=== PATIENT | female | born 1985 | race Caucasian/White ===

== ENCOUNTER 2018-07-27 15:07 | Emergency (ER) | payer MEDICAID, SELFPAY ==
[2018-07-27 15:20] VITALS: BP 127/66; PULSE 69; RESP 16; TEMP 37; O2SAT 99
--- NOTE | 2018-07-27 15:30 | DI.RAD_ITS ---
SYMPTOMS/DIAGNOSIS: RIGHT MEDIAL ELBOW PAIN RIGHT ELBOW: There is soft tissue swelling and a question of elevation of the anterior fat pad. No fracture is seen. IMPRESSION: Question of small joint effusion. No visible fracture.
[2018-07-27] MEDS: Ketorolac 15 MG/ML VIAL IM (15:38)
--- NOTE | 2018-07-27 15:49 | ED.GENADUL_ITS ---
Discharge Plan Disposition Patient Disposition: HOME Condition: Good Discharge Details Chief Complaint: Orthopedic Clinical Impression: Other sprain of right elbow, sequela Primary Care Provider: Elly Osorio ED Provider: Antoine Finn Home Meds and New Rx's Prescriptions: New acetaminophen [Mapap Extra Strength] 500 MG tablet 1,000 mg PO Q6H 5 Days Qty: 60 RF: 0 ibuprofen [Motrin IB] 200 MG tablet 600 mg PO Q6H 5 Days Qty: 60 RF: 0 No Action multivitamin [Once Daily] 1 EACH tablet 1 ea PO DAILY RF: 0 melatonin 5 MG tablet 20 mg PO HS RF: 0 acetaminophen 500 MG tablet 1,000 mg PO BID PRNQty: 360 RF: 3 diclofenac sodium [Voltaren] 100 GM gel 1 film Topical QID Qty: 2 RF: 3 albuterol sulfate 2.5 MG/0.5 ML solution for nebulization 2.5 mg Inhalation Q4H PRN Qty: 30 RF: 3 nebulizers [Aeroeclipse Reusable BAN] 1 EACH misc 1 ea Miscellaneous Q4H PRN Qty: 1 RF: 0 lidocaine [LC-5] 45 GM cream 1 film Topical 2-4 times daily PRN Qty: 1 RF: 3 albuterol sulfate [ProAir HFA] 8.5 GM HFA aerosol inhaler 1 - 2 puff Inhalation Q4-6H PRN Qty: 1 RF: 3 pregabalin [Lyrica] 150 MG capsule 150 mg PO BID Qty: 56 RF: 2 fluoxetine 40 mg capsule See Label Instructions PO DAILY Qty: 90 RF: 3 fluoxetine 10 mg capsule See Label Instructions PO DAILY Qty: 90 RF: 3 mirtazapine 30 mg tablet 30 mg PO HS Qty: 90 RF: 3 Discharge Instructions Instructions: Elbow Sprain (ED), RICE Therapy (ED) Additional Instructions: Please take Tylenol and Motrin for pain. Please apply ice liberally. If you notice any increased pain, any change in the color of your digits, please take off the splint immediately, and come in for evaluation. Please follow-up with Dr. Osman as soon as possible for reassessment. His phone number is [phone]. If you notice any worsening of your symptoms, or any new symptoms such as vomiting, diarrhea, fever, chills, shortness of breath, chest pain, numbness, weakness, or fainting , please return immediately to the emergency department for reevaluation. Please follow up with your primary care provider as soon as possible for reassessment and reevaluation. As always, it was a pleasure participating in your medical care today. Referrals: Elly Osorio NP [Primary Care Provider] - Medical Decision Making MDM Narrative Medical decision making narrative: This is a pleasant 33-year-old female who presents for evaluation of medial elbow pain on the right. She is right-hand dominant. It happened while wrestling. She feels that it was hyperextended during a wrestling match. There is no dislocation she was able to move it normally after the initial event. She had some associated numbness and tingling previously however this is resolved. The initial distribution was over the entire hand and not just the ulnar nerve distribution. At this time she demonstrates normal strength and normal movement of the right upper extremity however there is pain with movement, particularly worse with supination of the forearm, as well as some with flexion of the forearm as well. She demonstrates good 2 point discrimination, brisk capillary refill, normal radial and ulnar pulses. She demonstrates normal movements of all the intrinsic movements of the fingers and thumb. We will get an x-ray to evaluate for any acute fracture. I feel the most likely cause of her symptoms is secondary to a small muscle or ligamentous tear. Will continue rest ice compression elevation at home, recommend close PCP follow 4:06 PM The patient's x-ray results have returned. I discussed the case with the radiologist, they state that there is no acute fracture noted. However there is evidence of an anterior and posterior fat pad. With the patient's notable tenderness, and the anterior and posterior fat-pad I do feel that the splint for the time being for both comfort, and support is indicated. She has seen Dr. Osman in the past and would like to follow-up with him. Being neurovascularly intact, and showing no signs of acute fracture. We discussed red flags for which to return. A posterior elbow splint has been placed. Patient demonstrated good capillary refill post splinting. Patient tolerated the procedure well. She will be discharged home with close follow-up. I have extensively reviewed the treatment plan and discharge instructions with the patient and their family. I have addressed all patient concerns at this time. The patient and family was made aware of what symptoms to monitor for that would warrant a return to the emergency department. Discussed the plan with the patient and family, they demonstrate verbal understanding and agreement with our assessment and plan at this time. HPI - General Adult General Date/Time Provider Initiated Documentation: 07/27/18 15:30 . HPI Narrative: This is a pleasant 33-year-old female with past medical history of fibromyalgia, and arthritis past surgical history of bilateral ankle surgery who presents today for right elbow pain. The patient was states that she was wrestling yesterday when she felt her elbow be hyperextended. There is no dislocation she was able to move the elbow immediately afterwards. She had initially numbness and tingling that extended down to her fingers after the event, as well as pain in a similar distribution. However at this time the numbness and tingling has resolved but the pain remains. The pain is mainly localized around the medial aspect of the right elbow. It is worsened with movement and palpation. She has taken Tylenol with no significant improvement of her symptoms. She has been using ice. She denies any radiation upper arm. She denies any associated chest pain, shortness of breath, coolness, or other symptoms. The patient is not on any blood thinners. She denies any previous injuries to the elbow. She does admit to tobacco use. She denies any IV or illicit drug use. She denies any pertinent family history. She has no other complaints at this time Related Data Home Medications Medication Instructions Recorded Confirmed multivitamin [Once Daily] 1 ea PO DAILY 11/01/14 07/27/18 melatonin 20 mg PO HS 01/10/16 07/27/18 Previous Rx's Medication Instructions Recorded fluoxetine 10 mg capsule See Label Instructions PO DAILY 07/23/18 #90 tab-cap fluoxetine 40 mg capsule See Label Instructions PO DAILY 07/23/18 #90 tab-cap mirtazapine 30 mg tablet 30 mg PO HS #90 tab-cap 07/23/18 acetaminophen [Mapap Extra 1,000 mg PO Q6H 5 Days #60 tab 07/27/18 Strength] ibuprofen [Motrin Ib] 600 mg PO Q6H 5 Days #60 tab 07/27/18 Allergies Allergy/AdvReac Type Severity Reaction Status Date / Time tramadol HCl [From [facility]] Allergy Mild Skin Rash Unverified 07/27/18 15:21 naltrexone microspheres AdvReac Unknown Unverified 07/27/18 15:21 [From [facility]] General Stated Complaint: Orthopedic CHRISTA: 4 Review of Systems Review of Systems 10 point review of systems was performed, pertinent positives and negatives are noted in the history of present illness. PFSH Family History Mother Rheumatoid arthritis Sister No problems noted. Brother No problems noted. Brother No problems noted. Medical History Alcohol abuse Anxiety Asthma Cervical dysplasia Chronic pain Depression Fibromyalgia Hepatitis C History of opioid abuse PTSD (post-traumatic stress disorder) Suicide attempt Tobacco use disorder Social History Smoking/Tobacco Use Status: Current every day Surgical History Cervical Procedure Club Foot Repair Dilation and curettage repair of the left metacarpal phalangeal joint (12/25/16) Exam Narrative Exam Narrative: 1.Const: Well-nourished, Well-developed, appearing stated age 2.Eyes: PERRL, no conjunctival injection, and symmetrical lids. 3.ENT: Atraumatic external nose and ears. Moist MM. Neck: Symmetric, trachea midline, No thyromegaly. 4.CVS: +S1/S2, No murmurs or gallops. Peripheral pulses 2+ and equal in all extremities. Brisk capillary refill in all extremities. 5.RESP: Unlabored respiratory effort. Clear to auscultation bilaterally. No wheezes rales or rhonchi 6.GI: Soft, Nontender/Nondistended, No hepatosplenomegaly. No guarding or rebound. 7.MSK: Normocephalic, patient demonstrates mild swelling just proximal to the medial epicondyle of the right elbow. Minimal swelling just distal to it as well. Notable reproducible tenderness on palpation of the medial epicondyle of the right elbow. No pain over the olecranon, or the distal ulna or the entire radius. No pain with movement of the shoulder. Good 2 point discrimination distally to the site of pain. Sensation is intact in all fingers hands and forearm in the distribution of the median radial and ulnar nerve. Patient demonstrates 5 out of 5 market investigator strength and muscle strength of the right upper extremity especially distal to the injury site. She demonstrates good flexion extension of the wrist pronation and supination. Pain is worsened with supination, and only slightly worsened with pronation. Minimal pain with flexion and extension at the elbow. No significant joint laxity on valgus and varus stressing of the elbow. Radial pulse and ulnar pulse are +2 bilaterally with brisk capillary refill 8.Skin: Warm, Dry. No rashes or lesions. 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 Sensation grossly intact, no focal neurologic deficits. 10.Psych: (AAO) x3. Appropriate mood and affect Course Vital Signs Temperature 37 C 07/27/18 15:20 Pulse 69 07/27/18 15:20 Respiratory Rate 16 07/27/18 15:20 Blood Pressure 127/66 07/27/18 15:20 Pulse Oximetry 99 07/27/18 15:20 Temperature 37 C 07/27/18 15:20 Pulse 69 07/27/18 15:20 Respiratory Rate 16 07/27/18 15:20 Blood Pressure 127/66 07/27/18 15:20 Pulse Oximetry 99 07/27/18 15:20
[2018-07-27 16:18] VITALS: BP 127/66; PULSE 69; RESP 16; TEMP 37; O2SAT 99
== END 2018-07-27 16:16 | disposition home or self-care (01) ==
LOC: ER 16:23
PROVIDERS: Emergency Provider Student in an Organized Health Care Education/Training Program; PCP Nurse Practitioner Family
DX: S43.401A Unspecified sprain of right shoulder joint, initial encounter (principal); Y93.72 Activity, wrestling; R20.0 Anesthesia of skin; R20.2 Paresthesia of skin
CPT/HCPCS: 29105; 96372; 99284; 73080; 99285; J1885; L3650

== ENCOUNTER 2018-09-06 15:38 | Emergency (ER) | payer MEDICAID, SELFPAY ==
[2018-09-06 15:41] VITALS: BP 133/72; PULSE 78; RESP 1; TEMP 36.4; O2SAT 97
--- NOTE | 2018-09-06 15:58 | ED.GENADUL_ITS ---
Discharge Plan Disposition Patient Disposition: HOME Condition: Good Discharge Details Chief Complaint: Abd Prob Clinical Impression: Acid reflux, Gastritis Primary Care Provider: Elly Osorio ED Provider: Antoine Finn Home Meds and New Rx's Prescriptions: New pantoprazole [Protonix] 40 mg tablet,delayed release (DR/EC) 40 mg PO DAILY Qty: 30 RF: 0 ranitidine HCl 150 mg tablet 150 mg PO DAILY Qty: 30 RF: 0 sucralfate [Carafate] 1 gram tablet 1 gm PO ONCE Qty: 30 RF: 0 ondansetron [Zofran ODT] 4 mg tablet,disintegrating 4 mg PO TID PRN (Reason: nausea and vomiting) 5 Days RF: 0 No Action multivitamin [Once Daily] 1 EACH tablet 1 ea PO DAILY RF: 0 melatonin 5 MG tablet 20 mg PO HS RF: 0 acetaminophen 500 MG tablet 1,000 mg PO BID PRNQty: 360 RF: 3 diclofenac sodium [Voltaren] 100 GM gel 1 film Topical QID Qty: 2 RF: 3 albuterol sulfate 2.5 MG/0.5 ML solution for nebulization 2.5 mg Inhalation Q4H PRN Qty: 30 RF: 3 nebulizers [Aeroeclipse Reusable BAN] 1 EACH misc 1 ea Miscellaneous Q4H PRN Qty: 1 RF: 0 lidocaine [LC-5] 45 GM cream 1 film Topical 2-4 times daily PRN Qty: 1 RF: 3 albuterol sulfate [ProAir HFA] 8.5 GM HFA aerosol inhaler 1 - 2 puff Inhalation Q4-6H PRN Qty: 1 RF: 3 pregabalin [Lyrica] 150 MG capsule 150 mg PO BID Qty: 56 RF: 2 fluoxetine 40 mg capsule See Label Instructions PO DAILY Qty: 90 RF: 3 fluoxetine 10 mg capsule See Label Instructions PO DAILY Qty: 90 RF: 3 mirtazapine 30 mg tablet 30 mg PO HS Qty: 90 RF: 3 Discharge Instructions Instructions: Gastritis (ED) Additional Instructions: Please avoid any spicy foods, citrus-based products, mint based products, caffeine, and stop taking the ibuprofen. Please take medication as directed per if you notice any worsening of your symptoms, or any new symptoms such as vomiting, diarrhea, fever, chills, shortness of breath, chest pain, numbness, weakness, or fainting , please return immediately to the emergency department for reevaluation. Please follow up with your primary care provider as soon as possible for reassessment and reevaluation. As always, it was a pleasure participating in your medical care today. Referrals: Elly Osorio NP [Primary Care Provider] - Medical Decision Making This is a 33-year-old female who presents today for left upper quadrant epigastric pain last few weeks, as well as some vomiting over the last 48 hours. Her symptoms have correlated well with when she started taking high- dose NSAIDs for her right elbow pain. She has no hematemesis, she denies any dark or tarry stools. Symptoms are not improved with Pepto-Bismol. She has been continuing to take maximum dose ibuprofen with the symptoms. Physical exam demonstrates no significant tenderness, no reproducible tenderness on abdominal exam, no pain at McBurney's point, negative Sage sign. With no significant abdominal tenderness, and signs and symptoms that correlate clinically with reflux and potential gastric ulcer, I do feel that imaging is not indicated at this time. She shows no signs of an acute or surgical abdomen. We will start Protonix, GI cocktail, Bentyl, rehydrate and reevaluate. 5:33 PM The patient states that she is feeling much better after her initial medications. She does feel slightly nauseous, however the left upper quadrant pain is notably improved. The patient's laboratory workup has returned and demonstrates no evidence of significant leukocytosis or bandemia. Electrolytes are normal, bilirubin, AST and ALT are benign. Lipase is normal. Urinalysis shows no evidence of urinary tract infection. The patient is on her own period And does demonstrate urinalysis indicative of this. But no evidence of sherley hematemesis or melena, and demonstrating a normal laboratory workup, as well as improvement of her symptoms after GI cocktail in conjunction with a clinical history of ibuprofen use and then worsening left upper quadrant epigastric pain feel that her symptoms are clinically consistent with gastritis versus gastric ulcer. We have encouraged the patient to stop taking her ibuprofen, avoid spicy foods, citrus-based foods, and other potential aggravates. We will start her on a reflux regimen. We discussed reasons for which to return, including pertinent red flags and the patient understands. I have extensively reviewed the treatment plan and discharge instructions with the patient and their family. I have addressed all patient concerns at this time. The patient and family was made aware of what symptoms to monitor for that would warrant a return to the emergency department. Discussed the plan with the patient and family, they demonstrate verbal understanding and agreement with our assessment and plan at this time. HPI General Date/Time Provider Initiated Documentation: 09/06/18 15:43 . HPI Narrative: This is a 33-year-old female with a past medical history of PTSD, hepatitis C, fibromyalgia, depression, who presents today for evaluation of abdominal pain. She was seen here a month ago, at which point she was diagnosed with an ulnar collateral ligament sprain on the right elbow, since then she has been taking daily and notable amounts of ibuprofen and Tylenol. She says over the last few weeks she has noticed an increasing amount of left epigastric mild abdominal ache and pain. She has had nausea, but over the last 2 days she has had vomiting roughly 2-8 times per day. The vomitus is yellow and nonbilious. She denies any coffee grounds or hematemesis. Her symptoms are improved by nothing, including Pepto-Bismol. They do not appear to be worsened by anything. She denies any radiation of the pain to other areas of the abdomen. She denies any continuous regular diarrhea, recent antibiotic use, IV or illicit drugs, or blood thinners. She has not been on any recent steroids. She does not take any reflux medications. She denies any previous abdominal surgeries. She denies any pertinent family history. She has no other complaints at this time. Related Data Home Medications Medication Instructions Recorded Confirmed multivitamin [Once Daily] 1 ea PO DAILY 11/01/14 09/06/18 melatonin 20 mg PO HS 01/10/16 09/06/18 acetaminophen 1,000 mg PO BID PRN #360 tab-cap 08/23/16 09/06/18 diclofenac sodium [Voltaren] 1 film TOPICAL QID #2 tube 08/23/16 09/06/18 albuterol sulfate 2.5 mg INHALATION Q4H PRN #30 vial 03/05/17 09/06/18 lidocaine [Lc-5] 1 film TOPICAL 2-4 times daily PRN 04/04/17 09/06/18 #1 tube nebulizers [Aeroeclipse] #1 unit 04/04/17 08/20/18 albuterol sulfate [Proair Hfa] 1 - 2 puff INHALATION Q4-6H PRN #1 06/17/1809/06 inhaler pregabalin [Lyrica] 150 mg PO BID #56 tab-cap 06/17/18 09/06/18 fluoxetine 10 mg capsule See Label Instructions PO DAILY 07/23/18 09/06/18 #90 tab-cap fluoxetine 40 mg capsule See Label Instructions PO DAILY 07/23/18 09/06/18 #90 tab-cap mirtazapine 30 mg tablet 30 mg PO HS #90 tab-cap 07/23/18 09/06/18 ondansetron [Zofran ODT] 4 mg PO TID PRN 5 Days tab 09/06/18 pantoprazole [Protonix] 40 mg PO DAILY #30 tab 09/06/18 ranitidine HCl 150 mg PO DAILY #30 tab 09/06/18 sucralfate [Carafate] 1 gm PO ONCE #30 tab 09/06/18 Previous Rx's Medication Instructions Recorded albuterol sulfate [Proair Hfa] 1 - 2 puff INHALATION Q4-6H PRN #1 06/17/18 inhaler pregabalin [Lyrica] 150 mg PO BID #56 tab-cap 06/17/18 fluoxetine 10 mg capsule See Label Instructions PO DAILY 07/23/18 #90 tab-cap fluoxetine 40 mg capsule See Label Instructions PO DAILY 07/23/18 #90 tab-cap mirtazapine 30 mg tablet 30 mg PO HS #90 tab-cap 07/23/18 ondansetron [Zofran ODT] 4 mg PO TID PRN 5 Days tab 09/06/18 pantoprazole [Protonix] 40 mg PO DAILY #30 tab 09/06/18 ranitidine HCl 150 mg PO DAILY #30 tab 09/06/18 sucralfate [Carafate] 1 gm PO ONCE #30 tab 09/06/18 Allergies Allergy/AdvReac Type Severity Reaction Status Date / Time tramadol HCl [From [facility]] Allergy Mild Skin Rash Unverified 09/06/18 15:53 naltrexone microspheres AdvReac Unknown Unverified 09/06/18 15:53 [From [facility]] General Stated Complaint: Abd Prob CHRISTA: 3 Review of Systems Review of Systems All systems reviewed & are unremarkable except as noted in HPI and below PFSH Family History Mother Rheumatoid arthritis Sister No problems noted. Brother No problems noted. Brother No problems noted. Medical History Alcohol abuse Anxiety Asthma Cervical dysplasia Chronic pain Depression Fibromyalgia Hepatitis C History of opioid abuse PTSD (post-traumatic stress disorder) Suicide attempt Tobacco use disorder Social History Smoking/Tobacco Use Status: Current every day Surgical History Cervical Procedure Club Foot Repair Dilation and curettage repair of the left metacarpal phalangeal joint (12/25/16) Exam Narrative Exam Narrative: 1.Const: Well-nourished, Well-developed, appearing stated age 2.Eyes: PERRL, no conjunctival injection, and symmetrical lids. 3.ENT: Atraumatic external nose and ears. Dry MM. Neck: Symmetric, trachea midline, No thyromegaly. 4.CVS: +S1/S2, No murmurs or gallops. Peripheral pulses 2+ and equal in all extremities. Brisk capillary refill in all extremities. 5.RESP: Unlabored respiratory effort. Clear to auscultation bilaterally. No wheezes rales or rhonchi 6.GI: Soft, Nontender/Nondistended, No hepatosplenomegaly. No guarding or rebound. No flank tenderness. Negative Sage sign, no pain at McBurney's point. 7.MSK: Normocephalic/Atraumatic, Extremities w/o deformity or ttp No cyanosis or clubbing, Normal movement of all extremities 8.Skin: Warm, Dry. No rashes or lesions. 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 Sensation grossly intact, no focal neurologic deficits. 10.Psych: (AAO) x3. Appropriate mood and affect Course Vital Signs Temperature 36.4 C L 09/06/18 15:41 Pulse 78 09/06/18 15:41 Respiratory Rate 1 L 09/06/18 15:41 Blood Pressure 133/72 09/06/18 15:41 Pulse Oximetry 97 09/06/18 15:41 Temperature 36.4 C L 09/06/18 15:41 Temperature Source Skin 09/06/18 15:41 Pulse 78 09/06/18 15:41 Respiratory Rate 1 L 09/06/18 15:41 Respiratory Effort 10/21/18 15:44 Blood Pressure 133/72 09/06/18 15:41 Pulse Oximetry 97 09/06/18 15:41 Pain Level 7 09/06/18 15:41
[2018-09-06 16:08] LABS: Bilirubin Negative (Negative); Blood Moderate (Negative); Clarity Clear; Glucose Negative (Negative); Ketones Negative (Negative); Leukocyte Esterase Negative (Negative); Nitrite Negative (Negative); Urobilinogen 0.2 EU/dL (Up TO 0.2); pH 6.5 (5-8)
[2018-09-06 16:17] LABS: Bacteria Rare HPF (Negative); C & S Indicated? No; Casts Negative LPF (Negative); Crystals Negative HPF (Negative); Epithelial Cells Few HPF (Negative); Mucus Negative (Negative); Other Cells Negative (Negative); WBC Negative HPF (0-5)
[2018-09-06 16:20] LABS: Abs Immature Grans 0.01 k/cumm (0.0-0.09); Absolute Basophil Count 0.02 k/cumm (0.0-0.2); Absolute Eosinophil Count 0.22 k/cumm (0.0-0.7); Absolute Lymphocyte Count 1.09 k/cumm (1.2-3.4); Absolute Monocyte Count 0.49 k/cumm (0.11-0.7); Absolute Neutrophil Count 7.42 k/cumm (1.2-6.7); Basophils % 0.2; Eosinophils % 2.4; HGB 14.8 g/dL (12.0-15.5); Immature Grans % 0.1; Lymphocytes % 11.8; Mean Corp. HGB Concentration 33.6 g/dL (32.0-36.0); Mean Corpuscular Hemoglobin 30.6 pg (27.0-33.0); Mean Corpuscular Volume 91.1 fL (80-95); Mean Platelet Volume 9.2 fL (8.0-11.0); Monocytes % 5.3; Neutrophils % 80.2; Platelet Count 355 x1000/uL (130-400); RBC 4.83 m/cumm (4.00-5.20); RBC Distribution Width 14.2 % (11.7-14.6); White Blood Cell Count 9.25 k/cumm (4.4-10.8)
[2018-09-06] MEDS: Ondansetron 4 MG/2 ML VIAL IVP ×2 (16:22→17:51)
[2018-09-06] MEDS: Lactated Ringers 1,000 ML 1000 ML IV (16:34)
[2018-09-06] MEDS: Pantoprazole 40 MG VIAL IVP (16:35)
[2018-09-06] MEDS: Sucralfate 1 GM TAB PO (16:37)
[2018-09-06] MEDS: Dicyclomine 10 MG CAP PO (16:37)
[2018-09-06 16:50] LABS: ALT 84 U/L (12-78); AST 38 U/L (15-37); Albumin 3.5 g/dL (3.4-5.0); Alkaline Phosphatase 83 U/L (46-116); Anion Gap 9.6 mmol/L (3-11); BUN 11 mg/dL (7-18); Bilirubin, Total 0.4 mg/dL (0.2-1.0); CO2 25.4 mmol/L (21.0-32.0); CREATININE 0.81 mg/dL (0.55-1.02); Calcium 8.5 mg/dL (8.5-10.1); Chloride 103 mmol/L (98-107); Glucose 93 mg/dL (70-100); Lipase 70 U/L (73-393); Potassium 3.9 mmol/L (3.5-5.1); Sodium 138 mmol/L (136-145); Total Protein 7.6 g/dL (6.4-8.2)
[2018-09-06 17:04] VITALS: BP 104/60; PULSE 65; RESP 16; TEMP 37.1; O2SAT 97
== END 2018-09-06 18:21 | disposition home or self-care (01) ==
PROVIDERS: Emergency Provider Student in an Organized Health Care Education/Training Program; PCP Nurse Practitioner Family
DX: K21.9 Gastro-esophageal reflux disease without esophagitis (principal); K52.9 Noninfective gastroenteritis and colitis, unspecified
CPT/HCPCS: 36415; 80053; 81025; 83690; 96361; 96374; 96375; 96376; 99284; 81003; 81015; 85025; J2405

== ENCOUNTER 2018-11-15 10:31 | Emergency (ER) | payer MEDICAID, SELFPAY ==
[2018-11-15 10:42] VITALS: BP 123/64; PULSE 70; RESP 16; TEMP 36.5; O2SAT 97
--- NOTE | 2018-11-15 11:04 | DI.COMBO_ITS ---
SYMPTOM/DIAGNOSIS: COUGH, SENSATION OF FOREIGN BODY IN THROAT, HOARSENESS PA AND LATERAL CHEST: Comparison is made with 08/12/15. The heart size is normal. The lungs are well inflated and clear. No infiltrate or effusion is seen. IMPRESSION: Negative chest xray. NECK CT: A noncontrast exam was performed. There is circumferential mucosal thickening of the right maxillary sinus. The parotid, submandibular and thyroid glands are unremarkable. No adenopathy or mass is seen. There is no evidence of a fluid collection or abscess. No tonsillar enlargement is seen. The epiglottis appears normal. The lung apices appear clear. There are mildly increased interstitial markings and apical bulla. IMPRESSION: Chronic fibrotic changes. No acute abnormality is seen in the neck.
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
[2018-11-15] MEDS: Albuterol/Ipratropium 3 ML UPD VIAL UPD (11:45)
[2018-11-15] MEDS: predniSONE 20 MG TAB 60 MG PO (11:45)
[2018-11-15 12:32] VITALS: BP 109/68; PULSE 72; TEMP 37; O2SAT 98
--- NOTE | 2018-11-15 12:34 | DI.VRAD_ITS ---
EXAM: XR Chest, 2 Views EXAM DATE/TIME: 11/15/2018 12:09 PM CLINICAL HISTORY: 33 years old, female; Signs and symptoms; Cough; Patient HX: Per PT: Cough few weeks, getting worse; After coughing a lot has been seeing some blood; Additional info: Also per PT: After about 2 weeks, albuterol hasn't been working as well TECHNIQUE: XR of the chest, 2 views. COMPARISON: CR CHEST 2 VIEWS PA,LAT 08/12/2015 6:51 PM FINDINGS: Lungs: Unremarkable. No consolidation. Pleural space: Unremarkable. No pleural effusion. No pneumothorax. Heart/Mediastinum: Unremarkable. No cardiomegaly. Bones/joints: Unremarkable. IMPRESSION: No acute findings. Dictated and Authenticated by: Katie El MD. Ordering:CHARLENE Rahman MD
--- NOTE | 2018-11-15 12:53 | DI.VRAD_ITS ---
EXAM: CT Neck Without Contrast EXAM DATE/TIME: 11/15/2018 11:54 AM CLINICAL HISTORY: 33 years old, female; Signs and symptoms; Other: Feeling of foreign body in throat; Patient HX: Sensation of foreign body in throat, hoarse voice, 5 weeks; Additional info: Smoker TECHNIQUE: Axial computed tomography images of the neck without contrast. Coronal and sagittal reformatted images were created and reviewed. COMPARISON: No relevant prior studies available. FINDINGS: Sinuses: Mucosal thickening right maxillary sinus. Oropharynx: Normal. No significant tonsillar enlargement. Hypopharynx: No radiopaque foreign body identified. Larynx: Normal. Normal epiglottis. Submandibular/Parotid glands: Normal. Glands are normal in size. Thyroid: Normal. No enlarged or calcified nodules. Lymph nodes: Normal. No lymphadenopathy. Lung apices: Normal as visualized. Vasculature: No acute findings. Bones/joints: Normal. No acute fracture. Soft tissues: Normal. No significant soft tissue swelling. IMPRESSION: No radiopaque foreign body identified. Dictated and Authenticated by: Daylin Landin MD. Ordering:CHARLENE Rahman MD
[2018-11-15] MEDS: Azithromycin 250 MG TAB 500 MG PO (13:17)
== END 2018-11-15 13:28 | disposition home or self-care (01) ==
PROVIDERS: Emergency Provider Student in an Organized Health Care Education/Training Program; PCP Nurse Practitioner Family
DX: R49.0 Dysphonia (principal); J44.0 Chronic obstructive pulmonary disease with (acute) lower respiratory infection; J20.9 Acute bronchitis, unspecified; J45.909 Unspecified asthma, uncomplicated; F17.210 Nicotine dependence, cigarettes, uncomplicated
CPT/HCPCS: 94640; 99284; 70490; 71046; 99285; J7512; J7620

== ENCOUNTER 2018-11-23 12:10 | Outpatient (CLI) | payer MEDICAID, SELFPAY ==
--- NOTE | 2018-11-23 12:30 | DI.RAD_ITS ---
SYMPTOMS/DIAGNOSIS: COUGH, R05, ? PNEUMONIA CHEST X-RAY, PA AND LATERAL: Comparison is 11/15/18. The heart is normal in size. The lungs are clear. The mediastinal structures and pleura appear intact. IMPRESSION: Normal chest.
== END 2018-11-23 12:30 ==
PROVIDERS: PCP Nurse Practitioner Family; Visit Provider Nurse Practitioner Family
DX: R05 Cough (principal)
CPT/HCPCS: 71046

== ENCOUNTER 2018-12-10 12:52 | Outpatient (REF) | payer MEDICAID, SELFPAY ==
--- NOTE | 2018-12-10 10:00 | PAPFT_PTH ---
PATIENT: Chloe Manriquez LOC: [facility] U#:[id number] AGE/SX: 33/F ROOM: RE12/10/[address]: Elly Osorio APRN : 1985 BED: DIS: 12/10/2018 SPEC #: [id number] RECD: 12/10/18 13:10 STATUS: LAURA RERamírez #: [id number] SHAZIA: 12/10/18 10:[address]: Elly Osorio DEPT: [facility] Cytology RECD BY: Mague See Tissues: 1 - CX/ENDOCX FOR PAP SMEARS Procedures: PAP THIN PREP/[facility] Screening HPV DNA PROBE Comments: [id number] (CHLAMYDIA/GC)
[2018-12-11 14:23] LABS: Chlamydia Result Negative; GC Result Negative; Specimen Description SEE COMMENTS
== END 2018-12-10 13:12 ==
LOC: LBN 12:52
PROVIDERS: PCP Nurse Practitioner Family; Visit Provider Nurse Practitioner Family
DX: Z11.3 Encounter for screening for infections with a predominantly sexual mode of transmission (principal); Z12.4 Encounter for screening for malignant neoplasm of cervix; Z11.51 Encounter for screening for human papillomavirus (HPV)
CPT/HCPCS: 87491; 87591; 88142; 87624

== ENCOUNTER 2019-01-18 15:32 | Outpatient (CLI) | payer MEDICAID, SELFPAY ==
[2019-01-18 16:00] LABS: HCT 37.8 % (36.0-46.0); HGB 12.8 g/dL (12.0-15.5); Mean Corp. HGB Concentration 33.9 g/dL (32.0-36.0); Mean Corpuscular Hemoglobin 29.2 pg (27.0-33.0); Mean Corpuscular Volume 86.1 fL (80-95); Mean Platelet Volume 9.3 fL (8.0-11.0); Platelet Count 406 x1000/uL (130-400); RBC 4.39 m/cumm (4.00-5.20); RBC Distribution Width 14.4 % (11.7-14.6); White Blood Cell Count 9.18 k/cumm (4.4-10.8)
== END 2019-01-18 15:52 ==
PROVIDERS: PCP Nurse Practitioner Family; Visit Provider Obstetrics & Gynecology Gynecology
DX: O03.9 Complete or unspecified spontaneous abortion without complication (principal); Z01.84 Encounter for antibody response examination
CPT/HCPCS: 36415; 85027; 86850; 86900; 86901; 84702

== ENCOUNTER 2019-01-24 18:05 | Observation (INO) | payer MEDICAID, SELFPAY ==
[2019-01-24] VITALS (36 sets, daily range): BP systolic 105–147; BP diastolic 53–82; PULSE 16–108; RESP 15–22; TEMP 36.7–37; O2SAT 93–98
--- NOTE | 2019-01-24 18:25 | DI.CT_ITS ---
SYMPTOMS/DIAGNOSIS: STRANGLED, PETECHIA ON NECK CT ANGIOGRAPHY OF THE NECK: CT angiography was performed with multi slice acquisition and multi planar and 3D reconstruction. Routine examination was performed. There is some patient motion artifact particularly on the more caudal images. Mild atelectatic changes are seen in the lung apices. Small paraseptal emphysematous changes are seen in the lung apices. The visualized portions of the thoracic aortic arch are unremarkable. The common carotid artery is unremarkable without evidence of dissection, occlusion or significant stenosis. The external carotid arteries are unremarkable without evidence of occlusion or significant stenosis. The internal carotid arteries are unremarkable without evidence of occlusion, dissection or significant stenosis. The vertebral arteries are unremarkable without evidence of dissection, occlusion or significant stenosis. The left vertebral artery appears dominant. The visualized portion of the basilar artery is unremarkable without evidence of occlusion, dissection or significant stenosis. There is moderate mucosal thickening in the right maxillary sinus and mild mucosal thickening in the left maxillary sinus. The remaining visualized paranasal sinuses are clear. The mastoid air cells are well pneumatized. No acute fractures or subluxations are seen in the cervical spine. IMPRESSION: No evidence of acute vascular pathology on the CT Angiography of the neck within the limits of the examination.
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
[2019-01-24] MEDS: Normal Saline 1,000 ML 1000 ML IV (18:35)
[2019-01-24] MEDS: Omnipaque 350 MG/ML 100 ML BTL IJ (18:42)
[2019-01-24] MEDS: Normal Saline Flush 10 ML SYR IVP (18:43)
[2019-01-24 18:47] LABS: Abs Immature Grans 0.01 k/cumm (0.0-0.09); Absolute Basophil Count 0.02 k/cumm (0.0-0.2); Absolute Eosinophil Count 0.32 k/cumm (0.0-0.7); Absolute Lymphocyte Count 2.08 k/cumm (1.2-3.4); Absolute Monocyte Count 0.58 k/cumm (0.11-0.7); Basophils % 0.3; ETHANOL BLOOD < 3.0 mg/dL (<3); Eosinophils % 4.8; HCT 37.1 % (36.0-46.0); HGB 12.7 g/dL (12.0-15.5); Immature Grans % 0.2; Lymphocytes % 31.5; Mean Corp. HGB Concentration 34.2 g/dL (32.0-36.0); Mean Corpuscular Hemoglobin 29.5 pg (27.0-33.0); Mean Corpuscular Volume 86.1 fL (80-95); Mean Platelet Volume 8.9 fL (8.0-11.0); Monocytes % 8.8; Neutrophils % 54.4; Platelet Count 380 x1000/uL (130-400); RBC 4.31 m/cumm (4.00-5.20); RBC Distribution Width 14.5 % (11.7-14.6); White Blood Cell Count 6.61 k/cumm (4.4-10.8)
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
[2019-01-24 18:54] LABS: ALT 46 U/L (12-78); AST 35 U/L (15-37); Albumin 3.4 g/dL (3.4-5.0); Alkaline Phosphatase 73 U/L (46-116); Anion Gap 7.7 mmol/L (3-11); BUN 9 mg/dL (7-18); Bilirubin, Total 0.2 mg/dL (0.2-1.0); CO2 28.3 mmol/L (21.0-32.0); CREATININE 0.74 mg/dL (0.55-1.02); Calcium 9.2 mg/dL (8.5-10.1); Chloride 104 mmol/L (98-107); Glucose 91 mg/dL (70-100); Potassium 3.3 mmol/L (3.5-5.1); Sodium 140 mmol/L (136-145); Total Protein 7.5 g/dL (6.4-8.2)
[2019-01-24 18:59] LABS: *AMPHETAMINES SCREEN URINE Negative (Negative); *BARBITURATES SCREEN URINE Negative (Negative); *BENZODIAZEPINES SCREEN URINE Negative (Negative); Cannabinoids THC POSITIVE (Negative); Cocaine Screen,Urine Negative (Negative); METHADONE URINE SCREEN Negative (Negative); OPIATES URINE SCREEN Negative (Negative)
[2019-01-24 19:13] LABS: Salicylate 3.6 mg/dL (2.8-20.0)
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
[2019-01-24 19:22] LABS: Acetaminophen < 2 ug/mL (10-30); Tricyclic Antidepressants Negative (Negative)
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
[2019-01-24] MEDS: Potassium Chloride 10 MEQ TABCR 20 MEQ PO (22:54)
[2019-01-24] MEDS: Heparin 5,000 UNITS/ML VIAL 5000 UNITS SC (23:32)
[2019-01-24] MEDS: Nicotine 21 MG/24 HR PATCH TD (23:33)
[2019-01-25] VITALS (7 sets, daily range): BP systolic 111–129; BP diastolic 68–83; PULSE 61–90; RESP 17–20; TEMP 36.4–37.2; O2SAT 97–98
[2019-01-25] MEDS: Albuterol 2.5 MG/3 ML INH SOLN VIAL UPD (02:50)
[2019-01-25] MEDS: Heparin 5,000 UNITS/ML VIAL 5000 UNITS SC ×3 (07:00→21:48)
[2019-01-25 07:22] LABS: HCT 38.6 % (36.0-46.0); HGB 12.6 g/dL (12.0-15.5); Mean Corp. HGB Concentration 32.6 g/dL (32.0-36.0); Mean Corpuscular Hemoglobin 28.8 pg (27.0-33.0); Mean Corpuscular Volume 88.1 fL (80-95); Mean Platelet Volume 9.2 fL (8.0-11.0); Platelet Count 374 x1000/uL (130-400); RBC 4.38 m/cumm (4.00-5.20); RBC Distribution Width 14.9 % (11.7-14.6); White Blood Cell Count 6.47 k/cumm (4.4-10.8)
[2019-01-25] MEDS: FLUoxetine 20 MG CAP 60 MG PO (07:39)
[2019-01-25] MEDS: Acetaminophen 500 MG TAB 1000 MG PO (07:39)
[2019-01-25] MEDS: Pantoprazole 40 MG TABCR PO (07:40)
[2019-01-25] MEDS: Multivitamin TAB 1 TAB PO (07:40)
[2019-01-25] MEDS: Pregabalin 50 MG CAP 150 MG PO ×2 (07:40→19:54)
[2019-01-25 08:02] LABS: ALT 39 U/L (12-78); AST 28 U/L (15-37); Albumin 2.7 g/dL (3.4-5.0); Alkaline Phosphatase 65 U/L (46-116); Anion Gap 9.4 mmol/L (3-11); BUN 13 mg/dL (7-18); Bilirubin, Total 0.2 mg/dL (0.2-1.0); CO2 25.6 mmol/L (21.0-32.0); CREATININE 0.82 mg/dL (0.55-1.02); Calcium 8.5 mg/dL (8.5-10.1); Chloride 106 mmol/L (98-107); Glucose 99 mg/dL (70-100); Potassium 3.9 mmol/L (3.5-5.1); Sodium 141 mmol/L (136-145); Total Protein 6.5 g/dL (6.4-8.2)
[2019-01-25 08:33] LABS: FREE T4 0.88 ng/dL (0.76-1.46); Magnesium 1.8 mg/dL (1.8-2.4); TSH (W/Ref FT4) 0.27 uIU/mL (0.358-3.74)
[2019-01-25] MEDS: Nicotine 21 MG/24 HR PATCH TD (08:56)
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
[2019-01-25] MEDS: Normal Saline Flush 10 ML SYR IVP (10:58)
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
[2019-01-26] VITALS (11 sets, daily range): BP systolic 106–154; BP diastolic 62–110; PULSE 56–80; RESP 13–22; TEMP 36.4–37.1; O2SAT 95–100
[2019-01-26] MEDS: Zolpidem 5 MG TAB PO (00:56)
[2019-01-26] MEDS: Albuterol 2.5 MG/3 ML INH SOLN VIAL UPD (01:08)
--- NOTE | 2019-01-26 07:54 | POCSPONT_PTH ---
PATIENT: Chloe Manriquez LOC: U#:[id number] AGE/SX: 33/F ROOM: 206 RE01/24/[address]: Jair Vasquez : 1985 BED: A DIS: 01/26/2019 SPEC #: [id number] RECD: 01/26/19 12:35 STATUS: LAURA ROBLERO #: [id number] SHAZIA: 01/26/19 07:[address]: Omid Vazquez DEPT: Surgical Specimen RECD BY: Mague See ENTERED: 01/26/19 12:37 SP TYPE: WOODY DOMINGO DR: Elly Osorio APRN Tissues: 1 - ,SPONTANEOUS CHROMOSOME ANALYSIS PROFILE Procedures: GROSS AND MICRO LEVEL 4 CHROMOSOME ANALYSIS 15-20 CELLS CHROMOSOME ANALYSIS TISSUE CULTURE Comments: [id number] (CYTOGENETICS - [id number]) (SPECIMEN SUBMITTED IN NORMAL SALINE)
[2019-01-26] MEDS: Midazolam 2 MG/2 ML VIAL IVP (08:25)
[2019-01-26] MEDS: Pregabalin 50 MG CAP 150 MG PO (09:46)
[2019-01-26] MEDS: Acetaminophen 500 MG TAB 1000 MG PO (09:46)
[2019-01-26] MEDS: Pantoprazole 40 MG TABCR PO (09:47)
[2019-01-26] MEDS: Multivitamin TAB 1 TAB PO (09:48)
[2019-01-26] MEDS: FLUoxetine 20 MG CAP 60 MG PO (09:48)
[2019-01-26] MEDS: hydrOXYzine HCL 25 MG TAB PO (10:11)
[2019-01-26] MEDS: Nicotine 21 MG/24 HR PATCH TD (10:11)
--- NOTE | 2019-01-26 13:57 | PDOC.CMDIS ---
- If Service Date Differs Date of service: 01/26/19 Time of Service: 13:57 LACE Index Scoring Tool - Questions: Length of Stay (in days): 2 Acuity (Admit via E.D.?): Yes E.D. Visits: 4 - Answers: Total Score: 9 Risk of Readmission: Low Risk Care Management Discharge Reason for Hospitalization: Demise, Suicidal w/ intentional OD Discharge Plan: Chloe will DC to [facility] today. CHRIS spoke with [facility] whom will transport her at 1445. CHRIS spoke with Sandee Hidalgo, whom states that he will meet with Chloe once she arrives and bring her to the halfway. Chloe is aware of the above plan, and would like to go to the [facility] halfway today. Patient/Family Education Needs: Review DC instructions, any limitations, and discuss 'Ask Me Three' Services Needed at Discharge: Transportation (Taxi)
--- NOTE | 2019-01-26 14:03 | CMDISCH_ITS ---
- If Service Date Differs Date of service: 01/26/19 Time of Service: 13:57 LACE Index Scoring Tool - Questions: Length of Stay (in days): 2 Acuity (Admit via E.D.?): Yes E.D. Visits: 4 - Answers: Total Score: 9 Risk of Readmission: Low Risk Care Management Discharge Reason for Hospitalization: Demise, Suicidal w/ intentional OD Discharge Plan: Chloe will DC to [facility] today. CHRIS spoke with [facility] whom will transport her at 1445. CHRIS spoke with Sandee Hidalgo, whom states that he will meet with Chloe once she arrives and bring her to the senior living. Chloe is aware of the above plan, and would like to go to the [facility] senior living today. Patient/Family Education Needs: Review DC instructions, any limitations, and discuss 'Ask Me Three' Services Needed at Discharge: Transportation (Taxi)
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
[2019-01-26] MEDS: Ibuprofen 600 MG TAB PO (14:20)
--- NOTE | 2019-01-27 08:53 | ROE_ITS ---
REPORT OF OPERATIVE PROCEDURE DATE OF PROCEDURE January 26, 2019 PREOPERATIVE DIAGNOSIS Six weeks missed AB. POSTOPERATIVE DIAGNOSIS Six weeks missed AB. PROCEDURE Suction dilation and curettage. SURGEON Cherry García M.D. ANESTHESIA General. COMPLICATIONS None. ESTIMATED BLOOD LOSS Less than 25 cc FLUIDS Per Anesthesia record. FINDINGS Approximately 6 weeks size uterus. SPECIMENS Products of conception for cytogenetics. PROCEDURE The patient was taken to the Operating Room where she was properly identified. She was then placed on the Operating Table in the dorsal supine position. General anesthesia was induced without difficult y. She was then placed in the dorsal lithotomy position and prepped and draped in normal sterile [facility] ion. A formal time-out procedure was then performed confirming patient and procedure. A bi-valved s peculum was placed. The cervix was visualized, grasped on the anterior lip with a single-tooth tenac ulum, then dilated to #16 Mongolian using Rodríguez dilators. A #7 curved firm curette was then advanced int o the uterine cavity and using suction, the entire uterine cavity was evacuated of its contents. A sh grady curettage was then performed with cryo and the curette was re-advanced into the uterine cavity to remove the remaining blood and tissue. All the equipment was removed. Hemostasis was confirmed. The patient was awakened and taken to the Recovery Room in stable condition. Sponge, lap, needle, and instrument counts were correct x2.
== END 2019-01-26 14:50 | disposition other institution (70) ==
LOC: ER 20:35 → MS 21:54
PROVIDERS: Obstetrics & Gynecology; Admitting Provider Family Medicine; Emergency Provider Student in an Organized Health Care Education/Training Program; PCP Nurse Practitioner Family; Visit Provider Family Medicine
PROC: 10D17ZZ Extraction of Products of Conception, Retained, Via Natural or Artificial Opening (ICD-10-PCS; CPT 59841; principal; 2019-01-26 07:30)
DX: T43.592A Poisoning by other antipsychotics and neuroleptics, intentional self-harm, initial encounter (principal); T43.022A Poisoning by tetracyclic antidepressants, intentional self-harm, initial encounter; O02.1 Missed abortion; F17.210 Nicotine dependence, cigarettes, uncomplicated; F43.10 Post-traumatic stress disorder, unspecified; J45.20 Mild intermittent asthma, uncomplicated; Z91.5 Personal history of self-harm; F41.8 Other specified anxiety disorders
CPT/HCPCS: 59820; 36415; 70498; 80053; 80307; 85027; 88305; 93005; 96360; 96361; 99220; 99233; 99239; 99285; 80320; 80329; 83735; 84439; 84443; 85025; 88233; 88262; 93010; 99217; 99226; G0378; J1644; J2250; J2405; J3010; J3490; J7613

== ENCOUNTER 2019-02-03 10:17 | Observation (INO) | payer MEDICAID, SELFPAY ==
[2019-02-03 10:23] VITALS: BP 142/97; PULSE 90; RESP 18; TEMP 37; O2SAT 98
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
[2019-02-03] MEDS: Lactated Ringers 1,000 ML 1000 ML IV (11:39)
[2019-02-03] MEDS: Ketorolac 15 MG/ML VIAL 10 MG IVP (11:40)
[2019-02-03 11:42] LABS: Bilirubin Small (Negative); Blood Moderate (Negative); Clarity Cloudy; Glucose Negative (Negative); Ketones Trace mg/dL (Negative); Leukocyte Esterase Moderate (Negative); Nitrite Negative (Negative); pH 7.5 (5-8)
[2019-02-03 11:47] LABS: Abs Immature Grans 0.04 k/cumm (0.0-0.09); Absolute Basophil Count 0.02 k/cumm (0.0-0.2); Absolute Eosinophil Count 0.08 k/cumm (0.0-0.7); Absolute Lymphocyte Count 1.14 k/cumm (1.2-3.4); Absolute Monocyte Count 0.61 k/cumm (0.11-0.7); Absolute Neutrophil Count 5.35 k/cumm (1.2-6.7); Basophils % 0.3; Eosinophils % 1.1; HCT 39.6 % (36.0-46.0); HGB 13.4 g/dL (12.0-15.5); Immature Grans % 0.6; Lymphocytes % 15.7; Mean Corp. HGB Concentration 33.8 g/dL (32.0-36.0); Mean Corpuscular Hemoglobin 29.2 pg (27.0-33.0); Mean Corpuscular Volume 86.3 fL (80-95); Monocytes % 8.4; Neutrophils % 73.9; Platelet Count 347 x1000/uL (130-400); RBC 4.59 m/cumm (4.00-5.20); RBC Distribution Width 15.2 % (11.7-14.6); White Blood Cell Count 7.24 k/cumm (4.4-10.8)
[2019-02-03 11:49] LABS: C & S Indicated? No/Sq. Contamination; Epithelial Cells Many HPF (Negative)
[2019-02-03 11:57] LABS: Anion Gap 11.6 mmol/L (3-11); BUN 15 mg/dL (7-18); CO2 24.4 mmol/L (21.0-32.0); Chloride 103 mmol/L (98-107); Glucose 113 mg/dL (70-100); Potassium 3.5 mmol/L (3.5-5.1); Sodium 139 mmol/L (136-145)
[2019-02-03 12:09] LABS: HCG Quant, Pregnancy 184 mIU/mL (1-3)
--- NOTE | 2019-02-03 13:00 | DI.US_ITS ---
SYMPTOMS/DIAGNOSIS: 1 WEEK POST D AND C FOR MISSED , WORSENING PAIN SINCE PROCEDURE PELVIC ULTRASOUND: Transabdominal and transvaginal examination was performed. The uterus measures 9.2 cm long x 4.6 cm AP x 5.3 cm transverse. There is complex fluid seen within the endometrial canal. No abnormal blood flow is seen. Cervical nabothian cysts are present. The right ovary measures 2.2 x 1.2 x 1.3 cm, the left ovary measures 2.1 x 1.6 x 1.6 cm. The ovaries appear grossly unremarkable. No evidence of torsion is seen. No free pelvic fluid or hydronephrosis is present. IMPRESSION: Complex fluid is seen within the endometrial canal. No hypervascularity is seen. This may represent complex blood products; infection or retained products cannot be entirely excluded in this patient. The findings were discussed with Dr. Tafoya on the date of the examination.
[2019-02-03 13:45] VITALS: BP 132/57; PULSE 72; RESP 16; TEMP 37.2
[2019-02-03 14:32] VITALS: RESP 1
[2019-02-03] MEDS: Albuterol 2.5 MG/3 ML INH SOLN VIAL UPD (14:32)
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
[2019-02-03] MEDS: CLINDAMYCIN 900 MG/50 ML BAG 50 MG IVPB (15:04)
[2019-02-03 15:23] VITALS: BP 107/66; PULSE 85; RESP 18; TEMP 37.7; O2SAT 96
[2019-02-03] MEDS: HYDROmorphone 2 MG/ML VIAL 1 MG IVP ×2 (15:40→17:55)
[2019-02-03 15:43] VITALS: BP 122/67; PULSE 80; RESP 24; TEMP 37; O2SAT 98
[2019-02-03] MEDS: Lactated Ringers 1,000 ML 125 ML IV (16:14)
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
[2019-02-03] MEDS: Normal Saline Flush 10 ML SYR IVP ×2 (17:56→20:36)
[2019-02-03] MEDS: Bupivacaine 0.25% Pres-Free 30 ML VIAL (19:20)
--- NOTE | 2019-02-03 19:28 | POCSPONT_PTH ---
PATIENT: Chloe Manriquez LOC: U#:[id number] AGE/SX: 34/F ROOM: 211 RE02/03/[address]: Thea Orozco : 1985 BED: A DIS: 02/04/2019 SPEC #: [id number] RECD: 02/04/19 12:28 STATUS: LAURA ROBLERO #: [id number] SHAZIA: 02/03/19 19:[address]: Thea Orozco DEPT: Surgical Specimen RECD BY: Mague See ENTERED: 02/04/19 12:30 SP TYPE: POCSPALCIDES DOMINGO DR: Elly Osorio, ELÍAS Tissues: 1 - ,SPONTANEOUS Procedures: GROSS AND MICRO LEVEL 4 Comments: [id number]
[2019-02-03] MEDS: Pregabalin 50 MG CAP 150 MG PO (20:34)
[2019-02-03] MEDS: Doxycycline Hyclate 100 MG CAP PO (20:35)
[2019-02-03] MEDS: Ketorolac 30 MG/ML VIAL IVP (20:35)
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
[2019-02-03] MEDS: cefTRIAXone 250 MG VIAL IM (21:05)
[2019-02-03] MEDS: Mirtazapine 15 MG TAB 30 MG PO (21:45)
[2019-02-03] MEDS: Nicotine 21 MG/24 HR PATCH TD ×2 (21:55→22:03)
[2019-02-03] MEDS: Water,Injection,Bacteriostatic 30 ML VIAL (21:56)
[2019-02-03 22:57] VITALS: BP 107/64; PULSE 79; RESP 18; TEMP 36.2; O2SAT 96
[2019-02-04] MEDS: Lactated Ringers 1,000 ML 125 ML IV (02:00)
[2019-02-04] MEDS: Ketorolac 30 MG/ML VIAL IVP ×2 (02:24→07:58)
[2019-02-04 07:20] VITALS: BP 148/90; PULSE 70; RESP 18; TEMP 37.3; O2SAT 98
[2019-02-04 07:30] LABS: Abs Immature Grans 0.02 k/cumm (0.0-0.09); Absolute Eosinophil Count 0.02 k/cumm (0.0-0.7); Absolute Lymphocyte Count 1.35 k/cumm (1.2-3.4); Absolute Monocyte Count 0.54 k/cumm (0.11-0.7); Absolute Neutrophil Count 4.52 k/cumm (1.2-6.7); Eosinophils % 0.3; HCT 37.1 % (36.0-46.0); HGB 12.3 g/dL (12.0-15.5); Immature Grans % 0.3; Lymphocytes % 20.9; Mean Corp. HGB Concentration 33.2 g/dL (32.0-36.0); Mean Corpuscular Hemoglobin 29.3 pg (27.0-33.0); Mean Corpuscular Volume 88.3 fL (80-95); Mean Platelet Volume 9.5 fL (8.0-11.0); Monocytes % 8.4; Neutrophils % 70.1; Platelet Count 294 x1000/uL (130-400); RBC Distribution Width 15.3 % (11.7-14.6); White Blood Cell Count 6.45 k/cumm (4.4-10.8)
[2019-02-04] MEDS: FLUoxetine 20 MG CAP 60 MG PO (07:58)
[2019-02-04] MEDS: Pregabalin 50 MG CAP 150 MG PO (07:58)
[2019-02-04] MEDS: Doxycycline Hyclate 100 MG CAP PO (07:59)
[2019-02-04] MEDS: Pantoprazole 40 MG TABCR PO (07:59)
[2019-02-04] MEDS: Ondansetron O.D.T. 4 MG TABEF PO (08:58)
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
== END 2019-02-04 10:32 | disposition home or self-care (01) ==
LOC: ER 15:28 → MS 15:59
PROVIDERS: Obstetrics & Gynecology; Admitting Provider Obstetrics & Gynecology Gynecology; Emergency Provider Emergency Medicine; PCP Nurse Practitioner Family; Visit Provider Obstetrics & Gynecology Gynecology
PROC: 10D17Z9 Manual Extraction of Products of Conception, Retained, Via Natural or Artificial Opening (ICD-10-PCS; CPT 59812; principal; 2019-02-03 18:45)
DX: O73.1 Retained portions of placenta and membranes, without hemorrhage (principal); O03.5 Genital tract and pelvic infection following complete or unspecified spontaneous abortion; Z98.890 Other specified postprocedural states
CPT/HCPCS: 59812; 36415; 80048; 81025; 87077; 88305; 94640; 96361; 96365; 96367; 96375; 99223; 99231; 99238; 99285; 76830; 76856; 81003; 81015; 84702; 85025; 87070; 87205; G0378; J0696; J1580; J1885; J7613

== ENCOUNTER 2019-04-01 06:19 | Emergency (ER) | payer MEDICAID, SELFPAY ==
[2019-04-01 06:22] VITALS: BP 124/68; PULSE 66; RESP 16; TEMP 36.5; O2SAT 94
[2019-04-01] MEDS: Fluorescein STRIPS 100/BOX 1 MG OP (06:33)
[2019-04-01] MEDS: Tetracaine 0.5% 4 ML BTL OP (06:33)
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
[2019-04-01 07:35] VITALS: BP 124/68; PULSE 66; RESP 16; TEMP 36.5; O2SAT 94
== END 2019-04-01 07:35 | disposition home or self-care (01) ==
PROVIDERS: Emergency Provider Emergency Medicine; PCP Nurse Practitioner Family
DX: H57.11 Ocular pain, right eye (principal)
CPT/HCPCS: 99283

== ENCOUNTER 2019-04-22 12:20 | Emergency (ER) | payer MEDICAID, SELFPAY ==
[2019-04-22 12:22] VITALS: BP 144/73; PULSE 78; RESP 16; TEMP 37.1; O2SAT 97
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
[2019-04-22] MEDS: Ketorolac 30 MG/ML VIAL IM (12:57)
== END 2019-04-22 13:02 | disposition home or self-care (01) ==
PROVIDERS: Emergency Provider Student in an Organized Health Care Education/Training Program; PCP Nurse Practitioner Family
DX: M25.531 Pain in right wrist (principal); G89.29 Other chronic pain; G56.01 Carpal tunnel syndrome, right upper limb
CPT/HCPCS: 29125; 96372; 99284; J1885; L3908

== ENCOUNTER 2019-06-09 19:16 | Emergency (ER) | payer SELFPAY ==
[2019-06-09 19:21] VITALS: BP 121/87; PULSE 85; RESP 18; TEMP 37.6; O2SAT 98
[2019-06-09] MEDS: Normal Saline 1,000 ML 1000 ML IV ×2 (20:10→21:52)
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
[2019-06-09] MEDS: Normal Saline Flush 10 ML SYR IVP (20:18)
[2019-06-09 20:21] LABS: Abs Immature Grans 0.01 k/cumm (0.0-0.09); Absolute Basophil Count 0.04 k/cumm (0.0-0.2); Absolute Eosinophil Count 0.26 k/cumm (0.0-0.7); Absolute Lymphocyte Count 1.83 k/cumm (1.2-3.4); Absolute Monocyte Count 0.73 k/cumm (0.11-0.7); Absolute Neutrophil Count 6.02 k/cumm (1.2-6.7); Basophils % 0.4; Eosinophils % 2.9; HCT 45.3 % (36.0-46.0); HGB 15.3 g/dL (12.0-15.5); Immature Grans % 0.1; Lymphocytes % 20.6; Mean Corp. HGB Concentration 33.8 g/dL (32.0-36.0); Mean Corpuscular Hemoglobin 29.9 pg (27.0-33.0); Mean Corpuscular Volume 88.6 fL (80-95); Monocytes % 8.2; Neutrophils % 67.8; Platelet Count 361 x1000/uL (130-400); RBC 5.11 m/cumm (4.00-5.20); White Blood Cell Count 8.89 k/cumm (4.4-10.8)
[2019-06-09 20:34] LABS: HCG Qual (Serum) Negative
[2019-06-09 20:36] LABS: ALT 68 U/L (12-78); AST 46 U/L (15-37); Albumin 3.8 g/dL (3.4-5.0); Alkaline Phosphatase 82 U/L (46-116); Anion Gap 9.4 mmol/L (3-11); BUN 10 mg/dL (7-18); Bilirubin, Total 0.4 mg/dL (0.2-1.0); CO2 26.6 mmol/L (21.0-32.0); CREATININE 0.85 mg/dL (0.55-1.02); Calcium 9.3 mg/dL (8.5-10.1); Chloride 98 mmol/L (98-107); Glucose 89 mg/dL (70-100); Lipase 42 U/L (73-393); Magnesium 1.9 mg/dL (1.8-2.4); Sodium 134 mmol/L (136-145); Total Protein 8.3 g/dL (6.4-8.2)
--- NOTE | 2019-06-09 20:43 | DI.CT_ITS ---
SYMPTOM/DIAGNOSIS: ABD PAIN, PERIUMBILICAL CT ABDOMEN AND PELVIS: The lung bases are clear. The liver, gallbladder, spleen, pancreas, kidneys and adrenals appear normal. Two cysts area seen on the right ovary. The left ovary and uterus are unremarkable. There is a normal quantity of stool. The appendix projects in the right upper quadrant and appears normal. There is no bowel dilatation or wall thickening. Degenerative disc changes are seen at L5-S1. IMPRESSION: No acute abnormality.
[2019-06-09] MEDS: Omnipaque 350 MG/ML 100 ML BTL IJ (20:58)
[2019-06-09 21:24] LABS: Bilirubin Negative (Negative); Blood Negative (Negative); Clarity Clear (Clear); Glucose Negative (Negative); Ketones Negative (Negative); Leukocyte Esterase Negative (Negative); Nitrite Negative (Negative); Urobilinogen 0.2 EU/dL (Up TO 0.2)
[2019-06-09] MEDS: ACETAMINOPHEN 1,000 MG/100 ML BTL 400 MG IVPB (21:37)
--- NOTE | 2019-06-09 21:43 | DI.VRAD_ITS ---
EXAM: CT Abdomen and Pelvis With Contrast EXAM DATE/TIME: 06/09/2019 8:44 PM CLINICAL HISTORY: 34 years old, female; Abdominal pain; Periumbilical; Additional info: Pain x1 year, increasing in intensity over last 5 days with nausea and vomiting and diarrhea TECHNIQUE: Imaging protocol: Axial computed tomography images of the abdomen and pelvis with intravenous contrast. Coronal and sagittal reformatted images were created and reviewed. Radiation optimization: All CT scans at this facility use at least one of these dose optimization techniques: automated exposure control; mA and/or kV adjustment per patient size (includes targeted exams where dose is matched to clinical indication); or iterative reconstruction. Contrast material: [id number];Contrast volume: 100 ml;Contrast route: IN 20G RT FOREARM; COMPARISON: US PELVIS TRANSVAGINAL 02/03/2019 3:34 PM FINDINGS: Liver: Normal. No mass. Gallbladder and bile ducts: Normal. No calcified stones. No ductal dilation. Pancreas: Normal. No ductal dilation. Spleen: Normal. No splenomegaly. Adrenals: Normal. No mass. Kidneys and ureters: Normal. No hydronephrosis. Stomach and bowel: The stomach is within normal limits. No evidence of bowel obstruction. No wall thickening to suggest enteritis. Mild wall thickening in the rectum without surrounding inflammation likely is related to under distention. No evidence of colitis. Moderate stool burden throughout the colon. Appendix: The appendix is within normal limits without evidence of acute appendicitis, located at the inferior tip of the liver. Intraperitoneal space: See Reproductive Finding. Vasculature: Normal. No abdominal aortic aneurysm. Lymph nodes: Normal. No enlarged lymph nodes. Bladder: Unremarkable as visualized. Reproductive: The uterus is anteverted. There may be a small volume of free fluid in the endometrial canal, but not well evaluated on CT. The ovaries are within normal limits noting a right corpus luteal cyst and simple right cyst measuring 2.9 cm, likely a normal physiological follicle. Bones/joints: Mild bilateral sacroiliitis. Degenerative changes at L5-S1. Chronic appearing limbus deformity of the L4 anterior superior endplate. Soft tissues: Tiny fat containing umbilical hernia. No bowel within the hernia or evidence of inflammation. Other findings: No acute findings in the lower chest. IMPRESSION: No acute findings in the abdomen or pelvis. Nonemergent findings as described above. Dictated and Authenticated by: Anu Reardon MD. Ordering:DESHAWN Cadena MD
--- NOTE | 2019-06-09 22:49 | NUR.NOTE ---
faxed Nursing Note: faxed referal to general surgery 06/09/19
[2019-06-09 22:56] VITALS: BP 118/59; PULSE 64; RESP 16; TEMP 36.9; O2SAT 97
== END 2019-06-09 23:06 | disposition home or self-care (01) ==
PROVIDERS: Emergency Provider Nurse Practitioner Family; PCP Nurse Practitioner Family
DX: R11.2 Nausea with vomiting, unspecified (principal); K21.9 Gastro-esophageal reflux disease without esophagitis
CPT/HCPCS: 36415; 80053; 83690; 96361; 96374; 96375; 99285; 74177; 81003; 83735; 84703; 85025; 99284; J0131; J3490

== ENCOUNTER 2019-06-22 10:04 | Outpatient (REF) | payer MEDICAID, SELFPAY ==
--- NOTE | 2019-06-22 09:30 | PAPFT_PTH ---
PATIENT: Chloe Manriquez LOC: [facility] U#:[id number] AGE/SX: 34/F ROOM: RE06/22/[address]: Lucio Cason MD : [id number] BED: DIS: 06/22/2019 SPEC #: [id number] RECD: 06/22/19 13:16 STATUS: LAURA RERamírez #: [id number] SHAZIA: 06/22/19 09:[address]: Lucio Cason [facility]PT[facility] Cytology RECD BY: Mague See ENTERED: 06/22/19 13:16 SP TYPE: PAPFT OTHR DR: Elly Osorio APRN Tissues: 1 - CX/ENDOCX FOR PAP SMEARS Procedures: PAP THIN PREP/UVM Screening HPV DNA PROBE Comments: [id number]
== END 2019-06-22 10:24 ==
LOC: LBN 10:04
PROVIDERS: PCP Nurse Practitioner Family; Visit Provider Obstetrics & Gynecology
DX: Z12.4 Encounter for screening for malignant neoplasm of cervix (principal); Z11.51 Encounter for screening for human papillomavirus (HPV)
CPT/HCPCS: 88142; 87624

== ENCOUNTER 2019-09-29 14:11 | Emergency (ER) | payer MEDICAID, SELFPAY ==
[2019-09-29] VITALS (24 sets, daily range): BP systolic 111–149; BP diastolic 56–98; PULSE 62–95; RESP 10–25; TEMP 36.3–37.4; O2SAT 95–100
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
[2019-09-29] MEDS: Albuterol/Ipratropium 3 ML UPD VIAL UPD ×2 (14:40→16:26)
[2019-09-29] MEDS: predniSONE 20 MG TAB 60 MG PO (15:16)
--- NOTE | 2019-09-29 16:05 | DI.RAD_ITS ---
EXAM: XR CHEST 2V PA LATERAL INDICATION: SOB, cough. COMPARISON: XR CHEST 2V PA LATERAL from 11/23/2018 TECHNIQUE: 2D digital imaging was performed. FINDINGS: The cardiac and mediastinal contours have a normal appearance. The lungs are well inflated and luis ar. No infiltrate, effusion or pneumothorax is seen. The spine is unremarkable. IMPRESSION: Negative chest x-ray.
--- NOTE | 2019-09-29 16:29 | DI.VRAD_ITS ---
PROCEDURE INFORMATION: Exam: XR Chest, 2 Views Exam date and time: 09/29/2019 4:06 PM Clinical history: 34 years old, female; Other: SOB, cough TECHNIQUE: Imaging protocol: XR of the chest Views: 2 views. COMPARISON: CR XR CHEST 2V PA LATERAL 11/23/2018 12:17 PM FINDINGS: Lungs: Hyperinflation, without acute air space disease. Pleural space: No pleural effusion. Heart/Mediastinum: Normal configuration of the heart. Bones/joints: Unremarkable. When correlating with the previous study, no significant interval changes are present. IMPRESSION: Stable appearance of the chest, not significantly changed from 11/23/2018. Dictated and Authenticated by: Ulices Rucker MD. Ordering:NICOL Ching MD
== END 2019-09-29 17:25 | disposition home or self-care (01) ==
PROVIDERS: Emergency Provider Emergency Medicine; PCP Nurse Practitioner Family
DX: J20.9 Acute bronchitis, unspecified (principal); F17.210 Nicotine dependence, cigarettes, uncomplicated
CPT/HCPCS: 36415; 80053; 87449; 93005; 94640; 96374; 99285; 71046; 83735; 85025; 93010; 99284; J7512; J7620

== ENCOUNTER 2019-12-10 08:30 | Emergency (ER) | payer MEDICAID, SELFPAY ==
[2019-12-10] VITALS (16 sets, daily range): BP systolic 143–178; BP diastolic 83–154; PULSE 82–123; RESP 12–26; TEMP 36.7; O2SAT 97–100
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
[2019-12-10] MEDS: Metoclopramide 10 MG/2 ML VIAL IVP (09:02)
[2019-12-10] MEDS: Lactated Ringers 1,000 ML 1000 ML IV (09:16)
[2019-12-10] MEDS: PHENobarbital 64.8 MG TAB 700 MG PO (09:36)
[2019-12-10] MEDS: Acetaminophen 500 MG TAB (09:37)
[2019-12-10] MEDS: Albuterol 2.5 MG/3 ML INH SOLN VIAL UPD (09:37)
[2019-12-10 10:32] LABS: Bilirubin Small (Negative); Blood Negative (Negative); Clarity Sl Cloudy (Clear); Glucose Negative (Negative); Ketones Trace mg/dL (Negative); Leukocyte Esterase Negative (Negative); Nitrite Negative (Negative); pH 8.5 (5-8)
[2019-12-10 10:41] LABS: C & S Indicated? No/Sq. Contamination; Epithelial Cells Many HPF (Negative); Mucus Moderate (Negative)
== END 2019-12-10 10:57 | disposition home or self-care (01) ==
PROVIDERS: Emergency Provider Emergency Medicine; PCP Nurse Practitioner Family
DX: R11.10 Vomiting, unspecified (principal); F10.239 Alcohol dependence with withdrawal, unspecified
CPT/HCPCS: 81025; 94640; 96361; 96374; 99284; 81003; 81015; 99283; J2765; J7613

== ENCOUNTER 2019-12-17 17:11 | Emergency (ER) | payer MEDICAID, SELFPAY ==
[2019-12-17 17:21] VITALS: BP 126/70; PULSE 86; RESP 12; TEMP 35.9; O2SAT 96
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
--- NOTE | 2019-12-17 17:43 | NUR.NOTE ---
Nursing Note: unable to confirm pt's medications at this time r/t intoxication.
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
--- NOTE | 2019-12-17 20:40 | NUR.NOTE ---
Nursing Note: Pt exited ED after trying to be convinced to stay while awaiting [facility] pickup for ICP. Pt was accompanied by this advertising writer while she walked out of the door, jumped off of the ambulance bay, and walked through the parking lot toward the road. Pt wearing dark clothing- local PD called. Watched pt from [facility] while she walked down [facility]. Provider aware, hospital security aware and present. ABOVE WRITTEN BY Sruthi ACOSTA RN. ERROR IN ENTRY. ALLAN EDWARDS MADE AWARE OF THIS.
== END 2019-12-17 20:45 | disposition home or self-care (01) ==
PROVIDERS: Emergency Provider Physician Assistant; PCP Nurse Practitioner Family
DX: F10.120 Alcohol abuse with intoxication, uncomplicated (principal); Y90.8 Blood alcohol level of 240 mg/100 ml or more; Z59.0 Homelessness
CPT/HCPCS: 99285; 99283

== ENCOUNTER 2020-04-14 17:52 | Emergency (ER) | payer MEDICAID, SELFPAY ==
[2020-04-14 17:35] VITALS: BP 139/85; PULSE 108; RESP 18; TEMP 36.9; O2SAT 98
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
[2020-04-14] MEDS: Acetaminophen 500 MG TAB 1000 MG PO (18:16)
[2020-04-14] MEDS: Ibuprofen 600 MG TAB PO (18:16)
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
[2020-04-14 19:09] VITALS: BP 139/85; PULSE 108; RESP 18; TEMP 36.9; O2SAT 98
== END 2020-04-14 19:10 | disposition home or self-care (01) ==
LOC: ER 19:09
PROVIDERS: Emergency Provider Physician Assistant; PCP Nurse Practitioner Family
DX: S80.00XA Contusion of unspecified knee, initial encounter (principal); Y35.813A Legal intervention involving manhandling, suspect injured, initial encounter
CPT/HCPCS: 29505; 99285; 73564; 99283; L1810

== ENCOUNTER 2020-04-19 01:58 | Inpatient (IN) | payer MEDICAID, SELFPAY ==
[2020-04-19] VITALS (7 sets, daily range): BP systolic 120–158; BP diastolic 73–87; PULSE 67–108; RESP 17–22; TEMP 35.8–36.9; O2SAT 95–98
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
--- NOTE | 2020-04-19 10:24 | NUR.NOTE ---
continuing to check on pt - still resting - adjusting position occassionally Nursing Note:
--- NOTE | 2020-04-19 10:49 | NUR.NOTE ---
pt awake. drinking water. ambulated to bathroom. speaking with pole frame construction worker. Nursing Note:
[2020-04-19] MEDS: Ondansetron O.D.T. 4 MG TABEF PO (11:35)
--- NOTE | 2020-04-19 11:37 | CMSP_ITS ---
- If Service Date Differs Date of service: 04/19/20 Time of Service: 11:37 Care Management Safety Plan Chief Complaint: Chloe is a 35-year-old female who was brought to the ED by police during the community health planning director hours due to being heavily intoxicated with altered mental status, slurred speech and unsteady gait. This morning, Chloe reports having little memory of last evening. She states she was living in sober housing but was kicked out approximately a week ago after going out with her boyfriend and drinking alcohol. She is currently homeless. Chloe admits to feeling depressed and to having suicidal thoughts with a plan to overdose on medications. She states she is tired of living like this, of struggling with substance use and of feeling hopeless and is asking for help. A telehealth evaluation of Chloe was done by Connie [facility] pole frame construction worker, this morning. [facility] a referral for review. [facility], [facility], and [facility] are all full. [facility] is yet to provide their bed status. VOLUNTARY FOR INPATIENT PSYCHIATRIC STABILIZATION. Patient is appropriate in all interactions since arriving at [facility]; Patient has demonstrated appropriate coping and communication skills, has articulated her needs and concerns and is fully engaged during staff interactions. Safety plan has been established with patient, and care team, to adhere to pat ient goals, identify restrictions based on behavioral status, address nutrition, and determine allowed personal belongings, tools for hygiene and personal care. Determine level of activity including ambulation, level of supervision, visitors, and determine privileges based on behaviors and level of engagement by patient. SAFETY PLAN: 1. Will remain on suicide precautions and in paper clothes. 2. Will remain in room under direct supervision of one-on-one staff at all times provided by [facility]; GARRETT, TRAFFIC RATE ANALYST director of dietary. 3. May have paper cups, plates, finger foods as well as a metal spoon with which to eat meals. [facility] staff will be responsible for removing spoon once patient is done eating. 4. Follow [facility] Management of the Admitted Behavioral Health Patient policy. 5. Comfort bath system only while in the ED. Patient will be allowed to shower with supervision at nursing discretion, if moved to Med/Surg. 6. No personal belongings 7. Visitors-No visitors at this time 8. Activities: None while in the ED. If patient is moved to Med/Surg, she will be allowed television, soft tip markers, paper, books, and other activities at nursing discretion. 9. Bathroom privileges: While in the ED, must be accompanied by staff. If patient is moved to Med/Surg, she will be allowed to use the bathroom in her room without supervision. 10. Phone: No phone privileges at this time. 11. Due to VOLUNTARY status, if patient wishes to leave [facility], the [facility] particleboard factory worker must be contacted to re-evaluate patient prior to patient exiting the building. Patient is currently voluntarily at [facility] and seeking inpatient admission when a bed becomes available. [facility] Frontline Applications Consultant will continue seeking placement. Please contact the Group Exercise Class Instructor Nurse Esthetician ([phone]) and [facility] Applications Consultant ([phone]) for any needed changes in the Safety Plan. Safety plan has been provided to interdepartmental care team.
[2020-04-19 12:00] LABS: Abs Immature Grans 0.01 k/cumm (0.0-0.09); Absolute Basophil Count 0.02 k/cumm (0.0-0.2); Absolute Eosinophil Count 0.17 k/cumm (0.0-0.7); Absolute Lymphocyte Count 1.75 k/cumm (1.2-3.4); Absolute Monocyte Count 0.46 k/cumm (0.11-0.7); Absolute Neutrophil Count 4.32 k/cumm (1.2-6.7); Basophils % 0.3; Eosinophils % 2.5; HCT 37.5 % (36.0-46.0); HGB 12.4 g/dL (12.0-15.5); Immature Grans % 0.1 %; Mean Corp. HGB Concentration 33.1 g/dL (32.0-36.0); Mean Corpuscular Hemoglobin 30.8 pg (27.0-33.0); Mean Corpuscular Volume 93.3 fL (80-95); Mean Platelet Volume 8.3 fL (8.0-11.0); Monocytes % 6.8; Neutrophils % 64.3; Platelet Count 346 x1000/uL (130-400); RBC 4.02 m/cumm (4.00-5.20); RBC Distribution Width 14.8 % (11.7-14.6); White Blood Cell Count 6.73 k/cumm (4.4-10.8)
[2020-04-19] MEDS: Acetaminophen 500 MG TAB 1000 MG PO ×2 (12:04→21:04)
--- NOTE | 2020-04-19 12:07 | PDOC.MHCN_ITS ---
Date of service: 04/19/20 Time of Service: 11:07 Mental Health Crisis Note Presenting Issue How did you arrive at the ED and why did you come: Sidra arrived to the ER early this am by LE as she reported her knee hurt and was under the influence of ETOH. ER did not feel she was safe to leave. Precipitating Factors Sidra endorses SI today with plan to o.d. She is seeking a voluntary admission to a hospital today if possible. There are no signs of any delusions or hallucinations. Disposition BEHAVIOR: Sidra is cooperative and engaged in the assessment. She asks questions appropriately and seems to be forthcoming and honest. She appears slightly agitated as she louise her hair frequently when she is frustrated. EYE CONTACT: Sidra's eye contact is fair considering the assessment is via zoom. MOOD: Sidra's mood appears sad, concerned and frustrated with herself if she keeps going like this. AFFECT: Sidra's affect is flat throughout the assessment. APPETITE: Sidra reports her appetite is up and down depending on the day. SLEEP(trouble falling/staying asleep: Sidra reports 5 hours max of sleep nightly. Plan All hospitals were called and none available for admission today. [facility] was the only one who has available beds but needs to have the results of a and COVID-19 before they can accept. Communication with Tram Damian, menagerie caretaker for [facility] throughout the day. All but Urine results were faxed to [facility]. I will have ER clinician tomorrow do follow up assessment and forward any outstanding information to [facility] as necessary. If Urine results get to me before 5pm I will forward them. Sidra will be moved upstairs while she awaits a placement. Signature Clinician's Name/Title: Connie Palm, MS, [facility] Emergency Services Clinician
[2020-04-19 12:10] LABS: ALT 62 U/L (14-59); AST 98 U/L (15-37); Albumin 3.3 g/dL (3.4-5.0); Alkaline Phosphatase 92 U/L (46-116); Anion Gap 11.9 mmol/L (3-11); BUN 13 mg/dL (7-18); Bilirubin, Total 0.5 mg/dL (0.2-1.0); CO2 25.1 mmol/L (21.0-32.0); CREATININE 0.77 mg/dL (0.55-1.02); Chloride 103 mmol/L (98-107); ETHANOL BLOOD 183.8 mg/dL (<3); Glucose 75 mg/dL (74-106); Potassium 3.9 mmol/L (3.5-5.1); Sodium 140 mmol/L (136-145); Total Protein 7.4 g/dL (6.4-8.2)
[2020-04-19 12:24] LABS: Salicylate 3.3 mg/dL (2.8-20.0)
[2020-04-19 12:33] LABS: Acetaminophen < 2 ug/mL (10-30)
[2020-04-19 16:12] LABS: *AMPHETAMINES SCREEN URINE Negative (Negative); *BARBITURATES SCREEN URINE Negative (Negative); *BENZODIAZEPINES SCREEN URINE Negative (Negative); Cannabinoids THC POSITIVE (Negative); Cocaine Screen,Urine Negative (Negative); METHADONE URINE SCREEN POSITIVE (Negative); OPIATES URINE SCREEN Negative (Negative)
[2020-04-19 16:19] LABS: TSH 0.27 uIU/mL (0.36-3.74)
[2020-04-19 16:24] LABS: Tricyclic Antidepressants Negative (Negative)
[2020-04-19] MEDS: Gabapentin 300 MG CAP PO ×2 (17:31→21:04)
[2020-04-19] MEDS: Pantoprazole 40 MG TABCR PO (17:31)
[2020-04-19] MEDS: buPROPion-XL 150 MG TABCR 300 MG PO (17:31)
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
[2020-04-19 19:03] LABS: FREE T4 0.93 ng/dL (0.76-1.46)
[2020-04-19] MEDS: chlordiazePOXIDE 25 MG CAP PO (21:04)
[2020-04-19] MEDS: Melatonin 3 MG TAB 18 MG PO (21:17)
[2020-04-19] MEDS: Mirtazapine 15 MG TAB 30 MG PO (21:17)
[2020-04-19] MEDS: MAGNESIUM SULFATE 8.12 MEQ, MULTIVITAMIN 10 ML, THIAMINE 100 MG, FOLIC ACID 1 MG in Nor... 168.867 MG IV (21:18)
[2020-04-19] MEDS: LORazepam 1 MG TAB PO/SL (21:27)
[2020-04-20] VITALS (8 sets, daily range): BP systolic 129–153; BP diastolic 71–95; PULSE 71–83; RESP 17–18; TEMP 36.5–37.3; O2SAT 90–99
--- NOTE | 2020-04-20 | DI.MRI_ITS ---
EXAM: MR LOWER JOINT LT WO CLINICAL HISTORY: unstable knee, ?LCL rupture, dislocation. TECHNIQUE: Multiplanar multisequence MRI was performed. COMPARISON: No exams were available for comparison FINDINGS: MR of the knee was performed according to the usual protocol. Patient has suspected dislocation of t he knee. There is a large knee joint effusion and there is marked free joint fluid and soft tissue edema and m ultiple soft tissue planes around the knee. Bones: No fracture is identified per se but there appears to be avulsion of the periosteum of the pro ximal fibula at the attachment of the biceps femoris with marked displacement of the torn periosteum and biceps femoris. Lateral compartment: There is a severe posterolateral corner injury with disruption of the popliteus tendon and displacement laterally, arcuate ligament injury, lateral collateral ligament displaced tea r, no definite lateral meniscal tear although the patient would be at very high risk for lateral meni scal tear. Medial compartment: No medial meniscal tear. There is probable grade 2 medial collateral ligament te ar. Cruciate ligaments: Posterior cruciate ligament appears intact. Complete tear of the anterior crucia te ligament which is displaced. Tendons: There appear to be partial thickness musculotendinous tears of both gastrocnemius muscles. No gross displacement. Extensor mechanism:. No tendon tear. No patellar fracture. No patellar dislocation. Superior and inferior fat pads grossly unremarkable. Probable medial retinacular attachment partial tear. Articular cartilage: Minimal surface irregularity of medial femoral condyle. No other significant ar ticular cartilage injury or degeneration. IMPRESSION: Complex dislocation injury of the knee, major components appear to include ACL tear, severe posterola teral corner tear involving multiple structures as described above, medial retinacular and medial col lateral ligament injuries, and probable medial and lateral gastrocnemius tears. DATA REPOSITORY:
--- NOTE | 2020-04-20 | DI.RAD_ITS ---
EXAM: XR KNEE LT 4V AP,LAT,JOHANNA,PAT CLINICAL HISTORY: trauma, effusion, patella pain, sunrise view TECHNIQUE: COMPARISON: CR,XR XR KNEE LT 4V AP,LAT,JOHANNA,PAT from 04/14/2020 FINDINGS: Four views were obtained. No bony or soft tissue abnormality seen. No fracture or effusion seen. IMPRESSION:
[2020-04-20] MEDS: Lactated Ringers 1,000 ML 100 ML IV (03:26)
[2020-04-20] MEDS: Acetaminophen 500 MG TAB 1000 MG PO ×2 (07:32→13:56)
[2020-04-20] MEDS: Gabapentin 300 MG CAP PO ×3 (07:32→19:43)
[2020-04-20] MEDS: chlordiazePOXIDE 25 MG CAP PO ×4 (07:32→19:43)
[2020-04-20] MEDS: Pantoprazole 40 MG TABCR PO (07:43)
[2020-04-20] MEDS: buPROPion-XL 150 MG TABCR 300 MG PO (07:43)
[2020-04-20] MEDS: Normal Saline Flush 10 ML SYR IVP ×3 (07:44→19:44)
[2020-04-20] MEDS: NORETHINDRONE 0.35 MG 0.35 EACH PO (09:46)
[2020-04-20] MEDS: Ketorolac 30 MG/ML VIAL IVP (10:54)
--- NOTE | 2020-04-20 11:59 | INITIAL_ITS ---
- If Service Date Differs Date of service: 04/20/20 Time of Service: 11:59 Care Management Initial Assess REASON FOR HOSPITALIZATION:: Suicidal Ideation, intoxication PAST MEDICAL HISTORY/PAST SURGICAL HISTORY:: Missed with demise before 20 completed weeks of gestation (Resolved 01/2019). Cervical high risk human papillomavirus (HPV) DNA test positive (Acute 01/19/16). Alcohol use disorder (Inactive). GERD (gastroesophageal reflux disease) (Chronic). Tobacco use disorder (Chronic). PTSD (post-traumatic stress disorder) (Chronic 07/17/15). Mild intermittent asthma without complication (Chronic). Lactose intolerance (Chronic 01/24/16). Hyperlipidemia (Chronic 05/10/16). Hepatitis C virus infection without hepatic coma (Chronic). Fibromyalgia (Chronic 10/26/14). Depression (Chronic 10/26/14). Chronic pain (Chronic 10/26/14). Anxiety (Chronic 10/26/14). Opiate abuse, episodic (Inactive 11/16/14). History of Cervical dysplasia (Resolved 11/16/14). Ulnar collateral ligament sprain of right elbow, initial encounter (Resolved). Asthma. Cervical dysplasia. Chronic pain. Cervical Procedure (Resolved). Club Foot Repair (Resolved). Dilation and curettage (Resolved). repair of the left metacarpal phalangeal joint (Resolved 12/25/16) PREVIOUS FUNCTIONAL STATUS/SOCIAL/FAMILY SUPPORTS:: Chloe is indepdent with ADL's she was living at a sober facility in [facility]. She states that she had to leave because she used alcohol however they said she could return if she did two weeks at a rehab. Chloe is homeless at this time. CURRENT FUNCTIONAL STATUS:: Chloe is sitting up in the bed she is tearful at times, she was able to engage with mental health via Zoom. She was accepted at [facility], which she was willing to go to. This however has been canceled as she may need surgery on her left leg due to recent injury. She is able to make good eye contact she states she is not suicidal and does not want to harm herself. She states sometimes she feels overwhelmed and with the recent pain and discomfort of her injury she has struggled. She does feel that she would benefit from a stay at a recovery center for medication adjustments, however again denies wanting to harm herself or others. CM contacted mental health and spoke with jose carlos Mooney and through his assessment and discussion with the provider patient will be cleared from SI and [place] and allowed to be off restrictions per provider. Mental health is willing to reassess if needed at any point and time. ADVANCE DIRECTIVES:: None on file does not want to complete at this time Has patient been provided with information about the portal?: Yes Did the patient sign up for the portal?: Yes CODE STATUS:: Full Code INSURANCE COVERAGE / FINANCIAL ISSUES:: Medicaid CURRENT HOME/COMMUNITY SERVICES/EQUIPMENT:: Chloe was living in a sober house [facility] in [place], [place] which she felt was helping her however she recently was dismissed from there for using alcohol. She was told if she went to [facility] she may be able to return to sober living. She wants to be able to return to the home. PRIMARY CARE PHYSICIAN:: Elly Osorio POTENTIAL DISCHARGE NEEDS:: Potential referral to inpatient substance abuse program depending on disposition. PATIENT/FAMILY EDUCATION NEEDS:: Discharge instruction, limitations and follow up plan of care. ANTICIPATED BARRIERS TO DISCHARGE:: None identified at this time TRANSPORTATION:: Pending disposition PLAN:: Chloe is having an MRI concerns that she may need surgery while inpatient. She denies SI, CM has consulted mental health, jose carlos who also states she is not SI at this time. She may need at some point to go to [facility] for medication adjustment which she is willing to do if the time comes and it is needed. CM reviewed plan with the providers, CPSO will be discontinued and she will be removed from SI. CM will contact mental health if additional assessment is needed. CM will assist patient in signing up for her portal and community resources to assist with housing and return to sober living. CM will continue to assess for discharge needs.
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
--- NOTE | 2020-04-20 12:05 | MHPN_ITS ---
Date of service: 04/20/20 Time of Service: 11:40 Mental Health Crisis Note Presenting Issue How did you arrive at the ED and why did you come: The patient is seen for a follow-up assessment via telehealth for ED admit on 04/19/20. The patient was brought to the ED by police in a highly intoxicated state while endorsing SI. Precipitating Factors The patient is a 35yo female. She reports a significant alcohol / ETOH history and advises that she does not have a complete recollection of events leading up to current ED / ICU admit. She reports drinking for the past week after a 2- month period of sobriety and states that she was kicked out of a sober living home in [place] as a result of recent drinking behavior. The patient presents sitting up on a hospital gown. Grooming is adequate. She is A/Ox4 with immediate and remote memory intact. She reports memory disturbance relating to recent drinking and interaction with local police. Mood is reported as depressed with affect that is congruent. She is cooperative with assessment today and appropriate in all all interactions. No evidence of delusions, hallucinations (A/V/O/S), or psychotic thought process. Insight and judgment appear sound. She presents with intermittent crying and advises that she is having difficulty adjusting to stressors in her life. She reports generalized SI today, no intent identified. She reports that if she were to kill herself the method would be via medication O/D. She goes on to state the following: I don't want to kill myself. I'm just really upset with how my life is right now. I can't do it because I have 2 children. She denies current HI, intent or plan. Disposition BEHAVIOR: Tearful, mild distress, otherwise appropriate in all interactions. EYE CONTACT: Good MOOD: Depressed AFFECT: Congruent to stated mood APPETITE: No reported issues. SLEEP(trouble falling/staying asleep: No reported issues. Plan The patient states that she is looking for detox and MH treatment and has agreed to placement. A referral has been submitted to [facility] and a placement has been secured pending COVID-19 test results (Time confirmed: 11:15a). The patient will remain at [facility] until suitable discharge conditions have been met. Signature Clinician's Name/Title: Ariel Stovall [facility] Clinician
[2020-04-20] MEDS: Ibuprofen 600 MG TAB PO ×2 (12:31→16:05)
[2020-04-20] MEDS: LORazepam 1 MG TAB PO/SL (14:22)
--- NOTE | 2020-04-20 14:33 | W.PM.PROGNOT ---
Date of Service Date of service: 04/20/20 Time of Service: 14:36 Assessment and Plan Assessment and plan (1) Suicidal ideation: Status: Acute Assessment and plan: is awaiting inpatient psychiatric placement, a bed has been secured but we are awaiting covid 19 testing. she denies suicidal ideation at this time. transfer may be delayed d/t knee injury. case management and mental health following (2) Internal derangement of left knee: Status: Acute Assessment and plan: repeat xray unremarkable. orthopedic consult obtained and Dr Jurado evaluation reveals unstable knee injury. MRI pending. continue non weight bearing, ice elevation, compression and pain management. (3) Alcohol abuse: Status: Chronic Assessment and plan: will continue scheduled librium, lorazepam prn add thiamine. case and plan of care discussed with Dr Shepherd who is in agreement Subjective Subjective Patient reports: still having pain, tolerating liquids well, tolerating a regular diet and voiding w/o difficulty Interval history since last seen: c/o left foot numbness and inability to doriflex. Exam Const General: cooperative, no acute distress and well developed Nutritional Appearance: average body habitus Orientation: alert, awake and oriented x3 HENMT Head: normal to inspection, normocephalic and atraumatic Mouth: oral mucosae normal Resp Effort & Inspection: normal respiratory effort Auscultation: clear to auscultation bilaterally Cardio Rate: regular rate Rhythm: regular rhythm GI Inspection: normal to inspection Palpation: soft Auscultation: normal bowel sounds Skin General skin exam: ecchymosis Neuro General: patient alert, patient awake and patient oriented x3 Extrem Left lower extremity: knee Details: tenderness, swelling, abnormal ROM Details: pain with passive ROM, knee ligament exam abnormal Details: valgus stress test Details: pain noted and abrasion (scab, no evidence of infection) Objective Objective Clinical Data: Abnormal lab results 04/19/20 04/19/20 Range/Units 11:50 15:23 TSH 0.27 L (0.36-3.74) uIU/mL Urine Methadone Screen Positive A (Negative) Ur THC Screen Positive A (Negative) Vital Signs Temperature 36.9 C 04/20/20 12:35 Temperature Source Tympanic 04/20/20 12:35 Pulse 80 04/20/20 12:35 Pulse Rhythm Regular 04/20/20 09:56 Pulse Strength Strong 04/19/20 11:29 Respiratory Rate 18 04/20/20 12:35 Respiratory Effort Non-Labored 04/20/20 09:56 Respiratory Depth Normal 04/20/20 09:56 Respiratory Pattern Normal 04/20/20 09:56 Blood Pressure 146/90 H 04/20/20 12:35 Blood Pressure Mean 94 04/19/20 11:29 Blood Pressure Position Supine 04/19/20 11:29 Pulse Oximetry 99 04/20/20 12:35 Oxygen Delivery Method Room Air 04/20/20 12:35 Oxygen Flow Rate 0 04/20/20 12:35 Pain Level 6 04/20/20 13:56 Intake & Output 04/19/20 04/20/20 04/20/20 23:59 11:59 23:59 Intake Total 2244.867 / 2964.867 720 / 2964.867 Output Total 300 / 300 Balance -300 / -300 2244.867 / 2964.867 720 / 2964.867 Intake: IV 1764.867 / 1764.867 Oral 480 / 1200 720 / 1200 Output: Urine 300 / 300 Other: Urine Color Yellow Urine Appearance Clear Clear Voiding Methods Toilet Laboratory Results WBC 6.73 k/cumm (4.4-10.8) 04/19/20 11:50 RBC 4.02 m/cumm (4.00-5.20) 04/19/20 11:50 Hgb 12.4 g/dL (12.0-15.5) 04/19/20 11:50 Hct 37.5 % (36.0-46.0) 04/19/20 11:50 MCV 93.3 fL (80-95) 04/19/20 11:50 MCH 30.8 pg (27.0-33.0) 04/19/20 11:50 MCHC 33.1 g/dL (32.0-36.0) 04/19/20 11:50 RDW 14.8 % (11.7-14.6) H 04/19/20 11:50 Plt Count 346 x1000/uL (130-400) 04/19/20 11:50 MPV 8.3 fL (8.0-11.0) 04/19/20 11:50 Immature Gran % 0.1 % 04/19/20 11:50 Neutrophils % 64.3 04/19/20 11:50 Lymphocytes % 26.0 04/19/20 11:50 Monocytes % 6.8 04/19/20 11:50 Eosinophils % 2.5 04/19/20 11:50 Basophils % 0.3 04/19/20 11:50 Absolute Neutrophils 4.32 k/cumm (1.2-6.7) 04/19/20 11:50 Absolute Lymphocytes 1.75 k/cumm (1.2-3.4) 04/19/20 11:50 Absolute Monocytes 0.46 k/cumm (0.11-0.7) 04/19/20 11:50 Absolute Eosinophils 0.17 k/cumm (0.0-0.7) 04/19/20 11:50 Absolute Basophils 0.02 k/cumm (0.0-0.2) 04/19/20 11:50 Sodium 140 mmol/L (136-145) 04/19/20 11:50 Potassium 3.9 mmol/L (3.5-5.1) 04/19/20 11:50 Chloride 103 mmol/L (98-107) 04/19/20 11:50 Carbon Dioxide 25.1 mmol/L (21.0-32.0) 04/19/20 11:50 Anion Gap 11.9 mmol/L (3-11) H 04/19/20 11:50 BUN 13 mg/dL (7-18) 04/19/20 11:50 Creatinine 0.77 mg/dL (0.55-1.02) 04/19/20 11:50 Estimated GFR/1.73 m2 >= 60.00 (mL/min/1.73m2) 04/19/20 11:50 Glucose 75 mg/dL (74-106) 04/19/20 11:50 Calcium 8.0 mg/dL (8.5-10.1) L 04/19/20 11:50 Total Bilirubin 0.5 mg/dL (0.2-1.0) 04/19/20 11:50 AST 98 U/L (15-37) H 04/19/20 11:50 ALT 62 U/L (14-59) H 04/19/20 11:50 Alkaline Phosphatase 92 U/L (46-116) 04/19/20 11:50 Total Protein 7.4 g/dL (6.4-8.2) 04/19/20 11:50 Albumin 3.3 g/dL (3.4-5.0) L 04/19/20 11:50 TSH 0.27 uIU/mL (0.36-3.74) L 04/19/20 11:50 Free T4 0.93 ng/dL (0.76-1.46) 04/19/20 11:50 Salicylates 3.3 mg/dL (2.8-20.0) 04/19/20 11:50 Urine Opiates Screen Negative (Negative) 04/19/20 15:23 Urine Methadone Screen Positive (Negative) A 04/19/20 15:23 Acetaminophen < 2 ug/mL (10-30) 04/19/20 11:50 Ur Barbiturates Screen Negative (Negative) 04/19/20 15:23 Ur Tricyclics Screen Negative (Negative) 04/19/20 15:23 Ur Amphetamines Screen Negative (Negative) 04/19/20 15:23 U Benzodiazepines Scrn Negative (Negative) 04/19/20 15:23 Urine Cocaine Screen Negative (Negative) 04/19/20 15:23 Ur THC Screen Positive (Negative) A 04/19/20 15:23 Ethyl Alcohol 183.8 mg/dL (<3) 04/19/20 11:50
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
--- NOTE | 2020-04-20 16:37 | PHACLINREV_ITS ---
Pharmacy Admission Review - Admission Clinical Review (Last Reviewed 04/20/20 @ 15:39 by Jese Jurado MD) Left ACL tear (Acute) Avulsion of left hamstring muscle (Acute) Tear of lateral collateral ligament of left knee (Acute) Internal derangement of left knee (Acute) Suicidal ideation (Acute) Alcohol intoxication (Acute) tramadol HCl [From Ultram] Allergy (Mild, Verified 04/19/20 14:46) Skin Rash naltrexone microspheres [From Vivitrol] Adverse Reaction (Severe, Verified 04/19/20 14:46) Height 5 ft 1 in Weight 70.307 kg - Renal Dosing Renal Dosing: BUN 13 mg/dL (7-18) 04/19/20 11:50 Creatinine 0.77 mg/dL (0.55-1.02) 04/19/20 11:50 Medications needing adjustments: Reviewed - Anticoagulation Anticoagulation: Hgb 12.4 g/dL (12.0-15.5) 04/19/20 11:50 Hct 37.5 % (36.0-46.0) 04/19/20 11:50 Plt Count 346 x1000/uL (130-400) 04/19/20 11:50 Creatinine 0.77 mg/dL (0.55-1.02) 04/19/20 11:50 DVT Prohphylaxis: N/A Therapeutic Anticoagulation: N/A - Opiate Usage Evaluate Pain Scale/Pains Meds: Reviewed Scheduled Bowel Reg ordered if on Opiates?: No - Relevant Labs Sodium 140 mmol/L (136-145) 04/19/20 11:50 Potassium 3.9 mmol/L (3.5-5.1) 04/19/20 11:50 Chloride 103 mmol/L (98-107) 04/19/20 11:50 Electrolytes, C-Reactive P, ESR: Reviewed - DM Control DM Control: Glucose 75 mg/dL (74-106) 04/19/20 11:50 Insulin Dosing: Reviewed - Heart Failure/CO EF%, LOGAN's, B-Blockers, Diuretics: N/A - BP Control BP Control: Blood Pressure 146/90 Blood Pressure 152/95 Blood Pressure 138/77 Blood Pressure 129/78 Blood Pressure 135/84 If elevated: Reviewed - Qtc Review If Elevated: N/A - IV to PO Switch IV Medications: Reviewed - Home Meds Home Med List reviewed: Reviewed Relevent Home Meds Not ordered & why?: emily miles'd by md - Comments Comments/Follow Ups: pt is awaiting a bed at [place] pending a COVID test but may be delayed due to knee injury -- was seen by Dr. Jurado today; librium taper, lorazepam, thiamine for etoh withdrawal
[2020-04-20] MEDS: HYDROcodone 5/Acetaminophen 325 TAB PO ×2 (16:47→22:50)
[2020-04-20] MEDS: Nicotine 14 MG/24 HR PATCH TD (18:01)
[2020-04-20] MEDS: Ketorolac 15 MG/ML VIAL IVP (19:43)
[2020-04-20 21:02] LABS: COVID-19 RT-PCR UVMMC Result Negative (Negative)
[2020-04-20] MEDS: Mirtazapine 15 MG TAB 30 MG PO (22:51)
[2020-04-20] MEDS: Melatonin 3 MG TAB 18 MG PO (22:51)
[2020-04-21] MEDS: Ketorolac 15 MG/ML VIAL IVP ×4 (01:31→21:48)
[2020-04-21] MEDS: LORazepam 1 MG TAB PO/SL ×5 (01:35→19:54)
[2020-04-21 01:46] VITALS: BP 118/72; PULSE 69; RESP 18; TEMP 36.8; O2SAT 98
[2020-04-21] MEDS: HYDROcodone 5/Acetaminophen 325 TAB PO (05:12)
[2020-04-21] MEDS: Acetaminophen 325 MG TAB 650 MG PO ×4 (05:12→19:45)
[2020-04-21 07:30] VITALS: BP 118/65; PULSE 78; RESP 18; TEMP 36.5; O2SAT 98
[2020-04-21] MEDS: chlordiazePOXIDE 25 MG CAP PO ×4 (07:52→19:44)
[2020-04-21] MEDS: Normal Saline Flush 10 ML SYR IVP ×2 (07:52→15:33)
[2020-04-21] MEDS: NORETHINDRONE 0.35 MG 0.35 EACH PO (07:52)
[2020-04-21] MEDS: Gabapentin 300 MG CAP PO ×3 (07:52→19:44)
[2020-04-21] MEDS: Thiamine 100 MG TAB PO (07:52)
[2020-04-21] MEDS: Pantoprazole 40 MG TABCR PO (07:52)
[2020-04-21] MEDS: oxyCODONE 10 MG TAB PO ×3 (09:32→19:45)
[2020-04-21] MEDS: Folic Acid 1 MG TAB PO (09:34)
[2020-04-21] MEDS: Multivitamin TAB 1 TAB PO (09:34)
[2020-04-21 10:08] VITALS: PULSE 78; RESP 18; RESP 4; O2SAT 98
[2020-04-21] MEDS: Albuterol/Ipratropium 3 ML UPD VIAL UPD (10:08)
[2020-04-21 10:38] VITALS: PULSE 76; RESP 1; RESP 18; RESP 8; O2SAT 98
--- NOTE | 2020-04-21 10:44 | PGE_ITS ---
Date of Service Date of service: 04/21/20 Time of Service: 10:44 Assessment and Plan Assessment and plan (1) Suicidal ideation: Start date: 04/21/20 Start time: 10:55 Status: Acute Assessment and plan: She denies SI. She was initially going to be placed for depression and SI however given that she has extensive knee injury requiring prompt surgery she will be inpatient while awaiting surgery. I will consult Dr. Alexandre regarding patient SI and depression, though at this time she is not exp ressing any SI/HI. (2) Alcohol abuse: Start date: 04/21/20 Start time: 10:56 Status: Chronic Assessment and plan: Scoring 6-11 at this time on CIWA, will continue scheduled librium, lorazepam prn add thiamine. case and plan of care discussed with Dr Shepherd who is in agreement (3) Internal derangement of left knee: Start date: 04/21/20 Start time: 11:00 Status: Acute Assessment and plan: MRI evaluation revealing Complex dislocation injury of the knee, major components appear to include ACL tear, severe posterolateral corner tear involving multiple structures as described above, medial retinacular and medial collateral ligament injuries, and probable medial and lateral gastrocnemius tears. Due to nature of injury she requires prompt surgery. Dr. Jurado will perform surgery . At this time continue pain management, she was on hydrocodone with little relief, will trial oxycodone with tylenol, toradol, gabapentin. Cryo cuff for relief. Continue estefania wrap with knee immobilizer, (4) Left ACL tear: Start date: 04/21/20 Start time: 11:05 Status: Acute Assessment and plan: Per MRI, see above Qualifiers: Encounter type: initial encounter Qualified Code(s): S83.512A - Sprain of anterior cruciate ligament of left knee, initial encounter (5) Avulsion of left hamstring muscle: Start date: 04/21/20 Start time: 11:05 Status: Acute Assessment and plan: See above Qualifiers: Encounter type: initial encounter Qualified Code(s): S76.392A - Other specified injury of muscle, fascia and tendon of the posterior muscle group at thigh level, left thigh, initial encounter (6) Tear of lateral collateral ligament of left knee: Start date: 04/21/20 Start time: 11:05 Status: Acute Assessment and plan: See above Qualifiers: Encounter type: initial encounter Qualified Code(s): S83.422A - Sprain of lateral collateral ligament of left knee, initial encounter (7) Injury of posterolateral corner of left knee: Start date: 04/21/20 Start time: 11:05 Status: Acute Assessment and plan: See above (8) Common peroneal nerve dysfunction of left lower extremity: Start date: 04/21/20 Start time: 11:05 Status: Acute Assessment and plan: See above (9) Anxiety: Start date: 04/21/20 Start time: 11:05 Status: Chronic Assessment and plan: Per patient started on wellbutrin for anxiety and depression. She was on prozac for years and her PCP was weaning her prozac off and starting on wellbutrin at the same time, causing her to seize as she was on both. Will hold off on wellbutrin at this time due to history of seziures with withdrawal. Last drink less than 48 hour will continue to monitor and resume after withdrawal. (10) Asthma: Start date: 04/21/20 Start time: 11:07 Status: None Assessment and plan: She did have inspiratory and expiratory wheezing. History of asthma. Will schedule IH albuterol and prn duonebs. Above case discussed with Dr. Shepherd who is in agreement. Subjective Subjective Patient reports: still having pain Interval history since last seen: Ms. Manriquez continues to c/o pain. She is icing her knee but feels it is difficult with bag. Cryo cuff ordered to help with icing. She states little pain relief. Will trial oxycodone for pain with tylenol and continue toradol. She is also on gabapentin. At this time she is worried about having her wellbutrin due to depression, I explained to her given her history with seizure withdrawal at this time we are going to hold off, last drink was less than 48 hours ago. I would like to give her at least 96 hours before starting wellbutrin due to history seizure. Currently on scheduled librium and ativan as needed. Scoring between 6 and 11 CIWA. She denies CP, SOB, N/V/D. She is not having any thought of SI or HI at this time her main concern is pain control. She is using the brace at night as well as getting out of the bed. Exam Const General: cooperative, no acute distress and well developed Nutritional Appearance: average body habitus Orientation: alert, awake and oriented x3 HENMT Head: normal to inspection, normocephalic and atraumatic Mouth: oral mucosae normal Resp Effort & Inspection: normal respiratory effort Auscultation: wheezes expiratory wheezes, inspiratory wheezes, left upper and right upper Cardio Rate: regular rate Rhythm: regular rhythm GI Inspection: normal to inspection Palpation: soft Auscultation: normal bowel sounds Skin General skin exam: ecchymosis Neuro General: patient alert, patient awake and patient oriented x3 Extrem General: abnormal ROM and pedal edema present Left lower extremity: knee Details: tenderness, swelling, abnormal ROM Details: pain with passive ROM, knee ligament exam abnormal Details: valgus stress test Details: pain noted and abrasion (scab, no evidence of infection) Objective Objective Clinical Data: Vital Signs Temperature 36.5 C 04/21/20 07:30 Temperature Source Tympanic 04/21/20 07:30 Pulse 78 04/21/20 10:08 Pulse Rhythm Regular 04/21/20 01:36 Pulse Strength Strong 04/19/20 11:29 Respiratory Rate 18 04/21/20 10:08 Respiratory Effort Non-Labored 04/21/20 01:36 Respiratory Depth Normal 04/21/20 01:36 Respiratory Pattern Normal 04/21/20 01:36 Blood Pressure 118/65 04/21/20 07:30 Blood Pressure Mean 94 04/19/20 11:29 Blood Pressure Position Supine 04/19/20 11:29 Pulse Oximetry 98 04/21/20 10:08 Oxygen Delivery Method Room Air 04/21/20 10:08 Oxygen Flow Rate 0 04/21/20 10:08 Pain Level 8 04/21/20 09:33 Intake & Output 04/20/20 04/20/20 04/21/20 11:59 23:59 11:59 Intake Total 2244.867 / 3084.867 840 / 3084.867 Balance 2244.867 / 3084.867 840 / 3084.867 Intake: IV 1764.867 / 1764.867 Oral 480 / 1320 840 / 1320 Other: Urine Color Yellow Urine Appearance Clear Clear Clear Urine Odor None Comment voids in the tiolet without any difficulties as per patient verbalization Voiding Methods Toilet Laboratory Results WBC 6.73 k/cumm (4.4-10.8) 04/19/20 11:50 RBC 4.02 m/cumm (4.00-5.20) 04/19/20 11:50 Hgb 12.4 g/dL (12.0-15.5) 04/19/20 11:50 Hct 37.5 % (36.0-46.0) 04/19/20 11:50 MCV 93.3 fL (80-95) 04/19/20 11:50 MCH 30.8 pg (27.0-33.0) 04/19/20 11:50 MCHC 33.1 g/dL (32.0-36.0) 04/19/20 11:50 RDW 14.8 % (11.7-14.6) H 04/19/20 11:50 Plt Count 346 x1000/uL (130-400) 04/19/20 11:50 MPV 8.3 fL (8.0-11.0) 04/19/20 11:50 Immature Gran % 0.1 % 04/19/20 11:50 Neutrophils % 64.3 04/19/20 11:50 Lymphocytes % 26.0 04/19/20 11:50 Monocytes % 6.8 04/19/20 11:50 Eosinophils % 2.5 04/19/20 11:50 Basophils % 0.3 04/19/20 11:50 Absolute Neutrophils 4.32 k/cumm (1.2-6.7) 04/19/20 11:50 Absolute Lymphocytes 1.75 k/cumm (1.2-3.4) 04/19/20 11:50 Absolute Monocytes 0.46 k/cumm (0.11-0.7) 04/19/20 11:50 Absolute Eosinophils 0.17 k/cumm (0.0-0.7) 04/19/20 11:50 Absolute Basophils 0.02 k/cumm (0.0-0.2) 04/19/20 11:50 Sodium 140 mmol/L (136-145) 04/19/20 11:50 Potassium 3.9 mmol/L (3.5-5.1) 04/19/20 11:50 Chloride 103 mmol/L (98-107) 04/19/20 11:50 Carbon Dioxide 25.1 mmol/L (21.0-32.0) 04/19/20 11:50 Anion Gap 11.9 mmol/L (3-11) H 04/19/20 11:50 BUN 13 mg/dL (7-18) 04/19/20 11:50 Creatinine 0.77 mg/dL (0.55-1.02) 04/19/20 11:50 Estimated GFR/1.73 m2 >= 60.00 (mL/min/1.73m2) 04/19/20 11:50 Glucose 75 mg/dL (74-106) 04/19/20 11:50 Calcium 8.0 mg/dL (8.5-10.1) L 04/19/20 11:50 Total Bilirubin 0.5 mg/dL (0.2-1.0) 04/19/20 11:50 AST 98 U/L (15-37) H 04/19/20 11:50 ALT 62 U/L (14-59) H 04/19/20 11:50 Alkaline Phosphatase 92 U/L (46-116) 04/19/20 11:50 Total Protein 7.4 g/dL (6.4-8.2) 04/19/20 11:50 Albumin 3.3 g/dL (3.4-5.0) L 04/19/20 11:50 TSH 0.27 uIU/mL (0.36-3.74) L 04/19/20 11:50 Free T4 0.93 ng/dL (0.76-1.46) 04/19/20 11:50 Salicylates 3.3 mg/dL (2.8-20.0) 04/19/20 11:50 Urine Opiates Screen Negative (Negative) 04/19/20 15:23 Urine Methadone Screen Positive (Negative) A 04/19/20 15:23 Acetaminophen < 2 ug/mL (10-30) 04/19/20 11:50 Ur Barbiturates Screen Negative (Negative) 04/19/20 15:23 Ur Tricyclics Screen Negative (Negative) 04/19/20 15:23 Ur Amphetamines Screen Negative (Negative) 04/19/20 15:23 U Benzodiazepines Scrn Negative (Negative) 06/03/20 15:23 Urine Cocaine Screen Negative (Negative) 04/19/20 15:23 Ur THC Screen Positive (Negative) A 04/19/20 15:23 Ethyl Alcohol 183.8 mg/dL (<3) 04/19/20 11:50 COVID-19 PCR Negative (Negative) 04/19/20 12:25 Nasopharyn COVID-19 PCR Not Applicable 04/19/20 12:25 Ref Test Perform Site Ab 7500 [facility] lab 04/19/20 12:25
--- NOTE | 2020-04-21 14:18 | CMPROGNOTE_ITS ---
Care Management Progress Note S/O: Chloe was lying in bed when CM met with her, she processed her feelings of helplessness around her knee injury, treatment plan and non-weight bearing status as well as recovery needs. She reviewed her strained family relationships, weeped about being unable to see her significant other and smoke cigarettes outside. CM agreed to discuss options of support with steamboat inspector. CM coordinated huddle with Ortho MD, Hospitalist and CM team to discuss plan of care for Chloe. Dr. Jurado reports Chloe will require extensive surgery which he anticipates completing with Dr. Dominguez on , 04/27/20. He shared concerns around the complexity of this surgery and possible risks as well as Chloe's care prior to surgery as well as post surgically. He recommended minimizing use of narcotics prior to surgery due to anticipated need post- surgically. Huddles with staff to explain plan of care and patient support will be coordin ated. CM discussed outpatient service connection via Zoom/phone and phone including Core Shaper Sides, AA, Psychiatric consult with Dr. Alexandre, placement/housing coordination. Chloe made a goal list for returning to the [facility] in [facility], including attending zoom meetings and substance use support. A: 35 year old female admitted to [facility] for suicidal behavior, alcohol abuse. Chloe was cleared from a mental health standpoint with P: Anticipate Chloe will remain inpatient while being monitored for alcohol withdrawal. Anticipate she will eventually transition to [facility] for pain managemen t and NWB mobilization. She will have surgery next week and be re-assessed post surgically. CM will continue to work on discharge planning and disposition.
[2020-04-21 15:45] VITALS: BP 138/87; PULSE 65; RESP 18; TEMP 36.8; O2SAT 99
--- NOTE | 2020-04-21 20:07 | W.PM.PROGNOT ---
Date of Service Date of service: 04/21/20 Time of Service: 13:07 Assessment and Plan Assessment and plan (1) Injury of posterolateral corner of left knee: Status: Acute Assessment and plan: Chloe is a 35-year-old female who has a multiple ligamentous injury to her left knee. She has complete disruption of the posterior lateral corner of the knee, fibular collateral ligament, hamstrings (biceps femoris), ACL. There is also an apparent injury to the medial retinaculum and part of the MCL, grade 2. She also has a dense, peroneal nerve palsy. I discussed this case with my partner, Dr. Dominguez, as well as other [place] around [place]. Given the avulsion of the biceps and the dense nerve palsy, I would recommend more acute intervention than originally discussed. Unfortunately, due to the disruption of the posterior lateral corner in addition to the lateral collateral ligament, repair, although possible given the distal avulsion, is not likely to be successful. Revision repair rates are much higher and acute repairs with both popliteus and lateral car ligament disrupted. Therefore, the recommendation would be for a reconstruction using allograft tissue. At the time of surgery a large exposure would be used to identify the common peroneal nerve to make sure it is in continuity. If necessary, any epineurial repair would be performed at that time. The popliteus, posterior lateral corner, lateral collateral ligament be reconstructed with allograft tissue and the biceps femoris would be reapproximated to the fibula. This ACL reconstruction will be delayed at this time in a staged fashion. I had a long discussion with Chloe about the surgery and about the technical demands and challenges. I also was very honest with her about the prolonged rehabilitation which would be necessary to have a successful outcome. Even in the best of hands with complete diligence in rehabilitation, the outcomes still are mixed but our goal is to provide her with a stable knee to limit progressive arthritis and also allow function. Given the biceps avulsion and the dense peroneal nerve palsy, this portends a poor prognosis for nerve recovery but this will be followed in a chronic fashion starting at 6 weeks to 3 months with initial nerve conduction studies or EMGs if no nerve function is returning. I was very honest with her that she has to think of herself. It is imperative that she stay sober and maintains good contacts in the community to help out in making this successful. She does have pain and is to be expected given that this is a near dislocation of the knee. However, I was honest with Lito that we need to limit our pain medication before surgery as this will directly impact her ability to control her pain after surgery. Dr. Dominguez and myself will plan to perform the surgery together. We will take care of this on . She will be n.p.o. Friday night. I have discussed the case with anesthesia in lieu of expected pain management difficulties. We will use a mixture of regional anesthetics as well as local to hopefully maintain good pain control. I discussed the risk of the procedure to include bleeding, infection, pain, stiffness, continued numbness, rerupture or re-tear, hardware prominence, hardware failure, worsening arthritis, need for repeat procedures, blood clot, continued instability. Despite these risk, she elects to proceed. She will likely transfer to the orthopedic service as long as she is medically stable after surgery. 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: Status: Acute Qualifiers: Encounter type: subsequent encounter Qualified Code(s): S84.12XD - Injury of peroneal nerve at lower leg level, left leg, subsequent encounter (3) Left ACL tear: Status: Acute Qualifiers: Encounter type: initial encounter Qualified Code(s): S83.512A - Sprain of anterior cruciate ligament of left knee, initial encounter (4) Avulsion of left hamstring muscle: Status: Acute Qualifiers: Encounter type: initial encounter Qualified Code(s): S76.392A - Other specified injury of muscle, fascia and tendon of the posterior muscle group at thigh level, left thigh, initial encounter Subjective Subjective Interval history since last seen: Chleo reports continued pain about the knee. She has been wearing the knee immobilizer except when in bed. She has been able to be independent for transfers within the room. She continues to have little motion of her foot and ankle and decreased sensation. Otherwise, no change in symptoms. Exam Narrative Exam Narrative: Mobilizing in room when I entered. Obviously uncomfotable but managing the walker and leg. Foot is resting in a plantarflexed and inverted position. SLR intact with 10 degree lag. Minimal sensation over SP/DP distribution. Some decreased sensation over the plantar foot but intact. No active extension of the great toe or dorsiflexion of the ankle. Foot WWP. Objective Objective Clinical Data: Vital Signs Temperature 37 C 04/21/20 20:45 Temperature Source Tympanic 04/21/20 20:45 Pulse 74 04/21/20 20:45 Pulse Rhythm Regular 04/21/20 19:56 Pulse Strength Strong 04/19/20 11:29 Respiratory Rate 18 04/21/20 20:45 Respiratory Effort Non-Labored 04/21/20 19:56 Respiratory Depth Normal 04/21/20 19:56 Respiratory Pattern Normal 04/21/20 19:56 Blood Pressure 123/76 04/21/20 20:45 Blood Pressure Mean 94 04/19/20 11:29 Blood Pressure Position Supine 04/19/20 11:29 Pulse Oximetry 98 04/21/20 20:45 Oxygen Delivery Method Room Air 04/21/20 20:45 Oxygen Flow Rate 0 04/21/20 20:45 Pain Level 9 04/22/20 04:15 Intake & Output 04/21/20 04/21/20 04/22/20 11:59 23:59 11:59 Intake Total 490 / 1790 900 / 1790 900 / 900 Balance 490 / 1790 900 / 1790 900 / 900 Intake: IV Oral 480 / 1760 880 / 1760 900 / 900 Other: Urine Color Yellow Urine Appearance Clear Clear Urine Odor None Comment voids in the tiolet without any difficulties as per patient verbalization Voiding Methods Toilet Laboratory Results WBC 6.73 k/cumm (4.4-10.8) 04/19/20 11:50 RBC 4.02 m/cumm (4.00-5.20) 04/19/20 11:50 Hgb 12.4 g/dL (12.0-15.5) 04/19/20 11:50 Hct 37.5 % (36.0-46.0) 04/19/20 11:50 MCV 93.3 fL (80-95) 04/19/20 11:50 MCH 30.8 pg (27.0-33.0) 04/19/20 11:50 MCHC 33.1 g/dL (32.0-36.0) 04/19/20 11:50 RDW 14.8 % (11.7-14.6) H 04/19/20 11:50 Plt Count 346 x1000/uL (130-400) 04/19/20 11:50 MPV 8.3 fL (8.0-11.0) 04/19/20 11:50 Immature Gran % 0.1 % 04/19/20 11:50 Neutrophils % 64.3 04/19/20 11:50 Lymphocytes % 26.0 04/19/20 11:50 Monocytes % 6.8 04/19/20 11:50 Eosinophils % 2.5 04/19/20 11:50 Basophils % 0.3 04/19/20 11:50 Absolute Neutrophils 4.32 k/cumm (1.2-6.7) 04/19/20 11:50 Absolute Lymphocytes 1.75 k/cumm (1.2-3.4) 04/19/20 11:50 Absolute Monocytes 0.46 k/cumm (0.11-0.7) 04/19/20 11:50 Absolute Eosinophils 0.17 k/cumm (0.0-0.7) 04/19/20 11:50 Absolute Basophils 0.02 k/cumm (0.0-0.2) 04/19/20 11:50 Sodium 140 mmol/L (136-145) 04/19/20 11:50 Potassium 3.9 mmol/L (3.5-5.1) 04/19/20 11:50 Chloride 103 mmol/L (98-107) 04/19/20 11:50 Carbon Dioxide 25.1 mmol/L (21.0-32.0) 04/19/20 11:50 Anion Gap 11.9 mmol/L (3-11) H 04/19/20 11:50 BUN 13 mg/dL (7-18) 04/19/20 11:50 Creatinine 0.77 mg/dL (0.55-1.02) 04/19/20 11:50 Estimated GFR/1.73 m2 >= 60.00 (mL/min/1.73m2) 04/19/20 11:50 Glucose 75 mg/dL (74-106) 04/19/20 11:50 Calcium 8.0 mg/dL (8.5-10.1) L 04/19/20 11:50 Total Bilirubin 0.5 mg/dL (0.2-1.0) 04/19/20 11:50 AST 98 U/L (15-37) H 04/19/20 11:50 ALT 62 U/L (14-59) H 04/19/20 11:50 Alkaline Phosphatase 92 U/L (46-116) 04/19/20 11:50 Total Protein 7.4 g/dL (6.4-8.2) 04/19/20 11:50 Albumin 3.3 g/dL (3.4-5.0) L 04/19/20 11:50 TSH 0.27 uIU/mL (0.36-3.74) L 04/19/20 11:50 Free T4 0.93 ng/dL (0.76-1.46) 04/19/20 11:50 Salicylates 3.3 mg/dL (2.8-20.0) 04/19/20 11:50 Urine Opiates Screen Negative (Negative) 04/19/20 15:23 Urine Methadone Screen Positive (Negative) A 04/19/20 15:23 Acetaminophen < 2 ug/mL (10-30) 04/19/20 11:50 Ur Barbiturates Screen Negative (Negative) 04/19/20 15:23 Ur Tricyclics Screen Negative (Negative) 04/19/20 15:23 Ur Amphetamines Screen Negative (Negative) 04/19/20 15:23 U Benzodiazepines Scrn Negative (Negative) 04/19/20 15:23 Urine Cocaine Screen Negative (Negative) 04/19/20 15:23 Ur THC Screen Positive (Negative) A 04/19/20 15:23 Ethyl Alcohol 183.8 mg/dL (<3) 04/19/20 11:50 COVID-19 PCR Negative (Negative) 04/19/20 12:25 Nasopharyn COVID-19 PCR Not Applicable 04/19/20 12:25 Ref Test Perform Site Ab 7500 uvc lab 04/19/20 12:25
[2020-04-21 20:45] VITALS: BP 123/76; PULSE 74; RESP 18; TEMP 37; O2SAT 98
[2020-04-21] MEDS: Melatonin 3 MG TAB 18 MG PO (21:49)
[2020-04-21] MEDS: Mirtazapine 15 MG TAB 30 MG PO (21:49)
--- NOTE | 2020-04-22 | DI.US_ITS ---
EXAM: US LOWER EXTREMITY VENOUS LT CLINICAL HISTORY: r/o DVT TECHNIQUE: Left lower extremity venous ultrasound performed using grayscale, color-flow, and spectra l Doppler analysis. COMPARISON: No exams were available for comparison FINDINGS: The saphenofemoral junction is unremarkable. There is no evidence of a L[place] cyst. The soft tissues are unremarkable. Patient had a bandage over the knee which was unable to be removed and the poplite al vein cannot be evaluated. The left common femoral, femoral and and proximal profundal femoral veins demonstrate normal compress ibility, augmentation, and color Doppler. The posterior tibial veins are patent. The contralateral co mmon femoral vein is patent. IMPRESSION: No evidence of a deep venous thrombus in the visualized deep veins of the left lower extremity. Popliteal vein cannot be directly visualize due to the patient's bandages. DATA REPOSITORY:
[2020-04-22] MEDS: oxyCODONE 10 MG TAB PO ×2 (01:31→07:51)
[2020-04-22] MEDS: Acetaminophen 325 MG TAB 650 MG PO ×2 (01:31→07:52)
[2020-04-22] MEDS: Ketorolac 15 MG/ML VIAL IVP ×3 (04:15→18:27)
[2020-04-22] MEDS: Normal Saline Flush 10 ML SYR IVP ×2 (04:16→18:29)
[2020-04-22 07:45] VITALS: BP 119/80; PULSE 70; RESP 18; TEMP 36.3; O2SAT 98
[2020-04-22] MEDS: Multivitamin TAB 1 TAB PO (07:51)
[2020-04-22] MEDS: NORETHINDRONE 0.35 MG 0.35 EACH PO (07:51)
[2020-04-22] MEDS: Gabapentin 300 MG CAP PO ×2 (07:52→21:11)
[2020-04-22] MEDS: Thiamine 100 MG TAB PO (07:52)
[2020-04-22] MEDS: Folic Acid 1 MG TAB PO (07:52)
[2020-04-22] MEDS: Pantoprazole 40 MG TABCR PO (07:52)
[2020-04-22] MEDS: chlordiazePOXIDE 25 MG CAP PO ×3 (07:52→19:38)
[2020-04-22] MEDS: Nicotine 14 MG/24 HR PATCH TD ×2 (07:53→15:43)
--- NOTE | 2020-04-22 09:41 | CMPROGNOTE_ITS ---
- If Service Date Differs Date of service: 04/22/20 Time of Service: 09:41 Care Management Progress Note S/O: Chloe was found sitting up in bed crying when CM came to see her. She stated that she was in a lot of pain since she had the venous doppler to rule out DVT. Pain management has been challenging since Dr. Jurado prefers that IV narcotics not be used pre-operatively since she is likely to have even greater need for pain medication post-peratively. Chloe also talked about how hard it is not to be able to see her boyfriend and brother. She shared that she is not even able to speak to her boyfriend very often on the phone as he is working 2 jobs. Chloe verbalized that she really feels she needs to be on disability. She is unable to work right now and is likely to require several surgeries and a long period of rehabilitation and convalescence. A referral was made to [facility] to begin exploring options and services for Chloe. On Friday, CM discussed outpatient service connection via Zoom/phone and phone including Crimping Machine Operator, AA, Psychiatric consult with Dr. Alexandre, placement/housing coordination. Chloe made a goal list for returning to the [facility] in [facility], including attending zoom meetings and substance use support. A: 35 year old female admitted to [facility] for suicidal behavior, alcohol abuse. Chloe was cleared from a mental health standpoint. P: Chloe will remain inpatient while awaiting surgery on her leg (scheduled for 04/27/20) and will be monitored for alcohol withdrawal. Anticipate post- operatively she may require a short stay in a SNF for rehab vs transition to [facility] for same. Referrals have been made to community agencies and providers to support Chloe during this time. CM will continue to work on discharge planning and disposition.
--- NOTE | 2020-04-22 10:17 | W.PM.PROGNOT ---
Date of Service Date of service: 04/22/20 Time of Service: 10:18 Assessment and Plan Assessment and plan (1) Suicidal ideation: Start date: 04/22/20 Start time: 10:34 Status: Resolved Assessment and plan: Denies SI/HI at this time. She does state depression and anxiety. Has not seen psychiatry in years. Will consult Dr. Alexandre. (2) Alcohol abuse: Start date: 04/22/20 Start time: 10:35 Status: Chronic Assessment and plan: Scoring 1-3, will continue scheduled librium decrease dose, lorazepam prn, folic acid, thiamine, multivitamin (3) Internal derangement of left knee: Start date: 04/22/20 Start time: 10:38 Status: Acute Assessment and plan: Continues to have severe pain. Will increase oxycodone to 15 mg. Increase Gabapentin MRI evaluation revealing Complex dislocation injury of the knee, major components appear to include ACL tear, severe posterolateral corner tear involving multiple structures as described above, medial retinacular and medial collateral ligament injuries, and probable medial and lateral gastrocnemius tears. Due to nature of injury she requires prompt surgery. Dr. Jurado will perform surgery . At this time continue pain management, she was on hydrocodone with little relief, will trial oxycodone with tylenol, toradol, gabapentin. Cryo cuff for relief. Continue estefania wrap with knee immobilizer, (4) Left ACL tear: Start date: 04/22/20 Start time: 10:39 Status: Acute Assessment and plan: Per MRI, see above Qualifiers: Encounter type: initial encounter Qualified Code(s): S83.512A - Sprain of anterior cruciate ligament of left knee, initial encounter (5) Avulsion of left hamstring muscle: Start date: 04/22/20 Start time: 10:39 Status: Acute Assessment and plan: See above Qualifiers: Encounter type: initial encounter Qualified Code(s): S76.392A - Other specified injury of muscle, fascia and tendon of the posterior muscle group at thigh level, left thigh, initial encounter (6) Tear of lateral collateral ligament of left knee: Start date: 04/22/20 Start time: 10:39 Status: Acute Assessment and plan: See above Qualifiers: Encounter type: initial encounter Qualified Code(s): S83.422A - Sprain of lateral collateral ligament of left knee, initial encounter (7) Injury of posterolateral corner of left knee: Start date: 04/22/20 Start time: 10:39 Status: Acute Assessment and plan: See above Qualifiers: Encounter type: subsequent encounter Qualified Code(s): S89.92XD - Unspecified injury of left lower leg, subsequent encounter (8) Common peroneal nerve dysfunction of left lower extremity: Start date: 04/22/20 Start time: 10:39 Status: Acute Assessment and plan: See above Qualifiers: Encounter type: subsequent encounter Qualified Code(s): S84.12XD - Injury of peroneal nerve at lower leg level, left leg, subsequent encounter (9) Anxiety: Start date: 04/22/20 Start time: 10:39 Status: Chronic Assessment and plan: Will give a dose of wellbutrin today for depression as CIWA 1-3. No signs of sz (10) Asthma: Start date: 04/22/20 Start time: 10:40 Status: None Assessment and plan: Improved no wheezing, continue PRN duonebs, albuterol IH Above case discussed with Dr. Singh who is in agreement. Subjective Subjective Patient reports: still having pain Interval history since last seen: Pain continues to be elevated. Will increase gabapentin to 600 mg TID with 300 mg at HS. Increase oxycodone to 15 mg. Will give a dose of wellbutrin as she is only scoring 1-2 on CIWA and feeling very depressed. She has not seen psychiatry in yrs she states. Will consult psychiatry. Also obtaining U/S to r/o DVT. Will give one dose morphine for pain prior to u/s. She continues to use cryocuff for swelling and pain. She denies CP, SOB, N/V/D. Exam Narrative Exam Narrative: Const: AAOx3, depressed, cooperative. Sitting in bed on the computer Eyes: PERRLA, EOMI Neck: no lymphaedema, goiter or JVD Resp: Clear bilaterally, no wheezing rales, rhonchi Cardio: RRR no murmur GI: BSx 4 no tenderness Skin: bruising to right side of face near cheek and lip Extrem: LLE with edema, in estefania wrap Objective Objective Clinical Data: Vital Signs Temperature 36.3 C L 04/22/20 07:45 Temperature Source Tympanic 04/22/20 07:45 Pulse 70 04/22/20 07:45 Pulse Rhythm Regular 04/22/20 07:58 Pulse Strength Strong 04/19/20 11:29 Respiratory Rate 18 04/22/20 07:45 Respiratory Effort Non-Labored 04/22/20 07:58 Respiratory Depth Normal 04/22/20 07:58 Respiratory Pattern Normal 04/22/20 07:58 Blood Pressure 119/80 04/22/20 07:45 Blood Pressure Mean 94 04/19/20 11:29 Blood Pressure Position Supine 04/19/20 11:29 Pulse Oximetry 98 04/22/20 07:45 Oxygen Delivery Method Room Air 04/22/20 07:45 Oxygen Flow Rate 0 04/22/20 07:45 Pain Level 9 04/22/20 07:52 Intake & Output 04/21/20 04/21/20 04/22/20 11:59 23:59 11:59 Intake Total 490 / 1790 900 / 1790 1350 / 1350 Balance 490 / 1790 900 / 1790 1350 / 1350 Intake: IV Oral 480 / 1760 880 / 1760 1350 / 1350 Other: Urine Color Yellow Urine Appearance Clear Clear Clear Urine Odor None Comment voids in the tiolet without any difficulties as per patient verbalization Voiding Methods Toilet Toilet Laboratory Results WBC 6.73 k/cumm (4.4-10.8) 04/19/20 11:50 RBC 4.02 m/cumm (4.00-5.20) 04/19/20 11:50 Hgb 12.4 g/dL (12.0-15.5) 04/19/20 11:50 Hct 37.5 % (36.0-46.0) 04/19/20 11:50 MCV 93.3 fL (80-95) 04/19/20 11:50 MCH 30.8 pg (27.0-33.0) 04/19/20 11:50 MCHC 33.1 g/dL (32.0-36.0) 04/19/20 11:50 RDW 14.8 % (11.7-14.6) H 04/19/20 11:50 Plt Count 346 x1000/uL (130-400) 04/19/20 11:50 MPV 8.3 fL (8.0-11.0) 04/19/20 11:50 Immature Gran % 0.1 % 04/19/20 11:50 Neutrophils % 64.3 04/19/20 11:50 Lymphocytes % 26.0 04/19/20 11:50 Monocytes % 6.8 04/19/20 11:50 Eosinophils % 2.5 04/19/20 11:50 Basophils % 0.3 04/19/20 11:50 Absolute Neutrophils 4.32 k/cumm (1.2-6.7) 04/19/20 11:50 Absolute Lymphocytes 1.75 k/cumm (1.2-3.4) 04/19/20 11:50 Absolute Monocytes 0.46 k/cumm (0.11-0.7) 04/19/20 11:50 Absolute Eosinophils 0.17 k/cumm (0.0-0.7) 04/19/20 11:50 Absolute Basophils 0.02 k/cumm (0.0-0.2) 04/19/20 11:50 Sodium 140 mmol/L (136-145) 04/19/20 11:50 Potassium 3.9 mmol/L (3.5-5.1) 04/19/20 11:50 Chloride 103 mmol/L (98-107) 04/19/20 11:50 Carbon Dioxide 25.1 mmol/L (21.0-32.0) 04/19/20 11:50 Anion Gap 11.9 mmol/L (3-11) H 04/19/20 11:50 BUN 13 mg/dL (7-18) 04/19/20 11:50 Creatinine 0.77 mg/dL (0.55-1.02) 04/19/20 11:50 Estimated GFR/1.73 m2 >= 60.00 (mL/min/1.73m2) 04/19/20 11:50 Glucose 75 mg/dL (74-106) 04/19/20 11:50 Calcium 8.0 mg/dL (8.5-10.1) L 04/19/20 11:50 Total Bilirubin 0.5 mg/dL (0.2-1.0) 04/19/20 11:50 AST 98 U/L (15-37) H 04/19/20 11:50 ALT 62 U/L (14-59) H 04/19/20 11:50 Alkaline Phosphatase 92 U/L (46-116) 04/19/20 11:50 Total Protein 7.4 g/dL (6.4-8.2) 04/19/20 11:50 Albumin 3.3 g/dL (3.4-5.0) L 04/19/20 11:50 TSH 0.27 uIU/mL (0.36-3.74) L 04/19/20 11:50 Free T4 0.93 ng/dL (0.76-1.46) 04/19/20 11:50 Salicylates 3.3 mg/dL (2.8-20.0) 04/19/20 11:50 Urine Opiates Screen Negative (Negative) 04/19/20 15:23 Urine Methadone Screen Positive (Negative) A 04/19/20 15:23 Acetaminophen < 2 ug/mL (10-30) 04/19/20 11:50 Ur Barbiturates Screen Negative (Negative) 04/19/20 15:23 Ur Tricyclics Screen Negative (Negative) 04/19/20 15:23 Ur Amphetamines Screen Negative (Negative) 04/19/20 15:23 U Benzodiazepines Scrn Negative (Negative) 04/19/20 15:23 Urine Cocaine Screen Negative (Negative) 04/19/20 15:23 Ur THC Screen Positive (Negative) A 04/19/20 15:23 Ethyl Alcohol 183.8 mg/dL (<3) 04/19/20 11:50 COVID-19 PCR Negative (Negative) 04/19/20 12:25 Nasopharyn COVID-19 PCR Not Applicable 04/19/20 12:25 Ref Test Perform Site Ab 7500 uvc lab 04/19/20 12:25
[2020-04-22] MEDS: buPROPion-XL 150 MG TABCR PO (10:50)
[2020-04-22] MEDS: MORPHine 2 MG/ML SYR IVP (10:57)
--- NOTE | 2020-04-22 11:59 | DI.VRAD_ITS ---
PROCEDURE INFORMATION: Exam: US Duplex Left Lower Extremity Veins, Limited Exam date and time: 04/22/2020 9:18 AM Age: 35 years old Clinical indication: Pain; Swelling (edema) of limb; Lower extremity, left; Leg, lower; Patient HX: Trauma to left knee - instability. Foot swelling; Additional info: Unable to evaluated popliteal vein. TECHNIQUE: Imaging protocol: Real-time Duplex ultrasound of the Left Lower Extremity with 2-D van scale, color Doppler flow and spectral waveform analysis with image documentation. Limited exam focused on the left lower extremity veins. COMPARISON: No relevant prior studies available. FINDINGS: Left deep veins: Unremarkable. The common femoral, femoral, and proximal profunda femoral veins are patent without thrombus. Normal Doppler waveforms. Normal compressibility and/or augmentation response. Left superficial veins: Unremarkable. Saphenofemoral junction is patent without thrombus. Soft tissues: Unremarkable. IMPRESSION: No evidence of deep vein thrombosis of the visualized deep veins (see comment below). Please note the snack bar cashier reports that the patient has a bandage over the knee which was unable to be removed (according to Vivien Villanueva NP) and the popliteal vein could not be evaluated. Dictated and Authenticated by: Foster Pearson MD. Ordering:EMILIANO Puga MD
[2020-04-22] MEDS: oxyCODONE 5 MG TAB 15 MG PO ×3 (12:21→22:22)
[2020-04-22] MEDS: Gabapentin 300 MG CAP 600 MG PO ×2 (12:21→17:15)
[2020-04-22 15:20] VITALS: BP 133/87; PULSE 69; RESP 18; TEMP 36.4; O2SAT 99
[2020-04-22 19:47] VITALS: BP 124/81; PULSE 85; RESP 18; TEMP 37.1; O2SAT 98
[2020-04-22] MEDS: Mirtazapine 15 MG TAB 30 MG PO (21:11)
[2020-04-22] MEDS: Melatonin 3 MG TAB 18 MG PO (21:11)
[2020-04-23] MEDS: Normal Saline Flush 10 ML SYR IVP (00:51)
[2020-04-23] MEDS: Ketorolac 15 MG/ML VIAL IVP ×2 (00:51→09:07)
[2020-04-23] MEDS: Acetaminophen 325 MG TAB 650 MG PO ×2 (00:51→06:09)
[2020-04-23] MEDS: oxyCODONE 5 MG TAB 15 MG PO (03:53)
[2020-04-23 03:55] VITALS: BP 113/75; PULSE 83; RESP 17; TEMP 36.4; O2SAT 96
[2020-04-23] MEDS: Gabapentin 300 MG CAP 600 MG PO ×3 (06:09→17:21)
[2020-04-23 07:39] VITALS: BP 142/85; PULSE 76; RESP 17; TEMP 36.5; O2SAT 98
[2020-04-23] MEDS: Pantoprazole 40 MG TABCR PO (08:51)
[2020-04-23] MEDS: Multivitamin TAB 1 TAB PO (08:51)
[2020-04-23] MEDS: Thiamine 100 MG TAB PO (08:51)
[2020-04-23] MEDS: chlordiazePOXIDE 25 MG CAP PO (08:51)
[2020-04-23] MEDS: Folic Acid 1 MG TAB PO (08:51)
[2020-04-23] MEDS: NORETHINDRONE 0.35 MG 0.35 EACH PO (08:52)
[2020-04-23] MEDS: Nicotine 14 MG/24 HR PATCH TD (08:59)
[2020-04-23 09:00] VITALS: O2SAT 98
[2020-04-23] MEDS: buPROPion-XL 150 MG TABCR PO (09:07)
--- NOTE | 2020-04-23 09:07 | CMPROGNOTE_ITS ---
- If Service Date Differs Date of service: 04/23/20 Time of Service: 09:07 Care Management Progress Note S/O: Chloe was found lying in bed when CM came to see her. She stated that she was in a lot of pain and that she was not having a very good day. She shared that the provider is going to make some adjustments to her pain management regimen in hopes of improving her pain control. The referral to [facility] for assistance with social security disability filing was not able to be successfully faxed yesterday.(On Friday the [facility] staff noted that they were having difficulties with their fax machine.) A phone message was left by CM today and will be followed up tomorrow with a written referral or another call. A: 35 year old female admitted to [facility] for suicidal behavior, alcohol abuse. Chloe was cleared from a mental health standpoint. P: Chloe will remain inpatient while awaiting surgery on her leg (scheduled for 04/27/20) and will be monitored for alcohol withdrawal. Anticipate post- operatively she may require a short stay in a SNF for rehab vs transition to [facility] for same. Referrals have been made to community agencies and providers to support Chloe during this time. CM will continue to work on discharge planning and disposition.
--- NOTE | 2020-04-23 10:42 | W.PM.PROGNOT ---
Date of Service Date of service: 04/23/20 Time of Service: 10:42 Assessment and Plan Assessment and plan (1) Alcohol abuse: Start date: 04/23/20 Start time: 10:48 Status: Chronic Assessment and plan: CIWA scoring 1, will continue scheduled librium decrease dose, lorazepam prn, folic acid, thiamine, multivitamin Day 4 of withdrawal. Not scoring. Will add telemetry to monitor for seizure activity (2) Internal derangement of left knee: Start date: 04/23/20 Start time: 10:49 Status: Acute Assessment and plan: Continues to have severe pain.Increased Gabapentin, oxycodone 10 mg po q 3 H, increase toradol to 30 mg. MRI evaluation revealing Complex dislocation injury of the knee, major components appear to include ACL tear, severe posterolateral corner tear involving multiple structures as described above, medial retinacular and medial collateral ligament injuries, and probable medial and lateral gastrocnemius tears. Due to nature of injury she requires prompt surgery. Dr. Jurado will perform surgery . At this time continue pain management, Cryo cuff for relief. Continue estefania wrap with knee immobilizer, (3) Left ACL tear: Start date: 04/23/20 Start time: 10:50 Status: Acute Assessment and plan: Per MRI, see above Qualifiers: Encounter type: initial encounter Qualified Code(s): S83.512A - Sprain of anterior cruciate ligament of left knee, initial encounter (4) Avulsion of left hamstring muscle: Start date: 04/23/20 Start time: 10:50 Status: Acute Assessment and plan: See above Qualifiers: Encounter type: initial encounter Qualified Code(s): S76.392A - Other specified injury of muscle, fascia and tendon of the posterior muscle group at thigh level, left thigh, initial encounter (5) Tear of lateral collateral ligament of left knee: Start date: 04/23/20 Start time: 10:50 Status: Acute Assessment and plan: See above Qualifiers: Encounter type: initial encounter Qualified Code(s): S83.422A - Sprain of lateral collateral ligament of left knee, initial encounter (6) Injury of posterolateral corner of left knee: Start date: 04/23/20 Start time: 10:50 Status: Acute Assessment and plan: See above Qualifiers: Encounter type: subsequent encounter Qualified Code(s): S89.92XD - Unspecified injury of left lower leg, subsequent encounter (7) Common peroneal nerve dysfunction of left lower extremity: Start date: 04/23/20 Start time: 10:50 Status: Acute Assessment and plan: See above Qualifiers: Encounter type: subsequent encounter Qualified Code(s): S84.12XD - Injury of peroneal nerve at lower leg level, left leg, subsequent encounter (8) Anxiety: Start date: 04/23/20 Start time: 10:50 Status: Chronic Assessment and plan: Restart wellbutrin today for depression as CIWA 1. No signs of sz will add telemetry to monitor for sz activity (9) Suicidal ideation: Start date: 04/23/20 Start time: 10:51 Status: Resolved Assessment and plan: Denies SI/HI at this time. She does state depression and anxiety. Has not seen psychiatry in years. Will consult Dr. Alexandre. (10) Asthma: Start date: 04/23/20 Start time: 10:51 Status: Chronic Assessment and plan: Improved no wheezing, continue PRN duonebs, albuterol IH prn Above case discussed with Dr. Singh who is in agreement. Subjective Subjective Patient reports: still having pain Interval history since last seen: C/o severe pain. Continues to use cryocuff, Appears exhausted today, Chloe endorses she did not sleep well due to pain. Will change roxicodone, to percocet po increase toradol to 30 mg. She denies CP, SOB, N/V/D. Exam Narrative Exam Narrative: Const: AAOx3, depressed, cooperative. Sitting in bed on the computer Eyes: PERRLA, EOMI Neck: no lymphaedema, goiter or JVD Resp: Clear bilaterally, no wheezing rales, rhonchi Cardio: RRR no murmur GI: BSx 4 no tenderness Skin: bruising to right side of face near cheek and lip Extrem: LLE with edema +2 ppp, in estefania wrap, RLE trace edema with CMST and ppp Objective Objective Clinical Data: Vital Signs Temperature 36.5 C 04/23/20 07:39 Temperature Source Tympanic 04/23/20 07:39 Pulse 76 04/23/20 07:39 Pulse Rhythm Regular 04/23/20 02:26 Pulse Strength Strong 04/19/20 11:29 Respiratory Rate 17 04/23/20 07:39 Respiratory Effort Non-Labored 04/23/20 02:26 Respiratory Depth Normal 04/23/20 02:26 Respiratory Pattern Normal 04/23/20 02:26 Blood Pressure 142/85 H 04/23/20 07:39 Blood Pressure Mean 94 04/19/20 11:29 Blood Pressure Position Supine 04/19/20 11:29 Pulse Oximetry 98 04/23/20 09:00 Oxygen Delivery Method Room Air 04/23/20 09:00 Oxygen Flow Rate 0 04/23/20 09:00 Pain Level 7 04/23/20 09:07 Intake & Output 04/22/20 04/22/20 04/23/20 11:59 23:59 11:59 Intake Total 1350 / 1960 610 / 1960 240 / 240 Output Total 300 / 300 Balance 1350 / 1660 310 / 1660 240 / 240 Intake: IV Oral 1350 / 1950 600 / 1950 240 / 240 Output: Urine 300 / 300 Other: Urine Appearance Clear Clear Clear Voiding Methods Toilet Toilet Laboratory Results WBC 6.73 k/cumm (4.4-10.8) 04/19/20 11:50 RBC 4.02 m/cumm (4.00-5.20) 04/19/20 11:50 Hgb 12.4 g/dL (12.0-15.5) 04/19/20 11:50 Hct 37.5 % (36.0-46.0) 04/19/20 11:50 MCV 93.3 fL (80-95) 04/19/20 11:50 MCH 30.8 pg (27.0-33.0) 04/19/20 11:50 MCHC 33.1 g/dL (32.0-36.0) 04/19/20 11:50 RDW 14.8 % (11.7-14.6) H 04/19/20 11:50 Plt Count 346 x1000/uL (130-400) 04/19/20 11:50 MPV 8.3 fL (8.0-11.0) 04/19/20 11:50 Immature Gran % 0.1 % 04/19/20 11:50 Neutrophils % 64.3 04/19/20 11:50 Lymphocytes % 26.0 04/19/20 11:50 Monocytes % 6.8 04/19/20 11:50 Eosinophils % 2.5 04/19/20 11:50 Basophils % 0.3 04/19/20 11:50 Absolute Neutrophils 4.32 k/cumm (1.2-6.7) 04/19/20 11:50 Absolute Lymphocytes 1.75 k/cumm (1.2-3.4) 04/19/20 11:50 Absolute Monocytes 0.46 k/cumm (0.11-0.7) 04/19/20 11:50 Absolute Eosinophils 0.17 k/cumm (0.0-0.7) 04/19/20 11:50 Absolute Basophils 0.02 k/cumm (0.0-0.2) 04/19/20 11:50 Sodium 140 mmol/L (136-145) 04/19/20 11:50 Potassium 3.9 mmol/L (3.5-5.1) 04/19/20 11:50 Chloride 103 mmol/L (98-107) 04/19/20 11:50 Carbon Dioxide 25.1 mmol/L (21.0-32.0) 04/19/20 11:50 Anion Gap 11.9 mmol/L (3-11) H 04/19/20 11:50 BUN 13 mg/dL (7-18) 04/19/20 11:50 Creatinine 0.77 mg/dL (0.55-1.02) 04/19/20 11:50 Estimated GFR/1.73 m2 >= 60.00 (mL/min/1.73m2) 04/19/20 11:50 Glucose 75 mg/dL (74-106) 04/19/20 11:50 Calcium 8.0 mg/dL (8.5-10.1) L 04/19/20 11:50 Total Bilirubin 0.5 mg/dL (0.2-1.0) 04/19/20 11:50 AST 98 U/L (15-37) H 04/19/20 11:50 ALT 62 U/L (14-59) H 04/19/20 11:50 Alkaline Phosphatase 92 U/L (46-116) 04/19/20 11:50 Total Protein 7.4 g/dL (6.4-8.2) 04/19/20 11:50 Albumin 3.3 g/dL (3.4-5.0) L 04/19/20 11:50 TSH 0.27 uIU/mL (0.36-3.74) L 04/19/20 11:50 Free T4 0.93 ng/dL (0.76-1.46) 04/19/20 11:50 Salicylates 3.3 mg/dL (2.8-20.0) 04/19/20 11:50 Urine Opiates Screen Negative (Negative) 04/19/20 15:23 Urine Methadone Screen Positive (Negative) A 04/19/20 15:23 Acetaminophen < 2 ug/mL (10-30) 04/19/20 11:50 Ur Barbiturates Screen Negative (Negative) 04/19/20 15:23 Ur Tricyclics Screen Negative (Negative) 04/19/20 15:23 Ur Amphetamines Screen Negative (Negative) 04/19/20 15:23 U Benzodiazepines Scrn Negative (Negative) 04/19/20 15:23 Urine Cocaine Screen Negative (Negative) 04/19/20 15:23 Ur THC Screen Positive (Negative) A 04/19/20 15:23 Ethyl Alcohol 183.8 mg/dL (<3) 04/19/20 11:50 COVID-19 PCR Negative (Negative) 04/19/20 12:25 Nasopharyn COVID-19 PCR Not Applicable 04/19/20 12:25 Ref Test Perform Site Ab 7500 [facility] lab 04/19/20 12:25
[2020-04-23 15:05] VITALS: BP 133/69; PULSE 84; RESP 18; TEMP 36.3; O2SAT 99
[2020-04-23] MEDS: oxyCODONE 5 mg/Acetaminophen 325 mg TAB 2 TAB PO ×3 (17:21→22:49)
[2020-04-23] MEDS: Ketorolac 30 MG/ML VIAL IVP (19:49)
[2020-04-23] MEDS: LORazepam 1 MG TAB PO/SL ×3 (20:21→23:17)
[2020-04-23 20:32] VITALS: BP 161/96; PULSE 91; RESP 19; TEMP 36.2; O2SAT 99
[2020-04-23] MEDS: Mirtazapine 15 MG TAB 30 MG PO (21:29)
[2020-04-23] MEDS: Gabapentin 300 MG CAP PO (21:29)
[2020-04-23] MEDS: Melatonin 3 MG TAB 18 MG PO (21:29)
[2020-04-24 01:54] VITALS: BP 127/86; PULSE 79; RESP 18; TEMP 37; O2SAT 96
[2020-04-24] MEDS: Normal Saline Flush 10 ML SYR IVP ×3 (02:20→21:25)
[2020-04-24] MEDS: Ketorolac 30 MG/ML VIAL IVP (02:21)
[2020-04-24] MEDS: oxyCODONE 5 mg/Acetaminophen 325 mg TAB 2 TAB PO ×7 (02:29→22:46)
[2020-04-24] MEDS: Gabapentin 300 MG CAP 600 MG PO ×3 (05:02→18:17)
[2020-04-24] MEDS: LORazepam 1 MG TAB PO/SL ×3 (05:10→18:17)
[2020-04-24 06:50] LABS: HCT 38.2 % (36.0-46.0); HGB 12.6 g/dL (12.0-15.5); Mean Corpuscular Volume 94.1 fL (80-95); Mean Platelet Volume 8.7 fL (8.0-11.0); Platelet Count 292 x1000/uL (130-400); RBC 4.06 m/cumm (4.00-5.20); RBC Distribution Width 14.8 % (11.7-14.6); White Blood Cell Count 8.19 k/cumm (4.4-10.8)
[2020-04-24 07:30] VITALS: BP 105/67; PULSE 79; RESP 16; TEMP 36.7; O2SAT 98
[2020-04-24] MEDS: buPROPion-XL 150 MG TABCR PO (08:37)
[2020-04-24] MEDS: Thiamine 100 MG TAB PO (08:38)
[2020-04-24] MEDS: Pantoprazole 40 MG TABCR PO (08:38)
[2020-04-24] MEDS: Multivitamin TAB 1 TAB PO (08:38)
[2020-04-24] MEDS: Folic Acid 1 MG TAB PO (08:38)
[2020-04-24] MEDS: Nicotine 14 MG/24 HR PATCH TD (08:38)
[2020-04-24] MEDS: NORETHINDRONE 0.35 MG 0.35 EACH PO (08:39)
[2020-04-24 09:30] LABS: Anion Gap 10.4 mmol/L (3-11); BUN 31 mg/dL (7-18); CO2 24.6 mmol/L (21.0-32.0); CREATININE 1.11 mg/dL (0.55-1.02); Chloride 103 mmol/L (98-107); Estimated GFR 55.62 (mL/min/1.73m2); Glucose 125 mg/dL (74-106); Magnesium 2.1 mg/dL (1.8-2.4); Potassium 4.6 mmol/L (3.5-5.1); Sodium 138 mmol/L (136-145)
[2020-04-24] MEDS: MORPHine 10 MG/ML VIAL 5 MG IVP ×3 (11:10→21:25)
--- NOTE | 2020-04-24 11:12 | W.PM.PROGNOT ---
Date of Service Date of service: 04/24/20 Time of Service: 11:12 Assessment and Plan Assessment and plan (1) HIRO (acute kidney injury): Start date: 04/24/20 Start time: 11:39 Status: Acute Assessment and plan: Likely in setting of NSAID use. Creatinine up from 0.70 to 1.11 BUN up. d/c toradol, NS and repeat labs in am. Add other alternatives for pain (2) Alcohol abuse: Start date: 04/24/20 Start time: 11:35 Status: Chronic Assessment and plan: CIWA scoring 8-13 overnight, will continue scheduled librium dose decreased yesterday, lorazepam prn, folic acid, thiamine, multivitamin Day 4-5 of withdrawal. Will add telemetry to monitor for seizure activity (3) Internal derangement of left knee: Start date: 04/24/20 Start time: 11:38 Status: Acute Assessment and plan: Continues to have severe pain.Increased Gabapentin, oxycodone 10 mg po q 3 H, increase toradol dcd due to HIRO. Will add morphine 5 mg q 4 hours for severe pain. MRI evaluation revealing Complex dislocation injury of the knee, major components appear to include ACL tear, severe posterolateral corner tear involving multiple structures as described above, medial retinacular and medial collateral ligament injuries, and probable medial and lateral gastrocnemius tears. Due to nature of injury she requires prompt surgery. Dr. Jurado will perform surgery . At this time continue pain management, Cryo cuff for relief. Continue estefania wrap with knee immobilizer, (4) Left ACL tear: Start date: 04/24/20 Start time: 11:40 Status: Acute Assessment and plan: Per MRI, see above Qualifiers: Encounter type: initial encounter Qualified Code(s): S83.512A - Sprain of anterior cruciate ligament of left knee, initial encounter (5) Avulsion of left hamstring muscle: Start date: 04/24/20 Start time: 11:40 Status: Acute Assessment and plan: See above Qualifiers: Encounter type: initial encounter Qualified Code(s): S76.392A - Other specified injury of muscle, fascia and tendon of the posterior muscle group at thigh level, left thigh, initial encounter (6) Tear of lateral collateral ligament of left knee: Start date: 04/24/20 Start time: 11:40 Status: Acute Assessment and plan: See above Qualifiers: Encounter type: initial encounter Qualified Code(s): S83.422A - Sprain of lateral collateral ligament of left knee, initial encounter (7) Injury of posterolateral corner of left knee: Start date: 04/24/20 Start time: 11:40 Status: Acute Assessment and plan: See above Qualifiers: Encounter type: subsequent encounter Qualified Code(s): S89.92XD - Unspecified injury of left lower leg, subsequent encounter (8) Common peroneal nerve dysfunction of left lower extremity: Start date: 04/24/20 Start time: 11:40 Status: Acute Assessment and plan: See above Qualifiers: Encounter type: subsequent encounter Qualified Code(s): S84.12XD - Injury of peroneal nerve at lower leg level, left leg, subsequent encounter (9) Anxiety: Start date: 04/24/20 Start time: 11:41 Status: Chronic Assessment and plan: Wellbutrin restarted. She did have several episodes of anxiety overnight, likely due to pain and withdrawal. She has attended AA meetings daily on zoom. Keeping a journal Consult Dr. Alexandre (10) Suicidal ideation: Start date: 04/24/20 Start time: 11:41 Status: Resolved Assessment and plan: Denies SI/HI at this time. She does state depression and anxiety. Has not seen psychiatry in years. Will consult Dr. Alexandre. (11) Asthma: Start date: 04/24/20 Start time: 11:42 Status: Chronic Assessment and plan: She has not needed inhaler or duoneb. She states her asthma is much better since not smoking. Continue to discuss smoking cessation Above case discussed with Dr. Singh who is in agreement. Subjective Subjective Patient reports: still having pain Interval history since last seen: Chloe continues to have a lot of pain, she is tearful stating that she lays in bed crying due to pain being bad but is afraid to ask for anything. She has slight HIRO by am labs, toradol dcd will give NS and recheck am labs. Will start morphine IVP q 4 hours for pain as she has been very hard to control. Will continue percocet. Surgery scheduled for . She has very good insight to her own addictions. She is aware about possible addiction to opioids given past and realizes at that time she would like to be in either [facility] or a sober penitentiary. she is open about her concerns and feels safe at this time. She denies CP, SOB, N/V/D Exam Narrative Exam Narrative: Const: AAOx3, depressed, cooperative. Sitting in bed on the computer Eyes: PERRLA, EOMI Neck: no lymphaedema, goiter or JVD Resp: Clear bilaterally, no wheezing rales, rhonchi Cardio: RRR no murmur GI: BSx 4 no tenderness Skin: bruising to right side of face near cheek and lip Extrem: LLE swollen from toes to mid thigh +3 edema to feet, +2 to knee bruising to different aspects including outer aspect , in estefania wrap, RLE trace edema with CMST and ppp Objective Objective Clinical Data: Abnormal lab results 04/24/20 04/24/20 Range/Units 06:40 06:40 RDW 14.8 H (11.7-14.6) % BUN 31 H (7-18) mg/dL Creatinine 1.11 H (0.55-1.02) mg/dL Glucose 125 H (74-106) mg/dL Vital Signs Temperature 36.7 C 04/24/20 07:30 Temperature Source Tympanic 04/24/20 07:30 Pulse 79 04/24/20 07:30 Pulse Rhythm Regular 04/24/20 06:16 Pulse Strength Strong 04/19/20 11:29 Respiratory Rate 16 04/24/20 07:30 Respiratory Effort Non-Labored 04/24/20 06:16 Respiratory Depth Normal 04/24/20 06:16 Respiratory Pattern Normal 04/24/20 06:16 Blood Pressure 105/67 04/24/20 07:30 Blood Pressure Mean 94 04/19/20 11:29 Blood Pressure Position Supine 04/19/20 11:29 Pulse Oximetry 98 04/24/20 07:30 Oxygen Delivery Method Room Air 04/24/20 07:30 Oxygen Flow Rate 0 04/24/20 07:30 Pain Level 8 04/24/20 11:10 Comment 04/23/20 20:32 Intake & Output 04/23/20 04/23/20 04/24/20 11:59 23:59 11:59 Intake Total 490 / 930 440 / 930 540 / 540 Balance 490 / 930 440 / 930 540 / 540 Intake: Oral 490 / 930 440 / 930 540 / 540 Other: Urine Color Yellow Urine Appearance Clear Clear Clear Urine Odor None Comment voids independently in toilet pt voids independently, states she has gone throughout the night but did not use the hat Voiding Methods Toilet Toilet Toilet Laboratory Results WBC 8.19 k/cumm (4.4-10.8) 04/24/20 06:40 RBC 4.06 m/cumm (4.00-5.20) 04/24/20 06:40 Hgb 12.6 g/dL (12.0-15.5) 04/24/20 06:40 Hct 38.2 % (36.0-46.0) 04/24/20 06:40 MCV 94.1 fL (80-95) 04/24/20 06:40 MCH 31.0 pg (27.0-33.0) 04/24/20 06:40 MCHC 33.0 g/dL (32.0-36.0) 04/24/20 06:40 RDW 14.8 % (11.7-14.6) H 04/24/20 06:40 Plt Count 292 x1000/uL (130-400) 04/24/20 06:40 MPV 8.7 fL (8.0-11.0) 04/24/20 06:40 Immature Gran % 0.1 % 04/19/20 11:50 Neutrophils % 64.3 04/19/20 11:50 Lymphocytes % 26.0 04/19/20 11:50 Monocytes % 6.8 04/19/20 11:50 Eosinophils % 2.5 04/19/20 11:50 Basophils % 0.3 04/19/20 11:50 Absolute Neutrophils 4.32 k/cumm (1.2-6.7) 04/19/20 11:50 Absolute Lymphocytes 1.75 k/cumm (1.2-3.4) 04/19/20 11:50 Absolute Monocytes 0.46 k/cumm (0.11-0.7) 04/19/20 11:50 Absolute Eosinophils 0.17 k/cumm (0.0-0.7) 04/19/20 11:50 Absolute Basophils 0.02 k/cumm (0.0-0.2) 04/19/20 11:50 Sodium 138 mmol/L (136-145) 04/24/20 06:40 Potassium 4.6 mmol/L (3.5-5.1) 04/24/20 06:40 Chloride 103 mmol/L (98-107) 04/24/20 06:40 Carbon Dioxide 24.6 mmol/L (21.0-32.0) 04/24/20 06:40 Anion Gap 10.4 mmol/L (3-11) 04/24/20 06:40 BUN 31 mg/dL (7-18) H 04/24/20 06:40 Creatinine 1.11 mg/dL (0.55-1.02) H 04/24/20 06:40 Estimated GFR/1.73 m2 55.62 (mL/min/1.73m2) 04/24/20 06:40 Glucose 125 mg/dL (74-106) H 04/24/20 06:40 Calcium 9.0 mg/dL (8.5-10.1) 04/24/20 06:40 Magnesium 2.1 mg/dL (1.8-2.4) 04/24/20 06:40 Total Bilirubin 0.5 mg/dL (0.2-1.0) 04/19/20 11:50 AST 98 U/L (15-37) H 04/19/20 11:50 ALT 62 U/L (14-59) H 04/19/20 11:50 Alkaline Phosphatase 92 U/L (46-116) 04/19/20 11:50 Total Protein 7.4 g/dL (6.4-8.2) 04/19/20 11:50 Albumin 3.3 g/dL (3.4-5.0) L 04/19/20 11:50 TSH 0.27 uIU/mL (0.36-3.74) L 04/19/20 11:50 Free T4 0.93 ng/dL (0.76-1.46) 04/19/20 11:50 Salicylates 3.3 mg/dL (2.8-20.0) 04/19/20 11:50 Urine Opiates Screen Negative (Negative) 04/19/20 15:23 Urine Methadone Screen Positive (Negative) A 04/19/20 15:23 Acetaminophen < 2 ug/mL (10-30) 04/19/20 11:50 Ur Barbiturates Screen Negative (Negative) 04/19/20 15:23 Ur Tricyclics Screen Negative (Negative) 04/19/20 15:23 Ur Amphetamines Screen Negative (Negative) 04/19/20 15:23 U Benzodiazepines Scrn Negative (Negative) 04/19/20 15:23 Urine Cocaine Screen Negative (Negative) 04/19/20 15:23 Ur THC Screen Positive (Negative) A 04/19/20 15:23 Ethyl Alcohol 183.8 mg/dL (<3) 04/19/20 11:50 COVID-19 PCR Negative (Negative) 04/19/20 12:25 Nasopharyn COVID-19 PCR Not Applicable 04/19/20 12:25 Ref Test Perform Site Ab 7500 [facility] lab 04/19/20 12:25
[2020-04-24 11:20] LABS: Creatine Kinase 85 U/L (26-192)
--- NOTE | 2020-04-24 11:40 | CMPROGNOTE_ITS ---
Care Management Progress Note S/O: Referrals to [employer] for disability support and [facility] for service connection while inpatient/SWB1 at [facility] and disposition support completed. CM met with Mandi Corona RN and JULIETA Rocha regarding medication regime and Chloe's concerns. CM spoke with Dr. Alexandre who reports she will connect with [facility] on Friday. CM continues to follow. CM discussed outpatient service connection via Zoom/phone and phone including [facility], AA, Psychiatric consult with Dr. Alexandre, placement/housing coordination. Chloe made a goal list for returning to the [facility] in [facility], including attending zoom meetings and substance use support. A: 35 year old female admitted to [facility] 04/20/20 for Injury of posterolateral corn er of left knee-closely monitored for ETOH withdrawal and pain management pre- operatively. P: Anticipate Chloe will remain inpatient while being monitored for alcohol withdrawal. Anticipate she will eventually transition to [facility] for pain management and NWB mobilization. She will have surgery next week and be re- assessed post surgically. CM will continue to work on discharge planning and disposition.
--- NOTE | 2020-04-24 11:40 | PDOC.CMPRO ---
Care Management Progress Note S/O: Referrals to [employer] for disability support and [employer] for service connection while inpatient/SWB1 at [facility] and disposition support completed. CM met with Mandi Corona RN and JULIETA Rocha regarding medication regime and Chloe's concerns. CM spoke with Dr. Alexandre who reports she will connect with Chloe on Friday. CM continues to follow. CM discussed outpatient service connection via Zoom/phone and phone including [facility], AA, Psychiatric consult with Dr. Alexandre, placement/housing coordination. Chloe made a goal list for returning to the [facility] in [facility], including attending zoom meetings and substance use support. A: 35 year old female admitted to [facility] 04/20/20 for Injury of posterolateral corner of left knee-closely monitored for ETOH withdrawal and pain management pre-operatively. P: Anticipate Chloe will remain inpatient while being monitored for alcohol withdrawal. Anticipate she will eventually transition to [facility] for pain management and NWB mobilization. She will have surgery next week and be re-assessed post surgically. CM will continue to work on discharge planning and disposition.
[2020-04-24] MEDS: Normal Saline 1,000 ML 100 ML IV ×2 (12:32→22:41)
--- NOTE | 2020-04-24 13:20 | W.NUTRFU ---
Date of service: 04/24/20 Time of Service: 13:20 Nutritional Follow up NOTE: 35 year old female admitted with HIRO, ETOH abuse. Currently following regular meal plan with adequate intake. Not at risk for nutritional decline at this time. Time Spent in Nutritional Counseling and Treatment: 0
[2020-04-24 15:36] VITALS: BP 115/73; PULSE 81; RESP 17; TEMP 37.1; O2SAT 99
[2020-04-24 19:30] VITALS: BP 151/90; PULSE 102; RESP 19; TEMP 37.2; O2SAT 96
[2020-04-24] MEDS: Docusate Sodium 100 MG CAP PO (19:39)
[2020-04-24] MEDS: Mirtazapine 15 MG TAB 30 MG PO (21:26)
[2020-04-24] MEDS: Melatonin 3 MG TAB 18 MG PO (21:26)
[2020-04-24] MEDS: Gabapentin 300 MG CAP PO (21:26)
[2020-04-24 23:24] VITALS: BP 134/84; PULSE 101; RESP 19; TEMP 37; O2SAT 98
[2020-04-25 02:33] VITALS: O2SAT 98
[2020-04-25 03:18] VITALS: BP 115/74; PULSE 72; RESP 19; TEMP 36.8; O2SAT 97
[2020-04-25] MEDS: MORPHine 10 MG/ML VIAL 5 MG IVP ×5 (03:22→20:49)
[2020-04-25] MEDS: Normal Saline Flush 10 ML SYR IVP ×4 (03:22→20:49)
[2020-04-25] MEDS: oxyCODONE 5 mg/Acetaminophen 325 mg TAB 2 TAB PO ×6 (04:41→21:50)
[2020-04-25] MEDS: Gabapentin 300 MG CAP 600 MG PO ×3 (05:52→17:45)
[2020-04-25 06:49] LABS: Anion Gap 8.2 mmol/L (3-11); BUN 22 mg/dL (7-18); CO2 27.8 mmol/L (21.0-32.0); Calcium 8.8 mg/dL (8.5-10.1); Chloride 105 mmol/L (98-107); Glucose 136 mg/dL (74-106); Potassium 4.5 mmol/L (3.5-5.1); Sodium 141 mmol/L (136-145)
[2020-04-25 07:25] VITALS: BP 123/77; PULSE 85; RESP 22; TEMP 36.8; O2SAT 98
[2020-04-25] MEDS: Pantoprazole 40 MG TABCR PO (07:29)
[2020-04-25] MEDS: buPROPion-XL 150 MG TABCR PO (08:20)
[2020-04-25] MEDS: Thiamine 100 MG TAB PO (08:20)
[2020-04-25] MEDS: Docusate Sodium 100 MG CAP PO ×2 (08:20→19:55)
[2020-04-25] MEDS: Nicotine 14 MG/24 HR PATCH TD ×2 (08:22→11:27)
[2020-04-25] MEDS: Folic Acid 1 MG TAB PO (08:22)
[2020-04-25] MEDS: Multivitamin TAB 1 TAB PO (08:22)
[2020-04-25] MEDS: NORETHINDRONE 0.35 MG 0.35 EACH PO (08:32)
[2020-04-25] MEDS: Normal Saline 1,000 ML 100 ML IV (08:51)
--- NOTE | 2020-04-25 11:22 | NUR.NOTE ---
Nursing Note: Nicotine patch was covered w/tegaderm for shower, Pt removed tegaderm and patch with it. patch wasted. new 14mg patch applied.
--- NOTE | 2020-04-25 11:22 | NUR.NOTE ---
Nursing Note: Pt disconnected herself from IV fluids and shut pump off. Pt asked by nursing to ring for assist and not disconnect IV line or press buttons on pump again. Pt getting up w/o knee immobilizor, reports she knows she is supposed to use it. Pt reports feeling anxious r/t tele wires and IV lines.
--- NOTE | 2020-04-25 12:01 | W.PM.PROGNOT ---
Date of Service Date of service: 04/25/20 Time of Service: 12:01 Assessment and Plan Assessment and plan (1) Internal derangement of left knee: Status: Acute Assessment and plan: Continues to have severe pain. Increased Gabapentin, oxycodone 10 mg po q 3 H, increase toradol dcd due to HIRO. Will add morphine 5 mg q 4 hours for severe pain. MRI evaluation revealing Complex dislocation injury of the knee, major components appear to include ACL tear, severe posterolateral corner tear involving multiple structures as described above, medial retinacular and medial collateral ligament injuries, and probable medial and lateral gastrocnemius tears. Due to nature of injury she requires prompt surgery. Dr. Jurado will perform surgery . At this time continue pain management, Cryo cuff for relief. Continue estefania wrap with knee imobilizer (2) Alcohol abuse: Status: Chronic Assessment and plan: will continue scheduled librium, lorazepam prn add thiamine. (3) HIRO (acute kidney injury): Status: Acute (4) Suicidal ideation: Status: Resolved Assessment and plan: patient has been cleared by mental health and has not been suicidal. plan is to follow up with psychiatry for medication adjustment for her depression. (5) Depression: Status: Chronic Assessment and plan: awaiting psychiatric evaluation for medication management. continue current regimen for now. case and plan of care discussed with Dr Singh who is in agreement Qualifiers: Depression Type: unspecified Qualified Code(s): F32.9 - Major depressive disorder, single episode, unspecified Subjective Subjective Patient reports: no new complaints, still having pain, tolerating liquids well, tolerating a regular diet and bowel movement (passing flatus) Interval history since last seen: patient reports that she is having pain but it is tolerable with current regimen. Exam Const General: cooperative, no acute distress and well developed Nutritional Appearance: average body habitus Orientation: alert, awake and oriented x3 HENMT Head: normal to inspection, normocephalic and atraumatic Mouth: oral mucosae normal Resp Effort & Inspection: normal respiratory effort Auscultation: clear to auscultation bilaterally and wheezes expiratory wheezes, inspiratory wheezes, left upper and right upper Cardio Rate: regular rate Rhythm: regular rhythm GI Inspection: normal to inspection Palpation: soft Auscultation: normal bowel sounds Skin General skin exam: ecchymosis Neuro General: patient alert, patient awake and patient oriented x3 Extrem General: abnormal ROM and pedal edema present Left lower extremity: knee Details: tenderness, swelling, abnormal ROM Details: pain with passive ROM, knee ligament exam abnormal Details: valgus stress test Details: pain noted and abrasion (scab, no evidence of infection) Objective Objective Clinical Data: Abnormal lab results 04/25/20 Range/Units 06:15 BUN 22 H D (7-18) mg/dL Glucose 136 H (74-106) mg/dL Vital Signs Temperature 36.8 C 04/25/20 07:25 Temperature Source Tympanic 04/25/20 07:25 Pulse 85 04/25/20 07:25 Pulse Rhythm Regular 04/25/20 08:57 Pulse Strength Strong 04/19/20 11:29 Respiratory Rate 22 04/25/20 07:25 Respiratory Effort Non-Labored 04/25/20 08:57 Respiratory Depth Normal 04/25/20 08:57 Respiratory Pattern Normal 04/25/20 08:57 Blood Pressure 123/77 04/25/20 07:25 Blood Pressure Mean 94 04/19/20 11:29 Blood Pressure Position Supine 04/19/20 11:29 Pulse Oximetry 98 04/25/20 07:25 Oxygen Delivery Method Room Air 04/25/20 07:25 Oxygen Flow Rate 0 04/25/20 07:25 Pain Level 9 04/25/20 07:33 Comment 04/23/20 20:32 Intake & Output 04/24/20 04/25/20 04/25/20 23:59 11:59 23:59 Intake Total 1740 / 2290 1740 / 1740 Balance 1740 / 2290 1740 / 1740 Intake: IV 1000 / 1010 1010 / 1010 Oral 740 / 1280 730 / 730 Other: Urine Color Yellow Yellow Urine Appearance Clear Clear Urine Odor None Comment pt patient verbalization Voiding Methods Toilet Toilet Laboratory Results WBC 8.19 k/cumm (4.4-10.8) 04/24/20 06:40 RBC 4.06 m/cumm (4.00-5.20) 04/24/20 06:40 Hgb 12.6 g/dL (12.0-15.5) 04/24/20 06:40 Hct 38.2 % (36.0-46.0) 04/24/20 06:40 MCV 94.1 fL (80-95) 04/24/20 06:40 MCH 31.0 pg (27.0-33.0) 04/24/20 06:40 MCHC 33.0 g/dL (32.0-36.0) 04/24/20 06:40 RDW 14.8 % (11.7-14.6) H 04/24/20 06:40 Plt Count 292 x1000/uL (130-400) 04/24/20 06:40 MPV 8.7 fL (8.0-11.0) 04/24/20 06:40 Immature Gran % 0.1 % 04/19/20 11:50 Neutrophils % 64.3 04/19/20 11:50 Lymphocytes % 26.0 04/19/20 11:50 Monocytes % 6.8 04/19/20 11:50 Eosinophils % 2.5 04/19/20 11:50 Basophils % 0.3 04/19/20 11:50 Absolute Neutrophils 4.32 k/cumm (1.2-6.7) 04/19/20 11:50 Absolute Lymphocytes 1.75 k/cumm (1.2-3.4) 04/19/20 11:50 Absolute Monocytes 0.46 k/cumm (0.11-0.7) 04/19/20 11:50 Absolute Eosinophils 0.17 k/cumm (0.0-0.7) 04/19/20 11:50 Absolute Basophils 0.02 k/cumm (0.0-0.2) 04/19/20 11:50 Sodium 141 mmol/L (136-145) 04/25/20 06:15 Potassium 4.5 mmol/L (3.5-5.1) 04/25/20 06:15 Chloride 105 mmol/L (98-107) 04/25/20 06:15 Carbon Dioxide 27.8 mmol/L (21.0-32.0) 04/25/20 06:15 Anion Gap 8.2 mmol/L (3-11) 04/25/20 06:15 BUN 22 mg/dL (7-18) H D 04/25/20 06:15 Creatinine 1.00 mg/dL (0.55-1.02) 04/25/20 06:15 Estimated GFR/1.73 m2 >= 60.00 (mL/min/1.73m2) 04/25/20 06:15 Glucose 136 mg/dL (74-106) H 04/25/20 06:15 Calcium 8.8 mg/dL (8.5-10.1) 04/25/20 06:15 Magnesium 2.1 mg/dL (1.8-2.4) 04/24/20 06:40 Total Bilirubin 0.5 mg/dL (0.2-1.0) 04/19/20 11:50 AST 98 U/L (15-37) H 04/19/20 11:50 ALT 62 U/L (14-59) H 04/19/20 11:50 Alkaline Phosphatase 92 U/L (46-116) 04/19/20 11:50 Creatine Kinase 85 U/L (26-192) 04/24/20 06:40 Total Protein 7.4 g/dL (6.4-8.2) 04/19/20 11:50 Albumin 3.3 g/dL (3.4-5.0) L 04/19/20 11:50 TSH 0.27 uIU/mL (0.36-3.74) L 04/19/20 11:50 Free T4 0.93 ng/dL (0.76-1.46) 04/19/20 11:50 Salicylates 3.3 mg/dL (2.8-20.0) 04/19/20 11:50 Urine Opiates Screen Negative (Negative) 04/19/20 15:23 Urine Methadone Screen Positive (Negative) A 04/19/20 15:23 Acetaminophen < 2 ug/mL (10-30) 04/19/20 11:50 Ur Barbiturates Screen Negative (Negative) 04/19/20 15:23 Ur Tricyclics Screen Negative (Negative) 04/19/20 15:23 Ur Amphetamines Screen Negative (Negative) 04/19/20 15:23 U Benzodiazepines Scrn Negative (Negative) 04/19/20 15:23 Urine Cocaine Screen Negative (Negative) 04/19/20 15:23 Ur THC Screen Positive (Negative) A 04/19/20 15:23 Ethyl Alcohol 183.8 mg/dL (<3) 04/19/20 11:50 COVID-19 PCR Negative (Negative) 04/19/20 12:25 Nasopharyn COVID-19 PCR Not Applicable 04/19/20 12:25 Ref Test Perform Site Ab 7500 [facility] lab 04/19/20 12:25
--- NOTE | 2020-04-25 14:53 | CHAPLAIN ---
Lulu Corona was sitting up in bed when I visited, and was typing on the laptop. Although Chloe has been here a few days, this was my first time meeting her. She told me about her knee injury and that she has talked to two metal sash setter about suing since he knee was injured while she was being escorted by police. She said she is used to working 12 hours days, so sitting still is difficult. She has been in touch by phone with her brother and boyfriend, but she has difficulty reaching her boyfriend because he works two jobs and doesn't get cell service where he lives. Chloe talked about previously being treated for suicidal ideation. She said she was in the middle of changing her depression medications and dealing with her knee injury and recently became homeless, so was having trouble coping with all that. While she's here she has been attending AA meetings in [place] on Zoom, with people she knows from there. When asked what she does to calm or sooth herself, she said she doesn't have any routine around that. I will continue to visit.
[2020-04-25 15:25] VITALS: BP 127/74; PULSE 83; RESP 22; TEMP 36.5; O2SAT 99
--- NOTE | 2020-04-25 15:31 | CMPROGNOTE_ITS ---
Care Management Progress Note S/O: Chloe connected with [employer] for disability support and continues to speak with [employer] daily. Plan for Psychiatric consult with Dr. Alexandre who reports she will connect with Chloe on Friday. Chloe reported feeling better emotionally and shared that she felt that was due to taking her medications consistently on time. CM continues to follow. She continues to participate via Zoom/phone and phone including [employer], AA for substance use support. A: 35 year old female admitted to [facility] 04/20/20 for Injury of posterolateral corner of left knee-closely monitored for ETOH withdrawal and pain management pre-operatively. P: Anticipate Chloe will remain inpatient while being monitored for alcohol withdrawal. Anticipate she will eventually transition to [facility] for pain management and NWB mobilization. She will have surgery next week and be re- assessed post surgically. CM will continue to work on discharge planning and disposition.
[2020-04-25 19:05] VITALS: BP 119/71; PULSE 88; RESP 19; TEMP 36.2; O2SAT 99
[2020-04-25] MEDS: Melatonin 3 MG TAB 18 MG PO (21:49)
[2020-04-25] MEDS: Mirtazapine 15 MG TAB 30 MG PO (21:50)
[2020-04-25] MEDS: Gabapentin 300 MG CAP PO (21:50)
[2020-04-25 22:45] VITALS: BP 117/73; PULSE 79; RESP 18; TEMP 36.4; O2SAT 96
[2020-04-26] MEDS: Normal Saline Flush 10 ML SYR IVP ×5 (02:50→20:02)
[2020-04-26] MEDS: MORPHine 10 MG/ML VIAL 5 MG IVP ×5 (02:50→20:03)
[2020-04-26 03:40] VITALS: BP 111/70; PULSE 72; RESP 17; TEMP 37; O2SAT 97
[2020-04-26] MEDS: oxyCODONE 5 mg/Acetaminophen 325 mg TAB 2 TAB PO ×6 (04:02→23:39)
[2020-04-26] MEDS: Gabapentin 300 MG CAP 600 MG PO ×3 (05:37→17:33)
[2020-04-26 07:09] LABS: Anion Gap 7.3 mmol/L (3-11); BUN 22 mg/dL (7-18); CO2 27.7 mmol/L (21.0-32.0); CREATININE 0.95 mg/dL (0.55-1.02); Calcium 8.8 mg/dL (8.5-10.1); Chloride 103 mmol/L (98-107); Glucose 112 mg/dL (74-106); Potassium 4.4 mmol/L (3.5-5.1); Sodium 138 mmol/L (136-145)
[2020-04-26] MEDS: Nicotine 14 MG/24 HR PATCH TD (07:38)
[2020-04-26] MEDS: buPROPion-XL 150 MG TABCR PO (07:39)
[2020-04-26 07:40] VITALS: BP 118/73; PULSE 74; RESP 17; TEMP 36.7; O2SAT 98
[2020-04-26] MEDS: Pantoprazole 40 MG TABCR PO (07:40)
[2020-04-26] MEDS: Thiamine 100 MG TAB PO (07:40)
[2020-04-26] MEDS: Folic Acid 1 MG TAB PO (07:41)
[2020-04-26] MEDS: Multivitamin TAB 1 TAB PO (07:41)
[2020-04-26] MEDS: NORETHINDRONE 0.35 MG 0.35 EACH PO (07:46)
--- NOTE | 2020-04-26 10:21 | W.PM.PROGNOT ---
Date of Service Date of service: 04/26/20 Time of Service: 10:21 Assessment and Plan Assessment and plan (1) Internal derangement of left knee: Status: Acute Assessment and plan: Pain, better managed. Plan for OR tomorrow. Continue orthopedic recommendations. Continue increased Gabapentin, oxycodone 10 mg po q 3 H, her toradol dcd due to HIRO. now on morphine 5 mg q 4 hours for severe pain. MRI evaluation revealing Complex dislocation injury of the knee, major components appear to include ACL tear, severe posterolateral corner tear involving multiple structures as described above, medial retinacular and medial collateral ligament injuries, and probable medial and lateral gastrocnemius tears. Due to nature of injury she requires prompt surgery. Dr. Jurado will perform surgery . At this time continue pain management, Cryo cuff for relief. Continue estefania wrap with knee immobilizer. (2) Alcohol abuse: Status: Chronic Assessment and plan: No withdrawal symptoms, can discontinue ciwa, will continue weaning scheduled librium, lorazepam prn continue daily thiamine. (3) HIRO (acute kidney injury): Status: Acute Assessment and plan: resolved. continue to monitor. IV fluids discontinued. (4) Suicidal ideation: Status: Resolved Assessment and plan: patient has been cleared by mental health and has not been suicidal. plan is to follow up with psychiatry for medication adjustment for her depression. (5) Depression: Status: Chronic Assessment and plan: awaiting psychiatric evaluation for medication management. continue current regimen for now. case and plan of care discussed with Dr Singh who is in agreement Qualifiers: Depression Type: unspecified Qualified Code(s): F32.9 - Major depressive disorder, single episode, unspecified Subjective Subjective Patient reports: no new complaints Interval history since last seen: patient reports that she is having pain but it is tolerable with current regimen. Exam Const General: cooperative, no acute distress and well developed Nutritional Appearance: average body habitus Orientation: alert, awake and oriented x3 HENMT Head: normal to inspection, normocephalic and atraumatic Mouth: oral mucosae normal Resp Effort & Inspection: normal respiratory effort Auscultation: clear to auscultation bilaterally and wheezes expiratory wheezes, inspiratory wheezes, left upper and right upper Cardio Rate: regular rate Rhythm: regular rhythm GI Inspection: normal to inspection Palpation: soft Auscultation: normal bowel sounds Skin General skin exam: ecchymosis Neuro General: patient alert, patient awake and patient oriented x3 Extrem General: abnormal ROM and no pedal edema Left lower extremity: knee Details: tenderness, swelling, abnormal ROM Details: pain with passive ROM and other (knee wrapped with estefania wrap) Objective Objective Clinical Data: Abnormal lab results 04/26/20 Range/Units 06:40 BUN 22 H (7-18) mg/dL Glucose 112 H (74-106) mg/dL Vital Signs Temperature 36.7 C 04/26/20 07:40 Temperature Source Tympanic 04/26/20 07:40 Pulse 74 04/26/20 07:40 Pulse Rhythm Regular 04/26/20 03:01 Pulse Strength Strong 04/19/20 11:29 Respiratory Rate 17 04/26/20 07:40 Respiratory Effort Non-Labored 04/26/20 03:01 Respiratory Depth Normal 04/26/20 03:01 Respiratory Pattern Normal 04/26/20 03:01 Blood Pressure 118/73 04/26/20 07:40 Blood Pressure Mean 94 04/19/20 11:29 Blood Pressure Position Supine 04/19/20 11:29 Pulse Oximetry 98 04/26/20 07:40 Oxygen Delivery Method Room Air 04/26/20 07:40 Oxygen Flow Rate 0 04/26/20 07:40 Pain Level 8 04/26/20 08:39 Comment 04/23/20 20:32 Intake & Output 04/25/20 04/25/20 04/26/20 11:59 23:59 11:59 Intake Total 1905 / 2345 440 / 2345 490 / 490 Balance 1905 / 2345 440 / 2345 490 / 490 Intake: IV 1175 / 1175 Oral 730 / 1170 440 / 1170 480 / 480 Other: Urine Color Yellow Yellow Urine Appearance Clear Clear Clear Comment per patient report voids in the tiolet Voiding Methods Toilet Toilet Toilet Laboratory Results WBC 8.19 k/cumm (4.4-10.8) 04/24/20 06:40 RBC 4.06 m/cumm (4.00-5.20) 04/24/20 06:40 Hgb 12.6 g/dL (12.0-15.5) 04/24/20 06:40 Hct 38.2 % (36.0-46.0) 04/24/20 06:40 MCV 94.1 fL (80-95) 04/24/20 06:40 MCH 31.0 pg (27.0-33.0) 04/24/20 06:40 MCHC 33.0 g/dL (32.0-36.0) 04/24/20 06:40 RDW 14.8 % (11.7-14.6) H 04/24/20 06:40 Plt Count 292 x1000/uL (130-400) 04/24/20 06:40 MPV 8.7 fL (8.0-11.0) 04/24/20 06:40 Immature Gran % 0.1 % 04/19/20 11:50 Neutrophils % 64.3 04/19/20 11:50 Lymphocytes % 26.0 04/19/20 11:50 Monocytes % 6.8 04/19/20 11:50 Eosinophils % 2.5 04/19/20 11:50 Basophils % 0.3 04/19/20 11:50 Absolute Neutrophils 4.32 k/cumm (1.2-6.7) 04/19/20 11:50 Absolute Lymphocytes 1.75 k/cumm (1.2-3.4) 04/19/20 11:50 Absolute Monocytes 0.46 k/cumm (0.11-0.7) 04/19/20 11:50 Absolute Eosinophils 0.17 k/cumm (0.0-0.7) 04/19/20 11:50 Absolute Basophils 0.02 k/cumm (0.0-0.2) 04/19/20 11:50 Sodium 138 mmol/L (136-145) 04/26/20 06:40 Potassium 4.4 mmol/L (3.5-5.1) 04/26/20 06:40 Chloride 103 mmol/L (98-107) 04/26/20 06:40 Carbon Dioxide 27.7 mmol/L (21.0-32.0) 04/26/20 06:40 Anion Gap 7.3 mmol/L (3-11) 04/26/20 06:40 BUN 22 mg/dL (7-18) H 04/26/20 06:40 Creatinine 0.95 mg/dL (0.55-1.02) 04/26/20 06:40 Estimated GFR/1.73 m2 >= 60.00 (mL/min/1.73m2) 04/26/20 06:40 Glucose 112 mg/dL (74-106) H 04/26/20 06:40 Calcium 8.8 mg/dL (8.5-10.1) 04/26/20 06:40 Magnesium 2.1 mg/dL (1.8-2.4) 04/24/20 06:40 Total Bilirubin 0.5 mg/dL (0.2-1.0) 04/19/20 11:50 AST 98 U/L (15-37) H 04/19/20 11:50 ALT 62 U/L (14-59) H 04/19/20 11:50 Alkaline Phosphatase 92 U/L (46-116) 04/19/20 11:50 Creatine Kinase 85 U/L (26-192) 04/24/20 06:40 Total Protein 7.4 g/dL (6.4-8.2) 04/19/20 11:50 Albumin 3.3 g/dL (3.4-5.0) L 04/19/20 11:50 TSH 0.27 uIU/mL (0.36-3.74) L 04/19/20 11:50 Free T4 0.93 ng/dL (0.76-1.46) 04/19/20 11:50 Salicylates 3.3 mg/dL (2.8-20.0) 04/19/20 11:50 Urine Opiates Screen Negative (Negative) 04/19/20 15:23 Urine Methadone Screen Positive (Negative) A 04/19/20 15:23 Acetaminophen < 2 ug/mL (10-30) 04/19/20 11:50 Ur Barbiturates Screen Negative (Negative) 04/19/20 15:23 Ur Tricyclics Screen Negative (Negative) 04/19/20 15:23 Ur Amphetamines Screen Negative (Negative) 04/19/20 15:23 U Benzodiazepines Scrn Negative (Negative) 04/19/20 15:23 Urine Cocaine Screen Negative (Negative) 04/19/20 15:23 Ur THC Screen Positive (Negative) A 04/19/20 15:23 Ethyl Alcohol 183.8 mg/dL (<3) 04/19/20 11:50 COVID-19 PCR Negative (Negative) 04/19/20 12:25 Nasopharyn COVID-19 PCR Not Applicable 04/19/20 12:25 Ref Test Perform Site Ab 7500 [facility] lab 04/19/20 12:25
[2020-04-26 11:22] VITALS: BP 118/83; PULSE 81; RESP 16; TEMP 36.5; O2SAT 99
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
--- NOTE | 2020-04-26 14:55 | CMPROGNOTE_ITS ---
- If Service Date Differs Date of service: 04/26/20 Time of Service: 14:55 Care Management Progress Note S/O: CM conducted a chart review and clinical review with multidisciplinary team. Chloe is scheduled for surgery on 04/27/20, CM coordinated a visit with Dr. Alexandre this afternoon via ZOOM. Chole is attending an AA meeting online when CM enters the room. Chloe may need acute rehab post surgery options would be [facility] or [facility] for acute rehab. CM will continue assess for discharge needs post surgical. She continues to participate via Zoom/phone and phone including Car Park Attendant, AA for substance use support. A: 35 year old female admitted to [facility] 04/20/20 for Injury of posterolateral corner of left knee-closely monitored for ETOH withdrawal and pain management pre-operatively. P: Anticipate Chloe will remain inpatient while being monitored for alcohol withdrawal. Anticipate she will eventually transition to SWB[facility] vs acute rehab for mobilization. CHRIS will continue to work on discharge planning and disposition.
[2020-04-26 17:31] VITALS: BP 134/85; PULSE 86; RESP 18; TEMP 36.8; O2SAT 99
[2020-04-26 19:15] VITALS: BP 129/79; PULSE 80; RESP 18; TEMP 36.7; O2SAT 99
[2020-04-26] MEDS: Docusate Sodium 100 MG CAP PO (20:03)
[2020-04-26] MEDS: Mirtazapine 15 MG TAB 30 MG PO (21:47)
[2020-04-26] MEDS: Gabapentin 300 MG CAP PO (21:47)
[2020-04-26] MEDS: Melatonin 3 MG TAB 18 MG PO (21:47)
[2020-04-26 23:25] VITALS: BP 116/74; PULSE 84; RESP 19; TEMP 37; O2SAT 98
[2020-04-27] VITALS (17 sets, daily range): BP systolic 107–173; BP diastolic 65–99; PULSE 82–114; RESP 15–20; TEMP 36.5–37.1; O2SAT 94–99
[2020-04-27] MEDS: MORPHine 10 MG/ML VIAL 5 MG IVP ×2 (03:51→08:19)
[2020-04-27] MEDS: Normal Saline Flush 10 ML SYR IVP ×3 (03:52→19:24)
[2020-04-27] MEDS: Gabapentin 300 MG CAP 600 MG PO (05:41)
[2020-04-27] MEDS: oxyCODONE 5 mg/Acetaminophen 325 mg TAB 2 TAB PO ×2 (05:41→09:07)
--- NOTE | 2020-04-27 06:45 | PGE_ITS ---
Date of Service Date of service: 04/27/20 Time of Service: 07:44 Assessment and Plan Assessment and plan (1) Injury of posterolateral corner of left knee: Status: Acute Assessment and plan: Chloe is a 35yo female who had a near dislocation of the left knee with multiligamentous injury - ACL, FCL, Popliteus, PLC, Biceps Femoris with partial injury to MCL and gastrocnemius tendons. She also has a dense common peroneal nerve palsy. This needs operative fixation and is not amenable to nonoperative treatments. Previously, I discussed the surgical treatment with Chloe. Dr. Dominguez and myself will partner for the surgery to treat this with repair of the biceps femoris tendon, common peroneal nerve exploration, and allograft reconstruction of the PLC (Popliteus, PFL, FCL). This will be staged with possible ACL reconstruction at a later date. I reviewed the risks of the surgery with Chloe to include bleeding, infection, pain, stiffness, weakness, limited nerve recovery, hardware failure, hardware prominence, retear, need for repeat surgery, wound healing difficulties, delayed arthritic progression, blood clot. Despite these risks, she elects to proceed. Dr. Dominguez will also meet with her this morning as well. She has been stable medically and may transition to Orthopaedic service if medically stable after surgery or to swing bed. 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: Status: Acute Qualifiers: Encounter type: subsequent encounter Qualified Code(s): S84.12XD - Injury of peroneal nerve at lower leg level, left leg, subsequent encounter (3) Left ACL tear: Status: Acute Qualifiers: Encounter type: initial encounter Qualified Code(s): S83.512A - Sprain of anterior cruciate ligament of left knee, initial encounter (4) Avulsion of left hamstring muscle: Status: Acute Qualifiers: Encounter type: initial encounter Qualified Code(s): S76.392A - Other specified injury of muscle, fascia and tendon of the posterior muscle group at thigh level, left thigh, initial encounter (5) Tear of lateral collateral ligament of left knee: Status: Acute Qualifiers: Encounter type: initial encounter Qualified Code(s): S83.422A - Sprain of lateral collateral ligament of left knee, initial encounter Subjective Subjective Interval history since last seen: Chloe continues to have pain. She has been able to be independent with mobilization within the room. She has not had any significant withdrawal symptoms. She also has been willing to speak with others about her depression and multiple social issues. Care management and continues to work with her on eventually securing safe and stable housing to continue recovery. She continues to report numbness to the foot without any activation of dorsiflexion of the ankle or toe. Her vitals been stable while hospitalized. She has had no acute medical issues. Exam Narrative Exam Narrative: Sitting up in the bed. NAD. AAOx3 LLE swollen but much less than initial visit. Slightly more swelling distally. Ligamentous testing was not repeated, plese see previous notes. Absent sensation over the anterior leg and dorsal foot. Diminished sensation slightly plantarlaterally. Foot held plantarflexed and inverted. No active great toe extension or ankle dorsiflexion or ankle eversion. Foot WWP. Objective Objective Clinical Data: Abnormal lab results 04/26/20 Range/Units 06:40 BUN 22 H (7-18) mg/dL Glucose 112 H (74-106) mg/dL Vital Signs Temperature 36.9 C 04/27/20 03:29 Temperature Source Tympanic 04/27/20 03:29 Pulse 83 04/27/20 03:29 Pulse Rhythm Regular 04/27/20 02:20 Pulse Strength Strong 04/19/20 11:29 Respiratory Rate 18 04/27/20 03:29 Respiratory Effort Non-Labored 04/27/20 02:20 Respiratory Depth Normal 04/27/20 02:20 Respiratory Pattern Normal 04/27/20 02:20 Blood Pressure 117/81 04/27/20 03:29 Blood Pressure Mean 94 04/19/20 11:29 Blood Pressure Position Supine 04/19/20 11:29 Pulse Oximetry 96 04/27/20 03:29 Oxygen Delivery Method Room Air 04/27/20 03:29 Oxygen Flow Rate 0 04/27/20 03:29 Pain Level 7 04/26/20 20:29 Comment 04/23/20 20:32 Intake & Output 04/26/20 04/26/20 04/27/20 11:59 23:59 11:59 Intake Total 500 / 510 Balance 500 / 510 Intake: IV Oral 480 / 480 Other: Urine Color Yellow Yellow Urine Appearance Clear Clear Clear Urine Odor None Comment voiding in BR independently w/o difficulty pt denies having any urina ry issues Voiding Methods Toilet Laboratory Results WBC 8.19 k/cumm (4.4-10.8) 04/24/20 06:40 RBC 4.06 m/cumm (4.00-5.20) 04/24/20 06:40 Hgb 12.6 g/dL (12.0-15.5) 04/24/20 06:40 Hct 38.2 % (36.0-46.0) 04/24/20 06:40 MCV 94.1 fL (80-95) 04/24/20 06:40 MCH 31.0 pg (27.0-33.0) 04/24/20 06:40 MCHC 33.0 g/dL (32.0-36.0) 04/24/20 06:40 RDW 14.8 % (11.7-14.6) H 04/24/20 06:40 Plt Count 292 x1000/uL (130-400) 04/24/20 06:40 MPV 8.7 fL (8.0-11.0) 04/24/20 06:40 Immature Gran % 0.1 % 04/19/20 11:50 Neutrophils % 64.3 04/19/20 11:50 Lymphocytes % 26.0 04/19/20 11:50 Monocytes % 6.8 04/19/20 11:50 Eosinophils % 2.5 04/19/20 11:50 Basophils % 0.3 04/19/20 11:50 Absolute Neutrophils 4.32 k/cumm (1.2-6.7) 04/19/20 11:50 Absolute Lymphocytes 1.75 k/cumm (1.2-3.4) 04/19/20 11:50 Absolute Monocytes 0.46 k/cumm (0.11-0.7) 04/19/20 11:50 Absolute Eosinophils 0.17 k/cumm (0.0-0.7) 04/19/20 11:50 Absolute Basophils 0.02 k/cumm (0.0-0.2) 04/19/20 11:50 Sodium 138 mmol/L (136-145) 04/26/20 06:40 Potassium 4.4 mmol/L (3.5-5.1) 04/26/20 06:40 Chloride 103 mmol/L (98-107) 04/26/20 06:40 Carbon Dioxide 27.7 mmol/L (21.0-32.0) 04/26/20 06:40 Anion Gap 7.3 mmol/L (3-11) 04/26/20 06:40 BUN 22 mg/dL (7-18) H 04/26/20 06:40 Creatinine 0.95 mg/dL (0.55-1.02) 04/26/20 06:40 Estimated GFR/1.73 m2 >= 60.00 (mL/min/1.73m2) 04/26/20 06:40 Glucose 112 mg/dL (74-106) H 04/26/20 06:40 Calcium 8.8 mg/dL (8.5-10.1) 04/26/20 06:40 Magnesium 2.1 mg/dL (1.8-2.4) 04/24/20 06:40 Total Bilirubin 0.5 mg/dL (0.2-1.0) 04/19/20 11:50 AST 98 U/L (15-37) H 04/19/20 11:50 ALT 62 U/L (14-59) H 04/19/20 11:50 Alkaline Phosphatase 92 U/L (46-116) 04/19/20 11:50 Creatine Kinase 85 U/L (26-192) 04/24/20 06:40 Total Protein 7.4 g/dL (6.4-8.2) 04/19/20 11:50 Albumin 3.3 g/dL (3.4-5.0) L 04/19/20 11:50 TSH 0.27 uIU/mL (0.36-3.74) L 04/19/20 11:50 Free T4 0.93 ng/dL (0.76-1.46) 04/19/20 11:50 Salicylates 3.3 mg/dL (2.8-20.0) 04/19/20 11:50 Urine Opiates Screen Negative (Negative) 04/19/20 15:23 Urine Methadone Screen Positive (Negative) A 04/19/20 15:23 Acetaminophen < 2 ug/mL (10-30) 04/19/20 11:50 Ur Barbiturates Screen Negative (Negative) 04/19/20 15:23 Ur Tricyclics Screen Negative (Negative) 04/19/20 15:23 Ur Amphetamines Screen Negative (Negative) 04/19/20 15:23 U Benzodiazepines Scrn Negative (Negative) 04/19/20 15:23 Urine Cocaine Screen Negative (Negative) 04/19/20 15:23 Ur THC Screen Positive (Negative) A 04/19/20 15:23 Ethyl Alcohol 183.8 mg/dL (<3) 04/19/20 11:50 COVID-19 PCR Negative (Negative) 04/19/20 12:25 Nasopharyn COVID-19 PCR Not Applicable 04/19/20 12:25 Ref Test Perform Site Ab 7500 [facility] lab 04/19/20 12:25
[2020-04-27 07:28] LABS: Anion Gap 8.8 mmol/L (3-11); BUN 19 mg/dL (7-18); CO2 28.2 mmol/L (21.0-32.0); CREATININE 1.04 mg/dL (0.55-1.02); Calcium 8.9 mg/dL (8.5-10.1); Chloride 101 mmol/L (98-107); Estimated GFR 59.96 (mL/min/1.73m2); Glucose 104 mg/dL (74-106); Potassium 3.9 mmol/L (3.5-5.1); Sodium 138 mmol/L (136-145)
[2020-04-27] MEDS: Nicotine 14 MG/24 HR PATCH TD (08:17)
[2020-04-27] MEDS: Pantoprazole 40 MG TABCR PO (08:18)
[2020-04-27] MEDS: buPROPion-XL 150 MG TABCR PO (08:18)
[2020-04-27] MEDS: ELECTROLYTE-R SOLUTION 1,000 ML 30 ML IV (11:11)
[2020-04-27] MEDS: Vecuronium 10 MG VIAL 20 MG IVP (11:20)
[2020-04-27] MEDS: ceFAZolin 2 GM/50 ML BAG IVPB (11:30)
[2020-04-27] MEDS: Bupivacaine 0.25% Pres-Free 30 ML VIAL (12:47)
[2020-04-27] MEDS: Normal Saline 20 ML VIAL (12:47)
[2020-04-27] MEDS: Ketorolac 30 MG/ML VIAL (12:47)
--- NOTE | 2020-04-27 16:10 | PDOC.CMPRO ---
Care Management Progress Note S/O: Chloe had a psychiatric consult with Dr. Alexandre yesterday, please refer to MD note for further information. Chloe was brought to the OR for extensive and complicated surgical intervention today, and was unavailable throughout the day. CM continues to follow. Chloe continues to participate via Zoom/phone with: Distributor Sales Consultant, and AA for substance use support. IBAN: Disability support. A: 35 year old female admitted to [facility] 04/20/20 for Injury of posterolateral corner of left knee-closely monitored for ETOH withdrawal and pain management pre-operatively. P: Anticipate Chloe will remain inpatient while being monitored for alcohol withdrawal. Anticipate she will eventually transition to [facility] for pain management and NW[facility] mobilization. Dr. Alexandre is recommending psychiatric stabilization for depression and substance use, anticipate Chloe would benefit from acute rehab prior to placement to manage her physical recovery. If Chloe is agreeable, CM will fax referrals to [facility] and [facility]. PT will re-assess post surgically. CM will continue to work on discharge planning and disposition.
--- NOTE | 2020-04-27 16:41 | ROE_ITS ---
Date of service: 04/27/20 Time of Service: 16:41 Operative Note Operative Note DATE OF PROCEDURE: 04/27/20 PRE-OP DIAGNOSIS: Left Knee Posterolateral Corner Tear (Popliteus, Poplitofibular Ligament, Lateral Collateral Ligament), Left Hamstring (Biceps Femoris) Avulsion POST-OP DIAGNOSIS: same Left Common Peroneal Nerve Rupture PROCEDURE: Left knee posterior lateral corner reconstruction with allograft tissue, left biceps femoris reattachment, left common peroneal nerve neurolysis and exploration SURGEON: Jese Jurado ASSISTING SURGEON: Christian Dominguez BULK TANK CAR UNLOADER: Agustina Varghese BULK TANK CAR UNLOADER: Chelsie Gomez ANESTHESIA: GETA and epidural ESTIMATED BLOOD LOSS: 200 PATHOLOGY: none sent TOURNIQUET TIME: 0 COMPLICATIONS: None Patient was transported to: PACU Patient's condition: stable Indications: Chloe is a 35-year-old who suffered an injury about a week ago with multiple subsequent falls. She had persistent pain and swelling about the left knee and I was called to consult. It was found at that time that she had a multi-ligamentous injury to the left knee with a dense common peroneal nerve palsy. Given these findings both on exam and with an MRI, I recommended operative fixation. I discussed the possible treatment options and the prognosis, especially given her dense peroneal nerve palsy. She had persistent pain and instability and desired to proceed with surgery. I reviewed the risk of the procedure to include bleeding, infection, pain, stiffness, damage to muscles and tendons, damage to nerves and vessels, inability to repair torn tissues, blood clot, need for repeat procedures, hardware failure, hardware prominence, re-tear. I also explained that we would not be reconstructing the ACL given the complexity of this initial injury. I was also very clear that we would attempt any nerve repair if possible but this also may require secondary consultation. After thorough discussion with myself and Dr. orellana, she agreed to proceed. Findings: There is notable obliteration of the lateral knee. Deep to subcutaneous tissue there was no significant normal structures of the lateral knee. The biceps femoris was avulsed off of the proximal fibula leaving no recurrent tissue behind. The LCL with story likewise. The popliteus was flipped where the muscle belly was sitting on top of the fibular head laterally. The distal portion of the common peroneal nerve was identified and was notably bulbous and hemorrhagic. There was a slightly tapered and split and seen w ithout any continuous nerve. Exploration was performed and a proximal nerve stump was identified although notably tenuous and hemorrhagic. In full extension the nerve was unable to be reapproximated without tension and without clean edges. An intraoperative consult to neurosurgery at [facility] was performed who recommended tagging for later grafting. A posterior lateral reconstruction was performed in the anatomic, Laprade style, with a split Achilles allograft. Procedure Description: Chloe was greeted in the preoperative holding area. Her identity was confirmed and the correct site was identified and marked. The consent was reviewed with the patient previously upon the floor. IV access was reobtained. The patient was brought back to the operating room and an epidural was placed. A general anesthetic was also administered. She was then transition onto the operating room table in the supine position. A Maravilla catheter was placed. Prophylactic antibiotics in the form of cefazolin were given. 1 g of tranexamic acid was also given. A preoperative exam was performed which showed gross, 3+, laxity to varus stress test at 0 and 30 degrees. There is notable external rotation at 30 degrees, positive dial test. However, there was no significant difference at 90 degrees. Positive pivot shift. Positive Lockman. Negative posterior drawer. The left leg was then prepped with ChloraPrep and draped in a standard fashion. A nonsterile tourniquet was placed previously up on the left thigh but not used. A timeout was performed for safe surgery. On the back table during continue set up and anesthetic preparation, the graft was prepared. A single Achilles tendon allograft with bone block was split into 2 grafts with bone blocks measuring 9 mm x 25 mm. The grafts were tubularize and trimmed to appropriate length. Passing sutures were placed into the bone block and into the free end of each tendon graft. They were kept moistened with vancomycin soaked gauze. The knee was placed in about 90 degrees of flexion and a curvilinear incision was made overlying the lateral aspect the leg starting just distal to Aminta's tubercle running between the fibular head and Aminta's tubercle and then curving over the lateral knee and along the IT band. This incision was taken sharply through the skin into the subcutaneous tissue. Hemostasis was achieved. The IT band was identified. However, distal to the distal third of the IT band normal anatomy is very difficult to appreciate. The biceps femoris was notably avulsed off with a large portion of capsular and attaching tissue. The proximal aspect fibular head was is identifiable as there is no soft tissue attachments. The dissection was carried down more distally to identify the anterior compartment fascia. The nerve is not readily apparent. However, starting distally we were able to find look to be the nerve with notable laxity. With minimal dissection it was found to be torn. The fascia of the peroneal muscles was released on top of the nerve. At this level, at the fibular neck, the nerves appeared to be more normal in size and character. However, just proximal to this portion of the nerve is very bulbous with a hemorrhagic encasement. With the leg in extension the nerve reached about 5 to cm proximal to the fibular head. However, the proximal stump was very bulbous but then ended in a stepwise fashion is this it had layers were splintered. There is lots of hemorrhage at this level which was debrided off to complete the neuro lysis. The proximal portion of the nerve was very difficult to find. The biceps femoris was released from any attachments to the deeper posterior structures and was elevated superiorly, anteriorly, to look more into the posterior thigh. There is a small cordlike structure which was identified and seem to be too small to be the nerve but on further dissection it tracked up to the bifurcation and had a much more sizable component to it. There is also a branch of likely the sural nerve coming off of this as well. It was the only nerve-like structure which seem to run in the correct direction. It seemed also tapered at the end as if stretched. There is also notable hemorrhage within the epineurium. At this point, with the leg in extension, there was no clean edges to reapproximate for direct repair. Therefore, I reached out to [facility] and discussed the case with neurosurgery and their peripheral nerve surgeon who recommended tacking the nerve and performing nerve grafting in a future date. Therefore, the nerve was tagged with a #2-0 Prolene and left in the wound. The reconstruction was then continued with the nerve out of the way. The popliteus muscle belly was reapproximated to the posterior tibia and the tendon was identified. Traction on the tendon identified the popliteal insertion which was marked. The lateral collateral ligament was difficult to appreciate but the starting point just proximal and posterior to the lateral condyle was easily palpated and marked. The IT band was split in line with its fibers.-Was then placed in the proposed starting point for the FCL reconstruction. This was aimed proximal medial. It corresponded to the tuscarora origin of the FCL. This pin was then driven across the femur and out the medial side of the leg. A second guidepin was then placed in the popliteal origin, proximal 18.5 mm anterior with the knee in 90 degrees of flexion. This was also tested and corresponded to the original origin of the popliteus tendon. This guidewire was ensured to be parallel to the first guidewire. Likewise, it was driven out the medial side of the knee. These 2 tunnel locations were then drilled with a 9 mm reamer to a depth of 30 mm. After the successful reaming of these tunnels, a passing suture was placed on each and clamped for later graft passage. Attention was then turned to the proximal fibula. Little dissection had to be performed due to most structures being stripped completely from the fibula. A few remnant fibers of the FCL were visible over the anterior lateral aspect of the fibula proximally 26 or so millimeters from the tip of the fibular styloid. The remnant of popliteal fibular ligament was also palpable which served as our guide for posterior medial exit of the fibular tunnel. This was targeted in position using a PCL guide. This tunnel measured approximate 24 mm which was appropriate length. It once again was confirmed to be starting anterior lateral and proceeding slightly proximal and medial. With a soft tissue protector underneath the gastrocnemius and behind the tibia to serve as protection, this guidepin was inserted through the fibula. It was once again checked to be in appropriate position. It was then reamed with a 7 mm reamer. A rasp was used to smooth out the apertures of both entry and exit. A passing suture was placed at this tunnel and snapped for later utilization. Attention was then turned to the tibial tunnel. The flat spot between Aminta's tubercle and the tibial tubercle was easily identified. A small amount dissection was carried out to expose the bone in this area. The exit point of the posterior tibia was easily palpable as a small prominence over the posterior lateral aspect of the proximal tibia. Is also was referenced to be about 1 cm proximal and medial to the exit point of the fibula. This was also targeted using a PCL guide and held in place. It measured approximately 45 mm in length which was appropriate. It was once again checked and appeared to be in a good position for the tibial tunnel. A guidepin was then placed. Prior to the reaming, position was once again checked and appeared to be in the correct anatomic position. A 10 mm reamer was then used to prepare this tunnel. Multiple passes were made to clear the flutes of the reamer. Her bone was quite dense. After preparation of the tunnel the apertures were smoothed with a rasp. A passing suture was likewise passed through this tunnel and held for later graft passage. Some locking Krak?w sutures were placed in the biceps femoris avulsion just proximal to the obvious tendon edge of the short head of the biceps. The biceps had retracted quite significantly and was unable to be safely pulled back down to the fibula just with tension on these sutures alone. Therefore, we did not incorporate any of the sutures into the fibular tunnel nor did we add any anchors to the fibular head for risk of fracture. The sutures were kept in place for later utilization. Next we passed the grafts. A bone block for the FCL graft was first placed into the more posterior femoral tunnel. It was able to be docked easily into the tunnel which we prepared. Using a nitinol wire between the bone block and the tuscarora femur a notch was prepared for the interference screw. The course of the screw was tapped. A 7 x 23 Margaret screw was placed with excellent purchase. This was tested and noted to be well attached. Likewise, the bone block for the popliteus was inserted without any significant difficulty. A 7 x 23 Margaret screw was placed for interference fit after tapping the screw course. Both of these were tested once again and showed to be well fixed into the femur. The ACL was then brought extracapsular the over to the fibular tunnel. The popliteus was brought intracapsularly over its course of the lateral femur to the posterior lateral tibia. The FCL graft was passed through the fibular tunnel using the passing sutures and Landing suture passer. Once this was docked into the fibula the knee was brought through some range of motion. It was held in about 20 to 30 degrees of flexion and a gentle valgus stress was applied with neutral rotation. With this held in that position a 6 x 23 Margaret interference screw was placed. This had excellent purchase into the fibula. This was tested before proceeding and showed appropriate 2 to 3 mm at most of gapping with varus stress at 30 degrees. The 2 grafts were then brought through the tibial tunnel. Once they were pulled to the tibial tunnel slack was taken out of each 1 separately and the rate was taken through at least 20 repetitions of range of motion to make sure slack was removed from the graft and it was well seated into its appropriate position. Once happy with the positioning the knee was brought to 60 degrees of flexion and neutral rotation. In this position traction was held on the sutures exiting the tibia and a Mitek Biointrafix screw was placed. The path of the screw was first dilated and then a sheath was placed and then followed by a screw. This had excellent purchase into the tibia and showed good fixation against the allograft tissue. Excess tissue and screw sheath was removed. The knee was tested and now showed a negative dial test and negative varus opening. The wounds were thoroughly irrigated with Aricept chlorhexidine solution as well as normal saline. The deep tissues were injected with a mixture of 0.25% bupi vacaine, 30 mg ketorolac, 20 cc of Exparel. The nerve ends were once again inspected and brought back into the posterior aspect of the leg. The IT band was closed with interrupted #1 Vicryl sutures. The posterior fascia overlying the biceps and the posterior thigh was then reapproximated with a #1 Vicryl. While approximating this attention was turned to grab proximal and the biceps side to converge these 2 tissues and hopefully distalize the biceps segment. As this closure proceeded, the biceps femoris was able to move distally to a much more anatomical position. Once that fascia was fully closed #1 Vicryl sutures were placed into the end of the biceps tendon and incorporated into the anterior fascia of the tibia as well as some of the other fascia around the fibula and posterior thigh. This, in essence, cover the fibular head. The knee was then once again irrigated. The deep tissues were closed with 0 Vicryl followed by 2- 0 Vicryl. The skin was closed with yo. No tourniquet was used during the case. At the end of the case all counts were correct. The antibiotic was redosed at 3 hours. A dressing of Xeroform, 4 x 4's, Kerlix and a foot to thigh Davi wrap was applied. She was placed in a knee immobilizer in extension. Chloe was then transferred to the PACU in a stable condition. She will be partial weightbearing on the left leg using the knee in extension with a knee immobilizer and utilizing crutches or walker at all times. I have discussed the case with neurosurgery at [facility] and they plan to perform a sural nerve grafting of her common peroneal nerve sometime in the near future. I will be in contact with Dr. Pires and neurosurgery to arrange this. Pain control will be a challenge and she currently has an epidural and we will order a LICENSED VETERINARY TECHNICIAN. Anticipate transitioning off the LICENSED VETERINARY TECHNICIAN in the next 24 to 48 hours. She will remain on the hospital service until she appears stable from a medical perspective.
[2020-04-27] MEDS: HYDROmorphone 2 MG/ML VIAL IVP ×2 (17:19→17:23)
[2020-04-27] MEDS: LORazepam 2 MG/ML VIAL (17:34)
[2020-04-27] MEDS: LORazepam 2 MG/ML VIAL 0.5 MG IVP (17:41)
[2020-04-27] MEDS: Lactated Ringers 1,000 ML 80 ML IV (17:49)
[2020-04-27] MEDS: Ketorolac 15 MG/ML VIAL IVP (19:22)
[2020-04-27] MEDS: ceFAZolin 1 GM/50 ML BAG IVPB (19:23)
[2020-04-27] MEDS: FentaNYL/ROPIvacaine 2 mcg/ml and 0.1% 200 ML CADD Cassette EP (22:04)
[2020-04-27] MEDS: Melatonin 3 MG TAB 18 MG PO (22:45)
[2020-04-27] MEDS: Mirtazapine 15 MG TAB 30 MG PO (22:45)
[2020-04-27] MEDS: Gabapentin 300 MG CAP PO (22:45)
[2020-04-28] VITALS (18 sets, daily range): BP systolic 100–133; BP diastolic 57–77; PULSE 75–88; RESP 14–18; TEMP 36.2–37; O2SAT 94–99
[2020-04-28] MEDS: ceFAZolin 1 GM/50 ML BAG IVPB ×2 (06:35→14:06)
[2020-04-28] MEDS: Ketorolac 15 MG/ML VIAL IVP ×5 (06:38→23:24)
[2020-04-28 07:05] LABS: Platelet Count 371 x1000/uL (130-400)
[2020-04-28 07:11] LABS: Anion Gap 8.7 mmol/L (3-11); BUN 19 mg/dL (7-18); CO2 25.3 mmol/L (21.0-32.0); CREATININE 0.99 mg/dL (0.55-1.02); Calcium 8.4 mg/dL (8.5-10.1); Chloride 103 mmol/L (98-107); Glucose 136 mg/dL (74-106); Potassium 4.1 mmol/L (3.5-5.1); Sodium 137 mmol/L (136-145)
[2020-04-28] MEDS: Normal Saline Flush 10 ML SYR IVP ×2 (07:37→17:27)
[2020-04-28] MEDS: NORETHINDRONE 0.35 MG 0.35 EACH PO ×2 (08:14→08:36)
[2020-04-28] MEDS: Nicotine 14 MG/24 HR PATCH TD (08:15)
[2020-04-28] MEDS: Thiamine 100 MG TAB PO (08:15)
[2020-04-28] MEDS: Pantoprazole 40 MG TABCR PO (08:15)
[2020-04-28] MEDS: buPROPion-XL 150 MG TABCR 300 MG PO (08:15)
[2020-04-28] MEDS: Enoxaparin 40 MG/0.4 ML SYR SC (08:16)
--- NOTE | 2020-04-28 09:53 | W.PM.PROGNOT ---
Date of Service Date of service: 04/28/20 Time of Service: 09:53 Assessment and Plan Assessment and plan (1) Internal derangement of left knee: Status: Acute Assessment and plan: post op day 1 reconstruction. continue routine post operative care per orthopedics, they will oversee pain management, she has an epidural in place and utilizing a SOLAR ELECTRIC/PHOTOVOLTAIC INSTALLER with good management. Continue PT/OT, pulmonary toilet, bowel management. [place] be [place] [facility], likely will be a down and back. being arranged by Dr Jurado. (2) Alcohol abuse: Status: Chronic Assessment and plan: daily thiamine. consider inpatient rehabilitation after discharge (3) HIRO (acute kidney injury): Status: Resolved Assessment and plan: resolved. continue to monitor (4) Suicidal ideation: Status: Resolved Assessment and plan: patient has been cleared by mental health and has not been suicidal. plan is to follow up with psychiatry for medication adjustment for her depression. (5) Depression: Status: Chronic Assessment and plan: psychiatric evaluation for medication management with increased dosing of wellbutrin. Qualifiers: Depression Type: unspecified Qualified Code(s): F32.9 - Major depressive disorder, single episode, unspecified (6) DVT prophylaxis: Status: Acute Assessment and plan: per orthopedics, enoxaparin daily. will need to place on hold 12 hours prior to epidural removal. (7) Discharge planning issues: Status: Acute Assessment and plan: will likely need extensive rehabilitation. case management following for discharge planning case and plan of care discussed with Dr Singh who is in agreement Subjective Subjective Patient reports: still having pain and afebrile Interval history since last seen: patient reports that she is having pain but it is tolerable with current regimen. she is up walking with PT on evaluation. she reports numbness to left toes and dorsal aspect of foot. states she has minimal sensation on plantar aspect. she is eating and drinking well, with no respiratory c/o. she reports she is exhausted today from a lack of sleep and rest. no other active issues. Exam Const General: cooperative, no acute distress and well developed Nutritional Appearance: average body habitus Orientation: alert, awake and oriented x3 HENMT Head: normal to inspection, normocephalic and atraumatic Mouth: oral mucosae normal Resp Effort & Inspection: normal respiratory effort Auscultation: clear to auscultation bilaterally and wheezes expiratory wheezes, inspiratory wheezes, left upper and right upper Cardio Rate: regular rate Rhythm: regular rhythm GI Inspection: normal to inspection Palpation: soft Auscultation: normal bowel sounds Skin General skin exam: ecchymosis Neuro General: patient alert, patient awake and patient oriented x3 Extrem General: abnormal ROM and edema Left lower extremity: knee Details: tenderness and abnormal ROM (operative dressing clean and intact) Objective Objective Clinical Data: Abnormal lab results 04/28/20 Range/Units 06:43 BUN 19 H (7-18) mg/dL Glucose 136 H (74-106) mg/dL Calcium 8.4 L (8.5-10.1) mg/dL Vital Signs Temperature 37 C 04/28/20 09:00 Temperature Source Tympanic 04/28/20 09:00 Pulse 85 04/28/20 09:00 Pulse Rhythm Regular 04/28/20 07:25 Pulse Strength Strong 04/19/20 11:29 Respiratory Rate 18 04/28/20 09:00 Respiratory Effort 04/28/20 07:25 Respiratory Depth Normal 04/28/20 07:25 Respiratory Pattern Normal 04/28/20 07:25 Blood Pressure 100/64 04/28/20 09:00 Blood Pressure Mean 94 04/19/20 11:29 Blood Pressure Position Supine 04/19/20 11:29 Pulse Oximetry 99 04/28/20 09:00 Respiratory End-tidal CO2 37 04/27/20 17:39 Oxygen Delivery Method Room Air 04/28/20 09:00 Oxygen Flow Rate 0 04/28/20 09:00 Pain Level 8 04/27/20 19:22 Comment 04/27/20 19:40 Intake & Output 04/27/20 04/27/20 04/28/20 11:59 23:59 11:59 Intake Total 110 / 760 650 / 760 1926 / 1926 Output Total 1300 / 1300 550 / 550 Balance 110 / -540 -650 / -540 1376 / 1376 Intake: IV 110 / 760 650 / 760 1366 / 1366 Oral 560 / 560 Output: Urine 1100 / 1100 550 / 550 Estimated Blood Loss 200 / 200 Other: Urine Color Pale Yellow Light Keri Urine Appearance Clear Clear Clear Urine Odor None Comment voided in toilet Maravilla in place, draining well. Emesis Description None Laboratory Results WBC 8.19 k/cumm (4.4-10.8) 04/24/20 06:40 RBC 4.06 m/cumm (4.00-5.20) 04/24/20 06:40 Hgb 12.6 g/dL (12.0-15.5) 04/24/20 06:40 Hct 38.2 % (36.0-46.0) 04/24/20 06:40 MCV 94.1 fL (80-95) 04/24/20 06:40 MCH 31.0 pg (27.0-33.0) 04/24/20 06:40 MCHC 33.0 g/dL (32.0-36.0) 04/24/20 06:40 RDW 14.8 % (11.7-14.6) H 04/24/20 06:40 Plt Count 371 x1000/uL (130-400) 04/28/20 06:43 MPV 8.7 fL (8.0-11.0) 04/24/20 06:40 Immature Gran % 0.1 % 04/19/20 11:50 Neutrophils % 64.3 04/19/20 11:50 Lymphocytes % 26.0 04/19/20 11:50 Monocytes % 6.8 04/19/20 11:50 Eosinophils % 2.5 04/19/20 11:50 Basophils % 0.3 04/19/20 11:50 Absolute Neutrophils 4.32 k/cumm (1.2-6.7) 04/19/20 11:50 Absolute Lymphocytes 1.75 k/cumm (1.2-3.4) 04/19/20 11:50 Absolute Monocytes 0.46 k/cumm (0.11-0.7) 04/19/20 11:50 Absolute Eosinophils 0.17 k/cumm (0.0-0.7) 04/19/20 11:50 Absolute Basophils 0.02 k/cumm (0.0-0.2) 04/19/20 11:50 Sodium 137 mmol/L (136-145) 04/28/20 06:43 Potassium 4.1 mmol/L (3.5-5.1) 04/28/20 06:43 Chloride 103 mmol/L (98-107) 04/28/20 06:43 Carbon Dioxide 25.3 mmol/L (21.0-32.0) 04/28/20 06:43 Anion Gap 8.7 mmol/L (3-11) 04/28/20 06:43 BUN 19 mg/dL (7-18) H 04/28/20 06:43 Creatinine 0.99 mg/dL (0.55-1.02) 04/28/20 06:43 Estimated GFR/1.73 m2 >= 60.00 (mL/min/1.73m2) 04/28/20 06:43 Glucose 136 mg/dL (74-106) H 04/28/20 06:43 Calcium 8.4 mg/dL (8.5-10.1) L 04/28/20 06:43 Magnesium 2.1 mg/dL (1.8-2.4) 04/24/20 06:40 Total Bilirubin 0.5 mg/dL (0.2-1.0) 04/19/20 11:50 AST 98 U/L (15-37) H 04/19/20 11:50 ALT 62 U/L (14-59) H 04/19/20 11:50 Alkaline Phosphatase 92 U/L (46-116) 04/19/20 11:50 Creatine Kinase 85 U/L (26-192) 04/24/20 06:40 Total Protein 7.4 g/dL (6.4-8.2) 04/19/20 11:50 Albumin 3.3 g/dL (3.4-5.0) L 04/19/20 11:50 TSH 0.27 uIU/mL (0.36-3.74) L 04/19/20 11:50 Free T4 0.93 ng/dL (0.76-1.46) 04/19/20 11:50 Salicylates 3.3 mg/dL (2.8-20.0) 04/19/20 11:50 Urine Opiates Screen Negative (Negative) 04/19/20 15:23 Urine Methadone Screen Positive (Negative) A 04/19/20 15:23 Acetaminophen < 2 ug/mL (10-30) 04/19/20 11:50 Ur Barbiturates Screen Negative (Negative) 04/19/20 15:23 Ur Tricyclics Screen Negative (Negative) 04/19/20 15:23 Ur Amphetamines Screen Negative (Negative) 04/19/20 15:23 U Benzodiazepines Scrn Negative (Negative) 04/19/20 15:23 Urine Cocaine Screen Negative (Negative) 04/19/20 15:23 Ur THC Screen Positive (Negative) A 04/19/20 15:23 Ethyl Alcohol 183.8 mg/dL (<3) 04/19/20 11:50 COVID-19 PCR Negative (Negative) 04/19/20 12:25 Nasopharyn COVID-19 PCR Not Applicable 04/19/20 12:25 Ref Test Perform Site Ab 7500 uv[facility] lab 04/19/20 12:25
--- NOTE | 2020-04-28 10:43 | W.PM.PROGNOT ---
Date of Service Date of service: 04/28/20 Time of Service: 07:43 Assessment and Plan Assessment and plan (1) Injury of posterolateral corner of left knee: Status: Acute Assessment and plan: Chloe is a 35-year-old who is status post posterior lateral reconstruction of the left knee, hamstring avulsion repair, and expiration of the common peroneal nerve. Unfortunately, her common peroneal nerve was ruptured and irreparable. I have discussed the case with the peripheral nerve surgery team at [facility]. They agree that this needs to be grafted likely with a sural nerve graft. I am awaiting a call back from the surgeon about her availability but will likely need transfer down to [facility] for more definitive management. This should be done in the same admission. She will be difficult control from pain perspective given her past history but she is motivated to minimize her narcotic usage. However, she will require more narcotics than usual but we should try to titrate off quickly. She currently has the epidural going as well. I am awaiting a callback from anesthesia to discuss this more fully about how to titrate this off. In a 12-hour period she is about 10 mg of IV hydromorphone. In the last 3 hours she used only 2 mg. Therefore taking this amount we will start with 10 mg of oxycodone every 3 hours as needed. I will also decrease the hydromorphone REAL ESTATE OFFICE SUPERVISOR in half. I will reevaluate how much she uses over the 6-hour period and hopefully DC the REAL ESTATE OFFICE SUPERVISOR this evening with only IV breakthrough if needed. We should continue with Lovenox for DVT prophylaxis for the time being. She may weight-bear partially on the leg using weight on her arms at all times. All mobilization all movements should be done with a knee immobilizer. She can work on active assisted and active range of motion in extension and flexion in line without any varus or valgus stress. We will continue comanagement strategy with the medicine team to treat both her acute postoperative pain as well as her presurgical medical psychiatric comorbidities. 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: Status: Acute Qualifiers: Encounter type: subsequent encounter Qualified Code(s): S84.12XD - Injury of peroneal nerve at lower leg level, left leg, subsequent encounter (3) Left ACL tear: Status: Acute Qualifiers: Encounter type: initial encounter Qualified Code(s): S83.512A - Sprain of anterior cruciate ligament of left knee, initial encounter (4) Avulsion of left hamstring muscle: Status: Acute Qualifiers: Encounter type: initial encounter Qualified Code(s): S76.392A - Other specified injury of muscle, fascia and tendon of the posterior muscle group at thigh level, left thigh, initial encounter (5) Tear of lateral collateral ligament of left knee: Status: Acute Qualifiers: Encounter type: initial encounter Qualified Code(s): S83.422A - Sprain of lateral collateral ligament of left knee, initial encounter Subjective Subjective Interval history since last seen: Chloe is a 35-year-old who is status post posterior lateral corner reconstruction with allograft tissue, biceps femoris reattachment, and common peroneal nerve exploration and neural lysis. She does report to be doing better this morning. Her pain is been controlled and she is slightly groggy but has been oxygenating well otherwise. She has both epidural and REAL ESTATE OFFICE SUPERVISOR currently. The majority of her pain is described as being posteriorly. She has been able to move in the bed. She is able to lift the right leg without significant difficulties but she does find some difficulties with the left. She denies chest pain or shortness of breath. No fevers no chills. Exam Narrative Exam Narrative: Resting in the bed. Alert and oriented x3 although keeps eyes closed at times but responds well when asked. No acute distress. Evaluation of left leg shows a clean dry and intact dressing. The foot is held in a plantarflexed and inverted position as per baseline. The foot is warm and well-perfused. Palpable DP pulse. Objective Objective Clinical Data: Abnormal lab results 04/28/20 Range/Units 06:43 BUN 19 H (7-18) mg/dL Glucose 136 H (74-106) mg/dL Calcium 8.4 L (8.5-10.1) mg/dL Vital Signs Temperature 37 C 04/28/20 09:00 Temperature Source Tympanic 04/28/20 09:00 Pulse 85 04/28/20 09:00 Pulse Rhythm Regular 04/28/20 07:25 Pulse Strength Strong 06/03/20 11:29 Respiratory Rate 18 04/28/20 09:00 Respiratory Effort 04/28/20 07:25 Respiratory Depth Normal 04/28/20 07:25 Respiratory Pattern Normal 04/28/20 07:25 Blood Pressure 100/64 04/28/20 09:00 Blood Pressure Mean 94 04/19/20 11:29 Blood Pressure Position Supine 04/19/20 11:29 Pulse Oximetry 99 04/28/20 09:00 Respiratory End-tidal CO2 37 04/27/20 17:39 Oxygen Delivery Method Room Air 04/28/20 09:00 Oxygen Flow Rate 0 04/28/20 09:00 Pain Level 8 04/27/20 19:22 Comment 04/27/20 19:40 Intake & Output 04/27/20 04/27/20 04/28/20 11:59 23:59 11:59 Intake Total 110 / 760 650 / 760 1926 / 1926 Output Total 1300 / 1300 550 / 550 Balance 110 / -540 -650 / -540 1376 / 1376 Intake: IV 110 / 760 650 / 760 1366 / 1366 Oral 560 / 560 Output: Urine 1100 / 1100 550 / 550 Estimated Blood Loss 200 / 200 Other: Urine Color Pale Yellow Yellow Urine Appearance Clear Clear Clear Urine Odor None None Comment voided in toilet Maravilla in place, draining well. Emesis Description None Voiding Methods Indwelling Catheter Laboratory Results WBC 8.19 k/cumm (4.4-10.8) 04/24/20 06:40 RBC 4.06 m/cumm (4.00-5.20) 04/24/20 06:40 Hgb 12.6 g/dL (12.0-15.5) 04/24/20 06:40 Hct 38.2 % (36.0-46.0) 04/24/20 06:40 MCV 94.1 fL (80-95) 04/24/20 06:40 MCH 31.0 pg (27.0-33.0) 04/24/20 06:40 MCHC 33.0 g/dL (32.0-36.0) 04/24/20 06:40 RDW 14.8 % (11.7-14.6) H 04/24/20 06:40 Plt Count 371 x1000/uL (130-400) 04/28/20 06:43 MPV 8.7 fL (8.0-11.0) 04/24/20 06:40 Immature Gran % 0.1 % 04/19/20 11:50 Neutrophils % 64.3 04/19/20 11:50 Lymphocytes % 26.0 04/19/20 11:50 Monocytes % 6.8 04/19/20 11:50 Eosinophils % 2.5 04/19/20 11:50 Basophils % 0.3 04/19/20 11:50 Absolute Neutrophils 4.32 k/cumm (1.2-6.7) 04/19/20 11:50 Absolute Lymphocytes 1.75 k/cumm (1.2-3.4) 04/19/20 11:50 Absolute Monocytes 0.46 k/cumm (0.11-0.7) 04/19/20 11:50 Absolute Eosinophils 0.17 k/cumm (0.0-0.7) 04/19/20 11:50 Absolute Basophils 0.02 k/cumm (0.0-0.2) 04/19/20 11:50 Sodium 137 mmol/L (136-145) 04/28/20 06:43 Potassium 4.1 mmol/L (3.5-5.1) 04/28/20 06:43 Chloride 103 mmol/L (98-107) 04/28/20 06:43 Carbon Dioxide 25.3 mmol/L (21.0-32.0) 04/28/20 06:43 Anion Gap 8.7 mmol/L (3-11) 04/28/20 06:43 BUN 19 mg/dL (7-18) H 04/28/20 06:43 Creatinine 0.99 mg/dL (0.55-1.02) 04/28/20 06:43 Estimated GFR/1.73 m2 >= 60.00 (mL/min/1.73m2) 04/28/20 06:43 Glucose 136 mg/dL (74-106) H 04/28/20 06:43 Calcium 8.4 mg/dL (8.5-10.1) L 04/28/20 06:43 Magnesium 2.1 mg/dL (1.8-2.4) 04/24/20 06:40 Total Bilirubin 0.5 mg/dL (0.2-1.0) 04/19/20 11:50 AST 98 U/L (15-37) H 04/19/20 11:50 ALT 62 U/L (14-59) H 04/19/20 11:50 Alkaline Phosphatase 92 U/L (46-116) 04/19/20 11:50 Creatine Kinase 85 U/L (26-192) 04/24/20 06:40 Total Protein 7.4 g/dL (6.4-8.2) 04/19/20 11:50 Albumin 3.3 g/dL (3.4-5.0) L 04/19/20 11:50 TSH 0.27 uIU/mL (0.36-3.74) L 04/19/20 11:50 Free T4 0.93 ng/dL (0.76-1.46) 04/19/20 11:50 Salicylates 3.3 mg/dL (2.8-20.0) 04/19/20 11:50 Urine Opiates Screen Negative (Negative) 04/19/20 15:23 Urine Methadone Screen Positive (Negative) A 04/19/20 15:23 Acetaminophen < 2 ug/mL (10-30) 04/19/20 11:50 Ur Barbiturates Screen Negative (Negative) 04/19/20 15:23 Ur Tricyclics Screen Negative (Negative) 04/19/20 15:23 Ur Amphetamines Screen Negative (Negative) 04/19/20 15:23 U Benzodiazepines Scrn Negative (Negative) 04/19/20 15:23 Urine Cocaine Screen Negative (Negative) 04/19/20 15:23 Ur THC Screen Positive (Negative) A 04/19/20 15:23 Ethyl Alcohol 183.8 mg/dL (<3) 04/19/20 11:50 COVID-19 PCR Negative (Negative) 04/19/20 12:25 Nasopharyn COVID-19 PCR Not Applicable 04/19/20 12:25 Ref Test Perform Site Ab 7500 [facility] lab 04/19/20 12:25
[2020-04-28] MEDS: oxyCODONE 10 MG TAB PO ×4 (11:20→23:25)
[2020-04-28] MEDS: FentaNYL/ROPIvacaine 2 mcg/ml and 0.1% 200 ML CADD Cassette EP (11:22)
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
[2020-04-28] MEDS: Acetaminophen 500 MG TAB 1000 MG PO ×2 (14:03→19:52)
--- NOTE | 2020-04-28 15:21 | CHAPLAIN ---
Chloe was visiting with Title Clerk Mavis Pang when I stopped in. She told us about her surgery yesterday, and how she's feeling today. She has been attending AA meetings on-line. The meetings are from the [facility], where she used to live. It sounds like she has access to a few each week, and especially likes an all-women's meeting that meets weekly. She is thinking of changing her sponsor because she doesn't have a way to contact her current one. I'll continue to visit.
--- NOTE | 2020-04-28 15:45 | PDOC.ANES ---
Date of service: 04/28/20 Time of Service: 14:30 Anesthesia Note Report Anesthesia Note: Met patient at bedside up with PT. Patient reports that epidural is providing some relief, but unable to reports still some considreable breakthrough pain. Patient consistently using COMPUTER NETWORKER. Epidural dressing dry and intact. Pt reports sensory deficit to left thigh and foot, some discomfort to back of leg. After discussion with Dr. Jurado, plan to leave epidural infusion at current rate and reassess tomorrow. Pt. agrees with plan.
--- NOTE | 2020-04-28 16:33 | CMPROGNOTE_ITS ---
Care Management Progress Note S/O: Chloe was able to identify some of her struggles post surgically, around pain management and loss of control. She was at times weepy and at others times she was pleasant and engaging. CM brought painting supplies to Chloe which she really appreciated. She reported anticipating that she would go to [facility] next week due to lack of feeling, and function in her toes. She continues to be closely monitored, and is working with PT as well. CM continues to follow. A: 35 year old female admitted to [facility] 04/20/20 for Injury of posterolateral corner of left knee-closely monitored for ETOH withdrawal and pain management pre-operatively. P: PT will continue to re-assess post surgically, Chloe was up ambulating in the hallways this afternoon and her pain is being monitored closely. Dr. Alexandre recommended psychiatric stabilization for depression and substance use, anticipate Chloe would benefit from acute rehab prior to placement to manage her physical recovery. CM will fax referrals to [facility] and Gum[facility] Kramer if recommended after [facility] appointment next week. Chloe continues to participate via Zoom/phone with: [employer], and AA for substance use support. IBAN: Disability support. CM will continue to work on discharge planning and disposition.
[2020-04-28] MEDS: Docusate Sodium 100 MG CAP PO (19:52)
[2020-04-28] MEDS: Lactated Ringers 1,000 ML 80 ML IV (20:07)
[2020-04-28] MEDS: Melatonin 3 MG TAB 18 MG PO (23:24)
[2020-04-28] MEDS: Gabapentin 300 MG CAP PO (23:25)
[2020-04-28] MEDS: Mirtazapine 15 MG TAB 30 MG PO (23:25)
[2020-04-29] MEDS: oxyCODONE 10 MG TAB PO ×6 (06:45→23:35)
[2020-04-29] MEDS: Ketorolac 15 MG/ML VIAL IVP ×4 (06:46→23:36)
--- NOTE | 2020-04-29 07:37 | PDOC.ANES ---
Date of service: 04/29/20 Time of Service: 07:25 Anesthesia Note Epidural catheter removed with tip intact due to non-functioning catheter. RN at bedside was informed Lovenox injection must be administered no sooner than 11:30, [address] Jurado aware epidural discontinued.
[2020-04-29 08:15] VITALS: BP 112/71; PULSE 75; RESP 19; TEMP 36.8; O2SAT 98
[2020-04-29] MEDS: Thiamine 100 MG TAB PO (08:21)
[2020-04-29] MEDS: Pantoprazole 40 MG TABCR PO (08:21)
[2020-04-29] MEDS: buPROPion-XL 150 MG TABCR 300 MG PO (08:21)
[2020-04-29] MEDS: Nicotine 14 MG/24 HR PATCH TD (08:21)
[2020-04-29] MEDS: Docusate Sodium 100 MG CAP PO ×2 (08:21→19:20)
[2020-04-29] MEDS: Gabapentin 300 MG CAP PO ×2 (08:21→21:33)
[2020-04-29] MEDS: Acetaminophen 500 MG TAB 1000 MG PO ×2 (11:05→19:19)
[2020-04-29] MEDS: LORazepam 0.5 MG TAB PO (11:06)
[2020-04-29] MEDS: Normal Saline Flush 10 ML SYR IVP ×3 (11:55→23:36)
--- NOTE | 2020-04-29 12:47 | W.PM.PROGNOT ---
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: Status: Acute Qualifiers: Encounter type: subsequent encounter Qualified Code(s): S84.12XD - Injury of peroneal nerve at lower leg level, left leg, subsequent encounter (2) Injury of posterolateral corner of left knee: Status: Acute Qualifiers: Encounter type: subsequent encounter Qualified Code(s): S89.92XD - Unspecified injury of left lower leg, subsequent encounter (3) Left ACL tear: Status: Acute Qualifiers: Encounter type: initial encounter Qualified Code(s): S83.512A - Sprain of anterior cruciate ligament of left knee, initial encounter (4) Avulsion of left hamstring muscle: Status: Acute Qualifiers: Encounter type: initial encounter Qualified Code(s): S76.392A - Other specified injury of muscle, fascia and tendon of the posterior muscle group at thigh level, left thigh, initial encounter (5) Tear of lateral collateral ligament of left knee: Status: Acute Assessment and plan: 35-year-old female postop day #2 status post left knee posterior lateral corner reconstruction, biceps femoris hamstring repair, and peroneal nerve exploration. Objectively, the patient is doing well postoperatively. She has been somnolent after receiving multimodal pain medicines. Her vital signs are stable without tachycardia or hypertension. She does, not unexpectedly, given her history and preoperative pain, continue express she is suffering from severe pain. Discussed with the patient as well as medical team at length. Continue goal to avoid IV narcotics while providing reasonable level of pain relief. We compromised on adding OxyContin 20 mg long-acting narcotic p.o. medicine to her current regimen. Patient is happy with this change. Plan to evaluate kidney function with a.m. labs tomorrow and patient with prior HIRO given schedule Toradol dosing. May have to discontinue NSAIDs or change to p.o. ibuprofen 800 mg every 12 hours with a meal. Postop plan: Left lower extremity protected weightbearing with assist device at all times Physical therapy for knee range of motion passively and actively. May perform while supine in bed or seated in chair. Important to restore full extension and encourage gentle progressive flexion. Left lower extremity elevation to reduce edema. May be out of bed to chair but minimize amount of time left lower extremities in dependent position. Pain control- multimodal. As discussed in Dr. Jurado's note, medical team's note, and above. SCDs and MILVIA hose right lower extremity. Would prefer to leave off left lower extremity due to significant nerve injury and potential for skin breakdown. Continue Lovenox 40 mg daily while inpatient for DVT prophylaxis Keep dressings in place and clean and dry until follow-up. May adjust/rewrap/ apply dry gauze over incision/staple line as needed. Anticipate transfer to [facility] this week for peroneal nerve surgery. Ending final determination of surgical day and coordination of care. Follow-up outpatient with Dr. Jurado or Dr. Jurado at [facility] orthopedics in 2-3 weeks if no longer inpatient here or at [facility]. Postoperative care discussed with medical team Qualifiers: Encounter type: initial encounter Qualified Code(s): S83.422A - Sprain of lateral collateral ligament of left knee, initial encounter Subjective Subjective Interval history since last seen: Complains of significant ongoing pain. Less severe than earlier this morning. Unhappy about the number of changes to her pain management regimen. Does experience temporary relief of pain with oxycodone and Toradol. Exam Narrative Exam Narrative: Sleeping, resting comfortably in hospital bed. No acute distress. Breathing nonlabored. Not tachycardic. No diaphoresis. Alert and oriented x3 when awoken Complains of significant left knee and beavers pain but nontender to any specific landmarks Relates paresthesias medial leg lateral leg and between the great and second toe. Numbness over the dorsum of the foot. Able to weakly demonstrate ankle plantarflexion toe flexion. Unable demonstrate any ankle dorsiflexion or toe extension. Tolerates very gentle knee extension and flexion with a short arc range of motion. Moderate edema from knee through toes. Nonpitting. No erythema, no wound drainage Ankle foot and toes are warm and grossly well-perfused All thigh and leg compartments soft Incision exposed due to dressing traveling down to ankle. Staple line incision clean dry intact. Marginal ecchymosis about center of incision.. A more limited dressing reapplied about the knee. Long-leg knee immobilizer left open but underneath the knee all patient is resting supine in bed. No signs of infection or DVT Objective Objective Clinical Data: Vital Signs Temperature 98.2 F 04/29/20 08:15 Temperature Source Tympanic 04/29/20 08:15 Pulse 75 04/29/20 08:15 Pulse Rhythm Regular 04/29/20 08:01 Pulse Strength Strong 04/19/20 11:29 Respiratory Rate 19 04/29/20 08:15 Respiratory Effort 04/29/20 08:01 Respiratory Depth Normal 04/29/20 08:01 Respiratory Pattern Normal 04/29/20 08:01 Blood Pressure 112/71 04/29/20 08:15 Blood Pressure Mean 94 04/19/20 11:29 Blood Pressure Position Supine 04/19/20 11:29 Pulse Oximetry 98 04/29/20 08:15 Respiratory End-tidal CO2 37 04/27/20 17:39 Oxygen Delivery Method Room Air 04/29/20 08:15 Oxygen Flow Rate 0 04/29/20 08:15 Pain Level 9 04/29/20 11:55 Comment 04/28/20 18:29 Intake & Output 04/28/20 04/29/20 04/29/20 23:59 11:59 23:59 Intake Total 5.333 / 1262.939 4593.433 / 1552.433 Output Total 400 / 950 300 / 300 Balance -394.667 / 8172.400 3493.433 / 1252.433 Intake: IV 5.333 / 5485.169 8871.433 / 1002.433 Oral 550 / 550 Output: Urine 400 / 950 300 / 300 Other: Urine Color Straw Yellow Urine Appearance Clear Clear Urine Odor None Comment RN notified Voiding Methods Indwelling Catheter Bedside Commode Laboratory Results WBC 8.19 k/cumm (4.4-10.8) 04/24/20 06:40 RBC 4.06 m/cumm (4.00-5.20) 04/24/20 06:40 Hgb 12.6 g/dL (12.0-15.5) 04/24/20 06:40 Hct 38.2 % (36.0-46.0) 04/24/20 06:40 MCV 94.1 fL (80-95) 04/24/20 06:40 MCH 31.0 pg (27.0-33.0) 04/24/20 06:40 MCHC 33.0 g/dL (32.0-36.0) 04/24/20 06:40 RDW 14.8 % (11.7-14.6) H 04/24/20 06:40 Plt Count 371 x1000/uL (130-400) 04/28/20 06:43 MPV 8.7 fL (8.0-11.0) 04/24/20 06:40 Immature Gran % 0.1 % 04/19/20 11:50 Neutrophils % 64.3 04/19/20 11:50 Lymphocytes % 26.0 04/19/20 11:50 Monocytes % 6.8 04/19/20 11:50 Eosinophils % 2.5 04/19/20 11:50 Basophils % 0.3 04/19/20 11:50 Absolute Neutrophils 4.32 k/cumm (1.2-6.7) 04/19/20 11:50 Absolute Lymphocytes 1.75 k/cumm (1.2-3.4) 04/19/20 11:50 Absolute Monocytes 0.46 k/cumm (0.11-0.7) 04/19/20 11:50 Absolute Eosinophils 0.17 k/cumm (0.0-0.7) 04/19/20 11:50 Absolute Basophils 0.02 k/cumm (0.0-0.2) 04/19/20 11:50 Sodium 137 mmol/L (136-145) 04/28/20 06:43 Potassium 4.1 mmol/L (3.5-5.1) 04/28/20 06:43 Chloride 103 mmol/L (98-107) 04/28/20 06:43 Carbon Dioxide 25.3 mmol/L (21.0-32.0) 04/28/20 06:43 Anion Gap 8.7 mmol/L (3-11) 04/28/20 06:43 BUN 19 mg/dL (7-18) H 04/28/20 06:43 Creatinine 0.99 mg/dL (0.55-1.02) 04/28/20 06:43 Estimated GFR/1.73 m2 >= 60.00 (mL/min/1.73m2) 04/28/20 06:43 Glucose 136 mg/dL (74-106) H 04/28/20 06:43 Calcium 8.4 mg/dL (8.5-10.1) L 04/28/20 06:43 Magnesium 2.1 mg/dL (1.8-2.4) 04/24/20 06:40 Total Bilirubin 0.5 mg/dL (0.2-1.0) 04/19/20 11:50 AST 98 U/L (15-37) H 04/19/20 11:50 ALT 62 U/L (14-59) H 04/19/20 11:50 Alkaline Phosphatase 92 U/L (46-116) 04/19/20 11:50 Creatine Kinase 85 U/L (26-192) 04/24/20 06:40 Total Protein 7.4 g/dL (6.4-8.2) 04/19/20 11:50 Albumin 3.3 g/dL (3.4-5.0) L 04/19/20 11:50 TSH 0.27 uIU/mL (0.36-3.74) L 04/19/20 11:50 Free T4 0.93 ng/dL (0.76-1.46) 04/19/20 11:50 Salicylates 3.3 mg/dL (2.8-20.0) 04/19/20 11:50 Urine Opiates Screen Negative (Negative) 04/19/20 15:23 Urine Methadone Screen Positive (Negative) A 04/19/20 15:23 Acetaminophen < 2 ug/mL (10-30) 04/19/20 11:50 Ur Barbiturates Screen Negative (Negative) 04/19/20 15:23 Ur Tricyclics Screen Negative (Negative) 04/19/20 15:23 Ur Amphetamines Screen Negative (Negative) 04/19/20 15:23 U Benzodiazepines Scrn Negative (Negative) 04/19/20 15:23 Urine Cocaine Screen Negative (Negative) 04/19/20 15:23 Ur THC Screen Positive (Negative) A 04/19/20 15:23 Ethyl Alcohol 183.8 mg/dL (<3) 04/19/20 11:50 COVID-19 PCR Negative (Negative) 04/19/20 12:25 Nasopharyn COVID-19 PCR Not Applicable 04/19/20 12:25 Ref Test Perform Site Ab 7500 uvc lab 04/19/20 12:25
--- NOTE | 2020-04-29 13:10 | NUR.NOTE ---
Patient was offered a lunch tray and wouldn't wake up for it. When the patient did wake up she was irate and cussing out the MEDICAL RECORD CODER saying she wants out of here and wants to go to [facility] and cant wait until she does. Nursing Note:
--- NOTE | 2020-04-29 13:23 | PT.INNT ---
Date of service: 04/29/20 Time of Service: 13:23 PT Notes Visit Reasons: INTERNAL DERANGEMENT LEFT KNEE Orders received for past range of motion by Ortho patient status post internal derangement left knee surgical repair 2 days ago. She is slated to undergo another surgical intervention at [facility] for peroneal nerve avulsion. Touch base with patient on 3 separate occasions today. Patient refused PT for range of motion purposes. Had lengthy discussion on importance least containing some extension. We had a discussion regarding tomorrow's treatment and she agreeable to this along this better managed. She did indicate she spoke with the orthopedist who was trying to adjustments to her pain medication. Patient refused PT intervention today. We will follow-up with her tomorrow. She is agreeable to this. We will hope to get in some passive range of motion and instruct patient in muscle activation activity such as quad sets and glutes sets.
--- NOTE | 2020-04-29 13:33 | W.PM.PROGNOT ---
Date of Service Date of service: 04/29/20 Time of Service: 13:33 Assessment and Plan Assessment and plan (1) Internal derangement of left knee: Start date: 04/29/20 Start time: 13:42 Status: Acute Assessment and plan: Post op day [address] Jurado. Doing ok. C/o severe pain. added MS contin 30 mg as pharmacy does not carry 20 mg. Toradol, however recent HIRO will check BMP in am. Multimodal medications for pain PT, exercises, brace on at all times when wt bearing. Elevate LLE, can be in chair however ortho prefers not long if leg will not be elevated. (2) Left ACL tear: Start date: 04/29/20 Start time: 13:47 Status: Acute Assessment and plan: Repaired see above. Qualifiers: Encounter type: initial encounter Qualified Code(s): S83.512A - Sprain of anterior cruciate ligament of left knee, initial encounter (3) Avulsion of left hamstring muscle: Start date: 04/29/20 Start time: 13:48 Status: Acute Assessment and plan: Repaired see above. Qualifiers: Encounter type: initial encounter Qualified Code(s): S76.392A - Other specified injury of muscle, fascia and tendon of the posterior muscle group at thigh level, left thigh, initial encounter (4) Tear of lateral collateral ligament of left knee: Start date: 04/29/20 Start time: 13:48 Status: Acute Assessment and plan: See above Qualifiers: Encounter type: initial encounter Qualified Code(s): S83.422A - Sprain of lateral collateral ligament of left knee, initial encounter (5) Injury of posterolateral corner of left knee: Start date: 04/29/20 Start time: 13:48 Status: Acute Assessment and plan: See above Qualifiers: Encounter type: subsequent encounter Qualified Code(s): S89.92XD - Unspecified injury of left lower leg, subsequent encounter (6) 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 Qualifiers: Encounter type: subsequent encounter Qualified Code(s): S84.12XD - Injury of peroneal nerve at lower leg level, left leg, subsequent encounter (7) Anxiety: Start date: 04/29/20 Start time: 13:42 Status: Chronic Assessment and plan: Wellbutrin restarted Consult Dr. Alexandre (8) Suicidal ideation: Start date: 04/29/20 Start time: 13:41 Status: Resolved Assessment and plan: psychiatric evaluation for medication management with increased dosing of wellbutrin. in setting of depression and anxiety. Not SI at this time. (9) Alcohol abuse: Start date: 04/29/20 Start time: 13:38 Status: Chronic Assessment and plan: CIWA dcd, not showing any signs of alcohol withdrawal, taper libruim (10) HIRO (acute kidney injury): Start date: 04/29/20 Start time: 13:38 Status: Resolved Assessment and plan: Will recheck bmp in am as patient is on toradol. May need to d/c Above case discussed with Dr. Beck who is in agreement. Subjective Subjective Patient reports: still having pain Interval history since last seen: Sleepy, continues to c/o pain, Epidural and [employer]UD[employer] IN [employer] pump dcd. Per ortho knee looks good. Will start MS contin for pain. Check BMP in am Exam Narrative Exam Narrative: Const: AAOx3, depressed, cooperative. Sitting in bed on the computer Eyes: PERRLA, EOMI Neck: no lymphaedema, goiter or JVD Resp: Clear bilaterally, no wheezing rales, rhonchi Cardio: RRR no murmur GI: BSx 4 no tenderness Skin: surgical incision unable to visualize no outward bleeding or oozing can be seen from wrap Extrem: LLE feet swollen, +2 wrapped in drsg with brace RLE trace edema with CMST and pppx2 Objective Objective Clinical Data: Vital Signs Temperature 36.8 C 04/29/20 08:15 Temperature Source Tympanic 04/29/20 08:15 Pulse 75 04/29/20 08:15 Pulse Rhythm Regular 04/29/20 08:01 Pulse Strength Strong 04/19/20 11:29 Respiratory Rate 19 04/29/20 08:15 Respiratory Effort 04/29/20 08:01 Respiratory Depth Normal 04/29/20 08:01 Respiratory Pattern Normal 04/29/20 08:01 Blood Pressure 112/71 04/29/20 08:15 Blood Pressure Mean 94 04/19/20 11:29 Blood Pressure Position Supine 04/19/20 11:29 Pulse Oximetry 98 04/29/20 08:15 Respiratory End-tidal CO2 37 04/27/20 17:39 Oxygen Delivery Method Room Air 04/29/20 08:15 Oxygen Flow Rate 0 04/29/20 08:15 Pain Level 9 04/29/20 11:55 Comment 04/29/20 11:45 Intake & Output 04/28/20 04/29/20 04/29/20 23:59 11:59 23:59 Intake Total 5.333 / 5968.620 2959.433 / 1552.433 Output Total 400 / 950 300 / 300 Balance -394.667 / 4504.714 8794.433 / 1252.433 Intake: IV 5.333 / 1445.804 7338.433 / 1002.433 Oral 550 / 550 Output: Urine 400 / 950 300 / 300 Other: Urine Color Straw Yellow Urine Appearance Clear Clear Urine Odor None Comment RN notified Voiding Methods Indwelling Catheter Bedside Commode Laboratory Results WBC 8.19 k/cumm (4.4-10.8) 04/24/20 06:40 RBC 4.06 m/cumm (4.00-5.20) 04/24/20 06:40 Hgb 12.6 g/dL (12.0-15.5) 04/24/20 06:40 Hct 38.2 % (36.0-46.0) 04/24/20 06:40 MCV 94.1 fL (80-95) 04/24/20 06:40 MCH 31.0 pg (27.0-33.0) 04/24/20 06:40 MCHC 33.0 g/dL (32.0-36.0) 04/24/20 06:40 RDW 14.8 % (11.7-14.6) H 04/24/20 06:40 Plt Count 371 x1000/uL (130-400) 04/28/20 06:43 MPV 8.7 fL (8.0-11.0) 04/24/20 06:40 Immature Gran % 0.1 % 04/19/20 11:50 Neutrophils % 64.3 04/19/20 11:50 Lymphocytes % 26.0 04/19/20 11:50 Monocytes % 6.8 04/19/20 11:50 Eosinophils % 2.5 04/19/20 11:50 Basophils % 0.3 04/19/20 11:50 Absolute Neutrophils 4.32 k/cumm (1.2-6.7) 04/19/20 11:50 Absolute Lymphocytes 1.75 k/cumm (1.2-3.4) 04/19/20 11:50 Absolute Monocytes 0.46 k/cumm (0.11-0.7) 04/19/20 11:50 Absolute Eosinophils 0.17 k/cumm (0.0-0.7) 04/19/20 11:50 Absolute Basophils 0.02 k/cumm (0.0-0.2) 04/19/20 11:50 Sodium 137 mmol/L (136-145) 04/28/20 06:43 Potassium 4.1 mmol/L (3.5-5.1) 04/28/20 06:43 Chloride 103 mmol/L (98-107) 04/28/20 06:43 Carbon Dioxide 25.3 mmol/L (21.0-32.0) 04/28/20 06:43 Anion Gap 8.7 mmol/L (3-11) 04/28/20 06:43 BUN 19 mg/dL (7-18) H 04/28/20 06:43 Creatinine 0.99 mg/dL (0.55-1.02) 04/28/20 06:43 Estimated GFR/1.73 m2 >= 60.00 (mL/min/1.73m2) 04/28/20 06:43 Glucose 136 mg/dL (74-106) H 04/28/20 06:43 Calcium 8.4 mg/dL (8.5-10.1) L 04/28/20 06:43 Magnesium 2.1 mg/dL (1.8-2.4) 04/24/20 06:40 Total Bilirubin 0.5 mg/dL (0.2-1.0) 04/19/20 11:50 AST 98 U/L (15-37) H 04/19/20 11:50 ALT 62 U/L (14-59) H 04/19/20 11:50 Alkaline Phosphatase 92 U/L (46-116) 04/19/20 11:50 Creatine Kinase 85 U/L (26-192) 04/24/20 06:40 Total Protein 7.4 g/dL (6.4-8.2) 04/19/20 11:50 Albumin 3.3 g/dL (3.4-5.0) L 04/19/20 11:50 TSH 0.27 uIU/mL (0.36-3.74) L 04/19/20 11:50 Free T4 0.93 ng/dL (0.76-1.46) 04/19/20 11:50 Salicylates 3.3 mg/dL (2.8-20.0) 04/19/20 11:50 Urine Opiates Screen Negative (Negative) 04/19/20 15:23 Urine Methadone Screen Positive (Negative) A 04/19/20 15:23 Acetaminophen < 2 ug/mL (10-30) 04/19/20 11:50 Ur Barbiturates Screen Negative (Negative) 04/19/20 15:23 Ur Tricyclics Screen Negative (Negative) 04/19/20 15:23 Ur Amphetamines Screen Negative (Negative) 04/19/20 15:23 U Benzodiazepines Scrn Negative (Negative) 04/19/20 15:23 Urine Cocaine Screen Negative (Negative) 04/19/20 15:23 Ur THC Screen Positive (Negative) A 04/19/20 15:23 Ethyl Alcohol 183.8 mg/dL (<3) 04/19/20 11:50 COVID-19 PCR Negative (Negative) 04/19/20 12:25 Nasopharyn COVID-19 PCR Not Applicable 04/19/20 12:25 Ref Test Perform Site Ab 7500 uvmmc lab 04/19/20 12:25
[2020-04-29] MEDS: Gabapentin 300 MG CAP 600 MG PO ×2 (13:59→19:20)
--- NOTE | 2020-04-29 17:04 | PDOC.CMPRO ---
- If Service Date Differs Date of service: 04/29/20 Time of Service: 17:05 Care Management Progress Note S/O: Chloe was reviewed at interdisciplinary rounds. Per report, Chloe has been having severe pain. Pain regiment was changed today by provider. Per report, she may have to transition to [facility] for surgery for the peroneal nerve dysfunction of LLE. Per RN, she has a home medication at the pharmacy that cannot be obtained in our facility. CM will contact the community pharmacy in order to arrange picker machine operator. CM will continue to follow. A: Chloe is a 35 year old female admitted to [facility] 04/20/20 for Injury of posterolateral corner of left knee-closely monitored for ETOH withdrawal and pain management pre-operatively. P: PT will continue to re-assess post surgically, Chloe was up ambulating in the hallways this afternoon and her pain is being monitored closely. Dr. Alexandre recommended psychiatric stabilization for depression and substance use, anticipate Chloe would benefit from acute rehab prior to placement to manage her physical recovery. CM will fax referrals to [facility] and [facility] if recommended after [facility] appointment next week. Chloe continues to participate via Zoom/phone with: Training And Quality Manager, and AA for substance use support. IBAN: Disability support. CM will continue to work on discharge planning and disposition.
[2020-04-29 18:30] VITALS: BP 113/69; PULSE 78; RESP 18; TEMP 37.1; O2SAT 96
[2020-04-29] MEDS: Melatonin 3 MG TAB 18 MG PO (21:32)
[2020-04-29] MEDS: Mirtazapine 15 MG TAB 30 MG PO (21:33)
[2020-04-29 23:44] VITALS: BP 116/68; PULSE 89; RESP 18; TEMP 36.3; O2SAT 97
[2020-04-30] MEDS: Ketorolac 15 MG/ML VIAL IVP ×2 (05:25→12:06)
[2020-04-30] MEDS: Normal Saline Flush 10 ML SYR IVP ×2 (05:26→12:06)
[2020-04-30] MEDS: oxyCODONE 10 MG TAB PO ×6 (07:15→23:23)
[2020-04-30 07:30] LABS: Anion Gap 6.1 mmol/L (3-11); BUN 20 mg/dL (7-18); CO2 27.9 mmol/L (21.0-32.0); CREATININE 1.05 mg/dL (0.55-1.02); Calcium 8.1 mg/dL (8.5-10.1); Chloride 104 mmol/L (98-107); Glucose 93 mg/dL (74-106); Potassium 4.4 mmol/L (3.5-5.1); Sodium 138 mmol/L (136-145)
[2020-04-30 07:40] VITALS: BP 124/76; PULSE 84; RESP 20; TEMP 36.5; O2SAT 98
[2020-04-30] MEDS: Acetaminophen 500 MG TAB 1000 MG PO ×3 (07:53→20:25)
[2020-04-30] MEDS: buPROPion-XL 150 MG TABCR 300 MG PO (07:53)
[2020-04-30] MEDS: Thiamine 100 MG TAB PO (07:53)
[2020-04-30] MEDS: Docusate Sodium 100 MG CAP PO ×2 (07:53→20:25)
[2020-04-30] MEDS: Pantoprazole 40 MG TABCR PO (07:54)
[2020-04-30] MEDS: Gabapentin 300 MG CAP 600 MG PO ×3 (07:54→20:25)
[2020-04-30] MEDS: Enoxaparin 40 MG/0.4 ML SYR SC (07:55)
[2020-04-30] MEDS: Nicotine 14 MG/24 HR PATCH TD (07:55)
--- NOTE | 2020-04-30 09:30 | PTTR_ITS ---
Date of service: 04/30/20 Time of Service: 09:00 PT Notes Visit Reasons: INTERNAL DERANGEMENT LEFT KNEE Inpatient Physical Therapy Treatment Note [facility] Date: May 06, 2020 PRECAUTIONS: Fall precautions, partial weightbearing 50% on left lower extremity with knee immobilizer. SUBJECTIVE: Patient states she is feeling much better today compared to yesterday. Does feel the pain management is significantly improved offering her better tolerance for sleeping. She request to hold on walking as she did some walking with the nurse for cleaning and restroom purposes. She is ambulating with partial weightbearing 50% with her walker. Has been getting out of bed independently but does need a little assistance lifting her involved left lower extremity back onto the bed surface. Continues to note numbness throughout the dorsal surface of the foot and lateral ankle with inability to dorsiflex her ankle or toes. OBJECTIVE: At start of session patient is in recliner with immobilizer on. PAIN: 2/10 Manual therapy 42923 X1: Perform some active assisted knee range of motion into flexion and extension being sure to maintain neutral position to avoid any varus or valgus stress. This was performed with her Davi bandage on. Davi bandage were essentially falling off so reapplied them. Wound inspection did show a droplet of clear fluid upper third of the incision. No drainage noted otherwise. Reapplied Davi bandage to the thigh and get up to mid thigh. Gauze was applied prior to Davi wrap. Patient's achieving 70 to 75 degrees of active assisted knee flexion. Passive extension to 0 with pain at end range. Patient is able to assist lifting her leg for Davi wrap donning. Performs a straight leg raise with 10 degree lag. Also work on some gentle effleurage massage in the calf musculature. THEREX: 56966 X1: Patient was educated in home program for active assistive range of motion to the knee within pain threshold. Also expressed the concern of maintaining good extension to avoid propping her leg in a flexed position for prolonged periods of times. Reminded to utilize long leg immobilizer for sleep. Patient educated in quad set exercise as well as ankle plantar flexion. Patient performs 3 sets of 10 quad sets, 15 active plantar flexion. Also perform some active assistive straight leg raise with support under the calf. Reapplied Cryo/Cuff to the knee with immobilizer position under her leg but not fastened so she can get more cryotherapy through the Davi bandage. ASSESSMENT: Still no significant active dorsiflexion of the ankle or toes left lower extremity. Much better pain management today. She tolerated her flexion range of motion quite well. PLAN: Continue as above. Patient unsure which she states she thinks her nerve surgery will be early to middle of this coming week. TREATMENT CODE/TIME: 17774 X1 [id number] X1: 30 minutes 9:00 to 930. Disclaimer: This note was created using [employer] voice recognition software. It was reviewed for major content. However, there may be multiple small discrepancies and errors due to the voice recognition aspects of the software.
[2020-04-30 11:42] LABS: *AMPHETAMINES SCREEN URINE Negative (Negative); *BARBITURATES SCREEN URINE Negative (Negative); *BENZODIAZEPINES SCREEN URINE POSITIVE (Negative); Cannabinoids THC POSITIVE (Negative); Cocaine Screen,Urine Negative (Negative); METHADONE URINE SCREEN Negative (Negative); OPIATES URINE SCREEN POSITIVE (Negative); Tricyclic Antidepressants Negative (Negative)
--- NOTE | 2020-04-30 12:40 | W.PM.PROGNOT ---
Date of Service Date of service: 04/30/20 Time of Service: 12:40 Assessment and Plan Assessment and plan (1) Internal derangement of left knee: Start date: 04/30/20 Start time: 12:47 Status: Acute Assessment and plan: Post op day [address] Jurado. Doing well today. Pain improved. Multimodal medications for pain PT, exercises, brace on at all times when wt bearing. Elevate LLE, can be in chair however ortho prefers not long if leg will not be elevated. (2) Left ACL tear: Start date: 04/30/20 Start time: 12:47 Status: Acute Assessment and plan: Repaired see above. Qualifiers: Encounter type: initial encounter Qualified Code(s): S83.512A - Sprain of anterior cruciate ligament of left knee, initial encounter (3) Avulsion of left hamstring muscle: Start date: 04/30/20 Start time: 12:47 Status: Acute Assessment and plan: Repaired see above. Qualifiers: Encounter type: initial encounter Qualified Code(s): S76.392A - Other specified injury of muscle, fascia and tendon of the posterior muscle group at thigh level, left thigh, initial encounter (4) Tear of lateral collateral ligament of left knee: Start date: 04/30/20 Start time: 12:48 Status: Acute Assessment and plan: See above Qualifiers: Encounter type: initial encounter Qualified Code(s): S83.422A - Sprain of lateral collateral ligament of left knee, initial encounter (5) Injury of posterolateral corner of left knee: Start date: 04/30/20 Start time: 12:48 Status: Acute Assessment and plan: See above Qualifiers: Encounter type: subsequent encounter Qualified Code(s): S89.92XD - Unspecified injury of left lower leg, subsequent encounter (6) 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 Qualifiers: Encounter type: subsequent encounter Qualified Code(s): S84.12XD - Injury of peroneal nerve at lower leg level, left leg, subsequent encounter (7) Anxiety: Start date: 04/30/20 Start time: 12:48 Status: Chronic Assessment and plan: Wellbutrin restarted, mood improving. Appears in positive spirits today Consult Dr. Alexandre (8) HIRO (acute kidney injury): Start date: 04/30/20 Start time: 13:16 Status: Resolved Assessment and plan: Bump in creatinine, will d/c toradol, ortho aware. Above case discussed with Dr. Beck who is in agreement. Subjective Subjective Patient reports: still having pain Interval history since last seen: Doing well. Pain is improved Chloe states that for the first time her pain is tolerable it is a 5 out of 10 and she is ok with that. She denies CP, SOB, N/V/D. She was sitting up in recliner with leg elevated and iced in good spirits, she states her mental health is feeling better as well. This is the best I have seen her on this admission. Exam Narrative Exam Narrative: Const: AAOx3, depressed, cooperative. Sitting up in chair appears in good spirits. Eyes: PERRLA, EOMI Neck: no lymphaedema, goiter or JVD Resp: Clear bilaterally, no wheezing rales, rhonchi Cardio: RRR no murmur GI: BSx 4 no tenderness Skin: surgical incision unable to visualize no outward bleeding or oozing can be seen from wrap Extrem: LLE feet swollen, +2 wrapped in drsg with brace RLE trace edema with CMST and pppx2 to foot Const General: cooperative, no acute distress and well developed Nutritional Appearance: average body habitus Orientation: alert, awake and oriented x3 HENMT Head: normal to inspection, normocephalic and atraumatic Mouth: oral mucosae normal Resp Effort & Inspection: normal respiratory effort Auscultation: wheezes expiratory wheezes, inspiratory wheezes, left upper and right upper Cardio Rate: regular rate Rhythm: regular rhythm GI Inspection: normal to inspection Palpation: soft Auscultation: normal bowel sounds Skin General skin exam: ecchymosis Neuro General: patient alert, patient awake and patient oriented x3 Extrem General: abnormal ROM and pedal edema present Left lower extremity: knee Details: tenderness, swelling, abnormal ROM Details: pain with passive ROM, knee ligament exam abnormal Details: valgus stress test Details: pain noted and abrasion (scab, no evidence of infection) Objective Objective Clinical Data: Abnormal lab results 04/30/20 04/30/20 Range/Units 07:15 10:55 BUN 20 H (7-18) mg/dL Creatinine 1.05 H (0.55-1.02) mg/dL Calcium 8.1 L (8.5-10.1) mg/dL Urine Opiates Screen Positive A (Negative) U Benzodiazepines Scrn Positive A (Negative) Ur THC Screen Positive A (Negative) Vital Signs Temperature 36.5 C 04/30/20 07:40 Temperature Source Tympanic 04/30/20 07:40 Pulse 84 04/30/20 07:40 Pulse Rhythm Regular 04/30/20 01:35 Pulse Strength Strong 04/19/20 11:29 Respiratory Rate 20 04/30/20 07:40 Respiratory Effort Non-Labored 04/30/20 01:35 Respiratory Depth Normal 04/30/20 01:35 Respiratory Pattern Normal 04/30/20 01:35 Blood Pressure 124/76 04/30/20 07:40 Blood Pressure Mean 94 04/19/20 11:29 Blood Pressure Position Supine 04/19/20 11:29 Pulse Oximetry 98 04/30/20 07:40 Respiratory End-tidal CO2 37 04/27/20 17:39 Oxygen Delivery Method Room Air 04/30/20 07:40 Oxygen Flow Rate 0 04/30/20 07:40 Pain Level 6 04/30/20 12:06 Comment 04/29/20 11:45 Intake & Output 04/29/20 04/30/20 04/30/20 23:59 11:59 23:59 Intake Total 1350 / 2922.433 960 / 960 Balance 1350 / 2622.433 960 / 960 Intake: IV 30 / 1052.433 Oral 1320 / 1870 960 / 960 Other: Urine Color Yellow Yellow Urine Appearance Clear Clear Urine Odor None Comment Per pt. report, pt. voided x1 in the toilet. Void x1 in the toilet. Voiding Methods Toilet Toilet Laboratory Results WBC 8.19 k/cumm (4.4-10.8) 04/24/20 06:40 RBC 4.06 m/cumm (4.00-5.20) 04/24/20 06:40 Hgb 12.6 g/dL (12.0-15.5) 04/24/20 06:40 Hct 38.2 % (36.0-46.0) 04/24/20 06:40 MCV 94.1 fL (80-95) 04/24/20 06:40 MCH 31.0 pg (27.0-33.0) 04/24/20 06:40 MCHC 33.0 g/dL (32.0-36.0) 04/24/20 06:40 RDW 14.8 % (11.7-14.6) H 04/24/20 06:40 Plt Count 371 x1000/uL (130-400) 04/28/20 06:43 MPV 8.7 fL (8.0-11.0) 04/24/20 06:40 Immature Gran % 0.1 % 04/19/20 11:50 Neutrophils % 64.3 04/19/20 11:50 Lymphocytes % 26.0 04/19/20 11:50 Monocytes % 6.8 04/19/20 11:50 Eosinophils % 2.5 04/19/20 11:50 Basophils % 0.3 04/19/20 11:50 Absolute Neutrophils 4.32 k/cumm (1.2-6.7) 04/19/20 11:50 Absolute Lymphocytes 1.75 k/cumm (1.2-3.4) 04/19/20 11:50 Absolute Monocytes 0.46 k/cumm (0.11-0.7) 04/19/20 11:50 Absolute Eosinophils 0.17 k/cumm (0.0-0.7) 04/19/20 11:50 Absolute Basophils 0.02 k/cumm (0.0-0.2) 04/19/20 11:50 Sodium 138 mmol/L (136-145) 04/30/20 07:15 Potassium 4.4 mmol/L (3.5-5.1) 04/30/20 07:15 Chloride 104 mmol/L (98-107) 04/30/20 07:15 Carbon Dioxide 27.9 mmol/L (21.0-32.0) 04/30/20 07:15 Anion Gap 6.1 mmol/L (3-11) 04/30/20 07:15 BUN 20 mg/dL (7-18) H 04/30/20 07:15 Creatinine 1.05 mg/dL (0.55-1.02) H 04/30/20 07:15 Estimated GFR/1.73 m2 59.30 (mL/min/1.73m2) 04/30/20 07:15 Glucose 93 mg/dL (74-106) 04/30/20 07:15 Calcium 8.1 mg/dL (8.5-10.1) L 04/30/20 07:15 Magnesium 2.1 mg/dL (1.8-2.4) 04/24/20 06:40 Total Bilirubin 0.5 mg/dL (0.2-1.0) 04/19/20 11:50 AST 98 U/L (15-37) H 04/19/20 11:50 ALT 62 U/L (14-59) H 04/19/20 11:50 Alkaline Phosphatase 92 U/L (46-116) 04/19/20 11:50 Creatine Kinase 85 U/L (26-192) 04/24/20 06:40 Total Protein 7.4 g/dL (6.4-8.2) 04/19/20 11:50 Albumin 3.3 g/dL (3.4-5.0) L 04/19/20 11:50 TSH 0.27 uIU/mL (0.36-3.74) L 04/19/20 11:50 Free T4 0.93 ng/dL (0.76-1.46) 04/19/20 11:50 Salicylates 3.3 mg/dL (2.8-20.0) 04/19/20 11:50 Urine Opiates Screen Positive (Negative) A 04/30/20 10:55 Urine Methadone Screen Negative (Negative) 04/30/20 10:55 Acetaminophen < 2 ug/mL (10-30) 04/19/20 11:50 Ur Barbiturates Screen Negative (Negative) 04/30/20 10:55 Ur Tricyclics Screen Negative (Negative) 04/30/20 10:55 Ur Amphetamines Screen Negative (Negative) 04/30/20 10:55 U Benzodiazepines Scrn Positive (Negative) A 04/30/20 10:55 Urine Cocaine Screen Negative (Negative) 04/30/20 10:55 Ur THC Screen Positive (Negative) A 04/30/20 10:55 Ethyl Alcohol 183.8 mg/dL (<3) 04/19/20 11:50 COVID-19 PCR Negative (Negative) 04/19/20 12:25 Nasopharyn COVID-19 PCR Not Applicable 04/19/20 12:25 Ref Test Perform Site Ab 7500 [facility] lab 04/19/20 12:25
[2020-04-30] MEDS: LORazepam 0.5 MG TAB PO ×2 (14:08→18:11)
--- NOTE | 2020-04-30 14:16 | W.PM.PROGNOT ---
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: Status: Acute Qualifiers: Encounter type: subsequent encounter Qualified Code(s): S84.12XD - Injury of peroneal nerve at lower leg level, left leg, subsequent encounter (2) Injury of posterolateral corner of left knee: Status: Acute Qualifiers: Encounter type: subsequent encounter Qualified Code(s): S89.92XD - Unspecified injury of left lower leg, subsequent encounter (3) Left ACL tear: Status: Acute Qualifiers: Encounter type: initial encounter Qualified Code(s): S83.512A - Sprain of anterior cruciate ligament of left knee, initial encounter (4) Avulsion of left hamstring muscle: Status: Acute Qualifiers: Encounter type: initial encounter Qualified Code(s): S76.392A - Other specified injury of muscle, fascia and tendon of the posterior muscle group at thigh level, left thigh, initial encounter (5) Tear of lateral collateral ligament of left knee: Status: Acute Assessment and plan: 35-year-old female postop day #3 status post left knee posterior lateral corner reconstruction, biceps femoris hamstring repair, and peroneal nerve exploration. Patient greatly improved postoperative pain with added 30 mg long-acting oxycodone. Toradol discontinued due to slight HIRO. Left lower extremity protected weightbearing with assist device at all times Patient will need AFO for left ankle foot drop. Should obtain sooner than later to prevent equinus contracture. Physical therapy should passively range left ankle as patient is unable to do actively. Also continue therapy for knee range of motion passively and actively. May perform while supine in bed or seated in chair. Important to restore full extension and encourage gentle progressive flexion. Left lower extremity elevation to reduce edema. May be out of bed to chair but minimize amount of time left lower extremities in dependent position. Pain control- multimodal. As discussed in Dr. Jurado's note, medical team's note, and above. SCDs and MILVIA kolbe right lower extremity. Would prefer to leave off left lower extremity due to significant nerve injury and potential for skin breakdown. Continue Lovenox 40 mg daily while inpatient for DVT prophylaxis Keep dressings in place and clean and dry until follow-up. May adjust/rewrap/ apply dry gauze over incision/staple line as needed. Anticipate transfer to [facility] this week for peroneal nerve surgery potentially on . Follow-up outpatient with Dr. Jurado or Dr. Dominguez at [facility] orthopedics in 2-3 weeks if no longer inpatient here or at [facility]. Postoperative care discussed with medical team Please call if any questions or concerns Qualifiers: Encounter type: initial encounter Qualified Code(s): S83.422A - Sprain of lateral collateral ligament of left knee, initial encounter Subjective Subjective Interval history since last seen: Feeling much better. Pain greatly improved. Feels rested after sleeping last night. I skipped her last few doses of PRN narcotics. Exam Narrative Exam Narrative: Resting comfortably in chair with legs extended. Working on computer and art. No acute distress. Breathing nonlabored. Not tachycardic. No diaphoresis. Alert and oriented x3 when awoken Complains of moderate left knee and beavers pain but nontender to any specific landmarks Relates paresthesias medial leg lateral leg and between the great and second toe. Numbness over the dorsum of the foot. Able to weakly demonstrate ankle plantarflexion toe flexion. Unable demonstrate any ankle dorsiflexion or toe extension. Tolerates very gentle knee extension and flexion with a short arc range of motion. Also relates new right lateral thigh numbness paresthesias Moderate edema from knee through toes. Nonpitting. No erythema, no wound drainage Ankle foot and toes are warm and grossly well-perfused All thigh and leg compartments soft Staple line incision clean dry intact. Marginal ecchymosis about center of incision.. No signs of infection or DVT Objective Objective Clinical Data: Abnormal lab results 04/30/20 04/30/20 Range/Units 07:15 10:55 BUN 20 H (7-18) mg/dL Creatinine 1.05 H (0.55-1.02) mg/dL Calcium 8.1 L (8.5-10.1) mg/dL Urine Opiates Screen Positive A (Negative) U Benzodiazepines Scrn Positive A (Negative) Ur THC Screen Positive A (Negative) Vital Signs Temperature 97.7 F 04/30/20 07:40 Temperature Source Tympanic 04/30/20 07:40 Pulse 84 04/30/20 07:40 Pulse Rhythm Regular 04/30/20 07:15 Pulse Strength Strong 04/19/20 11:29 Respiratory Rate 20 04/30/20 07:40 Respiratory Effort Non-Labored 04/30/20 07:15 Respiratory Depth Normal 04/30/20 07:15 Respiratory Pattern Normal 04/30/20 07:15 Blood Pressure 124/76 04/30/20 07:40 Blood Pressure Mean 94 04/19/20 11:29 Blood Pressure Position Supine 04/19/20 11:29 Pulse Oximetry 98 04/30/20 07:40 Respiratory End-tidal CO2 37 04/27/20 17:39 Oxygen Delivery Method Room Air 04/30/20 07:40 Oxygen Flow Rate 0 04/30/20 07:40 Pain Level 7 04/30/20 14:08 Comment 04/29/20 11:45 Intake & Output 04/29/20 04/30/20 04/30/20 23:59 11:59 23:59 Intake Total 1350 / 2922.433 960 / 1460 500 / 1460 Balance 1350 / 2622.433 960 / 1460 500 / 1460 Intake: IV 30 / 1052.433 Oral 1320 / 1870 960 / 1440 480 / 1440 Other: Urine Color Yellow Yellow Urine Appearance Clear Clear Urine Odor None Comment Per pt. report, pt. voided x1 in the toilet. Void x1 in the toilet. Voiding Methods Toilet Toilet Laboratory Results WBC 8.19 k/cumm (4.4-10.8) 04/24/20 06:40 RBC 4.06 m/cumm (4.00-5.20) 04/24/20 06:40 Hgb 12.6 g/dL (12.0-15.5) 04/24/20 06:40 Hct 38.2 % (36.0-46.0) 04/24/20 06:40 MCV 94.1 fL (80-95) 04/24/20 06:40 MCH 31.0 pg (27.0-33.0) 04/24/20 06:40 MCHC 33.0 g/dL (32.0-36.0) 04/24/20 06:40 RDW 14.8 % (11.7-14.6) H 04/24/20 06:40 Plt Count 371 x1000/uL (130-400) 04/28/20 06:43 MPV 8.7 fL (8.0-11.0) 04/24/20 06:40 Immature Gran % 0.1 % 04/19/20 11:50 Neutrophils % 64.3 04/19/20 11:50 Lymphocytes % 26.0 04/19/20 11:50 Monocytes % 6.8 04/19/20 11:50 Eosinophils % 2.5 04/19/20 11:50 Basophils % 0.3 04/19/20 11:50 Absolute Neutrophils 4.32 k/cumm (1.2-6.7) 04/19/20 11:50 Absolute Lymphocytes 1.75 k/cumm (1.2-3.4) 04/19/20 11:50 Absolute Monocytes 0.46 k/cumm (0.11-0.7) 04/19/20 11:50 Absolute Eosinophils 0.17 k/cumm (0.0-0.7) 04/19/20 11:50 Absolute Basophils 0.02 k/cumm (0.0-0.2) 04/19/20 11:50 Sodium 138 mmol/L (136-145) 04/30/20 07:15 Potassium 4.4 mmol/L (3.5-5.1) 04/30/20 07:15 Chloride 104 mmol/L (98-107) 04/30/20 07:15 Carbon Dioxide 27.9 mmol/L (21.0-32.0) 04/30/20 07:15 Anion Gap 6.1 mmol/L (3-11) 04/30/20 07:15 BUN 20 mg/dL (7-18) H 04/30/20 07:15 Creatinine 1.05 mg/dL (0.55-1.02) H 04/30/20 07:15 Estimated GFR/1.73 m2 59.30 (mL/min/1.73m2) 04/30/20 07:15 Glucose 93 mg/dL (74-106) 04/30/20 07:15 Calcium 8.1 mg/dL (8.5-10.1) L 04/30/20 07:15 Magnesium 2.1 mg/dL (1.8-2.4) 04/24/20 06:40 Total Bilirubin 0.5 mg/dL (0.2-1.0) 04/19/20 11:50 AST 98 U/L (15-37) H 04/19/20 11:50 ALT 62 U/L (14-59) H 04/19/20 11:50 Alkaline Phosphatase 92 U/L (46-116) 04/19/20 11:50 Creatine Kinase 85 U/L (26-192) 04/24/20 06:40 Total Protein 7.4 g/dL (6.4-8.2) 04/19/20 11:50 Albumin 3.3 g/dL (3.4-5.0) L 04/19/20 11:50 TSH 0.27 uIU/mL (0.36-3.74) L 04/19/20 11:50 Free T4 0.93 ng/dL (0.76-1.46) 04/19/20 11:50 Salicylates 3.3 mg/dL (2.8-20.0) 04/19/20 11:50 Urine Opiates Screen Positive (Negative) A 04/30/20 10:55 Urine Methadone Screen Negative (Negative) 04/30/20 10:55 Acetaminophen < 2 ug/mL (10-30) 04/19/20 11:50 Ur Barbiturates Screen Negative (Negative) 04/30/20 10:55 Ur Tricyclics Screen Negative (Negative) 04/30/20 10:55 Ur Amphetamines Screen Negative (Negative) 04/30/20 10:55 U Benzodiazepines Scrn Positive (Negative) A 04/30/20 10:55 Urine Cocaine Screen Negative (Negative) 04/30/20 10:55 Ur THC Screen Positive (Negative) A 04/30/20 10:55 Ethyl Alcohol 183.8 mg/dL (<3) 04/19/20 11:50 COVID-19 PCR Negative (Negative) 04/19/20 12:25 Nasopharyn COVID-19 PCR Not Applicable 04/19/20 12:25 Ref Test Perform Site Ab 7500 [facility] lab 04/19/20 12:25
[2020-04-30 16:26] VITALS: BP 120/70; PULSE 80; RESP 18; TEMP 37.1; O2SAT 98
--- NOTE | 2020-04-30 18:19 | PDOC.CMPRO ---
- If Service Date Differs Date of service: 04/30/20 Time of Service: 18:19 Care Management Progress Note S/O: Chloe was reviewed at interdisciplinary rounds. Per report, her pain is better today after changes were made to her medications. CM was asked to follow up on her control pills as they cannot be obtained from our pharmacy. Chloe's pharmacy is [facility] in [place]. CM called Albina in [facility], who reported that they can fill the prescription, but her MD who prescribed it is no longer active with [facility]. CM discussed this with the provider, who agreed to call in a one time prescription for her. 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 CM will continue to follow. A: Chloe is a 35 year old female admitted to [facility] 04/20/20 for Injury of posterolateral corner of left knee-closely monitored for ETOH withdrawal and pain management pre-operatively. P: PT will continue to re-assess post surgically, Chloe was up ambulating in the hallways this afternoon and her pain is being monitored closely. Dr. Alexandre recommended psychiatric stabilization for depression and substance use, anticipate Chloe would benefit from acute rehab prior to placement to manage her physical recovery. CM will fax referrals to [facility] and [facility] if recommended after [facility] appointment next week. Chloe continues to participate via Zoom/phone with: [employer] Superintendent, and AA for substance use support. IBAN: Disability support. CM will continue to work on discharge planning and disposition.
[2020-04-30] MEDS: Mirtazapine 15 MG TAB 30 MG PO (21:43)
[2020-04-30] MEDS: Melatonin 3 MG TAB 18 MG PO (21:43)
[2020-04-30] MEDS: Gabapentin 300 MG CAP PO (21:43)
[2020-04-30 23:18] VITALS: BP 113/72; PULSE 81; RESP 19; TEMP 37; O2SAT 96
[2020-05-01] MEDS: oxyCODONE 10 MG TAB PO ×5 (03:28→20:35)
[2020-05-01 04:00] VITALS: BP 100/72; PULSE 85; RESP 19; TEMP 36.9; O2SAT 95
[2020-05-01 07:44] LABS: INR 0.9 (0.9-1.1); Prothrombin Time 8.9 sec (9.3-11.0)
[2020-05-01 08:24] VITALS: BP 121/71; PULSE 78; RESP 18; TEMP 36.5; O2SAT 95
[2020-05-01 08:30] VITALS: O2SAT 95
[2020-05-01] MEDS: Gabapentin 300 MG CAP 600 MG PO ×3 (08:34→20:35)
[2020-05-01] MEDS: Docusate Sodium 100 MG CAP PO ×2 (08:34→20:34)
[2020-05-01] MEDS: buPROPion-XL 150 MG TABCR 300 MG PO (08:34)
[2020-05-01] MEDS: Pantoprazole 40 MG TABCR PO (08:34)
[2020-05-01] MEDS: Acetaminophen 500 MG TAB 1000 MG PO ×3 (08:34→20:34)
[2020-05-01] MEDS: Thiamine 100 MG TAB PO (08:35)
[2020-05-01] MEDS: Enoxaparin 40 MG/0.4 ML SYR SC (08:35)
[2020-05-01] MEDS: Nicotine 14 MG/24 HR PATCH TD (08:36)
[2020-05-01 09:10] LABS: HCT 37.9 % (36.0-46.0); HGB 12.3 g/dL (12.0-15.5); Mean Corp. HGB Concentration 32.5 g/dL (32.0-36.0); Mean Corpuscular Hemoglobin 31.1 pg (27.0-33.0); Mean Corpuscular Volume 95.9 fL (80-95); Mean Platelet Volume 8.7 fL (8.0-11.0); Platelet Count 527 x1000/uL (130-400); RBC 3.95 m/cumm (4.00-5.20); RBC Distribution Width 14.5 % (11.7-14.6); White Blood Cell Count 5.87 k/cumm (4.4-10.8)
[2020-05-01 09:17] LABS: Anion Gap 7.3 mmol/L (3-11); BUN 17 mg/dL (7-18); CO2 30.7 mmol/L (21.0-32.0); Calcium 9.3 mg/dL (8.5-10.1); Chloride 100 mmol/L (98-107); Glucose 86 mg/dL (74-106); Potassium 4.6 mmol/L (3.5-5.1); Sodium 138 mmol/L (136-145)
--- NOTE | 2020-05-01 11:30 | PGE_ITS ---
Date of Service Date of service: 05/01/20 Time of Service: 11:30 Assessment and Plan Assessment and plan (1) Internal derangement of left knee: Start date: 05/01/20 Start time: 11:33 Status: Acute Assessment and plan: Post op day [address] Jurado. Doing well today. Pain improved. Multimodal medications for pain PT, exercises, brace on at all times when wt bearing. Elevate LLE, can be in chair however ortho prefers not long if leg will not be elevated. (2) Left ACL tear: Start date: 05/01/20 Start time: 11:33 Status: Acute Assessment and plan: Repaired see above. Qualifiers: Encounter type: initial encounter Qualified Code(s): S83.512A - Sprain of anterior cruciate ligament of left knee, initial encounter (3) Avulsion of left hamstring muscle: Start date: 05/01/20 Start time: 11:33 Status: Acute Assessment and plan: Repaired see above. Qualifiers: Encounter type: initial encounter Qualified Code(s): S76.392A - Other specified injury of muscle, fascia and tendon of the posterior muscle group at thigh level, left thigh, initial encounter (4) Tear of lateral collateral ligament of left knee: Start date: 05/01/20 Start time: 11:33 Status: Acute Assessment and plan: See above Qualifiers: Encounter type: initial encounter Qualified Code(s): S83.422A - Sprain of lateral collateral ligament of left knee, initial encounter (5) Injury of posterolateral corner of left knee: Start date: 05/01/20 Start time: 11:33 Status: Acute Assessment and plan: See above Qualifiers: Encounter type: subsequent encounter Qualified Code(s): S89.92XD - Unspecified injury of left lower leg, subsequent encounter (6) 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 Qualifiers: Encounter type: subsequent encounter Qualified Code(s): S84.12XD - Injury of peroneal nerve at lower leg level, left leg, subsequent encounter (7) Anxiety: Start date: 05/01/20 Start time: 11:46 Status: Chronic Assessment and plan: Wellbutrin restarted, mood improving (8) HIRO (acute kidney injury): Start date: 05/01/20 Start time: 11:48 Status: Resolved Assessment and plan: Creatinine normalized Above case discussed with Dr. Beck who is in agreement. Subjective Subjective Patient reports: still having pain Interval history since last seen: Laying in bed, Chloe appears sleepy, but comfortable just given MS contin prior to evaluation. She states she felt she over did it yesterday with PT. She was ok until about 3 hours after PT then had pain. She is falling asleep while talking. Exam Narrative Exam Narrative: Const: AAOx3, depressed, cooperative. lying in bed sleepy but comfortable. Eyes: PERRLA, EOMI Neck: no lymphaedema, goiter or JVD Resp: Clear bilaterally, no wheezing rales, rhonchi Cardio: RRR no murmur GI: BSx 4 no tenderness Skin: surgical incision unable to visualize no outward bleeding or oozing can be seen from wrap Extrem: LLE feet swollen, +2 wrapped in drsg with brace RLE trace edema with CMST and pppx2 to foot Objective Objective Clinical Data: Abnormal lab results 04/30/20 05/01/20 05/01/20 Range/Units 10:55 06:55 06:55 RBC 3.95 L (4.00-5.20) m/cumm MCV 95.9 H (80-95) fL Plt Count 527 H (130-400) x1000/uL PT 8.9 L (9.3-11.0) sec Urine Opiates Screen Positive A (Negative) U Benzodiazepines Scrn Positive A (Negative) Ur THC Screen Positive A (Negative) Vital Signs Temperature 36.5 C 05/01/20 08:24 Temperature Source Tympanic 05/01/20 08:24 Pulse 78 05/01/20 08:24 Pulse Rhythm Regular 05/01/20 08:30 Pulse Strength Strong 04/19/20 11:29 Respiratory Rate 18 05/01/20 08:24 Respiratory Effort 05/01/20 08:30 Respiratory Depth Normal 05/01/20 08:30 Respiratory Pattern Normal 05/01/20 08:30 Blood Pressure 121/71 05/01/20 08:24 Blood Pressure Mean 94 04/19/20 11:29 Blood Pressure Position Supine 04/19/20 11:29 Pulse Oximetry 95 05/01/20 08:30 Respiratory End-tidal CO2 37 04/27/20 17:39 Oxygen Delivery Method Room Air 05/01/20 08:30 Oxygen Flow Rate 0 05/01/20 08:30 Pain Level 7 05/01/20 09:21 Comment 04/29/20 11:45 Intake & Output 04/30/20 04/30/20 05/01/20 11:59 23:59 11:59 Intake Total 960 / 1830 870 / 1830 240 / 240 Balance 960 / 1830 870 / 1830 240 / 240 Intake: IV 30 Oral 960 / 1800 840 / 1800 240 / 240 Other: Urine Color Yellow Pale Yellow Yellow Urine Appearance Clear Clear Clear Urine Odor None None None Comment Void x1 in the toilet. Per pt. report, pt. voided x1 in the toilet. Voiding Methods Toilet Toilet Toilet Laboratory Results WBC 5.87 k/cumm (4.4-10.8) 05/01/20 06:55 RBC 3.95 m/cumm (4.00-5.20) L 05/01/20 06:55 Hgb 12.3 g/dL (12.0-15.5) 05/01/20 06:55 Hct 37.9 % (36.0-46.0) 05/01/20 06:55 MCV 95.9 fL (80-95) H 05/01/20 06:55 MCH 31.1 pg (27.0-33.0) 05/01/20 06:55 MCHC 32.5 g/dL (32.0-36.0) 05/01/20 06:55 RDW 14.5 % (11.7-14.6) 05/01/20 06:55 Plt Count 527 x1000/uL (130-400) H 05/01/20 06:55 MPV 8.7 fL (8.0-11.0) 05/01/20 06:55 Immature Gran % 0.1 % 04/19/20 11:50 Neutrophils % 64.3 04/19/20 11:50 Lymphocytes % 26.0 04/19/20 11:50 Monocytes % 6.8 04/19/20 11:50 Eosinophils % 2.5 04/19/20 11:50 Basophils % 0.3 04/19/20 11:50 Absolute Neutrophils 4.32 k/cumm (1.2-6.7) 04/19/20 11:50 Absolute Lymphocytes 1.75 k/cumm (1.2-3.4) 04/19/20 11:50 Absolute Monocytes 0.46 k/cumm (0.11-0.7) 04/19/20 11:50 Absolute Eosinophils 0.17 k/cumm (0.0-0.7) 04/19/20 11:50 Absolute Basophils 0.02 k/cumm (0.0-0.2) 04/19/20 11:50 PT 8.9 sec (9.3-11.0) L 05/01/20 06:55 INR 0.9 (0.9-1.1) 05/01/20 06:55 Sodium 138 mmol/L (136-145) 05/01/20 06:55 Potassium 4.6 mmol/L (3.5-5.1) 05/01/20 06:55 Chloride 100 mmol/L (98-107) 05/01/20 06:55 Carbon Dioxide 30.7 mmol/L (21.0-32.0) 05/01/20 06:55 Anion Gap 7.3 mmol/L (3-11) 05/01/20 06:55 BUN 17 mg/dL (7-18) 05/01/20 06:55 Creatinine 1.00 mg/dL (0.55-1.02) 05/01/20 06:55 Estimated GFR/1.73 m2 >= 60.00 (mL/min/1.73m2) 05/01/20 06:55 Glucose 86 mg/dL (74-106) 05/01/20 06:55 Calcium 9.3 mg/dL (8.5-10.1) 05/01/20 06:55 Magnesium 2.1 mg/dL (1.8-2.4) 04/24/20 06:40 Total Bilirubin 0.5 mg/dL (0.2-1.0) 04/19/20 11:50 AST 98 U/L (15-37) H 04/19/20 11:50 ALT 62 U/L (14-59) H 04/19/20 11:50 Alkaline Phosphatase 92 U/L (46-116) 04/19/20 11:50 Creatine Kinase 85 U/L (26-192) 04/24/20 06:40 Total Protein 7.4 g/dL (6.4-8.2) 04/19/20 11:50 Albumin 3.3 g/dL (3.4-5.0) L 04/19/20 11:50 TSH 0.27 uIU/mL (0.36-3.74) L 04/19/20 11:50 Free T4 0.93 ng/dL (0.76-1.46) 04/19/20 11:50 Salicylates 3.3 mg/dL (2.8-20.0) 04/19/20 11:50 Urine Opiates Screen Positive (Negative) A 04/30/20 10:55 Urine Methadone Screen Negative (Negative) 04/30/20 10:55 Acetaminophen < 2 ug/mL (10-30) 04/19/20 11:50 Ur Barbiturates Screen Negative (Negative) 04/30/20 10:55 Ur Tricyclics Screen Negative (Negative) 04/30/20 10:55 Ur Amphetamines Screen Negative (Negative) 04/30/20 10:55 U Benzodiazepines Scrn Positive (Negative) A 04/30/20 10:55 Urine Cocaine Screen Negative (Negative) 04/30/20 10:55 Ur THC Screen Positive (Negative) A 04/30/20 10:55 Ethyl Alcohol 183.8 mg/dL (<3) 04/19/20 11:50 COVID-19 PCR Negative (Negative) 04/19/20 12:25 Nasopharyn COVID-19 PCR Not Applicable 04/19/20 12:25 Ref Test Perform Site Ab 7500 uvc lab 04/19/20 12:25
--- NOTE | 2020-05-01 13:30 | W.PM.PROGNOT ---
Date of Service Date of service: 05/01/20 Time of Service: 13:31 Assessment and Plan Assessment and plan (1) Injury of posterolateral corner of left knee: Status: Acute Assessment and plan: Chloe is a 35-year-old who is status post posterior lateral reconstruction with allograft tissue. She also underwent repair of the biceps femoris attachment from the fibular head. At the time of surgery the common peroneal nerve was noted to be ruptured. It was irreparable. The proximal edge was very difficult to evaluate and appeared stretched and attenuated all the way to the bifurcation with the sciatic nerve. The nerve ends were tagged and I discussed the case with [facility] about nerve repair. They are planning nerve grafting with sural nerve autograft, likely tomorrow. As for the reconstruction, she seems to be doing well. She may be partial weightbearing. She should use the knee immobilizer for all mobilization. She may remove the knee immobilizer or at least loosen it while in bed. At this point, she is doing objectively well with pain control. She subjectively complains of pain but she is fairly independent with mobilization of the room and does not appear to be in any distress. Therefore, we will continue with the current level of pain medication awaiting her upcoming surgery. She is likely to be transferred to [facility] either today or tomorrow. She will be n.p.o. after midnight tonight. All additional doses of Lovenox to be held. 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: Status: Acute Qualifiers: Encounter type: subsequent encounter Qualified Code(s): S84.12XD - Injury of peroneal nerve at lower leg level, left leg, subsequent encounter (3) Left ACL tear: Status: Acute Qualifiers: Encounter type: initial encounter Qualified Code(s): S83.512A - Sprain of anterior cruciate ligament of left knee, initial encounter (4) Avulsion of left hamstring muscle: Status: Acute Qualifiers: Encounter type: initial encounter Qualified Code(s): S76.392A - Other specified injury of muscle, fascia and tendon of the posterior muscle group at thigh level, left thigh, initial encounter (5) Tear of lateral collateral ligament of left knee: Status: Acute Qualifiers: Encounter type: initial encounter Qualified Code(s): S83.422A - Sprain of lateral collateral ligament of left knee, initial encounter Subjective Subjective Interval history since last seen: Chloe reports more pain today. She was active with physical therapy yesterday and has been relatively independent with mobilization within the room. Her pain is globally about the left leg focus mostly over the lateral and posterior lateral aspect. The majority of her pain is more posterior than lateral. She denies chest pain or shortness of breath. She has had no fever or chills. Exam Narrative Exam Narrative: Evaluation of the left leg shows a clean dry and intact dressing. No signs of infection. Swelling has diminished significantly. Minimal ecchymosis. Foot is held in equinus and inversion. No active dorsiflexion or extension of the great toe. Palpable DP PT pulse. Absent sensation over the dorsum of the foot. Diminished sensation medially and laterally. Sensation of the plantar aspect of foot is intact although she reports it to be slightly dull. Objective Objective Clinical Data: Abnormal lab results 05/01/20 05/01/20 Range/Units 06:55 06:55 RBC 3.95 L (4.00-5.20) m/cumm MCV 95.9 H (80-95) fL Plt Count 527 H (130-400) x1000/uL PT 8.9 L (9.3-11.0) sec Vital Signs Temperature 36.5 C 05/01/20 08:24 Temperature Source Tympanic 05/01/20 08:24 Pulse 78 05/01/20 08:24 Pulse Rhythm Regular 05/01/20 08:30 Pulse Strength Strong 04/19/20 11:29 Respiratory Rate 18 05/01/20 08:24 Respiratory Effort 05/01/20 08:30 Respiratory Depth Normal 05/01/20 08:30 Respiratory Pattern Normal 05/01/20 08:30 Blood Pressure 121/71 05/01/20 08:24 Blood Pressure Mean 94 04/19/20 11:29 Blood Pressure Position Supine 04/19/20 11:29 Pulse Oximetry 95 05/01/20 08:30 Respiratory End-tidal CO2 37 04/27/20 17:39 Oxygen Delivery Method Room Air 05/01/20 08:30 Oxygen Flow Rate 0 05/01/20 08:30 Pain Level 7 05/01/20 09:21 Comment 04/29/20 11:45 Intake & Output 04/30/20 05/01/20 05/01/20 23:59 11:59 23:59 Intake Total 870 / 1830 240 / 480 240 / 480 Balance 870 / 1830 240 / 480 240 / 480 Intake: IV Oral 840 / 1800 240 / 480 240 / 480 Other: Urine Color Pale Yellow Yellow Urine Appearance Clear Clear Urine Odor None None Comment Per pt. report, pt. voided x1 in the toilet. Voiding Methods Toilet Toilet Laboratory Results WBC 5.87 k/cumm (4.4-10.8) 05/01/20 06:55 RBC 3.95 m/cumm (4.00-5.20) L 05/01/20 06:55 Hgb 12.3 g/dL (12.0-15.5) 05/01/20 06:55 Hct 37.9 % (36.0-46.0) 05/01/20 06:55 MCV 95.9 fL (80-95) H 05/01/20 06:55 MCH 31.1 pg (27.0-33.0) 05/01/20 06:55 MCHC 32.5 g/dL (32.0-36.0) 05/01/20 06:55 RDW 14.5 % (11.7-14.6) 05/01/20 06:55 Plt Count 527 x1000/uL (130-400) H 05/01/20 06:55 MPV 8.7 fL (8.0-11.0) 05/01/20 06:55 Immature Gran % 0.1 % 04/19/20 11:50 Neutrophils % 64.3 04/19/20 11:50 Lymphocytes % 26.0 04/19/20 11:50 Monocytes % 6.8 04/19/20 11:50 Eosinophils % 2.5 04/19/20 11:50 Basophils % 0.3 04/19/20 11:50 Absolute Neutrophils 4.32 k/cumm (1.2-6.7) 04/19/20 11:50 Absolute Lymphocytes 1.75 k/cumm (1.2-3.4) 04/19/20 11:50 Absolute Monocytes 0.46 k/cumm (0.11-0.7) 04/19/20 11:50 Absolute Eosinophils 0.17 k/cumm (0.0-0.7) 04/19/20 11:50 Absolute Basophils 0.02 k/cumm (0.0-0.2) 04/19/20 11:50 PT 8.9 sec (9.3-11.0) L 05/01/20 06:55 INR 0.9 (0.9-1.1) 05/01/20 06:55 Sodium 138 mmol/L (136-145) 05/01/20 06:55 Potassium 4.6 mmol/L (3.5-5.1) 05/01/20 06:55 Chloride 100 mmol/L (98-107) 05/01/20 06:55 Carbon Dioxide 30.7 mmol/L (21.0-32.0) 05/01/20 06:55 Anion Gap 7.3 mmol/L (3-11) 05/01/20 06:55 BUN 17 mg/dL (7-18) 05/01/20 06:55 Creatinine 1.00 mg/dL (0.55-1.02) 05/01/20 06:55 Estimated GFR/1.73 m2 >= 60.00 (mL/min/1.73m2) 05/01/20 06:55 Glucose 86 mg/dL (74-106) 05/01/20 06:55 Calcium 9.3 mg/dL (8.5-10.1) 05/01/20 06:55 Magnesium 2.1 mg/dL (1.8-2.4) 04/24/20 06:40 Total Bilirubin 0.5 mg/dL (0.2-1.0) 04/19/20 11:50 AST 98 U/L (15-37) H 04/19/20 11:50 ALT 62 U/L (14-59) H 04/19/20 11:50 Alkaline Phosphatase 92 U/L (46-116) 04/19/20 11:50 Creatine Kinase 85 U/L (26-192) 04/24/20 06:40 Total Protein 7.4 g/dL (6.4-8.2) 04/19/20 11:50 Albumin 3.3 g/dL (3.4-5.0) L 04/19/20 11:50 TSH 0.27 uIU/mL (0.36-3.74) L 04/19/20 11:50 Free T4 0.93 ng/dL (0.76-1.46) 04/19/20 11:50 Salicylates 3.3 mg/dL (2.8-20.0) 04/19/20 11:50 Urine Opiates Screen Positive (Negative) A 04/30/20 10:55 Urine Methadone Screen Negative (Negative) 04/30/20 10:55 Acetaminophen < 2 ug/mL (10-30) 04/19/20 11:50 Ur Barbiturates Screen Negative (Negative) 04/30/20 10:55 Ur Tricyclics Screen Negative (Negative) 04/30/20 10:55 Ur Amphetamines Screen Negative (Negative) 04/30/20 10:55 U Benzodiazepines Scrn Positive (Negative) A 04/30/20 10:55 Urine Cocaine Screen Negative (Negative) 04/30/20 10:55 Ur THC Screen Positive (Negative) A 04/30/20 10:55 Ethyl Alcohol 183.8 mg/dL (<3) 04/19/20 11:50 COVID-19 PCR Negative (Negative) 04/19/20 12:25 Nasopharyn COVID-19 PCR Not Applicable 04/19/20 12:25 Ref Test Perform Site Ab 7500 uvmmc lab 04/19/20 12:25
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
--- NOTE | 2020-05-01 15:13 | CMPROGNOTE_ITS ---
Care Management Progress Note S/O: Chloe was sitting up in bed, and moving around the room more fluidly, she verbalized understanding of needing to keep her leg straight. Chloe will transfer [place] [facility] [place] for [place]; planned for 1200 05/02/20. 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 A: Chloe is a 35 year old female admitted to [facility] 04/20/20 for surgical intervention of posterolateral corner of left knee P: Chloe will transfer to [facility] [place] additional surgery planned for tomorrow, 05/02/20@1200. She will transport via EMS coordinated by the Nursing Oven Laborer.
--- NOTE | 2020-05-01 15:13 | PDOC.CMPRO ---
Care Management Progress Note S/O: Chloe was sitting up in bed, and moving around the room more fluidly, she verbalized understanding of needing to keep her leg straight. Chloe will transfer [place] [facility] [place] for surgery; planned for 1200 05/02/20. 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 A: Chloe is a 35 year old female admitted to [facility] 04/20/20 for surgical intervention of posterolateral corner of left knee P: Chloe will transfer to [facility] for additional surgery planned for tomorrow, 05/02/20@1200. She will transport via EMS coordinated by the Nursing Carpenter Foreman.
[2020-05-01 15:30] VITALS: BP 113/71; PULSE 94; RESP 18; TEMP 37.5; O2SAT 96
--- NOTE | 2020-05-01 17:17 | PT.INNT ---
Date of service: 05/01/20 PT Notes Visit Reasons: INTERNAL DERANGEMENT LEFT KNEE Nurse To reported that patient does not want to participate in any out-of-bed activities today as she is having significant anxiety over her pain level getting out of control. We will plan on seeing patient tomorrow to attempt PT session as ordered.
[2020-05-01 18:55] VITALS: BP 120/67; PULSE 110; RESP 18; TEMP 37; O2SAT 96
[2020-05-01] MEDS: Normal Saline Flush 10 ML SYR IVP (20:36)
[2020-05-01] MEDS: Mirtazapine 15 MG TAB 30 MG PO (21:52)
[2020-05-01] MEDS: Melatonin 3 MG TAB 18 MG PO (21:52)
[2020-05-01] MEDS: Gabapentin 300 MG CAP PO (21:52)
[2020-05-02 02:05] VITALS: BP 116/74; PULSE 91; RESP 16; TEMP 36.5; O2SAT 98
[2020-05-02] MEDS: oxyCODONE 10 MG TAB PO ×2 (03:44→07:14)
[2020-05-02 07:07] VITALS: BP 134/86; PULSE 99; RESP 18; TEMP 37; O2SAT 95
[2020-05-02] MEDS: LORazepam 0.5 MG TAB PO (08:12)
[2020-05-02] MEDS: Gabapentin 300 MG CAP 600 MG PO ×2 (08:12→22:33)
[2020-05-02] MEDS: Nicotine 14 MG/24 HR PATCH TD (08:13)
--- NOTE | 2020-05-02 09:01 | CMPROGNOTE_ITS ---
Care Management Progress Note CM met with Chloe this morning as she was preparing to depart to [facility]. CM agreed to hold Chloe's belongings until disposition was coordinated from [facility]. Chloe reports Dr. Jurado has stated she will be returning to [facility] after her surgery for further recovery. Due to Psychiatric recommendations, there is some question as to if Chloe's physical recovery needs post surgically in addition to mental health needs, with presence of substance use disorder would be better treated in the setting of psychiatric oversight, at a tertiary center such as [facility]. CM to await MD guidance on disposition needs.
--- NOTE | 2020-05-02 09:01 | PDOC.CMPRO ---
Care Management Progress Note CM met with Chloe this morning as she was preparing to depart to [facility]. CM agreed to hold Chloe's belongings until disposition was coordinated from [facility]. Chloe reports Dr. Jurado has stated she will be returning to [facility] after her surgery for further recovery. Due to Psychiatric recommendations, there is some question as to if Chloe's physical recovery needs post surgically in addition to mental health needs, with presence of substance use disorder would be better treated in the setting of psychiatric oversight, at a tertiary center such as [facility]. CM to await MD guidance on disposition needs.
--- NOTE | 2020-05-02 10:55 | NUR.NOTE ---
Nursing Note: All of Pt's belongings gathered, including Pt's own controll pills and sent with Pt to [facility]. Care managers took Pt's parada per her request to care for her while she is gone.
--- NOTE | 2020-05-02 20:18 | NUR.NOTE ---
Nursing Note: Report taken from Rocky [place] [facility]. Pt is on the way back to [facility]. Oxycodone given at 20:00. Numbness and tingling to right leg. LOGAN and brace to stay on for 2 weeks.
[2020-05-02] MEDS: Acetaminophen 500 MG TAB 1000 MG PO (22:32)
[2020-05-02] MEDS: Melatonin 3 MG TAB 18 MG PO (22:33)
[2020-05-02] MEDS: Ketorolac 15 MG/ML VIAL IVP (22:33)
[2020-05-02] MEDS: Gabapentin 300 MG CAP PO (22:33)
[2020-05-02] MEDS: Docusate Sodium 100 MG CAP PO (22:33)
[2020-05-02] MEDS: Mirtazapine 15 MG TAB 30 MG PO (22:33)
[2020-05-02] MEDS: Normal Saline Flush 10 ML SYR IVP (22:34)
[2020-05-02 23:43] VITALS: BP 124/66; PULSE 82; RESP 16; TEMP 36.4; O2SAT 95
[2020-05-03] MEDS: Ketorolac 15 MG/ML VIAL IVP ×4 (04:45→22:10)
[2020-05-03 08:37] VITALS: BP 129/81; PULSE 84; RESP 17; TEMP 36.5; O2SAT 97
[2020-05-03] MEDS: Acetaminophen 500 MG TAB 1000 MG PO ×3 (08:38→19:52)
[2020-05-03] MEDS: buPROPion-XL 150 MG TABCR 300 MG PO (08:39)
[2020-05-03] MEDS: Docusate Sodium 100 MG CAP PO ×2 (08:39→19:53)
[2020-05-03] MEDS: Gabapentin 300 MG CAP 600 MG PO ×3 (08:39→19:53)
[2020-05-03] MEDS: Pantoprazole 40 MG TABCR PO (08:39)
[2020-05-03] MEDS: Enoxaparin 40 MG/0.4 ML SYR SC (08:39)
[2020-05-03] MEDS: Nicotine 14 MG/24 HR PATCH TD (08:39)
[2020-05-03] MEDS: Thiamine 100 MG TAB PO (08:39)
[2020-05-03] MEDS: oxyCODONE 10 MG TAB PO ×4 (08:40→18:23)
[2020-05-03] MEDS: Normal Saline Flush 10 ML SYR IVP ×3 (10:22→22:09)
--- NOTE | 2020-05-03 10:48 | W.PM.PROGNOT ---
Date of Service Date of service: 05/03/20 Time of Service: 10:48 Assessment and Plan Assessment and plan (1) Internal derangement of left knee: Status: Acute Assessment and plan: post op day 6 left knee reconstruction. Post op day one nerve repair. continue routine post operative care per orthopedics, they will oversee pain management, she has an epidural in place and utilizing a LOCOMOTIVE ENGINEER with good management. Continue PT/OT, no rehab to left lower extremity for 2 weeks or until cleared by orthopedics and neuro. pulmonary toilet, bowel management. will be referred to [facility] for nerve repair, likely will be a down and back. being arranged by Dr Jurado. (2) Alcohol abuse: Status: Chronic Assessment and plan: daily thiamine. consider inpatient rehabilitation after discharge (3) HIRO (acute kidney injury): Status: Resolved Assessment and plan: resolved. continue to monitor (4) Suicidal ideation: Status: Resolved Assessment and plan: patient has been cleared by mental health and has not been suicidal. plan is to follow up with psychiatry for medication adjustment for her depression. (5) Depression: Status: Chronic Assessment and plan: psychiatric evaluation for medication management with increased dosing of wellbutrin. Qualifiers: Depression Type: unspecified Qualified Code(s): F32.9 - Major depressive disorder, single episode, unspecified (6) Constipation due to opioid therapy: Status: Acute (7) DVT prophylaxis: Status: Acute Assessment and plan: per orthopedics, enoxaparin daily. (8) Discharge planning issues: Status: Acute Assessment and plan: will likely need extensive rehabilitation. case management following for discharge planning. Will likely discharge to [facility] level care tomorrow if she remains medically stable case and plan of care discussed with Dr porras who is in agreement Subjective Subjective Patient reports: still having pain and afebrile Interval history since last seen: Patient returned from [facility] last evening following her nerve repair of her left lower extremity. There were no complications and her return was uneventful. Hemodynamically she has been stable with no fevers. She is eating and drinking. Today she is reporting constipation but no abdominal pain or nausea. She has had ongoing pain in that left lower extremity that has been fairly well managed with her current regimen orthopedics has been following and will make adjustments as needed Exam Const General: cooperative, no acute distress and well developed Nutritional Appearance: overweight Orientation: alert, awake and oriented x3 HENMT Head: normal to inspection, normocephalic and atraumatic Mouth: oral mucosae normal Resp Effort & Inspection: normal respiratory effort Auscultation: clear to auscultation bilaterally and wheezes Cardio Rate: regular rate Rhythm: regular rhythm GI Inspection: distended Palpation: soft Auscultation: hypoactive bowel sounds Neuro General: patient alert, patient awake and patient oriented x3 Extrem General: abnormal ROM and edema (knee immobilizer and Davi wrap intact, swelling to toes warm) Laterality: left Left lower extremity: knee Details: tenderness and abnormal ROM (operative dressing clean and intact) Details: pain with passive ROM Objective Objective Clinical Data: Vital Signs Temperature 36.5 C 05/03/20 08:37 Temperature Source Tympanic 05/03/20 08:37 Pulse 84 05/03/20 08:37 Pulse Rhythm Regular 05/02/20 22:57 Pulse Strength Strong 04/19/20 11:29 Respiratory Rate 17 05/03/20 08:37 Respiratory Effort 05/02/20 22:57 Respiratory Depth Normal 05/02/20 22:57 Respiratory Pattern Normal 05/02/20 22:57 Blood Pressure 129/81 05/03/20 08:37 Blood Pressure Mean 94 04/19/20 11:29 Blood Pressure Position Supine 04/19/20 11:29 Pulse Oximetry 97 05/03/20 08:37 Respiratory End-tidal CO2 37 04/27/20 17:39 Oxygen Delivery Method Room Air 05/03/20 08:37 Oxygen Flow Rate 0 05/03/20 08:37 Pain Level 8 05/03/20 08:40 Comment 04/29/20 11:45 Intake & Output 05/02/20 05/02/20 05/03/20 11:59 23:59 11:59 Intake Total 800 / 800 480 / 480 Balance 800 / 800 480 / 480 Intake: Oral 800 / 800 480 / 480 Other: Urine Appearance Clear Clear Voiding Methods Toilet Laboratory Results WBC 5.87 k/cumm (4.4-10.8) 05/01/20 06:55 RBC 3.95 m/cumm (4.00-5.20) L 05/01/20 06:55 Hgb 12.3 g/dL (12.0-15.5) 05/01/20 06:55 Hct 37.9 % (36.0-46.0) 05/01/20 06:55 MCV 95.9 fL (80-95) H 05/01/20 06:55 MCH 31.1 pg (27.0-33.0) 05/01/20 06:55 MCHC 32.5 g/dL (32.0-36.0) 05/01/20 06:55 RDW 14.5 % (11.7-14.6) 05/01/20 06:55 Plt Count 527 x1000/uL (130-400) H 05/01/20 06:55 MPV 8.7 fL (8.0-11.0) 05/01/20 06:55 Immature Gran % 0.1 % 04/19/20 11:50 Neutrophils % 64.3 04/19/20 11:50 Lymphocytes % 26.0 04/19/20 11:50 Monocytes % 6.8 04/19/20 11:50 Eosinophils % 2.5 04/19/20 11:50 Basophils % 0.3 04/19/20 11:50 Absolute Neutrophils 4.32 k/cumm (1.2-6.7) 04/19/20 11:50 Absolute Lymphocytes 1.75 k/cumm (1.2-3.4) 04/19/20 11:50 Absolute Monocytes 0.46 k/cumm (0.11-0.7) 04/19/20 11:50 Absolute Eosinophils 0.17 k/cumm (0.0-0.7) 04/19/20 11:50 Absolute Basophils 0.02 k/cumm (0.0-0.2) 04/19/20 11:50 PT 8.9 sec (9.3-11.0) L 05/01/20 06:55 INR 0.9 (0.9-1.1) 05/01/20 06:55 Sodium 138 mmol/L (136-145) 05/01/20 06:55 Potassium 4.6 mmol/L (3.5-5.1) 05/01/20 06:55 Chloride 100 mmol/L (98-107) 05/01/20 06:55 Carbon Dioxide 30.7 mmol/L (21.0-32.0) 05/01/20 06:55 Anion Gap 7.3 mmol/L (3-11) 05/01/20 06:55 BUN 17 mg/dL (7-18) 05/01/20 06:55 Creatinine 1.00 mg/dL (0.55-1.02) 05/01/20 06:55 Estimated GFR/1.73 m2 >= 60.00 (mL/min/1.73m2) 05/01/20 06:55 Glucose 86 mg/dL (74-106) 05/01/20 06:55 Calcium 9.3 mg/dL (8.5-10.1) 05/01/20 06:55 Magnesium 2.1 mg/dL (1.8-2.4) 04/24/20 06:40 Total Bilirubin 0.5 mg/dL (0.2-1.0) 04/19/20 11:50 AST 98 U/L (15-37) H 04/19/20 11:50 ALT 62 U/L (14-59) H 04/19/20 11:50 Alkaline Phosphatase 92 U/L (46-116) 04/19/20 11:50 Creatine Kinase 85 U/L (26-192) 04/24/20 06:40 Total Protein 7.4 g/dL (6.4-8.2) 04/19/20 11:50 Albumin 3.3 g/dL (3.4-5.0) L 04/19/20 11:50 TSH 0.27 uIU/mL (0.36-3.74) L 04/19/20 11:50 Free T4 0.93 ng/dL (0.76-1.46) 04/19/20 11:50 Salicylates 3.3 mg/dL (2.8-20.0) 04/19/20 11:50 Urine Opiates Screen Positive (Negative) A 04/30/20 10:55 Urine Methadone Screen Negative (Negative) 04/30/20 10:55 Acetaminophen < 2 ug/mL (10-30) 04/19/20 11:50 Ur Barbiturates Screen Negative (Negative) 04/30/20 10:55 Ur Tricyclics Screen Negative (Negative) 04/30/20 10:55 Ur Amphetamines Screen Negative (Negative) 04/30/20 10:55 U Benzodiazepines Scrn Positive (Negative) A 04/30/20 10:55 Urine Cocaine Screen Negative (Negative) 04/30/20 10:55 Ur THC Screen Positive (Negative) A 04/30/20 10:55 Ethyl Alcohol 183.8 mg/dL (<3) 04/19/20 11:50 COVID-19 PCR Negative (Negative) 04/19/20 12:25 Nasopharyn COVID-19 PCR Not Applicable 04/19/20 12:25 Ref Test Perform Site Ab 7500 uvc lab 04/19/20 12:25
--- NOTE | 2020-05-03 13:57 | CHAPLAIN ---
Chloe had a long day yesterday, she said, leaving [facility] before 9 a.m. and not having surgery at [facility] until after 2 p.m. She had surgery to correct a nerve problem in her left foot so she will be able to pick it up better. Chloe said there is a 30 percent change the surgery will be successful. She said that she rested well last night after getting back to [facility], having something to eat and taking her meds.
--- NOTE | 2020-05-03 16:05 | CMPROGNOTE_ITS ---
Care Management Progress Note S/O: Chloe went to [facility] for her second surgery yesterday. She reports being told by the MD that she had extensive nerve damage. Chloe reports feeling her knee is more important than her foot as far as prioritizing recovery. She shared that recommendations for her foot recommend not doing PT for an extended period though she states after talking with Dr. Jurado she will resume PT in two weeks. She continues to attend AA meetings, speak with a control and recovery combat rescue and intends on entering residential treatment for YENIFER and MH after her physical recovery. continues to support Chloe. A: 35 year old female admitted to [facility] 04/20/20 for Internal Derangement of Left Knee P: Chloe remains at [facility] at this time. Anticipate she will enter [facility] for PT and pain management. Awaiting recommendations for additional rehab options including possible acute rehab at [facility] or [facility].
--- NOTE | 2020-05-03 16:05 | PDOC.CMPRO ---
Care Management Progress Note S/O: Chloe went to [facility] for her second surgery yesterday. She reports being told by the MD that she had extensive nerve damage. Chloe reports feeling her knee is more important than her foot as far as prioritizing recovery. She shared that recommendations for her foot recommend not doing PT for an extended period though she states after talking with Dr. Jurado she will resume PT in two weeks. She continues to attend AA meetings, speak with a production recovery operator and intends on entering residential treatment for YENIFER and MH after her physical recovery. continues to support Chloe. A: 35 year old female admitted to [facility] 04/20/20 for Internal Derangement of Left Knee P: Chloe remains at [facility] at this time. Anticipate she will enter [facility] for PT and pain management. Awaiting recommendations for additional rehab options including possible acute rehab at [facility] or [facility].
[2020-05-03 19:54] VITALS: BP 130/80; PULSE 89; RESP 18; TEMP 36.6; O2SAT 98
[2020-05-03] MEDS: Gabapentin 300 MG CAP PO (22:10)
[2020-05-03] MEDS: Melatonin 3 MG TAB 18 MG PO (22:10)
[2020-05-03] MEDS: Mirtazapine 15 MG TAB 30 MG PO (22:10)
--- NOTE | 2020-05-03 22:16 | W.PM.PROGNOT ---
Date of Service Date of service: 05/03/20 Time of Service: 07:16 Assessment and Plan Assessment and plan (1) Injury of posterolateral corner of left knee: Status: Acute Assessment and plan: Chloe is status post reconstruction of the posterior lateral corner of the left knee along with nerve grafting of the common peroneal nerve of the left leg. It is to be expected, especially with a history of previous substance abuse disorder, that this is going to cause pain and require an above-average amount of pain medications. However, I also am concerned that Lito will always have some discomfort we have to take this into consideration. Nevertheless, I am going to increase her long-acting morphine. After this, I am hopeful that we can start coming down on the as needed oxycodone and then every 1 to 2 days decrease the long-acting morphine. She has avoided IV doses which is encouraging and I have encouraged her to understand that there will be some discomfort and we cannot remove all of her pain. She also must stay in the knee immobilizer at all times. Plan for dressing change early next week. If there is any issue with the dressing may be changed earlier than that. Resume Lovenox. Likely transition to swing bed status shortly. 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: Status: Acute Qualifiers: Encounter type: subsequent encounter Qualified Code(s): S84.12XD - Injury of peroneal nerve at lower leg level, left leg, subsequent encounter (4) Avulsion of left hamstring muscle: Status: Acute Qualifiers: Encounter type: initial encounter Qualified Code(s): S76.392A - Other specified injury of muscle, fascia and tendon of the posterior muscle group at thigh level, left thigh, initial encounter (5) Tear of lateral collateral ligament of left knee: Status: Acute Qualifiers: Encounter type: initial encounter Qualified Code(s): S83.422A - Sprain of lateral collateral ligament of left knee, initial encounter Subjective Subjective Interval history since last seen: Chloe reports that she is having pain. The pain is worse now after her surgery. However, she has been able to manage it with the currently prescribed regimen. She denies any fevers or chills. She has been wearing the brace as instructed. Exam Narrative Exam Narrative: Sleepy. However, sitting up in the bed. Alert and oriented x3. No acute distress. Left leg is within the knee immobilizer. Dressings are clean dry and intact. Leg is in extension. Objective Objective Clinical Data: Abnormal lab results 05/04/20 Range/Units 06:15 RBC 3.99 L (4.00-5.20) m/cumm MCV 95.7 H (80-95) fL Plt Count 645 H (130-400) x1000/uL Vital Signs Temperature 36.6 C 05/03/20 19:54 Temperature Source Tympanic 05/03/20 19:54 Pulse 89 05/03/20 19:54 Pulse Rhythm Regular 05/04/20 04:00 Pulse Strength Strong 04/19/20 11:29 Respiratory Rate 18 05/03/20 19:54 Respiratory Effort Non-Labored 05/04/20 04:00 Respiratory Depth Normal 05/04/20 04:00 Respiratory Pattern Normal 05/04/20 04:00 Blood Pressure 130/80 05/03/20 19:54 Blood Pressure Mean 94 04/19/20 11:29 Blood Pressure Position Supine 04/19/20 11:29 Pulse Oximetry 98 05/03/20 19:54 Respiratory End-tidal CO2 37 04/27/20 17:39 Oxygen Delivery Method Room Air 05/03/20 19:54 Oxygen Flow Rate 0 05/03/20 19:54 Pain Level 9 05/04/20 06:29 Comment 04/29/20 11:45 Intake & Output 05/03/20 05/03/20 05/04/20 11:59 23:59 11:59 Intake Total 480 / 970 490 / 970 Balance 480 / 970 490 / 970 Intake: IV Oral 480 / 960 480 / 960 Other: Urine Color Yellow Urine Appearance Clear Clear Clear Urine Odor None Comment As per patient. Pt reports she has issues wth the initiation of micturation. Voiding Methods Toilet Toilet Toilet Laboratory Results WBC 6.10 k/cumm (4.4-10.8) 05/04/20 06:15 RBC 3.99 m/cumm (4.00-5.20) L 05/04/20 06:15 Hgb 12.3 g/dL (12.0-15.5) 05/04/20 06:15 Hct 38.2 % (36.0-46.0) 05/04/20 06:15 MCV 95.7 fL (80-95) H 05/04/20 06:15 MCH 30.8 pg (27.0-33.0) 05/04/20 06:15 MCHC 32.2 g/dL (32.0-36.0) 05/04/20 06:15 RDW 14.4 % (11.7-14.6) 05/04/20 06:15 Plt Count 645 x1000/uL (130-400) H 05/04/20 06:15 MPV 8.3 fL (8.0-11.0) 05/04/20 06:15 Immature Gran % 0.1 % 04/19/20 11:50 Neutrophils % 64.3 04/19/20 11:50 Lymphocytes % 26.0 04/19/20 11:50 Monocytes % 6.8 04/19/20 11:50 Eosinophils % 2.5 04/19/20 11:50 Basophils % 0.3 04/19/20 11:50 Absolute Neutrophils 4.32 k/cumm (1.2-6.7) 04/19/20 11:50 Absolute Lymphocytes 1.75 k/cumm (1.2-3.4) 04/19/20 11:50 Absolute Monocytes 0.46 k/cumm (0.11-0.7) 04/19/20 11:50 Absolute Eosinophils 0.17 k/cumm (0.0-0.7) 04/19/20 11:50 Absolute Basophils 0.02 k/cumm (0.0-0.2) 04/19/20 11:50 PT 8.9 sec (9.3-11.0) L 05/01/20 06:55 INR 0.9 (0.9-1.1) 05/01/20 06:55 Sodium 138 mmol/L (136-145) 05/01/20 06:55 Potassium 4.6 mmol/L (3.5-5.1) 05/01/20 06:55 Chloride 100 mmol/L (98-107) 05/01/20 06:55 Carbon Dioxide 30.7 mmol/L (21.0-32.0) 05/01/20 06:55 Anion Gap 7.3 mmol/L (3-11) 05/01/20 06:55 BUN 17 mg/dL (7-18) 05/01/20 06:55 Creatinine 1.00 mg/dL (0.55-1.02) 05/01/20 06:55 Estimated GFR/1.73 m2 >= 60.00 (mL/min/1.73m2) 05/01/20 06:55 Glucose 86 mg/dL (74-106) 05/01/20 06:55 Calcium 9.3 mg/dL (8.5-10.1) 05/01/20 06:55 Magnesium 2.1 mg/dL (1.8-2.4) 04/24/20 06:40 Total Bilirubin 0.5 mg/dL (0.2-1.0) 04/19/20 11:50 AST 98 U/L (15-37) H 04/19/20 11:50 ALT 62 U/L (14-59) H 04/19/20 11:50 Alkaline Phosphatase 92 U/L (46-116) 04/19/20 11:50 Creatine Kinase 85 U/L (26-192) 04/24/20 06:40 Total Protein 7.4 g/dL (6.4-8.2) 04/19/20 11:50 Albumin 3.3 g/dL (3.4-5.0) L 04/19/20 11:50 TSH 0.27 uIU/mL (0.36-3.74) L 04/19/20 11:50 Free T4 0.93 ng/dL (0.76-1.46) 04/19/20 11:50 Salicylates 3.3 mg/dL (2.8-20.0) 04/19/20 11:50 Urine Opiates Screen Positive (Negative) A 04/30/20 10:55 Urine Methadone Screen Negative (Negative) 04/30/20 10:55 Acetaminophen < 2 ug/mL (10-30) 04/19/20 11:50 Ur Barbiturates Screen Negative (Negative) 04/30/20 10:55 Ur Tricyclics Screen Negative (Negative) 04/30/20 10:55 Ur Amphetamines Screen Negative (Negative) 04/30/20 10:55 U Benzodiazepines Scrn Positive (Negative) A 04/30/20 10:55 Urine Cocaine Screen Negative (Negative) 04/30/20 10:55 Ur THC Screen Positive (Negative) A 04/30/20 10:55 Ethyl Alcohol 183.8 mg/dL (<3) 04/19/20 11:50 COVID-19 PCR Negative (Negative) 04/19/20 12:25 Nasopharyn COVID-19 PCR Not Applicable 04/19/20 12:25 Ref Test Perform Site Ab 7500 uvc lab 04/19/20 12:25
[2020-05-04] MEDS: oxyCODONE 10 MG TAB PO ×4 (01:53→13:06)
[2020-05-04] MEDS: Ketorolac 15 MG/ML VIAL IVP ×3 (05:05→13:06)
[2020-05-04 06:50] LABS: HCT 38.2 % (36.0-46.0); HGB 12.3 g/dL (12.0-15.5); Mean Corp. HGB Concentration 32.2 g/dL (32.0-36.0); Mean Corpuscular Hemoglobin 30.8 pg (27.0-33.0); Mean Corpuscular Volume 95.7 fL (80-95); Mean Platelet Volume 8.3 fL (8.0-11.0); Platelet Count 645 x1000/uL (130-400); RBC 3.99 m/cumm (4.00-5.20); RBC Distribution Width 14.4 % (11.7-14.6)
[2020-05-04 07:53] VITALS: BP 107/69; PULSE 82; RESP 16; TEMP 36; O2SAT 96
[2020-05-04] MEDS: buPROPion-XL 150 MG TABCR 300 MG PO (08:23)
[2020-05-04] MEDS: Polyethylene Glycol 3350 17 GM PACKET PO (08:23)
[2020-05-04] MEDS: Nicotine 14 MG/24 HR PATCH TD (08:23)
[2020-05-04] MEDS: Gabapentin 300 MG CAP 600 MG PO ×2 (08:25→14:09)
[2020-05-04] MEDS: Acetaminophen 500 MG TAB 1000 MG PO ×2 (08:25→14:09)
[2020-05-04] MEDS: Thiamine 100 MG TAB PO (08:27)
[2020-05-04] MEDS: Docusate Sodium 100 MG CAP PO (08:27)
[2020-05-04] MEDS: Enoxaparin 40 MG/0.4 ML SYR SC (08:27)
[2020-05-04] MEDS: Pantoprazole 40 MG TABCR PO (08:27)
--- NOTE | 2020-05-04 10:27 | CMPROGNOTE_ITS ---
Care Management Progress Note S/O: Chloe will enter [facility] for PT and pain management. Awaiting recommendations for additional rehab options including possible acute rehab at [facility] or [facility].
--- NOTE | 2020-05-04 10:27 | PDOC.CMPRO ---
Care Management Progress Note S/O: Chloe will enter [facility] for PT and pain management. Awaiting recommendations for additional rehab options including possible acute rehab at [facility] or [facility].
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
[2020-05-04] MEDS: Normal Saline Flush 10 ML SYR IVP ×2 (10:57→13:06)
[2020-05-04 11:25] VITALS: O2SAT 96
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
== END 2020-05-04 14:07 | disposition swing bed (61) | DRG 876 ==
LOC: ER 19:31 → MS 19:48
PROVIDERS: Family Medicine; Internal Medicine; Nurse Practitioner Family; Student in an Organized Health Care Education/Training Program; Admitting Provider General Practice; Emergency Provider Emergency Medicine; PCP Nurse Practitioner Family; Visit Provider General Practice
PROC: 0MRP0KZ Replacement of Left Knee Bursa and Ligament with Nonautologous Tissue Substitute, Open Approach (ICD-10-PCS; CPT 29888; principal; 2020-04-27 10:30)
DX: F32.9 Major depressive disorder, single episode, unspecified (principal); R45.851 Suicidal ideations; N17.9 Acute kidney failure, unspecified; F10.129 Alcohol abuse with intoxication, unspecified; Y90.6 Blood alcohol level of 120-199 mg/100 ml; Z72.0 Tobacco use; Z91.5 Personal history of self-harm; R29.6 Repeated falls; S83.422A Sprain of lateral collateral ligament of left knee, initial encounter; S83.8X2A Sprain of other specified parts of left knee, initial encounter; S83.512A Sprain of anterior cruciate ligament of left knee, initial encounter; S76.392A Other specified injury of muscle, fascia and tendon of the posterior muscle group at thigh level, left thigh, initial encounter; S83.522A Sprain of posterior cruciate ligament of left knee, initial encounter; S83.412A Sprain of medial collateral ligament of left knee, initial encounter; S86.112A Strain of other muscle(s) and tendon(s) of posterior muscle group at lower leg level, left leg, initial encounter; S84.12XA Injury of peroneal nerve at lower leg level, left leg, initial encounter; Z60.8 Other problems related to social environment; Y35.893A Legal intervention involving other specified means, suspect injured, initial encounter; F41.9 Anxiety disorder, unspecified; J45.909 Unspecified asthma, uncomplicated; T39.395A Adverse effect of other nonsteroidal anti-inflammatory drugs [NSAID], initial encounter; G89.18 Other acute postprocedural pain
CPT/HCPCS: 27429; 36415; 64898; 73721; 76942; 80048; 80053; 80307; 81025; 82550; 85027; 97110; 97140; 97162; 99222; 99232; 99233; 99239; 99253; 99255; 99285; J1650; NC; U0003; 73564; 80320; 80329; 83735; 84439; 84443; 85025; 85049; 85610; 93971; 99218; 99238; 99284; A0425; A0428; A0429; G0378; J0131; J0690; J1100; J1170; J1885; J2001; J2060; J2250; J2270; J2405; J2704; J3010; J3475; J3490; J7620; L1830; L1833; L8699

== ENCOUNTER 2020-05-04 12:52 | Inpatient (IN) | payer MEDICAID, SELFPAY ==
--- NOTE | 2020-05-04 14:35 | PDOC.CMIN ---
- If Service Date Differs Date of service: 05/04/20 Time of Service: 14:12 Care Management Initial Assess REASON FOR HOSPITALIZATION:: Internal Derangement of Left Knee PAST MEDICAL HISTORY/PAST SURGICAL HISTORY:: Missed with demise before 20 completed weeks of gestation (Resolved 01/2019). Cervical high risk human papillomavirus (HPV) DNA test positive (Acute 01/19/16). Alcohol use disorder (Inactive). GERD (gastroesophageal reflux disease) (Chronic). Tobacco use disorder (Chronic). PTSD (post-traumatic stress disorder) (Chronic 07/17/15). Mild intermittent asthma without complication (Chronic). Lactose intolerance (Chronic 01/24/16). Hyperlipidemia (Chronic 05/10/16). Hepatitis C virus infection without hepatic coma (Chronic). Fibromyalgia (Chronic 10/26/14). Depression (Chronic 10/26/14). Chronic pain (Chronic 10/26/14). Anxiety (Chronic 10/26/14). Opiate abuse, episodic (Inactive 11/16/14). History of Cervical dysplasia (Resolved 11/16/14). Ulnar collateral ligament sprain of right elbow, initial encounter (Resolved). Asthma. Cervical dysplasia. Chronic pain. Cervical Procedure (Resolved). Club Foot Repair (Resolved). Dilation and curettage (Resolved). repair of the left metacarpal phalangeal joint (Resolved 12/25/16) PREVIOUS FUNCTIONAL STATUS/SOCIAL/FAMILY SUPPORTS:: Chloe was living in [place] at the [facility] (sober living) prior to her admission. She hopes to return after rehabilitation. CURRENT FUNCTIONAL STATUS:: Chloe is sitting up in her chair. She engages fully with this writer editor and also with her own coordination and care. Chloe is organized around connecting with her providers, monitoring her medications and attending zoom meetings for substance use support and mental health support. ADVANCE DIRECTIVES:: None on file. 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 PRIMARY CARE PHYSICIAN:: Elly Osorio POTENTIAL DISCHARGE NEEDS:: Disposition support, [facility] supports, aquiring recommended equipment.
--- NOTE | 2020-05-04 14:35 | CM.SWINGPC ---
- If Service Date Differs Date of service: 05/04/20 Time of Service: 16:46 Swingbed Plan of Care Plan of care: SWING BED PROGRAM ACTIVITIES/DISCHARGE PLAN OF CARE ACTIVITIES PLAN Date: 05/04/20 Identified Need: Life Enrichment during extended hospitalization. Intervention/Plan: Patient Laptop, coordination of zoom meetings, paint supplies, activity cart. Initials [facility] DISCHARGE PLAN Date: 05/04/20 Identified Need: Disposition: undetermined whether Chloe will discharge to acute rehab, psychiatric stabilization, [facility] treatment center, sober living home. Disposition dependent on recovery milestones and recommendations. Intervention/Plan: CM continues to follow and support Chloe in decision-making as her treatment plan develops. Initials: WILMAR
--- NOTE | 2020-05-04 14:40 | NUR.NOTE ---
Patient made swing bed
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
[2020-05-04] MEDS: Ketorolac 15 MG/ML VIAL IVP ×2 (15:48→21:45)
[2020-05-04] MEDS: Normal Saline Flush 10 ML SYR IVP ×2 (15:49→21:44)
--- NOTE | 2020-05-04 16:21 | CM.SBPSYCH ---
- If Service Date Differs Date of service: 05/04/20 Time of Service: 16:22 SB Psychosocial/Act.Assessment - Hospital Admission Admission Date: 04/20/20 Admission From:: Community Diagnosis:: Internal derangment of left knee, nerve damage of LLE - Swing Bed Admission Swing Bed Admit Date:: 05/04/20 Swing Bed Level of Care: Level 1/SNF - Social Supports PREVIOUS FUNCTIONAL STATUS/SOCIAL/FAMILY SUPPORTS:: Chloe was living in [place] at the [facility] (sober living) prior to her admission. She hopes to return after rehabilitation. - Prior to Admission Living Arrangements/Environment Prior to Admission:: Chloe was living in [place] at the [facility] (sober living) prior to her admission. She hopes to return after rehabilitation. 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 - Benefits Financial: Medicaid - Zoroastrianism Active Confucianism Member:: No Will Confucianism Members or Anaesthetic Technician Visit:: No - Advance Directives for Healthcare If no AD, do you want more information:: No - Interests Hobbies:: Painting, especially watercolor paints. - Present Functional Status Cognitive:: Purposeful-appropriate Communication:: Appropriate Sensory Systems: Intact Behavior:: Chloe is appropriate with this quality analyst/technical writer, she does better with those who have built trusting relationships with her. She does better when she is able to have some control over her choices, and when she is well informed. She struggles with some anxiety at baseline which is managed with medications, re-assurance and information. Chloe engages fully with this quality analyst/technical writer and also with her own coordination and care. Chloe is organized around connecting with her providers, monitoring her medications and attending zoom meetings for substance use support and mental health support. - Medical History PAST MEDICAL HISTORY/PAST SURGICAL HISTORY:: Missed with demise before 20 completed weeks of gestation (Resolved 01/2019). Cervical high risk human papillomavirus (HPV) DNA test positive (Acute 01/19/16). Alcohol use disorder (Inactive). GERD (gastroesophageal reflux disease) (Chronic). Tobacco use disorder (Chronic). PTSD (post-traumatic stress disorder) (Chronic 07/17/15). Mild intermittent asthma without complication (Chronic). Lactose intolerance (Chronic 01/24/16). Hyperlipidemia (Chronic 05/10/16). Hepatitis C virus infection without hepatic coma (Chronic). Fibromyalgia (Chronic 10/26/14). Depression (Chronic 10/26/14). Chronic pain (Chronic 10/26/14). Anxiety (Chronic 10/26/14). Opiate abuse, episodic (Inactive 11/16/14). History of Cervical dysplasia (Resolved 11/16/14). Ulnar collateral ligament sprain of right elbow, initial encounter (Resolved). Asthma. Cervical dysplasia. Chronic pain. Cervical Procedure (Resolved). Club Foot Repair (Resolved). Dilation and curettage (Resolved). repair of the left metacarpal phalangeal joint (Resolved 12/25/16) Past Psychiatric Treatment:: Please refer to psychiatric assessment. - Admission Data Reason for Swing Bed Admission:: PT; post surgical recovery. Discharge Plan:: Disposition support, YENIFER supports, aquiring recommended equipment. Sober living, [facility], attends AA virtually, connection to additional supports including financial; IBAN (disability, product manager financial services). Founder & Ceo: Mavis aPng Date Assessment was completed:: 05/04/20
[2020-05-04] MEDS: Gabapentin 300 MG CAP 600 MG PO (19:17)
[2020-05-04] MEDS: Acetaminophen 500 MG TAB 1000 MG PO (19:18)
[2020-05-04] MEDS: Docusate Sodium 100 MG CAP PO (19:18)
[2020-05-04] MEDS: oxyCODONE 10 MG TAB PO (20:09)
[2020-05-04] MEDS: Melatonin 3 MG TAB 18 MG PO (21:45)
[2020-05-04] MEDS: Gabapentin 300 MG CAP PO (21:46)
[2020-05-04] MEDS: Mirtazapine 15 MG TAB 30 MG PO (21:46)
[2020-05-05 02:27] VITALS: BP 116/75; PULSE 71; RESP 16; TEMP 36.3; O2SAT 98
[2020-05-05] MEDS: Normal Saline Flush 10 ML SYR IVP ×2 (04:42→09:44)
[2020-05-05] MEDS: Ketorolac 15 MG/ML VIAL IVP ×4 (04:42→21:02)
[2020-05-05] MEDS: Nicotine 14 MG/24 HR PATCH TD (07:43)
[2020-05-05] MEDS: Polyethylene Glycol 3350 17 GM PACKET PO (07:43)
[2020-05-05] MEDS: Acetaminophen 500 MG TAB 1000 MG PO ×3 (07:44→19:52)
[2020-05-05] MEDS: Enoxaparin 40 MG/0.4 ML SYR SC (07:44)
[2020-05-05] MEDS: buPROPion-XL 150 MG TABCR 300 MG PO (07:44)
[2020-05-05] MEDS: Pantoprazole 40 MG TABCR PO (07:45)
[2020-05-05] MEDS: Docusate Sodium 100 MG CAP PO ×2 (07:45→19:52)
[2020-05-05] MEDS: Thiamine 100 MG TAB PO (07:45)
[2020-05-05] MEDS: Gabapentin 300 MG CAP 600 MG PO ×3 (07:45→19:52)
[2020-05-05] MEDS: oxyCODONE 10 MG TAB PO ×5 (08:02→21:01)
[2020-05-05 08:05] VITALS: BP 123/82; PULSE 69; RESP 16; TEMP 35.7; O2SAT 96
--- NOTE | 2020-05-05 12:31 | W.NUTRFU ---
Date of service: 05/05/20 Time of Service: 12:31 Nutritional Follow up NOTE: Chloe continues on regular meal plan, completing > 75% of most meals. Continues to meet 100% nutrient and fluid needs. Labs mostly wnl. Not at risk for nutritional decilne at this time. Will continue to encourage meal acceptance and adequate fluid intake. Time Spent in Nutritional Counseling and Treatment: 0
--- NOTE | 2020-05-05 14:55 | PHA.REVIEW ---
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 Recommended to decrease daily gabapentin dosing with current renal function. Will mention to provider.) - Anticoagulation DVT Prohphylaxis: Reviewed Medications: Enoxaparin - Opiate Usage Evaluate Pain Scale/Pains Meds: Reviewed Scheduled Bowel Reg ordered if on Opiates?: Yes - Relevant Labs Electrolytes, C-Reactive P, ESR: N/A (no labs since pt changed to swingbed) - DM Control Insulin Dosing: N/A - Heart Failure/MN EF%, LOGAN's, B-Blockers, Diuretics: N/A - BP Control BP Control: Blood Pressure 123/82 If elevated: N/A - Qtc Review If Elevated: N/A - IV to PO Switch IV Medications: N/A - Home Meds Home Med List reviewed: Reviewed Relevent Home Meds Not ordered & why?: diclofenac, lidocaine - Current meds Current Medication Order Review: Intervened (discontinued duplicate order, fixed hydromorphone order (prn)) - Comments Comments/Follow Ups: Pt's own control sent up for her to use. Watch renal function and for med changes.
[2020-05-05 15:15] VITALS: O2SAT 96
[2020-05-05 15:30] VITALS: BP 107/63; PULSE 76; RESP 18; TEMP 36.7; O2SAT 95
[2020-05-05] MEDS: Mirtazapine 15 MG TAB 30 MG PO (21:02)
[2020-05-05] MEDS: Melatonin 3 MG TAB 18 MG PO (21:02)
[2020-05-05] MEDS: Gabapentin 300 MG CAP PO (21:02)
[2020-05-06] MEDS: oxyCODONE 10 MG TAB PO ×6 (02:22→23:02)
[2020-05-06] MEDS: Normal Saline Flush 10 ML SYR IVP ×2 (03:56→21:24)
[2020-05-06] MEDS: Ketorolac 15 MG/ML VIAL IVP ×5 (03:56→21:24)
[2020-05-06 07:32] LABS: Anion Gap 6.4 mmol/L (3-11); BUN 29 mg/dL (7-18); CO2 29.6 mmol/L (21.0-32.0); CREATININE 1.18 mg/dL (0.55-1.02); Calcium 9.4 mg/dL (8.5-10.1); Chloride 102 mmol/L (98-107); Estimated GFR 51.83 (mL/min/1.73m2); Glucose 102 mg/dL (74-106); Potassium 4.7 mmol/L (3.5-5.1); Sodium 138 mmol/L (136-145)
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
[2020-05-06 08:30] VITALS: O2SAT 95
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
[2020-05-06] MEDS: Enoxaparin 40 MG/0.4 ML SYR SC (08:54)
[2020-05-06] MEDS: Acetaminophen 500 MG TAB 1000 MG PO ×3 (08:54→19:56)
[2020-05-06] MEDS: Nicotine 14 MG/24 HR PATCH TD (08:54)
[2020-05-06] MEDS: buPROPion-XL 150 MG TABCR 300 MG PO (08:55)
[2020-05-06] MEDS: Docusate Sodium 100 MG CAP PO ×2 (08:55→19:57)
[2020-05-06] MEDS: Gabapentin 300 MG CAP 600 MG PO ×3 (08:55→19:56)
[2020-05-06] MEDS: Pantoprazole 40 MG TABCR PO (08:56)
[2020-05-06] MEDS: Thiamine 100 MG TAB PO (08:56)
[2020-05-06] MEDS: NORETHINDRONE 0.35 MG 0.35 EACH PO (09:00)
[2020-05-06 15:30] VITALS: BP 150/87; PULSE 94; RESP 18; TEMP 36.7; O2SAT 97
[2020-05-06] MEDS: Mirtazapine 15 MG TAB 30 MG PO (21:24)
[2020-05-06] MEDS: Gabapentin 300 MG CAP PO (21:24)
[2020-05-06] MEDS: Melatonin 3 MG TAB 18 MG PO (21:25)
[2020-05-07] MEDS: Ketorolac 15 MG/ML VIAL IVP ×2 (03:43→09:51)
[2020-05-07] MEDS: Normal Saline Flush 10 ML SYR IVP (03:44)
[2020-05-07] MEDS: oxyCODONE 10 MG TAB PO ×5 (03:44→21:10)
[2020-05-07] MEDS: Nicotine 14 MG/24 HR PATCH TD (08:53)
[2020-05-07] MEDS: NORETHINDRONE 0.35 MG 0.35 EACH PO (08:53)
[2020-05-07] MEDS: Docusate Sodium 100 MG CAP PO ×2 (08:54→19:28)
[2020-05-07] MEDS: Acetaminophen 500 MG TAB 1000 MG PO ×3 (08:54→19:28)
[2020-05-07] MEDS: buPROPion-XL 150 MG TABCR 300 MG PO (08:55)
[2020-05-07] MEDS: Pantoprazole 40 MG TABCR PO (08:55)
[2020-05-07] MEDS: Thiamine 100 MG TAB PO (08:55)
[2020-05-07] MEDS: Gabapentin 300 MG CAP 600 MG PO ×3 (08:55→19:28)
[2020-05-07 09:00] VITALS: BP 124/74; PULSE 83; RESP 20; TEMP 36.5; O2SAT 95
--- NOTE | 2020-05-07 11:18 | NUR.NOTE ---
pt refused lab draws, valeria , stated she is tired of getting stuck.
[2020-05-07 16:28] LABS: HCT 32.4 % (36.0-46.0); HGB 10.6 g/dL (12.0-15.5); Mean Corp. HGB Concentration 32.7 g/dL (32.0-36.0); Mean Corpuscular Hemoglobin 30.3 pg (27.0-33.0); Mean Corpuscular Volume 92.6 fL (80-95); Mean Platelet Volume 8.1 fL (8.0-11.0); Platelet Count 545 x1000/uL (130-400); RBC Distribution Width 13.8 % (11.7-14.6); White Blood Cell Count 7.04 k/cumm (4.4-10.8)
[2020-05-07] MEDS: Mirtazapine 15 MG TAB 30 MG PO (21:10)
[2020-05-07] MEDS: Gabapentin 300 MG CAP PO (21:10)
[2020-05-07] MEDS: Melatonin 3 MG TAB 18 MG PO (21:10)
[2020-05-08] MEDS: oxyCODONE 10 MG TAB PO ×7 (00:02→20:21)
[2020-05-08 07:47] VITALS: BP 111/73; PULSE 95; RESP 18; TEMP 36.7; O2SAT 97
[2020-05-08] MEDS: Acetaminophen 500 MG TAB 1000 MG PO ×3 (08:19→20:20)
[2020-05-08] MEDS: Docusate Sodium 100 MG CAP PO ×2 (08:19→20:21)
[2020-05-08] MEDS: buPROPion-XL 150 MG TABCR 300 MG PO (08:19)
[2020-05-08] MEDS: Aspirin 81 MG CHEW 162 MG PO (08:19)
[2020-05-08] MEDS: Nicotine 14 MG/24 HR PATCH TD (08:19)
[2020-05-08] MEDS: Gabapentin 300 MG CAP 600 MG PO ×3 (08:19→20:21)
[2020-05-08] MEDS: Thiamine 100 MG TAB PO (08:20)
[2020-05-08] MEDS: Pantoprazole 40 MG TABCR PO (08:20)
[2020-05-08] MEDS: NORETHINDRONE 0.35 MG 0.35 EACH PO (08:29)
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
[2020-05-08] MEDS: Bacitracin 1 PACKET (15:10)
[2020-05-08] MEDS: Melatonin 3 MG TAB 18 MG PO (22:40)
[2020-05-08] MEDS: Mirtazapine 15 MG TAB 30 MG PO (22:41)
[2020-05-08] MEDS: Gabapentin 300 MG CAP PO (22:41)
[2020-05-09 01:00] VITALS: BP 108/68
--- NOTE | 2020-05-09 05:37 | PGE_ITS ---
Date of Service Date of service: 05/08/20 Time of Service: 07:37 Assessment and Plan Assessment and plan (1) Injury of posterolateral corner of left knee: Status: Acute Assessment and plan: Chloe is a 35-year-old status post posterior lateral reconstruction of the left knee with this equipment nerve grafting with sural nerve autograft at [facility]. In general, think she is doing well. Her history does predispose her to having pain issues. However, she is adamant that she wants to come off of the medications as soon as possible, especially given her history. At this point, we will slowly start weaning down off of the long- acting medication and then slowly wean off of the short acting medication. She is on board with this process and will plan to do it in 2-day intervals. The wounds, evaluated a, did not show any significant signs of infection or other concerns. A Mepilex dressing was applied. This should stay on for the next 5 to 7 days. We will plan to remove yo in another week. Until then, she should wear the knee immobilizer at all times, especially with any mobility. If she is laying still in the bed with the leg supported she may loosen the knee immobilizer on strap. However, any mobility within the bed around the room should be assisted with a knee immobilizer and with a walker or crutches. Continue physical therapy. 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: Status: Acute Qualifiers: Encounter type: subsequent encounter Qualified Code(s): S84.12XD - Injury of peroneal nerve at lower leg level, left leg, subsequent encounter Subjective Subjective Interval history since last seen: Chloe reports to be having some continued pain. Although, she does feel like it is getting better. She has been wearing her knee immobilizer. She has been able to ambulate and mobilize around her room without assistance. She complains mostly posteriorly. No fevers no chills. No drainage from the wound. Exam Narrative Exam Narrative: Sitting up in the hospital bed. She is able to get off the bed rearranging things and sit back down on her own. Evaluation of the left knee shows a clean dry and intact dressing. The dressings are removed. Staple lines are intact. There is some very minimal skin necrosis seen between the staple edges and the central portion of the proximal wound. There is no notable dr carmelina. There is resolving ecchymosis. There is no signs of infection. Objective Objective Clinical Data: Vital Signs Temperature 36.7 C 05/09/20 07:45 Temperature Source Tympanic 05/09/20 07:45 Pulse 88 05/09/20 07:45 Pulse Rhythm Regular 05/09/20 20:56 Respiratory Rate 16 05/09/20 07:45 Respiratory Effort Non-Labored 05/09/20 20:56 Respiratory Depth Normal 05/09/20 20:56 Respiratory Pattern Normal 05/09/20 20:56 Blood Pressure 127/63 05/09/20 07:45 Pulse Oximetry 96 05/09/20 07:45 Oxygen Delivery Method Room Air 05/09/20 07:45 Oxygen Flow Rate 0 05/09/20 07:45 Pain Level 7 05/10/20 01:58 Comment 05/09/20 01:00 Intake & Output 05/09/20 05/09/20 05/10/20 11:59 23:59 11:59 Intake Total 360 / 840 480 / 840 Balance 360 / 840 480 / 840 Intake: Oral 360 / 840 480 / 840 Other: Urine Appearance Clear Clear Comment voided several times in night. Voiding Methods Toilet Laboratory Results WBC 7.04 k/cumm (4.4-10.8) 05/07/20 16:04 RBC 3.50 m/cumm (4.00-5.20) L 05/07/20 16:04 Hgb 10.6 g/dL (12.0-15.5) L 05/07/20 16:04 Hct 32.4 % (36.0-46.0) L 05/07/20 16:04 MCV 92.6 fL (80-95) 05/07/20 16:04 MCH 30.3 pg (27.0-33.0) 05/07/20 16:04 MCHC 32.7 g/dL (32.0-36.0) 05/07/20 16:04 RDW 13.8 % (11.7-14.6) 05/07/20 16:04 Plt Count 545 x1000/uL (130-400) H 05/07/20 16:04 MPV 8.1 fL (8.0-11.0) 05/07/20 16:04 Sodium 138 mmol/L (136-145) 05/06/20 06:20 Potassium 4.7 mmol/L (3.5-5.1) 05/06/20 06:20 Chloride 102 mmol/L (98-107) 05/06/20 06:20 Carbon Dioxide 29.6 mmol/L (21.0-32.0) 05/06/20 06:20 Anion Gap 6.4 mmol/L (3-11) 05/06/20 06:20 BUN 29 mg/dL (7-18) H 05/06/20 06:20 Creatinine 1.18 mg/dL (0.55-1.02) H 05/06/20 06:20 Estimated GFR/1.73 m2 51.83 (mL/min/1.73m2) 05/06/20 06:20 Glucose 102 mg/dL (74-106) 05/06/20 06:20 Calcium 9.4 mg/dL (8.5-10.1) 05/06/20 06:20
[2020-05-09 07:45] VITALS: BP 127/63; PULSE 88; RESP 16; TEMP 36.7; O2SAT 96
[2020-05-09] MEDS: Pantoprazole 40 MG TABCR PO (07:51)
[2020-05-09] MEDS: oxyCODONE 10 MG TAB PO ×5 (07:51→21:25)
[2020-05-09] MEDS: Polyethylene Glycol 3350 17 GM PACKET PO (08:16)
[2020-05-09] MEDS: Gabapentin 300 MG CAP 600 MG PO ×3 (08:17→19:52)
[2020-05-09] MEDS: buPROPion-XL 150 MG TABCR 300 MG PO (08:17)
[2020-05-09] MEDS: NORETHINDRONE 0.35 MG 0.35 EACH PO (08:17)
[2020-05-09] MEDS: Acetaminophen 500 MG TAB 1000 MG PO ×3 (08:18→19:52)
[2020-05-09] MEDS: Docusate Sodium 100 MG CAP PO ×2 (08:18→19:52)
[2020-05-09] MEDS: Thiamine 100 MG TAB PO (08:18)
[2020-05-09] MEDS: Nicotine 14 MG/24 HR PATCH TD ×2 (08:20→15:12)
[2020-05-09] MEDS: Aspirin 81 MG CHEW 162 MG PO (08:21)
[2020-05-09] MEDS: Melatonin 3 MG TAB 18 MG PO (22:16)
[2020-05-09] MEDS: Mirtazapine 15 MG TAB 30 MG PO (22:16)
[2020-05-09] MEDS: Gabapentin 300 MG CAP PO (22:16)
[2020-05-10] MEDS: oxyCODONE 10 MG TAB PO ×6 (01:58→21:15)
[2020-05-10 07:35] VITALS: BP 111/72; PULSE 74; RESP 18; TEMP 36.5; O2SAT 96
[2020-05-10] MEDS: Gabapentin 300 MG CAP 600 MG PO ×3 (07:50→20:11)
[2020-05-10] MEDS: Polyethylene Glycol 3350 17 GM PACKET PO (07:50)
[2020-05-10] MEDS: Nicotine 14 MG/24 HR PATCH TD (07:50)
[2020-05-10] MEDS: buPROPion-XL 150 MG TABCR 300 MG PO (07:51)
[2020-05-10] MEDS: NORETHINDRONE 0.35 MG 0.35 EACH PO (07:51)
[2020-05-10] MEDS: Aspirin 81 MG CHEW 162 MG PO (07:52)
[2020-05-10] MEDS: Docusate Sodium 100 MG CAP PO ×2 (07:52→20:11)
[2020-05-10] MEDS: Thiamine 100 MG TAB PO (07:52)
[2020-05-10] MEDS: Acetaminophen 500 MG TAB 1000 MG PO ×3 (07:52→20:11)
[2020-05-10] MEDS: Pantoprazole 40 MG TABCR PO (08:23)
[2020-05-10] MEDS: Mirtazapine 15 MG TAB 30 MG PO (21:14)
[2020-05-10] MEDS: Melatonin 3 MG TAB 18 MG PO (21:14)
[2020-05-10] MEDS: Gabapentin 300 MG CAP PO (21:16)
[2020-05-11] MEDS: oxyCODONE 10 MG TAB PO ×5 (00:45→20:45)
[2020-05-11 06:56] LABS: BUN 20 mg/dL (7-18); CREATININE 1.03 mg/dL (0.55-1.02); Calcium 8.9 mg/dL (8.5-10.1); Chloride 102 mmol/L (98-107); Glucose 107 mg/dL (74-106); Potassium 3.9 mmol/L (3.5-5.1); Sodium 138 mmol/L (136-145)
[2020-05-11] MEDS: Acetaminophen 500 MG TAB 1000 MG PO ×3 (07:48→19:58)
[2020-05-11] MEDS: Aspirin 81 MG CHEW 162 MG PO (07:48)
[2020-05-11] MEDS: Pantoprazole 40 MG TABCR PO (07:48)
[2020-05-11] MEDS: Thiamine 100 MG TAB PO (07:49)
[2020-05-11] MEDS: buPROPion-XL 150 MG TABCR 300 MG PO (07:49)
[2020-05-11] MEDS: Gabapentin 300 MG CAP 600 MG PO ×3 (07:49→19:59)
[2020-05-11] MEDS: Nicotine 14 MG/24 HR PATCH TD (07:49)
[2020-05-11 07:54] VITALS: BP 106/62; PULSE 71; RESP 17; TEMP 37.1; O2SAT 96
[2020-05-11] MEDS: NORETHINDRONE 0.35 MG 0.35 EACH PO (08:02)
--- NOTE | 2020-05-11 10:36 | W.PM.PROGNOT ---
Date of Service Date of service: 05/11/20 Time of Service: 10:37 Assessment and Plan Assessment and plan (1) Internal derangement of left knee: Status: Acute Assessment and plan: s/p reconstruction. followed by orthopedics who is directing all her postoperative management. continue per their recommendations. they are currently weaning pain medication. 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 Qualifiers: Encounter type: subsequent encounter Qualified Code(s): S84.12XD - Injury of peroneal nerve at lower leg level, left leg, subsequent encounter (3) Constipation due to opioid therapy: Status: Acute Assessment and plan: resolved with bowel management, monitor closely and adjust medications as needed. (4) Major depressive disorder, recurrent: Status: Acute Assessment and plan: stable on current medications, continue (5) DVT prophylaxis: Status: Acute Assessment and plan: continue asa daily per orthopedics, lovenox was discontinued on 05/07 and 162 mg asa started. (6) Discharge planning issues: Status: Acute Assessment and plan: will likely need extensive rehabilitation. case management following for discharge planning. case and plan of care discussed with Dr Singh who is in agreement Subjective Subjective Patient reports: no new complaints, pain is less, tolerating liquids well and tolerating a regular diet Exam Narrative Exam Narrative: General: cooperative, no acute distress and well developed Nutritional Appearance: overweight Orientation: alert, awake and oriented x3 HENMT Head: normal to inspection, normocephalic and atraumatic Mouth: oral mucosae normal Resp Effort & Inspection: normal respiratory effort Auscultation: clear to auscultation bilaterally Cardio Rate: regular rate Rhythm: regular rhythm GI Inspection: distended, round Palpation: soft Auscultation: hypoactive bowel sounds Neuro General: patient alert, patient awake and patient oriented x3 Extrem General: abnormal ROM and edema (knee imobilizer and Davi wrap intact, swelling to toes, warm to touch, good movement) Objective Objective Clinical Data: Abnormal lab results 05/11/20 Range/Units 06:40 BUN 20 H (7-18) mg/dL Creatinine 1.03 H (0.55-1.02) mg/dL Glucose 107 H (74-106) mg/dL Vital Signs Temperature 37.1 C 05/11/20 07:54 Temperature Source Temporal Artery Scan 05/11/20 07:54 Pulse 71 05/11/20 07:54 Pulse Rhythm Regular 05/11/20 07:55 Respiratory Rate 17 05/11/20 07:54 Respiratory Effort Non-Labored 05/11/20 07:55 Respiratory Depth Normal 05/11/20 07:55 Respiratory Pattern Normal 05/11/20 07:55 Blood Pressure 106/62 05/11/20 07:54 Pulse Oximetry 96 05/11/20 07:54 Oxygen Delivery Method Room Air 05/11/20 07:54 Oxygen Flow Rate 0 05/11/20 07:54 Pain Level 8 05/11/20 09:02 Comment 05/09/20 01:00 Intake & Output 05/10/20 05/10/20 05/11/20 11:59 23:59 11:59 Intake Total 540 / 900 360 / 900 450 / 450 Balance 540 / 900 360 / 900 450 / 450 Intake: Oral 540 / 900 360 / 900 450 / 450 Other: Urine Color Yellow Yellow Urine Appearance Clear Clear Clear Urine Odor None Comment Patient uses bathroom independently. Patient voids independently. Voiding Methods Toilet Toilet Toilet Laboratory Results WBC 7.04 k/cumm (4.4-10.8) 05/07/20 16:04 RBC 3.50 m/cumm (4.00-5.20) L 05/07/20 16:04 Hgb 10.6 g/dL (12.0-15.5) L 05/07/20 16:04 Hct 32.4 % (36.0-46.0) L 05/07/20 16:04 MCV 92.6 fL (80-95) 05/07/20 16:04 MCH 30.3 pg (27.0-33.0) 05/07/20 16:04 MCHC 32.7 g/dL (32.0-36.0) 05/07/20 16:04 RDW 13.8 % (11.7-14.6) 05/07/20 16:04 Plt Count 545 x1000/uL (130-400) H 05/07/20 16:04 MPV 8.1 fL (8.0-11.0) 05/07/20 16:04 Sodium 138 mmol/L (136-145) 05/11/20 06:40 Potassium 3.9 mmol/L (3.5-5.1) 05/11/20 06:40 Chloride 102 mmol/L (98-107) 05/11/20 06:40 Carbon Dioxide 26.0 mmol/L (21.0-32.0) 05/11/20 06:40 Anion Gap 10.0 mmol/L (3-11) 05/11/20 06:40 BUN 20 mg/dL (7-18) H 05/11/20 06:40 Creatinine 1.03 mg/dL (0.55-1.02) H 05/11/20 06:40 Estimated GFR/1.73 m2 >= 60.00 (mL/min/1.73m2) 05/11/20 06:40 Glucose 107 mg/dL (74-106) H 05/11/20 06:40 Calcium 8.9 mg/dL (8.5-10.1) 05/11/20 06:40
--- NOTE | 2020-05-11 11:50 | W.NUTRFU ---
Date of service: 05/11/20 Time of Service: 11:50 Nutritional Follow up NOTE: Chloe continues on regular meal plan with adequate meal intake to support healing/strength/weight maintenance. No new nutritional recommendations at this time. Time Spent in Nutritional Counseling and Treatment: 0 time
--- NOTE | 2020-05-11 14:11 | PDOC.CMACT ---
Care Management Activity Note S/O: Chloe continues to enjoy painting, listening to music, communicating with friends on social media and on the phone as well as her significant other. She has kept in contact with her prior home setting, with the hopes of returning there once cleared by MD. She continues to work with PT and her room is full of parada from her SO. CM brought Chloe out into the sun this week, with plans of continuing to permit her fresh air and sunlight as she remains at [facility]. A: 35 year old female admitted to [facility] for Internal Derangement left knee P: Undetermined whether Chloe will discharge to acute rehab, psychiatric stabilization, [facility] treatment [facility], sober living home. Disposition dependent on recovery milestones and recommendations. CM continues to follow and support Chloe in decision-making as her treatment plan develops.
[2020-05-11] MEDS: Docusate Sodium 100 MG CAP PO (19:59)
[2020-05-11] MEDS: Melatonin 3 MG TAB 18 MG PO (21:29)
[2020-05-11] MEDS: Mirtazapine 15 MG TAB 30 MG PO (21:30)
[2020-05-11] MEDS: Gabapentin 300 MG CAP PO (21:30)
[2020-05-12 08:15] VITALS: BP 119/78; PULSE 76; RESP 18; TEMP 36.1; O2SAT 96
[2020-05-12] MEDS: Nicotine 14 MG/24 HR PATCH TD (11:40)
[2020-05-12] MEDS: NORETHINDRONE 0.35 MG 0.35 EACH PO (11:41)
[2020-05-12] MEDS: oxyCODONE 10 MG TAB PO ×3 (11:41→19:08)
[2020-05-12] MEDS: Polyethylene Glycol 3350 17 GM PACKET PO (11:41)
[2020-05-12] MEDS: Acetaminophen 500 MG TAB 1000 MG PO ×3 (11:42→20:21)
[2020-05-12] MEDS: Gabapentin 300 MG CAP 600 MG PO ×3 (11:42→20:23)
[2020-05-12] MEDS: buPROPion-XL 150 MG TABCR 300 MG PO (11:42)
[2020-05-12] MEDS: Aspirin 81 MG CHEW 162 MG PO (11:42)
[2020-05-12] MEDS: Thiamine 100 MG TAB PO (11:43)
[2020-05-12] MEDS: Pantoprazole 40 MG TABCR PO (11:43)
[2020-05-12] MEDS: Docusate Sodium 100 MG CAP PO ×2 (11:43→20:22)
[2020-05-12] MEDS: Gabapentin 300 MG CAP PO ×2 (20:22→21:50)
[2020-05-12] MEDS: Melatonin 3 MG TAB 18 MG PO (21:49)
[2020-05-12] MEDS: Mirtazapine 15 MG TAB 30 MG PO (21:50)
[2020-05-13] MEDS: oxyCODONE 10 MG TAB PO ×4 (06:57→19:14)
[2020-05-13] MEDS: Pantoprazole 40 MG TABCR PO (07:48)
[2020-05-13] MEDS: Aspirin 81 MG CHEW 162 MG PO (07:48)
[2020-05-13] MEDS: Thiamine 100 MG TAB PO (07:48)
[2020-05-13] MEDS: Acetaminophen 500 MG TAB 1000 MG PO ×3 (07:48→19:41)
[2020-05-13] MEDS: Docusate Sodium 100 MG CAP PO ×2 (07:48→19:41)
[2020-05-13] MEDS: buPROPion-XL 150 MG TABCR 300 MG PO (07:48)
[2020-05-13] MEDS: Polyethylene Glycol 3350 17 GM PACKET PO (07:49)
[2020-05-13] MEDS: Nicotine 14 MG/24 HR PATCH TD (07:49)
[2020-05-13] MEDS: Gabapentin 300 MG CAP 600 MG PO ×3 (07:49→19:41)
[2020-05-13] MEDS: NORETHINDRONE 0.35 MG 0.35 EACH PO (07:55)
[2020-05-13] MEDS: Mirtazapine 15 MG TAB 30 MG PO (21:34)
[2020-05-13] MEDS: Melatonin 3 MG TAB 18 MG PO (21:34)
[2020-05-13] MEDS: Gabapentin 300 MG CAP PO (21:35)
[2020-05-14 01:22] VITALS: BP 109/61; PULSE 91; RESP 20; TEMP 36.2; O2SAT 95
[2020-05-14 07:45] VITALS: BP 103/64; PULSE 72; RESP 17; TEMP 36.5; O2SAT 98
[2020-05-14] MEDS: buPROPion-XL 150 MG TABCR 300 MG PO (09:31)
[2020-05-14] MEDS: NORETHINDRONE 0.35 MG 0.35 EACH PO (09:31)
[2020-05-14] MEDS: Gabapentin 300 MG CAP 600 MG PO ×3 (09:31→20:14)
[2020-05-14] MEDS: Polyethylene Glycol 3350 17 GM PACKET PO (09:31)
[2020-05-14] MEDS: Acetaminophen 500 MG TAB 1000 MG PO ×3 (09:32→20:14)
[2020-05-14] MEDS: Aspirin 81 MG CHEW 162 MG PO (09:32)
[2020-05-14] MEDS: Pantoprazole 40 MG TABCR PO (09:32)
[2020-05-14] MEDS: Docusate Sodium 100 MG CAP PO ×2 (09:32→20:14)
[2020-05-14] MEDS: Nicotine 14 MG/24 HR PATCH TD (09:32)
[2020-05-14] MEDS: Thiamine 100 MG TAB PO (09:32)
[2020-05-14] MEDS: oxyCODONE 10 MG TAB PO ×3 (11:59→20:15)
[2020-05-14] MEDS: Mirtazapine 15 MG TAB 30 MG PO (22:12)
[2020-05-14] MEDS: Melatonin 3 MG TAB 18 MG PO (22:12)
[2020-05-14] MEDS: Gabapentin 300 MG CAP PO (22:12)
[2020-05-15 06:56] LABS: Abs Immature Grans 0.06 k/cumm (0.0-0.09); Absolute Basophil Count 0.03 k/cumm (0.0-0.2); Absolute Eosinophil Count 0.37 k/cumm (0.0-0.7); Absolute Lymphocyte Count 1.94 k/cumm (1.2-3.4); Absolute Monocyte Count 0.62 k/cumm (0.11-0.7); Absolute Neutrophil Count 2.76 k/cumm (1.2-6.7); Basophils % 0.5; Eosinophils % 6.4; HCT 35.7 % (36.0-46.0); HGB 11.9 g/dL (12.0-15.5); Lymphocytes % 33.6; Mean Corp. HGB Concentration 33.3 g/dL (32.0-36.0); Mean Corpuscular Hemoglobin 30.4 pg (27.0-33.0); Mean Corpuscular Volume 91.3 fL (80-95); Mean Platelet Volume 8.8 fL (8.0-11.0); Monocytes % 10.7; Neutrophils % 47.8; Platelet Count 373 x1000/uL (130-400); RBC 3.91 m/cumm (4.00-5.20); RBC Distribution Width 13.9 % (11.7-14.6); White Blood Cell Count 5.78 k/cumm (4.4-10.8)
[2020-05-15 07:08] LABS: ALT 51 U/L (14-59); AST 27 U/L (15-37); Alkaline Phosphatase 73 U/L (46-116); BUN 21 mg/dL (7-18); Bilirubin, Total 0.2 mg/dL (0.2-1.0); CREATININE 0.97 mg/dL (0.55-1.02); Calcium 8.3 mg/dL (8.5-10.1); Chloride 106 mmol/L (98-107); Glucose 107 mg/dL (74-106); Potassium 4.1 mmol/L (3.5-5.1); Sodium 139 mmol/L (136-145); Total Protein 6.9 g/dL (6.4-8.2)
[2020-05-15 08:40] VITALS: BP 122/81; PULSE 77; RESP 18; TEMP 36.6; O2SAT 98
[2020-05-15] MEDS: Gabapentin 300 MG CAP 600 MG PO ×3 (08:56→19:41)
[2020-05-15] MEDS: Pantoprazole 40 MG TABCR PO (08:56)
[2020-05-15] MEDS: Docusate Sodium 100 MG CAP PO ×2 (08:57→19:41)
[2020-05-15] MEDS: Thiamine 100 MG TAB PO (08:57)
[2020-05-15] MEDS: buPROPion-XL 150 MG TABCR 300 MG PO (08:57)
[2020-05-15] MEDS: Acetaminophen 500 MG TAB 1000 MG PO ×3 (08:58→19:41)
[2020-05-15] MEDS: Aspirin 81 MG CHEW 162 MG PO (08:58)
[2020-05-15] MEDS: oxyCODONE 10 MG TAB PO ×3 (08:59→19:41)
[2020-05-15] MEDS: Polyethylene Glycol 3350 17 GM PACKET PO (09:01)
[2020-05-15] MEDS: Nicotine 14 MG/24 HR PATCH TD (09:01)
[2020-05-15 12:00] VITALS: BP 135/81; PULSE 74; RESP 20; TEMP 36.6; O2SAT 98
--- NOTE | 2020-05-15 12:35 | CMPROGNOTE_ITS ---
Care Management Progress Note Chloe reports she is waiting for her yo to be removed and then anticipates being evaluated by Physical Therapy. She was unsure if her plan would be to return straight to [facility] or if MD would recommend acute rehab. She reported feeling much more stable in affect and emotional regulation. She shared that her significant other, Adonis had visited consistently over the weekend as well, and reports the visits had been positive.
--- NOTE | 2020-05-15 21:21 | NUR.NOTE ---
Nursing Note: 21:20 pt asked for security to escort her boyfriend out of the building, she no longer wanted him here. pt tried to barricade the door shut so no one could go in. Pt states, I just want to be left alone. pt educated on not being allowed to block the door. pt is in room crying. Will continue to monitor.
[2020-05-15] MEDS: Mirtazapine 15 MG TAB 30 MG PO (22:01)
[2020-05-15] MEDS: Gabapentin 300 MG CAP PO (22:01)
[2020-05-15] MEDS: Melatonin 3 MG TAB 18 MG PO (22:02)
--- NOTE | 2020-05-16 00:32 | NUR.NOTE ---
Removed Mepilex dressing from leg, was attempting to file skin off feet. This RN explained the absolute necessity of keeping dressing on and the absolute necessity of preserving skin ingerity to avoid infectiion (re: do not FILE feet at this time). Two hours later, both dressings off they were starting to peel Re-explained the ABSOLUTE necessity of keeping dressings on. Pt also not using immobilizer to ambulate. Nursing Note:
[2020-05-16] MEDS: Polyethylene Glycol 3350 17 GM PACKET PO (07:57)
[2020-05-16] MEDS: NORETHINDRONE 0.35 MG 0.35 EACH PO (07:57)
[2020-05-16] MEDS: Gabapentin 300 MG CAP 600 MG PO ×3 (07:58→20:17)
[2020-05-16] MEDS: Acetaminophen 500 MG TAB 1000 MG PO ×3 (07:59→20:17)
[2020-05-16] MEDS: buPROPion-XL 150 MG TABCR 300 MG PO (07:59)
[2020-05-16] MEDS: Aspirin 81 MG CHEW 162 MG PO (07:59)
[2020-05-16] MEDS: oxyCODONE 10 MG TAB PO ×2 (08:00→14:20)
[2020-05-16] MEDS: Thiamine 100 MG TAB PO (08:00)
[2020-05-16] MEDS: Pantoprazole 40 MG TABCR PO (08:01)
[2020-05-16] MEDS: Docusate Sodium 100 MG CAP PO ×2 (08:01→20:17)
[2020-05-16] MEDS: Nicotine 14 MG/24 HR PATCH TD (08:02)
--- NOTE | 2020-05-16 08:39 | NUR.NOTE ---
Nursing Note: Had conversation with patient this morning regarding her leg and the injury. she Discussed with me the point of all the muscle and ligaments that were damaged , reinforce at this point the importance that the knee immobilizer plays at this point in her recovery. Patient stated she has been compliant with the device and will be
[2020-05-16 09:09] VITALS: BP 126/86; PULSE 90; RESP 17; TEMP 37.2; O2SAT 98
--- NOTE | 2020-05-16 11:39 | NUR.NOTE ---
Nursing Note: Chloe's boyfriend Adonis arrived to visit at 1135. When asked, patient stated she wanted Adonis as a visitor.
--- NOTE | 2020-05-16 12:48 | PDOC.CMPRO ---
Care Management Progress Note Dr. Jurado will remove the yo around the surgical incision today. He has cleared her to discharge back to the [facility], and she will follow up as an outpatient for physical therapy. CM to provide FWW as well as referral to [facility] and [facility]. CM outreached to the [facility]: Vivien: , and left a voicemail requesting to review discharge planning considerations.
[2020-05-16 13:34] LABS: HCG Qual (Urine) Negative
--- NOTE | 2020-05-16 14:22 | NUR.NOTE ---
Nursing Note: I have reviewed and agree the charting of Gianfranco Lam is appropriate.
[2020-05-16] MEDS: Naproxen 375 MG TAB PO (20:17)
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
== END 2020-05-16 21:00 | disposition left against medical advice (07) | DRG 945 ==
PROVIDERS: Internal Medicine; Nurse Practitioner Acute Care; Student in an Organized Health Care Education/Training Program; Admitting Provider Internal Medicine; PCP Nurse Practitioner Family; Visit Provider Family Medicine
DX: S76.392 Other specified injury of muscle, fascia and tendon of the posterior muscle group at thigh level, left thigh (principal); F33.9 Major depressive disorder, recurrent, unspecified; S83.412D Sprain of medial collateral ligament of left knee, subsequent encounter; S83.422D Sprain of lateral collateral ligament of left knee, subsequent encounter; S83.512D Sprain of anterior cruciate ligament of left knee, subsequent encounter; S83.522D Sprain of posterior cruciate ligament of left knee, subsequent encounter; S83.8X2D Sprain of other specified parts of left knee, subsequent encounter; S84.12XD Injury of peroneal nerve at lower leg level, left leg, subsequent encounter; S86.112D Strain of other muscle(s) and tendon(s) of posterior muscle group at lower leg level, left leg, subsequent encounter; Y35.893D Legal intervention involving other specified means, suspect injured, subsequent encounter; Z98.890 Other specified postprocedural states; Z53.29 Procedure and treatment not carried out because of patient's decision for other reasons; K59.03 Drug induced constipation; T40.2X5A Adverse effect of other opioids, initial encounter; F17.210 Nicotine dependence, cigarettes, uncomplicated; F41.9 Anxiety disorder, unspecified
CPT/HCPCS: 36415; 80048; 80053; 85027; 97162; 99306; 99308; J1650; NC; 81025; 85025; J1885

== ENCOUNTER 2020-06-24 12:45 | Emergency (ER) | payer MEDICAID, SELFPAY ==
[2020-06-24 12:52] VITALS: BP 126/73; PULSE 98; RESP 18; TEMP 36.6; O2SAT 100
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
[2020-06-24 15:20] VITALS: BP 112/71; PULSE 102; RESP 15; TEMP 36.5; O2SAT 98
== END 2020-06-24 15:20 | disposition home or self-care (01) ==
PROVIDERS: Emergency Provider Physician Assistant; PCP Nurse Practitioner Family
DX: T86.821 Skin graft (allograft) (autograft) failure (principal); Y83.2 Surgical operation with anastomosis, bypass or graft as the cause of abnormal reaction of the patient, or of later complication, without mention of misadventure at the time of the procedure; F41.8 Other specified anxiety disorders; Z59.0 Homelessness
CPT/HCPCS: 99282; 99283

== ENCOUNTER 2020-12-18 16:22 | Emergency (ER) | payer MEDICAID, SELFPAY ==
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
[2020-12-18 16:28] VITALS: BP 120/80; PULSE 88; RESP 20; TEMP 37; O2SAT 97
[2020-12-18] MEDS: Doxycycline Hyclate 100 MG CAP PO (16:50)
[2020-12-18] MEDS: cefTRIAXone 500 MG VIAL IM (16:50)
[2020-12-18] MEDS: Lidocaine 1% Multi-Dose 50 ML VIAL (16:50)
== END 2020-12-18 17:01 | disposition home or self-care (01) ==
LOC: ER 16:59
PROVIDERS: Emergency Provider Physician Assistant; PCP Nurse Practitioner Family
DX: N94.819 Vulvodynia, unspecified (principal); A74.9 Chlamydial infection, unspecified
CPT/HCPCS: 81025; 96372; 99284; 99283; J0696

== ENCOUNTER 2021-03-16 15:17 | Outpatient (REF) | payer MEDICAID, SELFPAY ==
[2021-03-19 15:06] LABS: Chlamydia Result Negative (Negative); GC Result Negative (Negative)
== END 2021-03-16 15:18 | disposition home or self-care (01) ==
LOC: LBN 15:17
PROVIDERS: PCP Nurse Practitioner Family; Visit Provider Obstetrics & Gynecology
DX: R30.0 Dysuria (principal); Z11.3 Encounter for screening for infections with a predominantly sexual mode of transmission
CPT/HCPCS: 87491; 87591; 87086; 87480; 87510; 87660

== ENCOUNTER 2021-04-10 01:31 | Outpatient (CLI) | payer MEDICAID, SELFPAY ==
--- NOTE | 2021-04-10 07:45 | DI.US_ITS ---
Exam(s) US PELVIS EXAM: US PELVIS CLINICAL HISTORY: Pelvic pain R10.31 RLQ PAIN, G89.29 OTHER CHRONIC PAIN TECHNIQUE: Transabdominal imaging was performed using standard protocol. COMPARISON: CT CT ABDOMEN PELVIS W from 06/09/[address] ABDOMEN PELVIS W from 06/09/2019 FINDINGS: KIDNEYS: Kidneys are symmetric in size. No evidence of renal calculi. No evidence of hydronephrosis. No renal mass or cyst identified. UTERUS: Anteverted. 7.4 x 3.1 x 4.2 cm Endometrium: 4 millimeters Myometrium: Unremarkable. Cervix: Unremarkable. OVARIES: Right: Cyst or mass: None. Left: Cyst or mass: None. DOPPLER: Color: Symmetric and uniform flow to both ovaries. No hyperemia. Duplex: Normal ovarian arterial waveforms visualized. CUL-DE-SAC: Free fluid: None. IMPRESSION: 1. Normal-appearing uterus with endometrial stripe within normal limits. 2. Unremarkable bilateral ovaries. DATA REPOSITORY:
== END 2021-04-10 01:51 ==
PROVIDERS: Visit Provider Obstetrics & Gynecology
DX: R10.2 Pelvic and perineal pain (principal); R10.31 Right lower quadrant pain; G89.29 Other chronic pain
CPT/HCPCS: 76856

== ENCOUNTER 2021-05-12 16:57 | Emergency (ER) | payer MEDICAID, SELFPAY ==
[2021-05-12 16:59] VITALS: BP 154/104; PULSE 78; RESP 16; TEMP 36.5; O2SAT 100
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
[2021-05-12] MEDS: Hydrocortisone 1% CR 30 GM TUBE TP (17:25)
--- NOTE | 2021-05-12 17:26 | NUR.NOTE ---
pt requested ananth efood. she is now eating a sandwhich .Nursing Note:
== END 2021-05-12 17:30 | disposition home or self-care (01) ==
LOC: ER 17:29
PROVIDERS: Emergency Provider Registered Nurse Emergency; PCP Nurse Practitioner Family
DX: R41.82 Altered mental status, unspecified (principal); F10.129 Alcohol abuse with intoxication, unspecified
CPT/HCPCS: 99283; 99282

== ENCOUNTER 2021-05-23 13:09 | Emergency (ER) | payer MEDICAID, SELFPAY ==
[2021-05-23] VITALS (42 sets, daily range): BP systolic 82–160; BP diastolic 42–122; PULSE 64–115; RESP 10–29; TEMP 37.4; O2SAT 90–97
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
[2021-05-23] MEDS: Normal Saline 1,000 ML 1000 ML IV ×2 (14:02→15:04)
[2021-05-23] MEDS: THIAMINE 100 MG in Normal Saline 100 ML 200 MG IVPB (14:02)
[2021-05-23 14:23] LABS: ALT 189 U/L (14-59); AST 161 U/L (15-37); Albumin 4.2 g/dL (3.4-5.0); Alkaline Phosphatase 92 U/L (46-116); Anion Gap 18.5 mmol/L (3-11); BUN 8 mg/dL (7-18); Bilirubin, Total 0.6 mg/dL (0.2-1.0); CO2 22.5 mmol/L (21.0-32.0); CREATININE 0.8 mg/dL (0.55-1.02); Calcium 9.5 mg/dL (8.5-10.1); Chloride 101 mmol/L (98-107); Glucose 119 mg/dL (74-106); Potassium 3.8 mmol/L (3.5-5.1); Sodium 142 mmol/L (136-145); Total Protein 8.7 g/dL (6.4-8.2)
[2021-05-23 14:32] LABS: TSH (W/Ref FT4) 0.42 uIU/mL (0.36-3.74)
--- NOTE | 2021-05-23 16:24 | PDOC.ERCMPAL ---
- If Service Date Differs Date of service: 05/23/21 Time of Service: 16:24 Palliative Care Progress Note CHRIS was asked by the ED provider to see Chloe. She presented to the ED intoxicated, verbalizing that she wants to go to rehab.She stated that she can't keep doing this. She shared that she has been to rehab six times before. Chloe also stated to CM that she cannot be discharged from the ED, that she must go from [facility] to rehab. Per provider, there is no medical reason to keep her in the hospital at this time. She will remain for more IV fluids and repeat bloodwork but will be discharged later in the day. CHRIS provided Chloe with contact information for [facility], but Chloe must initiate the referral. Chloe also requested that CHRIS get her belongings dropped off by her boyfriend. Per nursing, they are locked up as there were questionable items found in her bags.
--- NOTE | 2021-05-23 16:35 | NUR.NOTE ---
pt sleeping comfortably. has eaten full meal. care management in earlier to see patient. no s/sxs if distress noted at this time.:
[2021-05-23 16:57] LABS: Anion Gap 14.7 mmol/L (3-11); BUN 7 mg/dL (7-18); CO2 22.3 mmol/L (21.0-32.0); CREATININE 0.8 mg/dL (0.55-1.02); Calcium 7.7 mg/dL (8.5-10.1); Chloride 108 mmol/L (98-107); Glucose 98 mg/dL (74-106); Potassium 3.9 mmol/L (3.5-5.1); Sodium 145 mmol/L (136-145)
== END 2021-05-23 18:10 | disposition home or self-care (01) ==
PROVIDERS: Student in an Organized Health Care Education/Training Program; Emergency Provider Physician Assistant; PCP Nurse Practitioner Family
DX: F10.229 Alcohol dependence with intoxication, unspecified (principal)
CPT/HCPCS: 80048; 80053; 96361; 96365; 99284; 83735; 84443; 99283

== ENCOUNTER 2021-07-12 03:36 | Emergency (ER) | payer MEDICAID, SELFPAY ==
[2021-07-12 03:36] VITALS: BP 141/100; PULSE 98; RESP 18; TEMP 37.2; O2SAT 97
--- NOTE | 2021-07-12 03:43 | NUR.NOTE ---
Ambulates to restroom with steady gait; accompanied by Maritza Anne Note:
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
[2021-07-12] MEDS: Normal Saline 1,000 ML 1000 ML IV (03:59)
[2021-07-12 04:01] VITALS: BP 129/76; PULSE 82; PULSE 84; RESP 12; O2SAT 96
[2021-07-12 04:02] VITALS: PULSE 95; RESP 18; O2SAT 95
[2021-07-12 04:04] LABS: Abs Immature Grans 0.02 10^3/uL (0.0-0.06); Absolute Basophil Count 0.04 10^3/uL (0.0-0.2); Absolute Eosinophil Count 0.08 10^3/uL (0.0-0.7); Absolute Lymphocyte Count 2.84 10^3/uL (1.2-3.4); Absolute Monocyte Count 0.54 10^3/uL (0.1-0.8); Absolute Neutrophil Count 3.67 10^3/uL (1.2-6.7); Basophils % 0.6; Eosinophils % 1.1; HCT 46.7 % (36.0-46.0); HGB 16.2 g/dL (11.2-15.7); Immature Grans % 0.3; Lymphocytes % 39.5; MCH 32.9 pg (27.0-33.0); MCHC 34.7 % (32.0-36.0); MCV 94.7 fL (80-95); MPV 8.7 fL (8.0-11.0); Monocytes % 7.5; Nucleated RBC 0 %; Platelet Count 326 10^3/uL (130-400); RBC 4.93 10^6/uL (3.93-5.22); RDW 12.8 % (11.7-14.6); WBC 7.19 10^3/uL (4.4-10.8)
[2021-07-12 04:10] VITALS: PULSE 117; RESP 26; O2SAT 97
[2021-07-12 04:12] VITALS: BP 146/94; PULSE 103; PULSE 98; RESP 11
[2021-07-12 04:16] VITALS: BP 142/91; PULSE 104; PULSE 111
[2021-07-12 04:22] LABS: ALT 151 U/L (14-59); AST 138 U/L (15-37); Albumin 4.4 g/dL (3.4-5.0); Alkaline Phosphatase 106 U/L (46-116); BUN 9 mg/dL (7-18); Bilirubin, Total 0.4 mg/dL (0.2-1.0); CREATININE 0.9 mg/dL (0.55-1.02); Calcium 8.7 mg/dL (8.5-10.1); Chloride 106 mmol/L (98-107); Glucose 106 mg/dL (74-106); Potassium 3.7 mmol/L (3.5-5.1); Sodium 145 mmol/L (136-145); Total Protein 8.9 g/dL (6.4-8.2)
[2021-07-12 04:26] LABS: *AMPHETAMINES SCREEN URINE Negative (Negative); *BARBITURATES SCREEN URINE Negative (Negative); *BENZODIAZEPINES SCREEN URINE Negative (Negative); Cannabinoids THC Positive (Negative); Cocaine Screen,Urine Negative (Negative); METHADONE URINE SCREEN Positive (Negative); OPIATES URINE SCREEN Negative (Negative)
[2021-07-12 04:27] LABS: Tricyclic Antidepressants Negative (Negative)
[2021-07-12 04:32] LABS: ETHANOL BLOOD 408.9 mg/dL (<3)
--- NOTE | 2021-07-12 04:38 | NUR.NOTE ---
0415-This RN called to patient bedside by GRACE Anne. Patient at edge of bed, after removing monitor cords, stating she is leaving, using raised tone, saying I came here to be treated. I haven't even been treated. RAC IV site bleeding; patient removed her own IV, pressure dressing placed. Patient ambulates with steady gait, takes off non slip hospital socks, in hallway picks up her backpack and exits ED. Provider notified. Call to [facility] placed by day camp unit leader. Nursing Note:
== END 2021-07-12 04:40 | disposition left against medical advice (07) ==
PROVIDERS: Emergency Provider Student in an Organized Health Care Education/Training Program; PCP Nurse Practitioner Family
DX: F10.120 Alcohol abuse with intoxication, uncomplicated (principal); Y90.8 Blood alcohol level of 240 mg/100 ml or more; Z53.29 Procedure and treatment not carried out because of patient's decision for other reasons
CPT/HCPCS: 36415; 80053; 80307; 81025; 99284; 80320; 85025

== ENCOUNTER 2021-07-18 00:10 | Inpatient (IN) | payer MEDICAID, SELFPAY ==
[2021-07-18] VITALS (13 sets, daily range): BP systolic 114–150; BP diastolic 73–89; PULSE 63–106; RESP 16–22; TEMP 36.8–37.6; O2SAT 96–100
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
[2021-07-18] MEDS: DEXTROSE 5%-LACTATED RINGERS 1,000 ML 200 ML IV (03:54)
[2021-07-18] MEDS: LORazepam 1 MG TAB PO (03:58)
[2021-07-18 04:38] LABS: Abs Immature Grans 0.03 10^3/uL (0.0-0.06); Absolute Basophil Count 0.02 10^3/uL (0.0-0.2); Absolute Eosinophil Count 0.02 10^3/uL (0.0-0.7); Absolute Lymphocyte Count 1.23 10^3/uL (1.2-3.4); Absolute Monocyte Count 0.45 10^3/uL (0.1-0.8); Absolute Neutrophil Count 2.97 10^3/uL (1.2-6.7); Basophils % 0.4; Eosinophils % 0.4; HCT 35.7 % (36.0-46.0); HGB 12.6 g/dL (11.2-15.7); Immature Grans % 0.6; Lymphocytes % 26.1; MCH 32.8 pg (27.0-33.0); MCHC 35.3 % (32.0-36.0); MPV 9.5 fL (8.0-11.0); Monocytes % 9.5; Nucleated RBC 0 %; Platelet Count 124 10^3/uL (130-400); RBC 3.84 10^6/uL (3.93-5.22); RDW 12.4 % (11.7-14.6); RDW-SD 42.8 fL; WBC 4.72 10^3/uL (4.4-10.8)
[2021-07-18 04:52] LABS: Prothrombin Time 10.1 sec (9.3-11.0)
[2021-07-18 05:15] LABS: ALT 140 U/L (14-59); AST 165 U/L (15-37); Albumin 3.6 g/dL (3.4-5.0); Alkaline Phosphatase 75 U/L (46-116); Anion Gap 14.2 mmol/L (3-11); BUN 11 mg/dL (7-18); Bilirubin, Total 1.2 mg/dL (0.2-1.0); CO2 23.8 mmol/L (21.0-32.0); CREATININE 0.7 mg/dL (0.55-1.02); Calcium 8.7 mg/dL (8.5-10.1); Chloride 101 mmol/L (98-107); Glucose 123 mg/dL (74-106); Potassium 3.8 mmol/L (3.5-5.1); Sodium 139 mmol/L (136-145); Total Protein 6.9 g/dL (6.4-8.2)
[2021-07-18 05:16] LABS: Magnesium 1.6 mg/dL (1.8-2.4); TSH (W/Ref FT4) 1.11 uIU/mL (0.36-3.74)
[2021-07-18] MEDS: Mylanta Suspension 30 ML CUP PO ×2 (06:37→16:33)
[2021-07-18] MEDS: Acetaminophen 325 MG TAB 650 MG PO (06:37)
[2021-07-18 07:16] LABS: Lactate 1.5 mmol/L (0.6-1.4)
[2021-07-18 08:21] LABS: PHOSPHORUS < 2.0 mg/dL (2.6-4.7)
[2021-07-18] MEDS: Enoxaparin 40 MG/0.4 ML SYR SC (08:27)
[2021-07-18] MEDS: Nicotine 21 MG/24 HR PATCH TD (08:27)
[2021-07-18] MEDS: Pregabalin 25 MG CAP 75 MG PO ×2 (08:28→19:58)
[2021-07-18] MEDS: Thiamine 100 MG TAB PO (08:28)
[2021-07-18] MEDS: Pantoprazole 40 MG TABCR PO (08:28)
[2021-07-18] MEDS: Folic Acid 1 MG TAB PO (08:28)
[2021-07-18] MEDS: Magnesium Oxide 400 MG TAB PO ×2 (08:28→19:58)
[2021-07-18] MEDS: MAGNESIUM SULFATE 2 GM/50 ML BAG IVPB (08:29)
[2021-07-18] MEDS: Multivitamin TAB 1 TAB PO (08:29)
[2021-07-18] MEDS: cloNIDine 0.1 MG TAB PO ×4 (08:29→19:58)
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
[2021-07-18] MEDS: LORazepam 1 MG TAB PO/SL ×2 (16:34→20:04)
[2021-07-18] MEDS: Melatonin 3 MG TAB 9 MG PO (21:30)
[2021-07-18] MEDS: Mirtazapine 15 MG TAB 30 MG PO (21:30)
[2021-07-18] MEDS: DEXTROSE 5%-LACTATED RINGERS 1,000 ML 100 ML IV (22:35)
[2021-07-19] MEDS: Albuterol HFA 8 GM 60 PUFF INH IH ×2 (00:31→09:32)
--- NOTE | 2021-07-19 00:47 | NUR.NOTE ---
ATTEMPTED TO MEDICATE PT FOR ACOHOL ASSESSMENT SCORE OF 6/ PT SOUND ASLEEP.
[2021-07-19] MEDS: Normal Saline Flush 10 ML SYR (02:07)
[2021-07-19] MEDS: LORazepam 1 MG TAB PO/SL ×2 (02:22→19:35)
[2021-07-19 04:08] VITALS: BP 134/97; PULSE 68; RESP 17; TEMP 36.8; O2SAT 100
[2021-07-19 07:24] LABS: HCT 39.4 % (36.0-46.0); HGB 13.6 g/dL (11.2-15.7); MCH 32.4 pg (27.0-33.0); MCHC 34.5 % (32.0-36.0); MCV 93.8 fL (80-95); MPV 9.8 fL (8.0-11.0); Platelet Count 102 10^3/uL (130-400); RDW 12.1 % (11.7-14.6); RDW-SD 41.8 fL; WBC 3.67 10^3/uL (4.4-10.8)
[2021-07-19 07:55] LABS: Anion Gap 8.8 mmol/L (3-11); BUN 5 mg/dL (7-18); CO2 28.2 mmol/L (21.0-32.0); CREATININE 0.8 mg/dL (0.55-1.02); Calcium 8.8 mg/dL (8.5-10.1); Chloride 106 mmol/L (98-107); Glucose 139 mg/dL (74-106); Potassium 3.6 mmol/L (3.5-5.1); Sodium 143 mmol/L (136-145)
[2021-07-19 07:58] LABS: PHOSPHORUS < 2.0 mg/dL (2.6-4.7)
[2021-07-19 08:00] VITALS: BP 129/85; PULSE 61; RESP 17; TEMP 37.3; O2SAT 100
[2021-07-19] MEDS: Nicotine 21 MG/24 HR PATCH TD (08:18)
[2021-07-19] MEDS: Enoxaparin 40 MG/0.4 ML SYR SC (08:19)
[2021-07-19] MEDS: Folic Acid 1 MG TAB PO (08:19)
[2021-07-19] MEDS: Pantoprazole 40 MG TABCR PO (08:19)
[2021-07-19] MEDS: cloNIDine 0.1 MG TAB PO ×4 (08:20→19:35)
[2021-07-19] MEDS: Pregabalin 25 MG CAP 75 MG PO ×2 (08:20→19:35)
[2021-07-19] MEDS: Magnesium Oxide 400 MG TAB PO ×2 (08:20→19:34)
[2021-07-19] MEDS: Multivitamin TAB 1 TAB PO (08:20)
[2021-07-19] MEDS: Thiamine 100 MG TAB PO (08:20)
[2021-07-19 11:30] VITALS: BP 125/85; PULSE 64; RESP 18; TEMP 37.4; O2SAT 99
[2021-07-19 12:23] VITALS: O2SAT 99
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
[2021-07-19 16:59] VITALS: BP 138/91; PULSE 77; RESP 18; TEMP 36.7; O2SAT 100
--- NOTE | 2021-07-19 17:18 | PDOC.CMPRO ---
- If Service Date Differs Date of service: 07/19/21 Time of Service: 17:18 Care Management Progress Note S/O: Chloe continues to be closely monitored and treated. She was sleeping when CM attempted to meet with her today. CM continues to follow. A: 36 year old female admitted to [facility] 07/18/21 for lactic acidosis, opiate withdrawal, alcohol intoxication P: job coaching, [facility], [facility], inpatient rehabs continue to be coordination and reviewed with Chloe. CM continues to follow.
[2021-07-19] MEDS: Mylanta Suspension 30 ML CUP PO (19:34)
[2021-07-19] MEDS: Potassium Chloride 20 MEQ TABCR PO (19:35)
[2021-07-19 20:40] VITALS: BP 134/81; PULSE 69; RESP 18; TEMP 37.3; O2SAT 100
--- NOTE | 2021-07-20 09:46 | PDOC.CMPRO ---
Care Management Progress Note Appears patient left AMA last night. CM faxed [facility] referral today.
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
--- NOTE | 2021-08-03 13:17 | PDOC.CMPRO ---
Care Management Progress Note CM recieved call from Jenna Hilliard at [employer], who reported she was accepting Kerbi's referral and would be outreaching to her for service connection. CM provided case review and purpose of referral.
== END 2021-07-19 21:01 | disposition left against medical advice (07) | DRG 641 ==
PROVIDERS: Internal Medicine; Admitting Provider Family Medicine; PCP Nurse Practitioner Family; Visit Provider Family Medicine
DX: E87.2 Acidosis (principal); F11.23 Opioid dependence with withdrawal; F10.239 Alcohol dependence with withdrawal, unspecified; M79.7 Fibromyalgia; F43.10 Post-traumatic stress disorder, unspecified; F17.210 Nicotine dependence, cigarettes, uncomplicated; F10.229 Alcohol dependence with intoxication, unspecified; J45.20 Mild intermittent asthma, uncomplicated; F41.9 Anxiety disorder, unspecified; K70.10 Alcoholic hepatitis without ascites; Z59.0 Homelessness; F32.9 Major depressive disorder, single episode, unspecified; K21.9 Gastro-esophageal reflux disease without esophagitis; B19.20 Unspecified viral hepatitis C without hepatic coma; K44.9 Diaphragmatic hernia without obstruction or gangrene; E78.5 Hyperlipidemia, unspecified
CPT/HCPCS: 36415; 80048; 80053; 85027; J1650; 83605; 83735; 84100; 84443; 85025; 85610; 99223; 99233; J3490

== ENCOUNTER 2021-07-20 12:30 | Emergency (ER) | payer MEDICAID, SELFPAY ==
[2021-07-20 12:37] VITALS: BP 122/77; PULSE 88; RESP 16; TEMP 36.6; O2SAT 98
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
--- NOTE | 2021-07-20 12:53 | NUR.NOTE ---
1248-Provider at bedside. Patient angry she needs blood work. States I am fucking leaving. I am not here to be poked and prodded. Patient ambulates from unit with steady gait. Nursing Note:
== END 2021-07-20 12:55 | disposition other institution (70) ==
PROVIDERS: Emergency Provider Emergency Medicine; PCP Nurse Practitioner Family
DX: M79.7 Fibromyalgia (principal); F10.10 Alcohol abuse, uncomplicated; F11.10 Opioid abuse, uncomplicated; Z53.29 Procedure and treatment not carried out because of patient's decision for other reasons
CPT/HCPCS: 99283; 99281

== ENCOUNTER 2021-09-13 09:35 | Emergency (ER) | payer MEDICAID, SELFPAY ==
[2021-09-13 09:41] VITALS: BP 151/93; PULSE 93; RESP 18; TEMP 36.8; O2SAT 94
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
[2021-09-13] MEDS: Methadone Liquid 10 MG/ML 60 MG PO (10:13)
--- NOTE | 2021-09-13 10:53 | NUR.NOTE ---
delay in IV fluids and reglan due to difficult IV.
[2021-09-13] MEDS: Normal Saline 1,000 ML 1000 ML IV (10:57)
[2021-09-13] MEDS: Metoclopramide 10 MG/2 ML VIAL 20 MG IVP (10:57)
[2021-09-13 10:58] LABS: Abs Immature Grans 0.01 10^3/uL (0.0-0.06); Absolute Basophil Count 0.06 10^3/uL (0.0-0.2); Absolute Eosinophil Count 0.08 10^3/uL (0.0-0.7); Absolute Lymphocyte Count 2.53 10^3/uL (1.2-3.4); Absolute Monocyte Count 0.43 10^3/uL (0.1-0.8); Absolute Neutrophil Count 1.78 10^3/uL (1.2-6.7); Basophils % 1.2; Eosinophils % 1.6; HCT 42.9 % (36.0-46.0); HGB 14.9 g/dL (11.2-15.7); Immature Grans % 0.2; Lymphocytes % 51.7; MCH 32.4 pg (27.0-33.0); MCHC 34.7 % (32.0-36.0); MCV 93.3 fL (80-95); MPV 8.7 fL (8.0-11.0); Monocytes % 8.8; Neutrophils % 36.5; Nucleated RBC 0 %; Platelet Count 224 10^3/uL (130-400); RDW 14.5 % (11.7-14.6); RDW-SD 49.7 fL; WBC 4.89 10^3/uL (4.4-10.8)
[2021-09-13 11:21] LABS: ALT 254 U/L (14-59); AST 223 U/L (15-37); Alkaline Phosphatase 95 U/L (46-116); Anion Gap 13.5 mmol/L (3-11); BUN 7 mg/dL (7-18); Bilirubin, Total 0.3 mg/dL (0.2-1.0); CO2 26.5 mmol/L (21.0-32.0); CREATININE 0.6 mg/dL (0.55-1.02); Calcium 8.5 mg/dL (8.5-10.1); Chloride 106 mmol/L (98-107); Glucose 111 mg/dL (74-106); Magnesium 2.2 mg/dL (1.8-2.4); Potassium 3.3 mmol/L (3.5-5.1); Sodium 146 mmol/L (136-145); TSH (W/Ref FT4) 0.53 uIU/mL (0.36-3.74); Total Protein 8.2 g/dL (6.4-8.2)
[2021-09-13 11:22] LABS: ETHANOL BLOOD 453.5 mg/dL (<10)
[2021-09-13 11:23] LABS: HCG Qual (Serum) Negative
[2021-09-13 11:41] VITALS: BP 145/104; PULSE 84; RESP 16; TEMP 36.1; O2SAT 92
--- NOTE | 2021-09-13 11:48 | DI.RAD_ITS ---
Exam(s) XR HAND LT COMPLETE EXAM: XR HAND LT COMPLETE CLINICAL HISTORY: pain s/p punching wall. TECHNIQUE: 2D digital imaging was performed. COMPARISON: No exams were available for comparison FINDINGS: No evidence of acute fracture nor dislocation. No radiopaque foreign body. No osseous lesions. No erosions. IV tubing noted. IMPRESSION: No fracture seen. DATA REPOSITORY: RADIATION DOSE DELIVERED:
[2021-09-13 12:21] VITALS: BP 143/103; PULSE 107; RESP 18; TEMP 36.8; O2SAT 91
[2021-09-13 13:55] VITALS: BP 112/75; PULSE 92; RESP 18; TEMP 36.3; O2SAT 94
--- NOTE | 2021-09-13 14:15 | NUR.NOTE ---
unknown when pt last had her meds , she is unreliable Nursing Note:
[2021-09-13 14:28] LABS: Bilirubin Negative (Negative); Blood Negative (Negative); Clarity Clear (Clear); Glucose Negative (Negative); Ketones Negative (Negative); Leukocyte Esterase Negative (Negative); Nitrite Negative (Negative); Specific Gravity 1.015 (1.005-1.025); Urobilinogen 0.2 EU/dL (Up TO 0.2)
[2021-09-13 14:38] LABS: *AMPHETAMINES SCREEN URINE Negative (Negative); *BARBITURATES SCREEN URINE Negative (Negative); *BENZODIAZEPINES SCREEN URINE Negative (Negative); Cannabinoids THC Positive (Negative); Cocaine Screen,Urine Negative (Negative); METHADONE URINE SCREEN Positive (Negative); OPIATES URINE SCREEN Negative (Negative)
[2021-09-13 14:41] LABS: Tricyclic Antidepressants Negative (Negative)
--- NOTE | 2021-09-13 19:10 | CMPROGNOTE_ITS ---
- If Service Date Differs Date of service: 09/13/21 Time of Service: 19:10 Care Management Progress Note CHRIS receives a telephone call from Jenna Hilliard, [facility] RN, and Chloe. Jenna advises that Yoly at [facility] is sending an ambulance to Chloe's location and that she will soon be transported to [facility] emergency room. Jenna states that Chloe has been off of Methadone for approximately 7 days and she is actively withdrawing from it. She is additionally drinking large amounts of alcohol and experienced a seizure last evening. She goes on to say that [facility] in [place] has accepted Chloe for admission but they are requesting that she be started back on Methadone before they will accept her. Her hope is that [facility] will treat her withdrawal symptoms and will restart her Methadone, so that she can transfer to [facility] in a few days. Chloe is given 60 mg of Methadone in the ED and is discharged to a friend's home. She will follow up with her PCP, AHMET and with her [facility] pillowcase cutter. CHRIS scheduled an appointment for Chloe with Ananya Oleary of [facility] on 09/18/2021 at 12:45 pm. CHRIS also drafts a last dose letter and faxes it to AHMET.
--- NOTE | 2021-09-13 19:10 | PDOC.ERCMPRO ---
- If Service Date Differs Date of service: 09/13/21 Time of Service: 19:10 Care Management Progress Note CHRIS receives a telephone call from Jenna Hilliard, [facility] RN, and Chloe. Jenna advises that Yoly at [facility] is sending an ambulance to Chloe's location and that she will soon be transported to [facility] emergency room. Jenna states that Chloe has been off of Methadone for approximately 7 days and she is actively withdrawing from it. She is additionally drinking large amounts of alcohol and experienced a seizure last evening. She goes on to say that [facility] in [place] has accepted Chloe for admission but they are requesting that she be started back on Methadone before they will accept her. Her hope is that [facility] will treat her withdrawal symptoms and will restart her Methadone, so that she can transfer to [facility] in a few days. Chloe is given 60 mg of Methadone in the ED and is discharged to a friend's home. 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 CHRIS scheduled an appointment for Chloe with Ananya Oleary of [facility] on 09/18/2021 at 12:45 pm. CHRIS also drafts a last dose letter and faxes it to AHMET.
== END 2021-09-13 13:56 | disposition home or self-care (01) ==
LOC: ER 12:05
PROVIDERS: Emergency Provider Emergency Medicine; PCP Nurse Practitioner Family
DX: F10.220 Alcohol dependence with intoxication, uncomplicated (principal); Y90.8 Blood alcohol level of 240 mg/100 ml or more; R11.2 Nausea with vomiting, unspecified; F11.13 Opioid abuse with withdrawal; S69.92XA Unspecified injury of left wrist, hand and finger(s), initial encounter; W22.09XA Striking against other stationary object, initial encounter
CPT/HCPCS: 80053; 80307; 96361; 96374; 99284; 73130; 80320; 81003; 83735; 84443; 84703; 85025; J2765

== ENCOUNTER 2021-11-28 15:24 | Outpatient (REF) | payer MEDICAID, SELFPAY ==
--- NOTE | 2021-11-28 14:45 | PAPFT_PTH ---
PATIENT: Chloe Manriquez LOC: [facility] U#:[id number] AGE/SX: 36/F ROOM: RE11/28/[address]: Samanta Palacios MD : 1985 BED: DIS: 11/28/2021 SPEC #: [id number] RECD: 11/28/21 18:31 STATUS: LAURA RERamírez #: [id number] SHAZIA: 11/28/21 14:[address]: Samanta Palacios DEPT: [facility] Cytology RECD BY: Mague See ENTERED: 11/28/21 18:31 SP TYPE: PAPFT OTHR DR: Ananya Oleary Tissues: 1 - CX/ENDOCX FOR PAP SMEARS Procedures: PAP THIN PREP/UVM Screening HPV DNA PROBE Comments: [id number]
[2021-11-30 15:02] LABS: Chlamydia Result Negative (Negative); GC Result Negative (Negative)
== END 2021-11-28 15:25 | disposition home or self-care (01) ==
LOC: LBN 15:24
PROVIDERS: PCP Nurse Practitioner Family; Visit Provider Obstetrics & Gynecology
DX: Z11.3 Encounter for screening for infections with a predominantly sexual mode of transmission (principal); N89.8 Other specified noninflammatory disorders of vagina; Z12.4 Encounter for screening for malignant neoplasm of cervix; Z11.51 Encounter for screening for human papillomavirus (HPV); R87.810 Cervical high risk human papillomavirus (HPV) DNA test positive
CPT/HCPCS: 87491; 87591; 88142; 87480; 87510; 87624; 87660

== ENCOUNTER 2021-12-12 13:36 | Outpatient (REF) | payer MEDICAID, SELFPAY ==
--- NOTE | 2021-12-12 13:25 | CER_PTH ---
PATIENT: Chloe Manriquez LOC: [facility] U#:[id number] AGE/SX: 36/F ROOM: RE12/12/[address]: Samanta Palacios MD : 1985 BED: DIS: 12/12/2021 SPEC #: [id number] RECD: 12/12/21 17:17 STATUS: LAURA ROBLERO #: [id number] SHAZIA: 12/12/21 13:[address]: Samanta Palacios DEPT: Surgical Specimen RECD BY: Mague See ENTERED: 12/12/21 17:18 SP TYPE: CER OTHR DR: Ananya Oleary Tissues: 1 - CERVICAL BIOPSY 2 - ENDOCERVICAL BX/CURRETTE Procedures: GROSS AND MICRO LEVEL 4 P16 IPEX Comments: [id number]
== END 2021-12-12 13:37 | disposition home or self-care (01) ==
LOC: LBN 13:36
PROVIDERS: PCP Nurse Practitioner Family; Visit Provider Obstetrics & Gynecology
DX: N87.9 Dysplasia of cervix uteri, unspecified (principal); R23.4 Changes in skin texture
CPT/HCPCS: 88305; 88342

== ENCOUNTER 2022-07-09 15:43 | Outpatient (REF) | payer MEDICAID, SELFPAY | END 2022-07-09 15:44 | disposition home or self-care (01) | LOC: NCHCN 15:43 | PROVIDERS: PCP Nurse Practitioner Family; Visit Provider Physician Assistant Medical | DX: L29.8 Other pruritus (principal); N76.0 Acute vaginitis | CPT/HCPCS: 87480; 87510; 87660 ==

== ENCOUNTER 2023-02-13 01:10 | Outpatient (CLI) | payer MEDICAID, SELFPAY ==
--- NOTE | 2023-02-13 | DI.US_ITS ---
Exam(s) US BREAST RT COMPLETE MG MAMMO DIAGNOSTIC BI EXAM: MG MAMMO DIAGNOSTIC BI CLINICAL HISTORY: BREAST LUMP N63.0 FAM HX BREAST CANCER Z80.3. TECHNIQUE: Spot compression digital Mammography views of the bothbreasts with Tomosynthesis followe d by bilateral breast ultrasound. COMPARISON: US US BREAST RT COMPLETE from 02/13/2023 . Baseline examination. FINDINGS: RIGHT BREAST: The patient noted a lump in the lateral right breast which has since resolved. Mammography/Tomosynthesis: Masses/Architectural Distortion: Small circumscribed nodule visible posterior right breast on the CC view. Microcalcifictions: No suspicious pleomorphic-type are seen. Few scattered benign calcifications. Skin Thickening/Nipple Retraction: None. Right breast US: Echotexture: Normal appearance of the glandular tissue. Shadowing: No suspicious foci. Cyst: Several small cysts noted, less than 1 cm. Solid lesions: None seen. Ductal dilation: None. LEFT BREAST: Mammography/Tomosynthesis: Masses/Architectural Distortion: None seen. Microcalcifictions: No suspicious pleomorphic-type are seen. Scattered benign calcifications. Skin Thickening/Nipple Retraction: None. IMPRESSION: 1. Right breast: No evidence of malignancy is noted. 2. Left breast: No evidence of malignancy is noted. 3. Unless there is more urgent need, follow-up screening mammography is recommended, as per [place] [employer] guidelines. 4. The findings were discussed with the patient on the date of the examination. BI-RADS Category 2 - Benign Findings Breast Density - Category D - Extremely dense A mammogram that demonstrates density of C or D indicates the patient's breast tissue is dense. Dense breast tissue is very common and is not abnormal, but dense breast tissue can make it harder to find cancer on a mammogram. Also, dense breast tissue may increase their breast cancer risk. This informa tion about the result of the mammogram report was provided to the patient to raise their awareness. U se this report when you speak with the patient about their risks for breast cancer, which includes th eir family history. At that time, you may recommend for more screening tests (Ultrasound or MRI) as t hey might be useful based on their risk. A negative radiographic report should not delay biopsy if a dominant or clinically suspicious mass is present. Up to ten percent of cancers are not identified on mammography. A negative report may reinforce clinical impression. Adenosis and dense breasts may obscure an underlying neoplasm. False positive reports average 6 to 10%. Patient will receive a letter notifying them of these results.
== END 2023-02-13 01:30 ==
LOC: DI 01:11
PROVIDERS: PCP Nurse Practitioner Family; Visit Provider Family Medicine
DX: N63.15 Unspecified lump in the right breast, overlapping quadrants (principal); Z80.3 Family history of malignant neoplasm of breast; N60.11 Diffuse cystic mastopathy of right breast
CPT/HCPCS: 76642; 77062; 77066; G0279

== ENCOUNTER 2023-02-17 11:12 | Emergency (ER) | payer MEDICAID, SELFPAY ==
--- NOTE | 2023-02-17 11:00 | RT.EKG_ITS ---
APPROVED REPORT Exam: Resting ECG Reason for Exam: palpitations Patient Location: E HR:110 bpm ECG Measurements Heart Rate [address] 132 P 80 QRSd 82 QRS 106 QT 318 T 64 QTc 431 Conclusion Sinus tachycardia...rate> 99 Probable lateral infarct, old...Q>35mS, abnormal ST-T, V5-6 I aVL
[2023-02-17 11:10] VITALS: BP 113/97; PULSE 107; RESP 18; O2SAT 100
--- NOTE | 2023-02-17 11:23 | NUR.NOTE ---
pt upset that she is being asked to wait in waiting room due to no bed available at this time. Pt also upset with being asked questions during triage. pt states i probably had a drug induced heart attack and you people are so rude and making me wait in the waiting room, I'm leaving. Pt then proceeded to walk out the front doors of the ED. MD Bobo made aware and has reviewed ekg.
== END 2023-02-17 11:29 | disposition left against medical advice (07) ==
LOC: ER 11:43
PROVIDERS: PCP Nurse Practitioner Family
DX: Z53.21 Procedure and treatment not carried out due to patient leaving prior to being seen by health care provider (principal)
CPT/HCPCS: 93005; 93010

== ENCOUNTER 2023-04-04 13:24 | Outpatient (REF) | payer MEDICAID, SELFPAY ==
--- NOTE | 2023-04-04 11:55 | PAPFT_PTH ---
PATIENT: Chloe Manriquez LOC: [facility] U#:[id number] AGE/SX: 38/F ROOM: RE04/04/[address]: Samanta Palacios MD : 1985 BED: DIS: 04/04/2023 SPEC #: [id number] RECD: 04/04/23 13:36 STATUS: LAURA REQ #: [id number] SHAZIA: 04/04/23 11:[address]: Samanta Palacios [facility] Cytology RECD BY: Mague See ENTERED: 04/04/23 13:36 SP TYPE: PAPFT OTHR DR: Jewell James Tissues: 1 - CX/ENDOCX FOR PAP SMEARS Procedures: PAP THIN PREP/UVM Screening HPV DNA PROBE Comments: [id number] (HPV 16 & 18/45) (CHLAMYDIA/GC)
[2023-04-07 15:45] LABS: Chlamydia Result Negative (Negative); GC Result Negative (Negative)
== END 2023-04-04 13:25 | disposition home or self-care (01) ==
LOC: LBN 13:24
PROVIDERS: PCP Physician Assistant Medical; Visit Provider Obstetrics & Gynecology
DX: N94.89 Other specified conditions associated with female genital organs and menstrual cycle (principal); N89.8 Other specified noninflammatory disorders of vagina; Z11.3 Encounter for screening for infections with a predominantly sexual mode of transmission; Z12.4 Encounter for screening for malignant neoplasm of cervix; Z11.51 Encounter for screening for human papillomavirus (HPV); R87.810 Cervical high risk human papillomavirus (HPV) DNA test positive
CPT/HCPCS: 87491; 87591; 88142; 87480; 87510; 87624; 87660

== ENCOUNTER 2023-04-08 08:52 | Day surgery (SDC) | payer MEDICAID, SELFPAY ==
--- NOTE | 2023-04-07 19:47 | PDOC.DSDIS_ITS ---
Date of service: 04/08/23 Time of Service: 12:45 Discharge Plan Disposition Patient Disposition: Home Condition: Good Discharge Details Reason For Visit: stomach and colon scope Attending Provider: Agustina Ware Primary Care Provider: Jewell James Home Meds and New Rx's Prescriptions: No Action (DME) nebulizers [Aeroeclipse Reusable BAN] [facility] [place] ea Miscellaneous Q4H PRN Qty: 1 0RF Rx Instructions: To be used w/ albuterol nebulizer solution. Please dispense system that is covered by insurance. (DME) [place]bulizers [facility] [place] Dose Instructions .ROUTE .MEDSUPPLY Qty: 1 0RF Dose Instruction: As directed Rx Instructions: As directed Q4-6H PRN with albuterol omeprazole 40 mg capsule,delayed release(DR/EC) 40 mg PO DAILY Nexplanon 68 mg implant 1 implant subdermal ONCE Rx Instructions: as a single dose methocarbamol 500 mg tablet 500 mg PO QHS lidocaine [LC-5] 5 % cream 1 applic Topical 2-4 times daily PRN Qty: 45 1RF Rx Instructions: Dispense lidocaine 5% cream, ointment, or gel Apply to affected area 2-4 times daily as needed melatonin 5 mg tablet 10 mg PO HS Qty: 180 0RF sucralfate [Carafate] 1 gram tablet 1 g PO QACHS buspirone 10 mg tablet 10 mg PO TID clonidine HCl 0.3 mg tablet 0.3 mg PO TID multivitamin Tablet 1 tab PO DAILY polyethylene glycol 3350 17 gram/dose powder 238 g PO ONCE Qty: 238 0RF Rx Instructions: take per colonoscopy instructions bisacodyl [Dulcolax (bisacodyl)] 5 mg tablet,delayed release (DR/EC) 5 mg PO ONCE Qty: 4 0RF Rx Instructions: take per colonoscopy instructions albuterol sulfate [ProAir HFA] 90 mcg/actuation HFA aerosol inhaler 1 - 2 puff Inhalation Q4-6H PRN PRN (Reason: shortness of breath or wheezing) Qty: 3 0RF Rx Instructions: DISPENSE ALBUTEROL INHALER BRAND COVERED BY INSURANCE albuterol sulfate 2.5 mg/0.5 mL solution for nebulization 2.5 mg Inhalation .Q4-6H PRN (Reason: shortness of breath or wheezing) Qty: 30 3RF metronidazole 0.75 % (37.5mg/5 gram) gel 1 appful vaginal DAILY 5 Days Qty: 70 0RF buprenorphine-naloxone [Suboxone] 8-2 mg film 1 film sublingual BID Patient Comments: DISSOLVE 2 FILMS UNDER THE TONGUE ONCE LAGUNAS FOR 7 DAYS acetaminophen [Mapap Extra Strength] 500 mg tablet 1,000 mg PO TID pregabalin 75 mg capsule 75 mg PO BID Patient Comments: TAKE ONE CAPSULE BY MOUTH AT BEDTIME FOR 1 WEEK THEN INCREASE TO ONE TWICE DAILY Discharge Instructions Additional Instructions: DSU Colonoscopy Post- Op Instructions Instructions for Everyone who is given Anesthesia: For your safety, please do the following for the next twenty-four (24) hours: *Do Not operate a motor vehicle (car, truck, motorcycle, etc.) *Do Not drink alcoholic beverages or use any recreational drugs for the first 24 hours or while taking pain medications. The medications in your body may have a reaction that can be dangerous. *Do Not make any important decisions or sign any important papers. Findings: gastritis Follow up: 2 wks Continue with lifestyle modifications: no alcohol, tobacco products, Aspirin or NSAID's (ibuprofen, Motrin, Naprosyn, aleve, etc), soda pop/any carbonated beverages, caffeine (including tea & chocolate), and acidic foods, (tomatoes, citrus, onions, peppermints) spicy or fried/fatty foods. Do not lie down for 30 minutes after eating, and do not eat 2 hours prior to bedtime. Avoid wearing tight fitting clothing/ belts -continue protonix and carafate 1. No lifting over 20 pounds or strenuous activity for the first 24 hours after your procedure. After 24 hours there are no restrictions on your activity but you may feel fatigued for a few days. 2. After you arrive home you may have a light meal and return to your normal diet as you can tolerate it without feeling sick to your stomach. 3. You may have a bloated, gaseous feeling in your belly (abdomen) after a colonoscopy. Passing gas and belching will help. Walking or lying down on your left side with your knees flexed may relieve the discomfort. Call the office at [phone] (Office) or [phone] (Hospital) right away if you notice any of the following: a.Vomiting of blood or ?coffee ground stools?. b.Rectal bleeding 1Tbsp, blood clots or continuous bleeding. c.Severe belly (abdominal) pain. d.A hard distended belly (abdomen) and an inability to pass gas. 4. Please don?t expect to have a normal BM (bowel movement) for 2-3 days after your procedure. 5. If there are questions regarding the findings of your procedure, please contact your doctor 6. If you are unable to contact your doctor with a problem, contact the hospital at [phone]. 7. Continue all your regular medications unless directed otherwise. I understand the above instructions and have no questions. Signature of Patient or Adult Escort Name of Responsible Adult Escort Signature of Nurse Date/Time Activity:: see above Diet:: As Tolerated Discharge Orders Discharge Orders: Discharge Order (Routine); Ordered 04/08/23 Ordered By: Agustina Ware DS: Diagnosis Discharge Diagnosis (1) Esophagitis: Status: Acute (2) Abdominal pain: Status: Acute Asessment and Plan: The patient is seen and examined after their colonoscopy.? The patient has been able to pass gas.? They are not having abdominal pain.? They have been able to tolerate liquids and a snack.? They do not have any nausea or vomiting.? They are not having any chest pain or shortness of breath.??? They are not having any rectal bleeding..? Their vital signs have been stable-see nursing notes. We discussed findings during their colonoscopy, and any biopsies that were don e/polyps that were removed. The patient will be sent a letter with any biopsy results, and when to repeat the colonoscopy.-see discharge instructions. Patient was given explicit instructions to follow-up regarding colonoscopy-refer to discharge instructions.? We reviewed resumption of medications. Patient verbalized understanding and discharged in stable and satisfactory condition- See nursing notes. (3) Constipation: Status: Acute (4) Constipation due to opioid therapy: (5) GERD (gastroesophageal reflux disease): (6) Hepatitis C virus infection without hepatic coma: (7) Hiatal hernia: (8) History of alcohol abuse: (9) Anxiety: Status: Chronic (10) Tobacco dependence: Status: Chronic (11) Chronic pain:
[2023-04-08 09:00] VITALS: BP 117/79; PULSE 61; RESP 18; TEMP 36.8; O2SAT 100
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
[2023-04-08] MEDS: Lactated Ringers 1,000 ML 80 ML IV (10:46)
[2023-04-08 10:48] VITALS: BMI 20.7
--- NOTE | 2023-04-08 11:02 | BOWEL_PTH ---
PATIENT: Chloe Manriquez LOC: [facility] U#:[id number] AGE/SX: 38/F ROOM: RE04/08/[address]: Agustina Ware : 1985 BED: DIS: 04/08/2023 SPEC #: [id number] RECD: 04/08/23 12:42 STATUS: LAURA Ramírez #: [id number] SHAZIA: 04/08/23 11:[address]: Agustina Ware DEPT: Surgical Specimen RECD BY: Mague See ENTERED: 04/08/23 12:45 SP TYPE: Bowel OTHR DR: Jewell James Tissues: 1 - BIOPSY BOWEL 2 - BIOPSY BOWEL 3 - STOMACH BIOPSY 4 - STOMACH BIOPSY 5 - ESOPHAGUS BIOPSY 6 - ESOPHAGUS BIOPSY 7 - BIOPSY BOWEL 8 - BIOPSY BOWEL 9 - BIOPSY BOWEL 10 - BIOPSY BOWEL 11 - BIOPSY BOWEL 12 - BIOPSY BOWEL Procedures: GROSS AND MICRO LEVEL 4 Comments: [id number]
[2023-04-08 11:40] VITALS: BP 84/43; PULSE 47; RESP 14; TEMP 36.7; O2SAT 100
[2023-04-08 11:53] VITALS: BP 114/62; PULSE 50; RESP 16; O2SAT 100
--- NOTE | 2023-04-08 11:57 | ENDO_ITS ---
Date of service: 04/08/23 Time of Service: 11:57 Endoscopy Report DATE OF PROCEDURE: 04/08/23 PRE-OP DIAGNOSIS: epigasric pain/ N&V POST-OP DIAGNOSIS: other (moderate gastritis ) SURGEON: Agustina Ware ANESTHESIA TYPE: General:No Airway ESTIMATED BLOOD LOSS: 1 PATHOLOGY: other DISPOSITION: same day PROCEDURE DESCRIPTION: After informed consent was obtained the patient was take to the procedure room and placed in a supine position. Monitors were applied and a time out was done. The patients name, date of , procedure type, allergies to medications and metal in their body was reviewed. A bite block was placed and the patient was sedated. Once sedated and comfortable the gastroscope was advanced through the oropharynx which was grossly normal into the esophagus. The proximal and mid- esophagus were normal varices, diverticula, or stricture apparent. There is no hiatal hernia.. In the distal esophagus there was The scope was advanced into the stomach and through the pylorus into the 3rd portion of the duodenum. The duodenum was noted to be normal. Biopsies were done all specimens are retrieved and no bleeding is noted. The scope was retracted back into the stomach and biopsies were done to rule out H. pylori. There were no moderate gastritis in a striped fashion radiating from the antrum. There is no signs of active or old bleeding. The scope was retroflexed. The cardia and fundus were noted to be normal. There no a hiatal hernia noted. The scope was retracted back into the esophagus and biopsies were done of the GE junction to rule out Berg's. The Z line was irregular. The GE junction was at 40 cm. The distal esophagus is at 38 cm. Biopsies are taken here as well. the scope was removed and the patient was woken up and taken back to [facility] in stable condition.
--- NOTE | 2023-04-08 12:00 | W.COLOREPORT ---
Date of service: 04/08/23 Time of Service: 12:00 Colonoscopy Report Date of procedure: 04/08/23 Pre-op diagnosis general: Right lower quadrant abdominal pain/family history of colon cancer v Crohns Post-op diagnosis procedure note: same Surgeon: Agustina Ware Anesthesia Type: General:No Airway Estimated blood loss (mL): 1 Pathology: other Complications: None Disposition: same day Prep: Miralax/Dulcolax Retraction Time: 10 Procedure Description: After informed consent was obtained the patient was taken to the procedure room and placed in a left decubitous position. Monitors were applied and a time out was done. The patients name, date of , procedure, allergies to medications and metal in their body was reviewed. The patient was then sedated. Once sedated and comfortable a rectal exam was done. External exam was normal. Internal exam revealed a normal sphincter tone and no palpable masses. There are no internal or external hemorrhoids. The scope was then introduced and retrofelexed. No internal hemorrhoids were identified. The scope was then advanced to the cecum without difficulty. The TI and appendiceal orifice were identified. The prep was BBPS 3 in all segments for total of 9. The scope was then slowly retracted over 10 minutes back into the rectum. There are no polyps, AVMs, or diverticula visualized today. The mucosa is pink and healthy with a normal vascular pattern. Biopsies are taken at cecum/80/60/40 centimeters in the rectum. All specimens are retrieved and no bleeding is noted. the scope was removed and the patient was woken up and taken back to Same day surgery in stable condition. The patient tolerated the procedure well and there were no immediate complications. Follow up: The patient should follow up in 5-10 years unless they develop changes in bowel habits or other new gastrointestinal complaints.
[2023-04-08 12:14] VITALS: BP 114/77; PULSE 52; RESP 16; TEMP 36.3; O2SAT 100
--- NOTE | 2023-04-08 12:34 | W.ANESPOSTOP ---
Postoperative Evaluation Date, Time and Location Date Performed: 04/08/23 Time Performed: 12:34 Patient Location: Day Surgery Unit Vital Signs Most Recent Imported Vital Signs: Most Recent Vital Signs Temp Pulse Resp BP Pulse Ox 36.7 C 50 L 16 114/62 100 04/08/23 11:40 04/08/23 11:53 04/08/23 11:53 04/08/23 11:53 04/08/23 11:53 Pain Score Most Recent Pain Score: Most Recent Pain Score Pain Level 0 04/08/23 11:53 Assessment Mental Status: Awake (Alert & Oriented to Patient Baseline) Airway and Respiratory Function: Patent airway with normal (patient baseline) respiratory exam Cardiovascular Function: Hemodynamically Stable Hydration Status: Adequately Hydrated Nausea & Vomiting: No Nausea or Vomiting Pain: Pt. Denies Any Pain Peripheral Nerve Block: Patient did not receive a nerve block
== END 2023-04-08 13:05 | disposition home or self-care (01) ==
LOC: SUR 08:53
PROVIDERS: PCP Physician Assistant Medical; Visit Provider Surgery
PROC: (CPT 45380; principal; 2023-04-08 10:30)
DX: K20.90 Esophagitis, unspecified without bleeding (principal); K59.00 Constipation, unspecified; R10.31 Right lower quadrant pain; K29.70 Gastritis, unspecified, without bleeding; Z80.0 Family history of malignant neoplasm of digestive organs; F10.90 Alcohol use, unspecified, uncomplicated; F11.10 Opioid abuse, uncomplicated; M79.7 Fibromyalgia; K22.89 Other specified disease of esophagus
CPT/HCPCS: 45380; 43239; 81025; 88305; J2001; J2704

== ENCOUNTER 2023-05-06 03:17 | Outpatient (CLI) | payer MEDICAID, SELFPAY ==
[2023-05-06 14:09] LABS: HCT 36.8 % (36.0-46.0); HGB 12.5 g/dL (11.2-15.7); MCH 31.3 pg (27.0-33.0); MCV 92 fL (80-95); MPV 9.3 fL (8.0-11.0); Platelet Count 212 10^3/uL (130-400); RBC 3.99 10^6/uL (3.93-5.22); RDW-SD 43.8 fL; WBC 5.73 10^3/uL (4.4-10.8)
[2023-05-07 11:07] LABS: HIV-1/2 Ag & Ab Screen Negative (Negative)
[2023-05-07 12:05] LABS: HBs Antibody, Qual Positive (See Note); HBs Antibody, Quant >1000.0 mIU/mL (See Note); Hepatitis B Core Antibody Negative (Negative); Hepatitis B surface Ag Negative (Negative); Hepatitis C Ab w Rflx HCV PCR Reactive (Negative)
[2023-05-07 14:09] LABS: Syphilis Serology (RPR) Negative (Negative)
[2023-05-08 11:22] LABS: HCV RNA Detection Quantitative 1620000 IU/mL (Undetected); HCV RNA Qualitative Detected (Undetected)
== END 2023-05-06 03:18 | disposition home or self-care (01) ==
LOC: LBO 03:17
PROVIDERS: PCP Physician Assistant Medical; Visit Provider Obstetrics & Gynecology
DX: Z11.3 Encounter for screening for infections with a predominantly sexual mode of transmission (principal); Z01.818 Encounter for other preprocedural examination
CPT/HCPCS: 36415; 85027; 86704; 86706; 86803; 86850; 86900; 86901; 87340; 87389; 87522; 86592

== ENCOUNTER 2023-05-07 08:57 | Day surgery (SDC) | payer MEDICAID, SELFPAY ==
[2023-05-07] VITALS (10 sets, daily range): BP systolic 101–135; BP diastolic 48–91; PULSE 53–65; RESP 13–24; TEMP 36.3–36.6; O2SAT 95–100; BMI 21.4
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
[2023-05-07] MEDS: Lactated Ringers 1,000 ML 125 ML IV (10:03)
--- NOTE | 2023-05-07 10:53 | FALL_PTH ---
PATIENT: Chloe Manriquez LOC: [facility] U#:[id number] AGE/SX: 38/F ROOM: RE05/07/[address]: Samanta Palacios MD : 1985 BED: DIS: 05/07/2023 SPEC #: [id number] RECD: 05/07/23 12:44 STATUS: LAURA RERamírez #: [id number] SHAZIA: 05/07/23 10:[address]: Samanta Palacios DEPT: Surgical Specimen RECD BY: Mague See ENTERED: 05/07/23 12:45 SP TYPE: Fall OTHR DR: Jewell James Tissues: 1 - FALLOPIAN TUBE (STERILIZATION) Procedures: GROSS AND MICRO LEVEL 2 Comments: [id number]
[2023-05-07] MEDS: Bupivacaine 0.25% Pres-Free 30 ML VIAL (11:02)
--- NOTE | 2023-05-07 11:58 | W.PM.OP ---
Date of service: 05/07/23 Time of Service: 10:00 Operative Note Operative Note DATE OF PROCEDURE: 05/07/23 PRE-OP DIAGNOSIS: Desires permanent sterilization POST-OP DIAGNOSIS: same PROCEDURE: Laparoscopic bilateral salpingectomy, removal of nexplanon device SURGEON: Samanta Palacios ASSISTING SURGEON: Thea Orozco Refer to Anesthesia Record ESTIMATED BLOOD LOSS: 20 COMPLICATIONS: None Patient was transported to: PACU Patient's condition: stable Indications: Pt is unhappy with her nexplanon device and desires permanent sterilization. Findings: Normal external genitalia. Normal appearing uterus, ovaries and tubes. Procedure Description: After informed consent was signed the patient was taken to the operating room and given general anesthesia.? SCDs were placed on her legs.? She was prepped and draped in the dorsal lithotomy position in the [facility].? Her bladder was drained of urine prior to arrival in the OR. A speculum was placed into the vagina to expose the cervix and a Siteflylka manipulator was placed into the cervix. The speculum was removed. Gloves were changed and attention was turned to the abdomen. The infraumbilical fold was grasped and injected with 0.25% marcaine with epinephrine. A 5mm incision was made in the infraumbilical fold with the scalpel. A hemostat was used to bluntly dissect the subcuticular layers. The fascia was grasped with aki clamps and incised. The incision was extended with blunt pressure. The peritoneum was grasped and incised with metzembaum scissors. The visiport was used to enter the abdomen under direct visualization. Once entrance to the abdominal cavity was confirmed the CO2 was turned on and the abdomen was insufflated. Two lateral 5mm ports were then placed under direct visualization. The left tube was identified and followed to the fimbriated end. The tube was grasped and elevated and the mesosalpinx was clamped, cauterized and cut with the ligasure device. The was continued along the length of the tube. The proximal end of the tube was then transected with the ligasure. Good hemostasis was noted. The right tube was then identified and followed to the fimbriated end. The tube was grasped and elevated and the mesosalpinx was clamped, cauterized and cut with the ligasure device. The was continued along the length of the tube. The proximal end of the tube was then transected with the ligasure. Good hemostasis was noted on both sides. The ports were removed. The gas was released from the abdomen. The skin incisions were then closed with 4-0 vicryl. Mastisol and steristrips were placed. The manipulator was removed. The patient was placed back into the supine position.? She was moved to the stretcher and taken to the recovery room in stable condition.
--- NOTE | 2023-05-07 12:41 | PDOC.DSDIS_ITS ---
Date of service: 05/07/23 Time of Service: 12:41 Discharge Plan Disposition Patient Disposition: Home Condition: Stable Discharge Details Attending Provider: Samanta Palacios Primary Care Provider: Jewell James Home Meds and New Rx's Prescriptions: No Action (DME) nebulizers [Aeroeclipse Reusable BAN] mis 1 ea Miscellaneous Q4H PRN Qty: 1 0RF Rx Instructions: To be used w/ albuterol nebulizer solution. Please dispense system that is covered by insurance. (DME) nebulizers [facility] [place] Dose Instructions .ROUTE .MEDSUPPLY Qty: 1 0RF Dose Instruction: As directed Rx Instructions: As directed Q4-6H PRN with albuterol omeprazole 40 mg capsule,delayed release(DR/EC) 40 mg PO DAILY Nexplanon 68 mg implant 1 implant subdermal ONCE Rx Instructions: as a single dose methocarbamol 500 mg tablet 500 mg PO QHS lidocaine [LC-5] 5 % cream 1 applic Topical 2-4 times daily PRN Qty: 45 1RF Rx Instructions: Dispense lidocaine 5% cream, ointment, or gel Apply to affected area 2-4 times daily as needed melatonin 5 mg tablet 10 mg PO HS Qty: 180 0RF sucralfate [Carafate] 1 gram tablet 1 g PO QACHS buspirone 10 mg tablet 10 mg PO TID clonidine HCl 0.3 mg tablet 0.3 mg PO TID multivitamin Tablet 1 tab PO DAILY polyethylene glycol 3350 [Miralax] 17 gram/dose powder 17 g PO DAILY Qty: 510 12RF albuterol sulfate [ProAir HFA] 90 mcg/actuation HFA aerosol inhaler 1 - 2 puff Inhalation Q4-6H PRN PRN (Reason: shortness of breath or wheezing) Qty: 3 0RF Rx Instructions: DISPENSE ALBUTEROL INHALER BRAND COVERED BY INSURANCE albuterol sulfate 2.5 mg/0.5 mL solution for nebulization 2.5 mg Inhalation .Q4-6H PRN (Reason: shortness of breath or wheezing) Qty: 30 3RF buprenorphine-naloxone [Suboxone] 8-2 mg film 1 film sublingual BID Patient Comments: DISSOLVE 2 FILMS UNDER THE TONGUE ONCE LAGUNAS FOR 7 DAYS 05/01/23 Pt reports she is currently taking 24mg Daily. Mimi,RN acetaminophen [Mapap Extra Strength] 500 mg tablet 1,000 mg PO TID pregabalin 75 mg capsule 75 mg PO BID Patient Comments: TAKE ONE CAPSULE BY MOUTH AT BEDTIME FOR 1 WEEK THEN INCREASE TO ONE TWICE DAILY Discharge Instructions Activity:: no lifting >20lbs x1wk Remove Dressings/Wound Care:: 24 hours Shower/Bathe:: 24 hours Diet:: As Tolerated Discharge Orders Discharge Orders: Discharge Order (Routine); Ordered 05/07/23 Ordered By: Samanta Palacios
--- NOTE | 2023-05-07 13:28 | W.ANESPOSTOP ---
Postoperative Evaluation Date, Time and Location Date Performed: 05/07/23 Time Performed: 13:28 Patient Location: Day Surgery Unit Vital Signs Most Recent Imported Vital Signs: Most Recent Vital Signs Temp Pulse Resp BP Pulse Ox 36.6 C 65 18 121/81 100 05/07/23 13:08 05/07/23 13:08 05/07/23 13:08 05/07/23 13:08 05/07/23 13:08 Pain Score Most Recent Pain Score: Most Recent Pain Score Pain Level 6 05/07/23 13:08 Assessment Mental Status: Awake (Alert & Oriented to Patient Baseline) Airway and Respiratory Function: Patent airway with normal (patient baseline) respiratory exam Cardiovascular Function: Hemodynamically Stable Hydration Status: Adequately Hydrated Nausea & Vomiting: No Nausea or Vomiting Pain: Pain is tolerable per patient Peripheral Nerve Block: Patient did not receive a nerve block
== END 2023-05-07 13:37 | disposition home or self-care (01) ==
PROVIDERS: PCP Physician Assistant Medical; Visit Provider Obstetrics & Gynecology
PROC: (CPT 58661; principal; 2023-05-07 10:00)
DX: Z30.2 Encounter for sterilization (principal); Z30.9 Encounter for contraceptive management, unspecified
CPT/HCPCS: 58661; 11982; 81025; 88302; J0131; J0690; J1100; J1885; J2250; J2405; J2704; J3475

== ENCOUNTER 2023-06-23 00:29 | Outpatient (CLI) | payer MEDICAID, SELFPAY ==
--- NOTE | 2023-06-23 | DI.MRI_ITS ---
Exam(s) MR LOWER JOINT LT WO EXAM: MR LOWER JOINT LT WO CLINICAL HISTORY: LEFT LEG PAIN M79.605 HX INJURY LET KNEE. TECHNIQUE: Multiplanar multisequence MRI was performed. COMPARISON: No recent plain films. CR XR KNEE LT 4V AP,LAT,JOHANNA,PAT from 04/20/2020 MR MR LOWER JOINT LT WO from 04/20/2020 FINDINGS: BONES: There is no fracture or contusion pattern. Postsurgical defects in the lateral tibial platea u and proximal fibula. JOINTS: A minimal joint effusion is present. Articular cartilage: Patellofemoral joint: Articular cartilage is unremarkable. Medial femoral tibial joint: Articular cartilage is unremarkable. Lateral femoral tibial joint: Articular cartilage is unremarkable. TENDONS: Extensor mechanism: Unremarkable. Medial retinaculum: Unremarkable. Lateral retinaculum: Unremarkable. Popliteus: Unremarkable. MUSCLES: Unremarkable. MENISCI: The medial meniscus is unremarkable. The lateral meniscus is unremarkable. SOFT TISSUES: Unremarkable. LIGAMENTS: Anterior Cruciate: Not visible. Posterior Cruciate: Unremarkable. Medial Collateral:Unremarkable. Lateral Collateral: Metallic artifact related to prior surgical repair.. No evidence of acute tear. OTHER: IMPRESSION: Postsurgical changes of the lateral knee. ACL not visualized. Consistent with a chronic tear. No a cute abnormalities identified. DATA REPOSITORY:
== END 2023-09-03 13:58 ==
LOC: DI 00:29
PROVIDERS: PCP Physician Assistant Medical; Visit Provider Orthopaedic Surgery
DX: Z98.890 Other specified postprocedural states (principal); M19.072 Primary osteoarthritis, left ankle and foot; T14.90XA Injury, unspecified, initial encounter
CPT/HCPCS: 73721

== ENCOUNTER 2023-08-01 05:05 | Emergency (ER) | payer MEDICAID, SELFPAY ==
[2023-08-01] VITALS (8 sets, daily range): BP systolic 115–146; BP diastolic 81–121; PULSE 48–73; RESP 14–16; TEMP 35.9–36.5; O2SAT 93–97
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
[2023-08-01] MEDS: Normal Saline 1,000 ML 1000 ML IV (05:18)
[2023-08-01 05:25] LABS: Abs Immature Grans 0.03 10^3/uL (0.0-0.06); Absolute Basophil Count 0.07 10^3/uL (0.0-0.2); Absolute Eosinophil Count 0.25 10^3/uL (0.0-0.7); Absolute Lymphocyte Count 3.54 10^3/uL (1.2-3.4); Absolute Monocyte Count 0.88 10^3/uL (0.1-0.8); Absolute Neutrophil Count 5.39 10^3/uL (1.2-6.7); Basophils % 0.7; Eosinophils % 2.5; HCT 46.3 % (36.0-46.0); HGB 15.7 g/dL (11.2-15.7); Immature Grans % 0.3; Lymphocytes % 34.8; MCH 30.9 pg (27.0-33.0); MCHC 33.9 % (32.0-36.0); MCV 91 fL (80-95); MPV 8.8 fL (8.0-11.0); Monocytes % 8.7; Platelet Count 330 10^3/uL (130-400); RBC 5.08 10^6/uL (3.93-5.22); RDW 13.2 % (11.7-14.6); WBC 10.16 10^3/uL (4.4-10.8)
[2023-08-01 05:55] LABS: ALT 63 U/L (14-59); AST 71 U/L (15-37); Albumin 4.2 g/dL (3.4-5.0); Alkaline Phosphatase 97 U/L (46-116); Anion Gap 16.9 mmol/L (3-11); BUN 16 mg/dL (7-18); Bilirubin, Total 0.4 mg/dL (0.2-1.0); CO2 23.1 mmol/L (21.0-32.0); CREATININE 0.8 mg/dL (0.55-1.02); Calcium 9.3 mg/dL (8.5-10.1); Chloride 101 mmol/L (98-107); ETHANOL BLOOD 51.2 mg/dL (<10); Estimated GFR 96.06 (mL/min/1.73m2); Glucose 59 mg/dL (74-106); Potassium 3.4 mmol/L (3.5-5.1); Sodium 141 mmol/L (136-145); Total Protein 8.7 g/dL (6.4-8.2)
== END 2023-08-01 07:26 ==
LOC: ER 07:12
PROVIDERS: Emergency Provider Emergency Medicine; PCP Physician Assistant Medical
DX: E16.2 Hypoglycemia, unspecified; R06.02 Shortness of breath; F19.10 Other psychoactive substance abuse, uncomplicated; R53.83 Other fatigue
CPT/HCPCS: 36415; 80053; 82962; 96360; 99284; 80320; 85025; 99283